=== PATIENT | male | born 1945 | race Caucasian/White ===

== ENCOUNTER 2017-12-07 09:30 | Emergency (ER) | payer OTHER, MEDICARE ==
--- OUTSIDE RECORDS SUMMARY | 2017-12-07 09:34 | XMS REPORT | Clinical Summary ---
:1945 Author Organization [facility] Address [address] [place] [address] Care Team Providers Name Role Phone Tuan Loya DO Primary Care Provider Allergies Active Allergy Reactions Severity Noted Date Comments Adhesive Tape-Silicones Rash Low 06/11/2016 Magnesium Citrate Swelling 06/11/2016 Current Medications Prescription Sig. Disp. Refills Start Date End Date Status B complex with Take 1 capsule Active C#20-folic acid 1 by mouth daily. mg capsule magnesium oxide Take 400 mg by Active 400 mg capsule mouth nightly. mexiletine Take 150 mg by Active (MEXITIL) 150 MG mouth every 8 capsule (eight) hours. docusate sodium Take 200 mg by Active (COLACE) 100 MG mouth 2 (two) capsule times a day. cholecalciferol, Take 2,000 Units Active vitamin D3, by mouth daily. (VITAMIN D3) 2,000 chewables unit capsule capsule ascorbic acid, Chew. Active vitamin C, 500 mg tablet,chewable esomeprazole Take 40 mg by Active (NexIUM) 40 MG mouth daily capsule before breakfast. aspirin (ECOTRIN) Take 81 mg by Active 81 MG enteric mouth daily. coated tablet furosemide (LASIX) Take 40 mg by Active 40 mg tablet mouth daily. 3rd time if needed metoprolol Take 50 mg by Active tartrate mouth 2 (two) (LOPRESSOR) 50 mg times a day. tablet fenofibrate Take 1 tablet 90 tablet 3 02/24/2017 Active (LOFIBRA) 160 MG (160 mg total) tablet by mouth nightly. pravastatin Take 1 tablet 90 tablet 3 05/04/2017 Active (PRAVACHOL) 80 MG (80 mg total) by tablet mouth daily. amIODarone Take 1 tablet 90 tablet 3 05/12/2017 Active (PACERONE) 400 MG (400 mg total) 9 tablet by mouth daily. fluticasone Inhale 2 puffs 2 Active (FLOVENT HFA) 220 (two) times a mcg/actuation day. inhaler dicyclomine Take 20 mg by Active (BENTYL) 20 mg mouth 3 (three) tablet times a day. albuterol (PROAIR Inhale 2 puffs Active HFA,PROVENTIL every 6 (six) HFA,VENTOLIN HFA) hours as needed 90 mcg/actuation for wheezing. inhaler leuprolide acetate Inject into the Active (LUPRON DEPOT-PED, shoulder, thigh, 3 MONTH, IM) or buttocks. denosumab (XGEVA) Inject 120 mg Active 120 mg/1.7 mL (70 under the skin mg/mL) solution once. injection metoprolol TAKE 1 TABLET BY 180 tablet 0 11/24/2017 Active tartrate MOUTH TWICE (LOPRESSOR) 50 mg DAILY tablet ELIQUIS 5 mg TAKE 1 TABLET BY 60 tablet 0 11/24/2017 Active tablet MOUTH TWICE DAILY. ezetimibe (ZETIA) TAKE 1 TABLET BY 90 tablet 0 11/24/2017 Active 10 mg tablet MOUTH NIGHTLY. apixaban (ELIQUIS) Take 1 tablet 180 tablet 3 06/24/2016 Discontinued 2.5 mg (2.5 mg total) 7 tabletIndications: by mouth 2 (two) Coronary artery times a day. disease involving [place] heart with angina pectoris, unspecified vessel or lesion type (HCC), Abdominal aortic aneurysm (AAA) without rupture (HCC) dicyclomine Take 20 mg by 07/28/2016 Discontinued (BENTYL) 20 mg mouth 3 (three) 8 tablet times a day as needed. Sometimes takes 3 times a day albuterol (PROAIR Inhale 2 puffs Discontinued HFA,PROVENTIL every 6 (six) 8 HFA,VENTOLIN HFA) hours as needed 90 mcg/actuation for wheezing or inhaler shortness of breath (for difficulty breathing). amIODarone 200 mg daily. 08/20/2016 Discontinued (PACERONE) 200 MG 8 tablet fenofibrate Take 160 mg by 10/03/2016 Discontinued (LOFIBRA) 160 MG mouth nightly. 8 tablet furosemide (LASIX) three times a 3 09/29/2016 Discontinued 40 mg tablet day 7 FLOVENT HFA 110 INL 2 PFS PO BID 11 09/13/2016 Discontinued mcg/actuation 7 inhaler clopidogrel Take 1 tablet 30 tablet 3 11/07/2016 (PLAVIX) 75 mg (75 mg total) by 7 tablet mouth daily for 30 days. pantoprazole Take 1 tablet 30 tablet 0 11/07/2016 (PROTONIX) 40 MG (40 mg total) by 7 EC tablet mouth daily for 30 days. pravastatin TK 1 T PO QD 3 11/10/2016 Discontinued (PRAVACHOL) 80 MG 8 tablet IRON FUM/VIT Take by mouth. Discontinued C/ASCORBATE SOD 8 (IRON PLUS VITAMIN C ORAL) metoprolol Take 1 tablet 180 tablet 3 11/21/2016 Discontinued tartrate (50 mg total) by 8 (LOPRESSOR) 50 mg mouth 2 (two) tablet times a day for 30 days. ezetimibe (ZETIA) Take 1 tablet 90 tablet 3 12/01/2016 Discontinued 10 mg tablet (10 mg total) by 8 mouth nightly. apixaban (ELIQUIS) Take 5 mg by Discontinued 5 mg tablet mouth 2 (two) 8 times a day. fluticasone Inhale 1 puff 2 Discontinued (FLOVENT HFA) 220 (two) times a 8 mcg/actuation day as needed. inhaler ELIQUIS 5 mg TAKE 1 TABLET BY 60 tablet 0 08/07/2017 Discontinued tablet MOUTH TWICE 8 DAILY. ELIQUIS 5 mg TAKE 1 TABLET BY 60 tablet 0 10/27/2017 Discontinued tablet MOUTH TWICE 8 DAILY. Active Problems Problem Noted Date S/P mitral valve repair 12/02/2016 Overview: Transcatheter mitral valve repair, percutaneous approach including transseptal puncture. Atrial fibrillation (HCC) 11/24/2016 Mitral valve disease 11/24/2016 Acute blood loss as cause of postoperative anemia 11/03/2016 Acute respiratory insufficiency, postoperative 11/03/2016 CKD (chronic kidney disease) 09/01/2016 Dizzy 09/01/2016 Carotid bruit 09/01/2016 Hyperkalemia 08/24/2016 ARNOLD (acute kidney injury) ([facility]) 08/24/2016 V-tach ([facility]) 08/15/2016 Cardiomyopathy ([facility]) 08/05/2016 Chronic kidney disease, stage III (moderate) ([facility]) 07/26/2016 COPD (chronic obstructive pulmonary disease) ([facility]) 07/26/2016 History of prostate cancer 07/26/2016 Near syncope 07/26/2016 GERD (gastroesophageal reflux disease) 07/26/2016 Anemia 07/26/2016 Defibrillator discharge 07/25/2016 Paroxysmal atrial fibrillation ([facility]) 06/05/2016 Systolic congestive heart failure ([facility]) 06/05/2016 PAD (peripheral artery disease) ([facility]) 02/05/2016 Abdominal aortic aneurysm (AAA) ([facility]) 01/02/2016 Essential hypertension 01/02/2016 Hyperlipidemia 01/02/2016 Presence of stent in coronary artery 01/02/2016 Chronic systolic heart failure ([facility]) 01/02/2016 Urethral stricture 11/27/2011 Malignant neoplasm of prostate ([facility]) 11/19/2010 Myocardial infarct ([facility]) 08/30/2000 Encounters Date Type Specialty Care Team Description 11/24/2017 Refill Cardiology Jr Lester Refill MD Teri 11/23/2017 Refill Cardiology Jr Lester MD 11/17/2017 Office Visit Cardiology Jr Lester Presence of stent in coronary artery (Primary Dx); MD Teri Chronic systolic heart failure; Paroxysmal atrial fibrillation; Mitral valve disease 11/10/2017 Multidisciplinary Visit Cardiology Rosey, Mitral valve disorder (Primary Dx); [place] S/P mitral valve clip implantation 10/26/2017 Refill Cardiology Jr Lester MD 09/02/2017 Orders Only Cardiology Annalee Cantrell, S/P mitral valve MA clip implantation (Primary Dx) 08/07/2017 Refill Cardiology Jr Lester MD 07/15/2017 Hospital Encounter Procedural Yanique Morrison Atrial fibrillation, Cardiology MD Loyd unspecified type 07/15/2017 Anesthesia Event Procedural Claribel Obrien CRNA 07/15/2017 Procedure Pass Procedural Cardiology 07/15/2017 Surgery Procedural Yanique Morrison Ep cardioversion Claribel Harp MD [24511 (CPT)] 05/27/2017 Hospital Encounter Radiology Nicolas Sánchez Prostate cancer MD Horacio 05/14/2017 Transcribe Orders Radiology Nicolas Sánchez Prostate cancer MD Horacio (Primary Dx) 05/12/2017 Office Visit Cardiology Jr Lester Dizzfili (Primary Dx); MD Teri Systolic congestive heart failure, unspecified congestive heart failure chronicity; Atrial fibrillation, unspecified type 05/12/2017 Telephone Cardiology Waqar Aleman MA Results (echo) 05/04/2017 Orders Only Cardiology Waqar Aleman MA 02/24/2017 Refill Cardiology Margaret, Med Refill NA Aguilar 02/17/2017 Office Visit Cardiology Jr Lester Mitral valve disease MD Teri (Primary Dx) 12/12/2016 Hospital Encounter Procedural Yanique Morrison Atrial fibrillation, Cardiology MD Loyd unspecified type 12/12/2016 Anesthesia Event Procedural Dharmesh Brice Cardiology CRNA 12/12/2016 Procedure Pass Procedural Cardiology 12/12/2016 Procedure Pass Procedural Cardiology 12/12/2016 Surgery Procedural Yanique Morrison Ep cardioversion w Cardiology MD Loyd tadeo [40039 (CPT)] 12/09/2016 Transcribe Orders Procedural Yanique Morrison Jr., MD 12/09/2016 Transcribe Orders Procedural Yanique Morrison Jr., MD 12/08/2016 Lab Lab Yanique Morrison Atrial fibrillation, unspecified type ( Primary Dx); MD Loyd Long-term (current) use of anticoagulants after 12/06/2016 Family History Medical History Relation Name Comments Heart attack Father Basal cell carcinoma Mother Heart attack Mother Coronary artery disease Other Family Hx Relation Name Status Comments Father Mother Other Family Hx Social History Tobacco Use Types Packs/Day Years Used Date Current Every Day Smoker Cigarettes 0.5 Started: 06/11/2016 Smokeless Tobacco: Never Used Alcohol Use Drinks/Week oz/Week Comments Yes occasional Sex Assigned at Date Recorded Not on file Last Filed Vital Signs Vital Sign Reading Time Taken Blood Pressure 140/66 11/17/2017 10:53 AM CDT Pulse 57 11/17/2017 10:53 AM CDT Temperature 37 C (98.6 F) 11/10/2017 12:52 PM CDT Respiratory Rate 18 11/10/2017 12:52 PM CDT Oxygen Saturation 94% 07/15/2017 8:35 AM CDT Inhaled Oxygen Concentration - - Weight 118 kg (260 lb) 11/17/2017 10:53 AM CDT Height 182.9 cm (6') 11/17/2017 10:53 AM CDT Body Mass Index 35.26 11/17/2017 10:53 AM CDT Plan of Treatment Date Type Specialty Care Team Description 05/18/2018 Office Visit Cardiology Jr Lester MD [address] [facility] [address] [place] [phone] Health Maintenance Due Date Last Done Comments COLON CANCER SCREENING 1993 SHINGRIX VACCINE (#1) 1993 ZOSTER VACCINE 2003 PNEUMOCOCCAL POLYSACCHARIDE VACCINE AGE 65 AND OVER 2008 PNEUMOCOCCAL-13 2008 INFLUENZA VACCINE 09/23/2017 Implants Implanted Type Area Vp & General Counsel Device Expiration Model / Identifier Date Serial / Lot Kit Mitraclip System (2 Clip) - [id number] Cardiovascular DOMINGUEZ [id number] / Implanted: Qty: 1 on 11/03/2016 by Jim Chinchilla MD Implants VASCULAR / DEVICES Kit Prcrdocnts Perivac - [id number] Central Venous N/A: [place] [id number] / Implanted: 11/03/2016 (Quantity not on file) Catheters N/A SCIENTIFIC / MARIS Defibrillator Icd Devices-03/28/2014 Defibrillator ICD [id number] / Implanted: 03/28/2014 by Yanique Morrison Jr., MD (Quantity not on file) Devices [id number] / Med[employer] Procedures Procedure Name Priority Date/Time Associated Diagnosis Comments ECG 12-LEAD Routine 11/10/2017 12:57 Mitral valve disorder Results for this PM CDT procedure are in the results section. ECHOCARDIOGRAM 2D Routine 11/10/2017 11:40 S/P mitral valve clip Results for this COMPLETE W MMODE AM CDT implantation procedure are in SPECTRAL COLOR DOPPLER the results (78773) section. BASIC METABOLIC PANEL Routine 11/05/2017 11:44 S/P mitral valve Results for this AM CDT repair procedure are in the results section. CBC WITH PLATELET AND Routine 11/05/2017 11:44 S/P mitral valve Results for this DIFFERENTIAL AM CDT repair procedure are in the results section. ECG 12-LEAD STAT 07/15/2017 8:39 Results for this AM CDT procedure are in the results section. EP CARDIOVERSION Routine 07/15/2017 8:07 Atrial fibrillation, Results for this AM CDT unspecified type procedure are in the results section. ECG PRE/POST OP Routine 07/15/2017 7:30 Results for this AM CDT procedure are in the results section. PET CT AXUMIN Routine 05/27/2017 2:12 Prostate cancer Results for this PM CDT procedure are in the results section. ECG 12-LEAD Routine 05/12/2017 9:44 Dizzy Results for this AM CDT procedure are in the results section. ECHOCARDIOGRAM 2D Routine 05/04/2017 11:34 Mitral valve disease Results for this COMPLETE W MMODE AM CDT procedure are in SPECTRAL COLOR DOPPLER the results (05715) section. EP CARDIOVERSION W TADEO Routine 12/12/2016 9:36 Atrial fibrillation, Results for this AM CDT unspecified type procedure are in the results section. ECG 12-LEAD STAT 12/12/2016 9:20 Results for this AM CDT procedure are in the results section. ECHOCARDIOGRAM Routine 12/12/2016 7:27 Results for this TRANSESOPHAGEAL AM CDT procedure are in the results section. ECG 12-LEAD STAT 12/12/2016 6:22 Results for this AM CDT procedure are in the results section. SMEAR REVIEW STAT 12/08/2016 2:39 Results for this PM CDT procedure are in the results section. ZZESTIMATED GFR STAT 12/08/2016 2:39 Results for this PM CDT procedure are in the results section. MAGNESIUM LEVEL STAT 12/08/2016 2:39 Atrial fibrillation, Results for this PM CDT unspecified type procedure are in Long-term (current) the results use of anticoagulants section. COMPREHENSIVE METABOLIC STAT 12/08/2016 2:39 Atrial fibrillation, Results for this PANEL PM CDT unspecified type procedure are in Long-term (current) the results use of anticoagulants section. PARTIAL THROMBOPLASTIN STAT 12/08/2016 2:39 Atrial fibrillation, Results for this TIME (PTT) PM CDT unspecified type procedure are in Long-term (current) the results use of anticoagulants section. PROTHROMBIN TIME WITH STAT 12/08/2016 2:39 Atrial fibrillation, Results for this INR PM CDT unspecified type procedure are in Long-term (current) the results use of anticoagulants section. HC COMPLETE BLD COUNT STAT 12/08/2016 2:39 Atrial fibrillation, Results for this W/AUTO DIFF PM CDT unspecified type procedure are in Long-term (current) the results use of anticoagulants section. after 12/06/2016 Results ECG 12 lead (11/10/2017 12:57 PM)Only the most recent of5 resultswithin the time period is included. Ventricular rate 60 [facility] Atrial rate 60 [facility] AK interval 256 [facility] QRSD interval 94 [facility] QT interval 456 [facility] QTC interval 456 [facility] P axis 1 27 [facility] QRS axis 1 0 [facility] T wave axis 89 [facility] EKG impression Sinus rhythm with 1st degree AV block with premature atrial complexes-Nonspecific T wave abnormality-Abnormal ECG-In automated comparison with ECG of 15-JUL-2017 08:39,-premature atrial complexes are now present- Questionable change in QRS [facility] axis- Performing Organization Address City/State/Zipcode Phone Number [facility] [address] [place] [address] Echocardiogram complete w contrast and 3D if needed (11/10/2017 11:40 AM) Narrative Performed At [facility] Echocardiography Report Pat.Name:ÓSCAR TELLO.ID:[id number] .Date: 11/10/2017 Refer.MD:GLEN CHRISTIANSON MD Exam Time: 10:59:00 AM Study Type:Routine Echo Height:74inWeight: 240lb BSA: 2.35 m2 DOBAge:1945,72Y Sex: MALEBP:115/61 HR:52 bpm Sonogrphr: JELENA Hartmann FASE Pat. Stat.:OutpatientRoom:[place] [address] Study Status:Final Echo Event ID:[id number] Order ID:[id number] Reason for Study:Prosthetic valve, no dysfunction -Routine (<3yr) History / Clinical:Smoker, Aortic Aneurysm, Atrial Fibrillation, COPD, Cancer, Congestive Heart Failure, Diabetes, Dyspnea On Exertion, Hyperlipidemia, Hypertension, Obesity, Valvular Heart Disease; Mitral Regurgitaiton Procedures:2D Echo, Colorflow Doppler Race:C SUMMARY: LV EF is moderately to severely depressed. Estimated EF is 30-34%. RV systolic function is normal. MitraClip noted within the mitral valve. Mild mitral regurgitation. Borderline elevated velocity and gradient across the mitral clip. FINDINGS: LV: LV size is mildly enlarged. LV EF is moderately to severely depressed.Estimated EF is 30-34%. Septal motion is paradoxical. RV: RV size is normal. A pacemaker wire is seen in the RV. RV systolicfunction is normal. LA: LA volume is severely enlarged. RA: RA volume is enlarged. A pacemaker wire is seen. AO: Aortic root diameter is upper limits of normal in size. Calcificationsin ascending aorta. KEY: No pericardial effusion. There is an anterior space consistentwith a prominent epicardial fat pad. AV: Mild thickening and calcification of AV leaflets. Focal calcificationof AV leaflets. A trace of aortic regurgitation. MV: MitraClip noted within the mitral valve. Mild mitral annular calcification.Calcified papillary muscle. Mild mitral regurgitation.Eccentric mitral regurgitant jet directed posteriorlyand laterally. Estimated mean mitral valve gradient4 mmHg at a heart rate of 54 b/min (prior TTE date05/04/17- Mean G 4 mm Hg @ HR 76 bpm). Borderline elevatedvelocity and gradient across the mitral clip. PV: Pulmonic valve not well seen. A trace of pulmonic regurgitation. TV: Tricuspid valve not well seen. A trace of tricuspid regurgitation Other:Insufficient TR jet to estimate PA systolic pressure. MEASUREMENTS: 2D Parasternal [place] LVOT 2.2 cmLA Ds5.6 cm LVIDd6.2 cmIndex2.7 cm/m Ao An2.2 cm LVIDs5.3 cmAo Rtd 4.2 cm Index1.8 cm/m LV%fs 14.5 % LV Qryk819.6 g(122-174) IVSd 1.4 cmLVM Difke143.8 g/m2 LVPWd0.9 cmRWT0.3 LV EF Biplane JJNSQ126 ml (65-193) Sjavl553.5 ml/m LV SV 88.8 ml ZFIVV366.2 otIbipx81.7 ml/m LV EF 33 %(63-77) LA Sng Plane LA Area 32.6 cm2(8.8-23.4) LA Vol 125.2 ml Index53.3 ml/m LA LngAx 7 cm RA Sng Plane RA Area 28 cm2(8.3-19.5) RA Vol97.9 ml Index41.7 ml/m RA LngAx 6.9 cm Aorta Ao Asc 3.4 cm (2.1-3.4) DOPPLER LVOT Stroke Vol LVOT 2.2 cmLVOT CO5 l/min LVOT TVI24.4 cmLVOT CI2.1 l/m/m2 LVOT Tm360 umafYX53 bpm LVOT SV 92.8 ml MV For Flow/Valve Assess MV pkVel 189.9 cm/sMV Dec T 278 msec MV pkPG 14.4 mmHgMV TVI49.1 cm MV Mean G3.8 mmHgMV Area P1/2t2.7 cm2(4-6) WALL MOTION: RESTING WALL MOTION: Basal Inferior, Basal Inferolateral, Mid Inferior, Mid Inferolateral bailey are akinetic.Basal Anterior, Basal Anteroseptal, Basal Inferoseptal, Basal Anterolateral, Mid Anterior, Mid Anteroseptal, Mid Inferoseptal, Mid Anterolateral, Apical Anterior, Apical Septal, Apical Inferior, Apical Lateral, Apical bailey are hypokinetic. Wall Index=2.2 Signed 11/11/2017 05:59 PM Bren Hanson MD Procedure Note Interface, Radiology Results In - 11/11/2017 6:00 PM CDT [facility] Echocardiography Report Pat.Name: ÓSCAR TELLO Pat.ID: [id number] .Date: 11/10/2017 Refer.MD: GLEN CHRISTIANSON MD Exam Time: 10:59:00 AM Study Type:Routine Echo Height: 74in Weight: 240lb BSA: 2.35 m2 Age: 1 1945,72Y Sex: MALE BP: 115/61 HR: 52 bpm Sonogrphr: JELENA Hartmann FASE Pat. Stat.:Outpatient Room: [place] [address] Study Status:Final Echo Event ID:[id number] Order ID: [id number] Reason for Study:Prosthetic valve, no dysfunction -Routine (<3yr) History / Clinical:Smoker, Aortic Aneurysm, Atrial Fibrillation, COPD, Cancer, Congestive Heart Failure, Diabetes, Dyspnea On Exertion, Hyperlipidemia, Hypertension, Obesity, Valvular Heart Disease; Mitral Regurgitaiton Procedures:2D Echo, Colorflow Doppler Race: C SUMMARY: LV EF is moderately to severely depressed. Estimated EF is 30-34%. RV systolic function is normal. MitraClip noted within the mitral valve. Mild mitral regurgitation. Borderline elevated velocity and gradient across the mitral clip. FINDINGS: LV: LV size is mildly enlarged. LV EF is moderately to severely depressed. Estimated EF is 30-34%. Septal motion is paradoxical. RV: RV size is normal. A pacemaker wire is seen in the RV. RV systolic function is normal. LA: LA volume is severely enlarged. RA: RA volume is enlarged. A pacemaker wire is seen. AO: Aortic root diameter is upper limits of normal in size. Calcifications in ascending aorta. KEY: No pericardial effusion. There is an anterior space consistent with a prominent epicardial fat pad. AV: Mild thickening and calcification of AV leaflets. Focal calcification of AV leaflets. A trace of aortic regurgitation. MV: MitraClip noted within the mitral valve. Mild mitral annular calcification. Calcified papillary muscle. Mild mitral regurgitation. Eccentric mitral regurgitant jet directed posteriorly and laterally. Estimated mean mitral valve gradient 4 mmHg at a heart rate of 54 b/min (prior TTE dated 05/04/17- Mean G 4 mm Hg @ HR 76 bpm). Borderline elevated velocity and gradient across the mitral clip. PV: Pulmonic valve not well seen. A trace of pulmonic regurgitation. TV: Tricuspid valve not well seen. A trace of tricuspid regurgitation Other: Insufficient TR jet to estimate PA systolic pressure. MEASUREMENTS: 2D Parasternal [place] LVOT 2.2 cm LA Ds 5.6 cm LVIDd 6.2 cm Index 2.7 cm/m Ao An 2.2 cm LVIDs 5.3 cm Ao Rtd 4.2 cm Index 1.8 cm/m LV%fs 14.5 % LV Mass 321.6 g (122-174) IVSd 1.4 cm LVM Index 136.8 g/m2 LVPWd 0.9 cm RWT 0.3 LV EF Biplane LVEDV 269 ml (65-193) Index 114.5 ml/m LV SV 88.8 ml LVESV 180.2 ml Index 76.7 ml/m LV EF 33 % (63-77) LA Sng Plane LA Area 32.6 cm2 (8.8-23.4) LA Vol 125.2 ml Index 53.3 ml/m LA LngAx 7 cm RA Sng Plane RA Area 28 cm2 (8.3-19.5) RA Vol 97.9 ml Index 41.7 ml/m RA LngAx 6.9 cm Aorta Ao Asc 3.4 cm (2.1-3.4) DOPPLER LVOT Stroke Vol LVOT 2.2 cm LVOT CO 5 l/min LVOT TVI 24.4 cm LVOT CI 2.1 l/m/m2 LVOT Tm 360 msec HR 54 bpm LVOT SV 92.8 ml MV For Flow/Valve Assess MV pkVel 189.9 cm/s MV Dec T 278 msec MV pkPG 14.4 mmHg MV TVI 49.1 cm MV Mean G 3.8 mmHg MV Area P1/2t 2.7 cm2 (4-6) WALL MOTION: RESTING WALL MOTION: Basal Inferior, Basal Inferolateral, Mid Inferior, Mid Inferolateral bailey are akinetic. Basal Anterior, Basal Anteroseptal, Basal Inferoseptal, Basal Anterolateral, Mid Anterior, Mid Anteroseptal, Mid Inferoseptal, Mid Anterolateral, Apical Anterior, Apical Septal, Apical Inferior, Apical Lateral, Apical bailey are hypokinetic. Wall Index=2.2 Signed 11/11/2017 05:59 PM Bern Hanson MD Performing Organization Address City/State/Zipcode Phone Number [facility] [address] [place] [address] CBC with platelet and differential (11/05/2017 11:44 AM)Only the most recent of2 resultswithin the time period is included. WBC 8.4 3.8 - 10.8 Thousand/uL [facility] ISSUE RBC 4.49 4.20 - 5.80 Million/uL [facility] ISSUE HGB 12.9 (L) 13.2 - 17.1 g/dL [facility] ISSUE HCT 39.1 38.5 - 50.0 % [facility] ISSUE MCV 87.1 80.0 - 100.0 fL [facility] ISSUE MCH 28.7 27.0 - 33.0 pg [facility] ISSUE MCHC 33.0 32.0 - 36.0 g/dL [facility] ISSUE RDW 13.4 11.0 - 15.0 % [facility] [employer] ISSUE Platelet count 312 140 - 400 Thousand/uL [facility] [employer] ISSUE MPV 10.6 7.5 - 12.5 fL [facility] ISSUE Neutrophils, absolute 4,738 1,500 - 7,800 cells/uL [facility] ISSUE Lymphocytes, absolute 2,470 850 - 3,900 cells/uL [facility] ISSUE Monocytes, absolute 857 200 - 950 cells/uL [facility] [employer] ISSUE Eosinophils, absolute 277 15 - 500 cells/uL [facility] [employer] ISSUE Basophils, absolute 59 0 - 200 cells/uL [facility] ISSUE Neutrophils 56.4 % [facility] Lymphocytes 29.4 % [employer] ISSUE Monocytes 10.2 % [facility] [facility] ISSUE Eosinophils 3.3 % [facility] ISSUE Basophils + RC 0.7 % [facility] ISSUE Specimen Blood Narrative Performed At FASTING:NO [facility] FASTING: NO Other Results Text Performing Organization Information: Site ID: [id number] Name: [facility] Address: [address] [place] [id number] Director: Lisa Sheridan Performing Organization Address City/State/Zipcode Phone Number [facility] [address] [address] Basic metabolic panel (11/05/2017 11:44 AM) Glucose 95 65 - 139 mg/dL [facility] Comment: ISSUE Non-fasting reference interval BUN, whole blood 31 (H) 7 - 25 mg/dL [facility] ISSUE Creatinine 1.94 (H) 0.70 - 1.18 [facility] Comment: mg/dL ISSUE For patients >49 years of age, the reference limit for Creatinine is approximately 13% higher for people identified as -Moroccan. EGFR Non-Afr. Moroccan 33 (L) > OR=60 [facility] mL/min/1.73m2 ISSUE EGFR 38 (L) > OR=60 [facility] mL/min/1.73m2 ISSUE BUN/creatinine ratio 16 6 - 22 (calc) [facility] ISSUE Sodium 137 135 - 146 mmol/L [facility] ISSUE Potassium 4.6 3.5 - 5.3 mmol/L [facility] ISSUE Chloride 99 98 - 110 mmol/L [facility] ISSUE CO2 30 20 - 32 mmol/L [facility] ISSUE Calcium 9.8 8.6 - 10.3 mg/dL [facility] ISSUE Specimen Blood Narrative Performed At FASTING:NO [facility] FASTING: NO Other Results Text Performing Organization Information: Site ID: [id number] Name: [facility] Address: [address] [place] [address] Director: Lisa Sheridan Performing Organization Address [facility]/Zipcode Phone Number [facility] [address] [place] [address] Cv electrophysiology procedure (07/15/2017 8:07 AM) Narrative Performed At Yanique Morrison Jr., MD Physician Signed CardiologyBrief Op Note Date of CUPID Service: 07/15/2017 8:03 AM Case Time: 07/15/2017 8:03 AM Surgeon: Yanique Morrison Jr., MD Procedure: Ep cardioversion Location: [facility] [place] Invasive Location []Hide copied text []Hover for attribution information Cardioversion Operative Note Óscar Tello,[id number] 72 y.o. male 07/15/2017; [facility] CARD [facility] 8 PROCEDURE ROOM 14 Procedure(s): Ep cardioversion Tolerated procedure well Condition: stable Complications:None; patient tolerated the procedure well. Findings: The patient was identified and consent reconfirmed prior to the procedure The baseline rhythm was atrial fibrillation Anesthesia was given When the patient was adequately sedated, synchronized DC CVN wasperformed converting the patient to sinus The patient awoke without sequelae Procedure Details Pre-op Diagnosis: Atrial fibrillation, unspecified type [I48.91] Post-Op Diagnosis Codes: * Atrial fibrillation, unspecified type [I48.91] Surgeon(s) and Role: * Yanique Morrison Jr., MD - Primary Anesthesia: General Blood Products Administered: Estimated Blood Loss: * No values recorded between 07/15/20178:03 AM and 07/15/20178:07 AM * Sheath/IV: Specimens: * No specimens in log * Grafts/Implants: None Conclusions:Successful CVN Recommendations: Continue current meds and follow up in 4 weeks Yanique Morrison Jr., MD Date: 07/15/2017Time: 8:20 AM Performing Organization Address [facility]/Zipcode Phone Number [facility] [address] [place] [address] ECG Pre/Post Op (07/15/2017 7:30 AM) Ventricular rate 87 [facility] Atrial rate 100 [facility] QRSD interval 100 [facility] QT interval 416 [facility] QTC interval 500 [facility] MUSE QRS axis 1 82 [facility] T wave axis 9 [facility] EKG impression Atrial fibrillation-Low voltage QRS-Prolonged QT-Abnormal ECG- In automated comparison with ECG of 12-MAY-2017 09:44,-Borderline criteria for Inferior infarct are no longer qqllyik-Fuc-inygvivt change in [facility] MUSE ST segment in Inferior leads-Nonspecific T wave abnormality, improved in Lateral leads- Performing Organization Address City/State/Zipcode Phone Number [facility] MUSE [address] [place] [address] PET/CT Axumin (05/27/2017 2:12 PM) Narrative Performed At PROCEDURE:PET CT AXUMIN RADIANT INDICATION: C61 Malignant neoplasm of prostate, PROSTATE CA C61 TECHNIQUE:The patient was then injected with 10 mCi of 18F-fluciclovine, IV.Approximately 3-5 minutes later, PET images were acquired from the skull base to the mid thighs. Corresponding, low dose, non-contrast CT scanning was performed as part of the attenuation correction process.Automated dose exposure control was utilized. COMPARISON: No relevant comparison examinations FINDINGS: Head and neck:No suspicious tracer avid lesions are identified in the imaged head and neck. Chest:There are several tiny bilateral pulmonary nodules measuring up to 5 mm in size, none demonstrating any detectable tracer uptake. There is a juxtapleural lesion in the posteromedial right lung base in close proximity to the right transverse process of the T11 vertebra demonstrating mild amino acid uptake with an SUV of 2.2. Slightly prominent mediastinal lymph nodes demonstrate no focal tracer uptake. No abnormal tracer uptake is seen in the doyle. There are no suspicious axillary lesions. Bony lesions are described in the section below. Abdomen:Diffuse tracer uptake throughout the liver, pancreas, and bowel is physiological. No abnormal focal activity is seen in the spleen and adrenals. No tracer avid retroperitoneal or mesenteric lymphadenopathy is seen. Pelvis:There are several perirectal nodular lesions in the presacral region measuring up to 1.1 cm in long axis demonstrating abnormal tracer uptake with SUVs reaching up to 6.1. Regional bowel metabolism is diffusely prominent likely representing physiologic activity. Postoperative changes of prostatectomy demonstrate no focal areas of abnormal tracer uptake. Musculoskeletal: There is a subtle density within the medullary compartment of the T5 vertebral body demonstrating marked tracer uptake with an SUV of 10.7. Mild focal tracer uptake is seen in the anterior T8 vertebral body with an SUV of 3.2. Abnormal focus in the L3 vertebra near the left pedicle demonstrates an SUV of 4.8. Subtle lesion in the right L5 vertebral body demonstrates marked uptake with an SUV of 10.4. There is focal tracer uptake in the right iliac bone with an SUV of 4.1 and to a lesser degree in the contralateral side with an SUV of 2.4. Mild focus in the right sacrum demonstrates an SUV of 3.1. Diffuse mild activity surrounding the right acetabulofemoral joint favors inflammation. IMPRESSION: 1.Several discrete perirectal lesions demonstrate abnormal amino acid transport activity, compatible with recurrent prostate cancer. 2.Multiple osseous lesions in the spine and bony pelvis demonstrate varying degrees of abnormal amino acid transport activity, consistent with bony metastases. 3.A juxtapleural lesion in the posteromedial right lung base demonstrates mild tracer uptake, highly suspicious of a metastasis. 4.Several tiny bilateral pulmonary nodules are present with none demonstrating any detectable tracer uptake; however many of these lesions fall below the detection threshold of PET and early metastases are suspected. 5.Slightly prominent mediastinal lymph nodes are present without detectable tracer uptake, equivocal for metastatic involvement. [facility]-[id number] Procedure Note [facility], Radiology Results - 05/27/2017 3:46 PM CDT PROCEDURE: PET CT AXUMIN INDICATION: C61 Malignant neoplasm of prostate, PROSTATE CA C61 TECHNIQUE: The patient was then injected with 10 mCi of 18F-fluciclovine, IV. Approximately 3-5 minutes later, PET images were acquired from the skull base to the mid thighs. Corresponding, low dose, non-contrast CT scanning was performed as part of the attenuation correction process. Automated dose exposure control was utilized. COMPARISON: No relevant comparison examinations FINDINGS: Head and neck: No suspicious tracer avid lesions are identified in the imaged head and neck. Chest: There are several tiny bilateral pulmonary nodules measuring up to 5 mm in size, none demonstrating any detectable tracer uptake. There is a juxtapleural lesion in the posteromedial right lung base in close proximity to the right transverse process of the T11 vertebra demonstrating mild amino acid uptake with an SUV of 2.2. Slightly prominent mediastinal lymph nodes demonstrate no focal tracer uptake. No abnormal tracer uptake is seen in the doyle. There are no suspicious axillary lesions. Bony lesions are described in the section below. Abdomen: Diffuse tracer uptake throughout the liver, pancreas, and bowel is physiological. No abnormal focal activity is seen in the spleen and adrenals. No tracer avid retroperitoneal or mesenteric lymphadenopathy is seen. Pelvis: There are several perirectal nodular lesions in the presacral region measuring up to 1.1 cm in long axis demonstrating abnormal tracer uptake with SUVs reaching up to 6.1. Regional bowel metabolism is diffusely prominent likely representing physiologic activity. Postoperative changes of prostatectomy demonstrate no focal areas of abnormal tracer uptake. Musculoskeletal: There is a subtle density within the medullary compartment of the T5 vertebral body demonstrating marked tracer uptake with an SUV of 10.7. Mild focal tracer uptake is seen in the anterior T8 vertebral body with an SUV of 3.2. Abnormal focus in the L3 vertebra near the left pedicle demonstrates an SUV of 4.8. Subtle lesion in the right L5 vertebral body demonstrates marked uptake with an SUV of 10.4. There is focal tracer uptake in the right iliac bone with an SUV of 4.1 and to a lesser degree in the contralateral side with an SUV of 2.4. Mild focus in the right sacrum demonstrates an SUV of 3.1. Diffuse mild activity surrounding the right acetabulofemoral joint favors inflammation. IMPRESSION: 1. Several discrete perirectal lesions demonstrate abnormal amino acid transport activity, compatible with recurrent prostate cancer. 2. Multiple osseous lesions in the spine and bony pelvis demonstrate varying degrees of abnormal amino acid transport activity, consistent with bony metastases. 3. A juxtapleural lesion in the posteromedial right lung base demonstrates mild tracer uptake, highly suspicious of a metastasis. 4. Several tiny bilateral pulmonary nodules are present with none demonstrating any detectable tracer uptake; however many of these lesions fall below the detection threshold of PET and early metastases are suspected. 5. Slightly prominent mediastinal lymph nodes are present without detectable tracer uptake, equivocal for metastatic involvement. [facility]-[id number] Performing Organization Address City/State/Zipcode Phone Number [facility] [address] [place] [address] Echocardiogram complete w contrast and 3D if needed (05/04/2017 11:34 AM) Narrative Performed At [facility] Echocardiography Report Pat.Name:ELISHA ÓSCAR Albright.ID:[id number] .Date: 05/04/2017 Refer.MD:JR LESTER MD Exam Time: 9:53:00 AMStudy Type:Routine Echo Height:74inWeight: 250lb BSA: 2.39 m2 DOBAge:1945,72Y Sex: MALEBP:100/75 HR:80 bpmSonogrphr: Maximus Vega RDCS Pat. Stat.:OutpatientRoom:[place] [address] Echo Study Status:Final Echo Event ID:[id number] Order ID:[id number] Reason for Study:Mitral Valve Disease History / Clinical:Smoker, Aortic Aneurysm, Atrial Fibrillation, COPD, Cancer, Congestive Heart Failure, Diabetes, Dyspnea On Exertion, Hyperlipidemia, Hypertension, Obesity, Valvular Heart Disease; Mitral Regurgitaiton Procedures:2D Echo, Colorflow Doppler Race:C SUMMARY: LV size is moderately enlarged. EF=34%. Wall motion abnormalities present. Mitral clip noted. A trace of mitral regurgitation. Insignificant mitral stenosis. Estimated PA systolic pressure is 33 mmHg, assuming a mean RAP of 5 mmHg. FINDINGS: LV: LV size is moderately enlarged. LV EF is moderately to severelydepressed. EF=34%. RV: RV size is normal. A pacemaker wire is seen in the RV. RV systolicfunction is lower limits of normal. LA: LA volume is mild to moderately enlarged. RA: RA volume is severely enlarged. A pacemaker wire is seen. AO: Aortic root diameter is normal. KEY: No pericardial effusion. AV: No structural AV abnormalities noted. MV: Mitral clip noted. A trace of mitral regurgitation. Insignificantmitral stenosis. PV: No structural PV abnormalities noted. TV: No structural TV abnormalities noted. A trace of tricuspid regurgitation Other:Estimated PA systolic pressure is 33 mmHg, assuming a mean RAPof 5 mmHg. MEASUREMENTS: 2D Parasternal [place] LVOT 2.5 cmLA Ds5.2 cm LVIDd6.9 cmIndex2.9 cm/m Ao Rtd 4 cm Index1.7 cm/m LVIDs6.1 cm LV Gjva633.8 g(122-174) LV%fs 12 % LVM Gqfhc384.3 g/m2 IVSd 1.1 cmRWT0.3 LVPWd0.9 cm Left Ventricle LV EF 34 %(63-77) RA Sng Plane RA Area 32.5 cm2(8.3-19.5) RA Vol 128.8 ml Index53.9 ml/m RA LngAx 7.1 cm LA Biplane LA 4Ch Area 23.8 cm2 LA Vol92.6 ml Index38.7 ml/m LA 2Ch Area 31.3 cm2 DOPPLER LVOT For Flow LVOT Area4.9 cm2 LVOT SV 76.2 ml IHPIvnRgq719.1 cm/sHR88.8 bpm LVOTpkPG 4.3 mmHgLVOT CO6.8 l/min LVOTmnPG 1.9 mmHgLVOT CI2.8 l/m/m2 LVOT TVI15.5 cm MV For Flow/Valve Assess MV pkVel 191.6 cm/sMV Mean G3.7 mmHg MV pkPG 14.7 mmHgMV TVI30.4 cm WALL MOTION: RESTING WALL MOTION: Basal Inferior, Basal Inferolateral, Mid Inferior, Mid Inferolateral bailey are akinetic.Basal Anterior, Basal Anteroseptal, Basal Inferoseptal, Basal Anterolateral, Mid Anterior, Mid Anteroseptal, Mid Inferoseptal, Mid Anterolateral, Apical Anterior, Apical Septal, Apical Inferior, Apical Lateral, Apical bailey are hypokinetic. Wall Index=2.2 Signed 05/05/2017 10:15 AM Faustino Ingram M.D. Procedure Note Interface, Radiology Results In - 05/05/2017 10:15 AM CDT [facility] Echocardiography Report Pat.Name: ÓSCAR TELLO Pat.ID: [id number] .Date: 05/04/2017 Refer.MD: JR LESTER MD Exam Time: 9:53:00 AM Study Type:Routine Echo Height: 74in Weight: 250lb BSA: 2.39 m2 Age: 1 1945,72Y Sex: MALE BP: 100/75 HR: 80 bpm Sonogrphr: Maximus Vega RDCS Pat. Stat.:Outpatient Room: [place] [address] Echo Study Status:Final Echo Event ID:[id number] Order ID: [id number] Reason for Study:Mitral Valve Disease History / Clinical:Smoker, Aortic Aneurysm, Atrial Fibrillation, COPD, Cancer, Congestive Heart Failure, Diabetes, Dyspnea On Exertion, Hyperlipidemia, Hypertension, Obesity, Valvular Heart Disease; Mitral Regurgitaiton Procedures:2D Echo, Colorflow Doppler Race: C SUMMARY: LV size is moderately enlarged. EF=34%. Wall motion abnormalities present. Mitral clip noted. A trace of mitral regurgitation. Insignificant mitral stenosis. Estimated PA systolic pressure is 33 mmHg, assuming a mean RAP of 5 mmHg. FINDINGS: LV: LV size is moderately enlarged. LV EF is moderately to severely depressed. EF=34%. RV: RV size is normal. A pacemaker wire is seen in the RV. RV systolic function is lower limits of normal. LA: LA volume is mild to moderately enlarged. RA: RA volume is severely enlarged. A pacemaker wire is seen. AO: Aortic root diameter is normal. KEY: No pericardial effusion. AV: No structural AV abnormalities noted. MV: Mitral clip noted. A trace of mitral regurgitation. Insignificant mitral stenosis. PV: No structural PV abnormalities noted. TV: No structural TV abnormalities noted. A trace of tricuspid regurgitation Other: Estimated PA systolic pressure is 33 mmHg, assuming a mean RAP of 5 mmHg. MEASUREMENTS: 2D Parasternal [place] LVOT 2.5 cm LA Ds 5.2 cm LVIDd 6.9 cm Index 2.9 cm/m Ao Rtd 4 cm Index 1.7 cm/m LVIDs 6.1 cm LV Mass 313.8 g (122-174) LV%fs 12 % LVM Index 131.3 g/m2 IVSd 1.1 cm RWT 0.3 LVPWd 0.9 cm Left Ventricle LV EF 34 % (63-77) RA Sng Plane RA Area 32.5 cm2 (8.3-19.5) RA Vol 128.8 ml Index 53.9 ml/m RA LngAx 7.1 cm LA Biplane LA 4Ch Area 23.8 cm2 LA Vol 92.6 ml Index 38.7 ml/m LA 2Ch Area 31.3 cm2 DOPPLER LVOT For Flow LVOT Area 4.9 cm2 LVOT SV 76.2 ml LVOTpkVel 104.1 cm/s HR 88.8 bpm LVOTpkPG 4.3 mmHg LVOT CO 6.8 l/min LVOTmnPG 1.9 mmHg LVOT CI 2.8 l/m/m2 LVOT TVI 15.5 cm MV For Flow/Valve Assess MV pkVel 191.6 cm/s MV Mean G 3.7 mmHg MV pkPG 14.7 mmHg MV TVI 30.4 cm WALL MOTION: RESTING WALL MOTION: Basal Inferior, Basal Inferolateral, Mid Inferior, Mid Inferolateral bailey are akinetic. Basal Anterior, Basal Anteroseptal, Basal Inferoseptal, Basal Anterolateral, Mid Anterior, Mid Anteroseptal, Mid Inferoseptal, Mid Anterolateral, Apical Anterior, Apical Septal, Apical Inferior, Apical Lateral, Apical bailey are hypokinetic. Wall Index=2.2 Signed 05/05/2017 10:15 AM Faustino Ingram M.D. Performing Organization Address City/State/Zipcode Phone Number [facility] [address] [place] [address] Cv electrophysiology procedure (12/12/2016 9:36 AM) Narrative Performed At Cardioversion Procedure Note CUPVIVIENNE Tello,[id number] 71 y.o. male 12/12/2016; [facility] CARD [facility] 8 PROCEDURE ROOM 15 Procedure(s): Ep cardioversion w tadeo Tolerated procedure well Condition: stable Complications:None; patient tolerated the procedure well. Findings: The patient was identified and consent reconfirmed prior to the procedure The baseline rhythm was atrial fibrillation Anesthesia was given When the patient was adequately sedated, synchronized DC CVN was performed converting the patient to sinus The patient awoke without sequelae Procedure Details Pre-op Diagnosis: Atrial fibrillation, unspecified type [I48.91] Post-Op Diagnosis Codes: * Atrial fibrillation, unspecified type [I48.91] Surgeon(s) and Role: * Yazmin Holliday DO - Fellow * Hilton Lester MD - Co-Surgeon * Yanique Morrison Jr., MD - Primary Anesthesia: General Blood Products Administered:none Estimated Blood Loss: * No values recorded between 12/12/20168:01 AM and 12/12/20169:36 AM * Sheath/IV: Specimens: * No specimens in log * Grafts/Implants: None RECOMMENDATIONS:Monitor for clinical improvement.If he has none and returns to AFib then change to rate control strategy. Yanique Morrison Jr., MD Date: 12/12/2016Time: 9:37 AM Performing Organization Address City/State/Zipcode Phone Number [facility] [address] [place] [address] Echocardiogram transesophageal (12/12/2016 7:27 AM) Narrative Performed At [facility] Transesophageal Echo Report [address], [place], [place] [address] Pat.Name:Eric TELLO.ID:[id number] YosefDate: 12/12/2016Refemiliano.:YANIQUE MORRISON MD Exam Time: 7:27:00 AMStudy Type:TADEO Height:74inWeight: 242lb BSA: 2.36 m2 DOBAge:1945,71Y Sex: MALEBP:119/63 HR:89 bpmSonogrphr: Yazmin Holliday DO Pat. Stat.:Inpatient Study Status:Final Echo Event ID:[id number] Order ID:[id number] Reason for Study:EVAL TO FACILITATECLINICAL DECISION MAKING WITH REGARD TO ANTICOAGULATION, CARDIOVERSION, AND /OR RADIOFREQUENCY ABLATION. History / Clinical:Smoker, Aortic Aneurysm, Atrial Fibrillation, COPD, Cancer, Congestive Heart Failure, Diabetes, Dyspnea On Exertion, Hyperlipidemia, Hypertension, Obesity, Valvular Heart Disease; Mitral Regurgitaiton Procedures:Transesophageal Echo with Colorflow Doppler Race:C SUMMARY: No thrombus or mass is visualized in the LA or LA appendage, however dense spontaneous echo contrast was seen. Filamentous echogenic mass seen on the RA pacer lead which could represent fibrin sheath, thrombus, or vegetation. Clinical correlation recommended. FINDINGS: TADEO:The attending staffing administrator performed the TADEO procedure and waspresent for the entire duration. The patient was counseledand an informed consent was obtained. Topical and intravenousanesthesia was administered. The esophagus was intubatedwithout difficulty. The probe was passed to the gastricfundus and all standard echocardiographic views wereobtained. The patient tolerated the procedure well. LV: LV size is enlarged. LV systolic function is severely depressed.Overall wall motion is hypokinetic. Estimated EF is20-24%. RV: RV size is normal. A pacemaker wire is seen in the RV. Difficultto assess RV function but appears mildly depressed. LA: LA volume is enlarged. No thrombus or mass is visualized in theLA or LA appendage. Spontaneous echo contrast is seen inthe LA/LA appendage. RA: RA volume is enlarged. A pacemaker wire is seen. Filamentous echogenicmass seen on the RA lead which could represent fibrinsheath, thrombus, or vegetation. Clinical correlationrecommended. AO: Aortic root diameter is normal in size. Mild atherosclerotic changesseen in the descending aorta. KEY: No pericardial effusion. IAS:Findings diagnostic of iatrogenic atrial septal defect locatedcaudal superior part of IAS by color Doppler. AV: Mild calcification of AV leaflets. MV: Two mitral clips are noted. Mild mitral regurgitation. Mild mitralstenosis. PV: No structural PV abnormalities noted. TV: No structural TV abnormalities noted. TADEO: Anesthesia: Per Anesthesia ASA Class: 3 Physician: Hilton Lester M.D. Breastfeeding Educator: Yazmin Holliday DO Pre TEEBP HR Post TADEO BP HR 119/63 54800/67 85 Meds:Viscous xylocaine, Cetacaine spray to oropharynx, Per Anesthesia Complications: None Condition: Stable MEASUREMENTS: 2D Parasternal Long [place] Ao Rtd 3.8 cm DOPPLER MV For Flow/Valve Assess MV pkVel 141.4 cm/sMV Dec T 363 msec MV pkPG8 mmHgMV TVI33.1 cm MV Mean G2.1 mmHgMV Area P1/2t2.1 cm2(4-6) Signed 12/12/2016 11:59 AM Hilton Lester M.D. Procedure Note Interface, Radiology Results In - 12/12/2016 12:00 PM CDT Transesophageal Echo Report [address], [place], [place] [address] Pat.Name: ÓSCAR TELLO Pat.ID: [id number] .Date: 12/12/2016 Refer.MD: YANIQUE MORRISON MD Exam Time: 7:27:00 AM Study Type:TADEO Height: 74in Weight: 242lb BSA: 2.36 m2 Age: 1 1945,71Y Sex: MALE BP: 119/63 HR: 89 bpm Sonogrphr: Yazmin Holliday DO Pat. Stat.:Inpatient Study Status:Final Echo Event ID:[id number] Order ID: [id number] Reason for Study:EVAL TO FACILITATE CLINICAL DECISION MAKING WITH REGARD TO ANTICOAGULATION, CARDIOVERSION, AND /OR RADIOFREQUENCY ABLATION. History / Clinical:Smoker, Aortic Aneurysm, Atrial Fibrillation, COPD, Cancer, Congestive Heart Failure, Diabetes, Dyspnea On Exertion, Hyperlipidemia, Hypertension, Obesity, Valvular Heart Disease; Mitral Regurgitaiton Procedures:Transesophageal Echo with Colorflow Doppler Race: C SUMMARY: No thrombus or mass is visualized in the LA or LA appendage, however dense spontaneous echo contrast was seen. Filamentous echogenic mass seen on the RA pacer lead which could represent fibrin sheath, thrombus, or vegetation. Clinical correlation recommended. FINDINGS: TADEO: The attending staffing administrator performed the TADEO procedure and was present for the entire duration. The patient was counseled and an informed consent was obtained. Topical and intravenous anesthesia was administered. The esophagus was intubated without difficulty. The probe was passed to the gastric fundus and all standard echocardiographic views were obtained. The patient tolerated the procedure well. LV: LV size is enlarged. LV systolic function is severely depressed. Overall wall motion is hypokinetic. Estimated EF is 20-24%. RV: RV size is normal. A pacemaker wire is seen in the RV. Difficult to assess RV function but appears mildly depressed. LA: LA volume is enlarged. No thrombus or mass is visualized in the LA or LA appendage. Spontaneous echo contrast is seen in the LA/LA appendage. RA: RA volume is enlarged. A pacemaker wire is seen. Filamentous echogenic mass seen on the RA lead which could represent fibrin sheath, thrombus, or vegetation. Clinical correlation recommended. AO: Aortic root diameter is normal in size. Mild atherosclerotic changes seen in the descending aorta. KEY: No pericardial effusion. IAS: Findings diagnostic of iatrogenic atrial septal defect located caudal superior part of IAS by color Doppler. AV: Mild calcification of AV leaflets. MV: Two mitral clips are noted. Mild mitral regurgitation. Mild mitral stenosis. PV: No structural PV abnormalities noted. TV: No structural TV abnormalities noted. TADEO: Anesthesia: Per Anesthesia ASA Class: 3 Physician: Hilton Lester M.D. Breastfeeding Educator: Yazmin Holliday DO Pre TADEO BP HR Post TADEO BP HR 119/63 89 102/67 85 Meds: Viscous xylocaine, Cetacaine spray to oropharynx, Per Anesthesia Complications: None Condition: Stable MEASUREMENTS: 2D Parasternal [place] Ao Rtd 3.8 cm DOPPLER MV For Flow/Valve Assess MV pkVel 141.4 cm/s MV Dec T 363 msec MV pkPG 8 mmHg MV TVI 33.1 cm MV Mean G 2.1 mmHg MV Area P1/2t 2.1 cm2 (4-6) Signed 12/12/2016 11:59 AM Hilton Lester M.D. Performing Organization Address [facility]/Zipcode Phone Number [facility] [address] [place] [address] Smear review (12/08/2016 2:39 PM) Platelet slide review Alex adequate [facility] DEPARTMENT OF PATHOLOGY AND GENOMIC MEDICINE Anisocytosis Moderate [facility] DEPARTMENT OF PATHOLOGY AND GENOMIC MEDICINE Polychromasia Moderate [facility] DEPARTMENT OF PATHOLOGY AND GENOMIC MEDICINE Tear drop cells Occasional [facility] DEPARTMENT OF PATHOLOGY AND GENOMIC MEDICINE Schistocytes Occasional [facility] DEPARTMENT OF PATHOLOGY AND GENOMIC MEDICINE Ovalocytes Moderate [facility] DEPARTMENT OF PATHOLOGY AND GENOMIC MEDICINE Enlarged platelets Moderate (A) [facility] DEPARTMENT OF PATHOLOGY AND GENOMIC MEDICINE Performing Organization Address [facility] Phone Number [facility] DEPARTMENT OF PATHOLOGY AND [address] [place] [address] [facility] Estimated GFR (12/08/2016 2:39 PM) GFR Non Af Amer 37 (A) mL/min/1.73 m2 [facility] DEPARTMENT OF PATHOLOGY AND GENOMIC MEDICINE GFR Af Amer 45 (A) mL/min/1.73 m2 [facility] DEPARTMENT OF Comment: PATHOLOGY AND GENOMIC Chronic kidney disease: <60 mL/min/1.73m2 MEDICINE Kidney failure: <15 mL/min/1.73m2 The estimated GFR is calculated from the IDMS-traceable Modification of Diet in Renal Disease Equation. The accuracy of the calculation is poor when the creatinine is normal. Calculated values >90 mL/min/1.73m2 are not reported. This equation has not been validated in children (<18 years), women, the elderly (>70 years), or ethnic groups other than Caucasians and Americans. Specimen Plasma specimen Performing Organization Address City/[facility]/Zipcode Phone Number [facility] DEPARTMENT PATHOLOGY AND [address] [place] [address] [facility] Partial thromboplastin time, activated (12/08/2016 2:39 PM) PTT 29.2 23.0 - 36.0 sec [facility] DEPARTMENT OF PATHOLOGY Comment: AND [facility] PTT therapeutic range for unfractionated heparin is 61.0-112.0 seconds which corresponds to Anti-Xa 0.3-0.7 U/ml. Specimen Blood Performing Organization Address City/State/Zipcode Phone Number [facility] DEPARTMENT OF PATHOLOGY AND [address] [place] [phone] [place] [address] Prothrombin time with INR (12/08/2016 2:39 PM) Prothrombin time 14.4 12.0 - 15.0 sec [facility] DEPARTMENT OF PATHOLOGY AND GENOMIC MEDICINE INR 1.1 [facility] DEPARTMENT OF Comment: PATHOLOGY AND GENOMIC The International Normalized Ratio (INR) is a therapeutic MEDICINE monitoring tool for patients who are stable on oral anticoagulant therapy. An INR of 2.0-3.0 is suggested for deep vein thrombosis/pulmonary embolism. Specimen Blood Performing Organization Address City/[facility] Phone Number [facility] DEPARTMENT OF PATHOLOGY AND [address] [place] [phone] [facility] Magnesium level (12/08/2016 2:39 PM) Magnesium 2.4 1.6 - 2.4 mg/dL [facility] DEPARTMENT OF PATHOLOGY AND GENOMIC MEDICINE Specimen Plasma specimen Performing Organization Address City/[facility] Phone Number [facility] DEPARTMENT OF PATHOLOGY AND [address] [place] [phone] [facility] Comprehensive metabolic panel (12/08/2016 2:39 PM) Sodium 141 135 - 148 mEq/L [facility] DEPARTMENT OF PATHOLOGY AND GENOMIC MEDICINE Potassium 5.2 (H) 3.5 - 5.0 mEq/L [facility] DEPARTMENT OF PATHOLOGY AND GENOMIC MEDICINE Chloride 97 (L) 98 - 112 mEq/L [facility] DEPARTMENT OF PATHOLOGY AND GENOMIC MEDICINE CO2 29 24 - 31 mEq/L [facility] DEPARTMENT OF PATHOLOGY AND GENOMIC MEDICINE Anion gap 15 7 - 15 mEq/L [facility] DEPARTMENT OF Comment: PATHOLOGY AND GENOMIC Starting from May , anion gap calculation MEDICINE no longer incorporates potassium. Please note the change. BUN 18 8 - 23 mg/dL [facility] DEPARTMENT OF PATHOLOGY AND GENOMIC MEDICINE Creatinine 1.8 (H) 0.7 - 1.2 mg/dL [facility] DEPARTMENT OF PATHOLOGY AND GENOMIC MEDICINE Glucose 91 65 - 99 mg/dL [facility] DEPARTMENT OF PATHOLOGY AND GENOMIC MEDICINE Calcium 9.6 8.8 - 10.2 mg/dL [facility] DEPARTMENT OF PATHOLOGY AND GENOMIC MEDICINE Protein 7.7 6.3 - 8.3 g/dL [facility] DEPARTMENT OF Comment: PATHOLOGY AND GENOMIC 4.6-7.0 g/dL MEDICINE 1 week 4.4-7.6 g/dL 7 months-1year5.1-7.3 g/dL 1-2 years5.6-7.5 g/dL >3 years6.0-8.0 g/dL 18-150 6.3-8.3 g/dL Albumin 3.7 3.5 - 5.0 g/dL [facility] DEPARTMENT OF PATHOLOGY AND GENOMIC MEDICINE A/G ratio 0.9 0.7 - 3.8 [facility] DEPARTMENT OF PATHOLOGY AND GENOMIC MEDICINE Alkaline phosphatase 28 (L) 40 - 129 U/L [facility] DEPARTMENT OF PATHOLOGY AND GENOMIC MEDICINE AST 32 10 - 50 U/L [facility] DEPARTMENT OF PATHOLOGY AND GENOMIC MEDICINE ALT 17 5 - 50 U/L [facility] DEPARTMENT OF PATHOLOGY AND GENOMIC MEDICINE Total bilirubin 0.3 0.0 - 1.2 mg/dL [facility] DEPARTMENT OF PATHOLOGY AND GENOMIC MEDICINE Specimen Plasma specimen Performing Organization Address City/State/Zipcode Phone Number [facility] DEPARTMENT OF PATHOLOGY AND [address] [place] [address] [employer] MEDICINE after 12/06/2016 Insurance Payer Benefit Plan / Group Subscriber ID Type Phone Address MEDICARE MEDICARE PART A AND B xxxxxxxxxx Medicare [place], [place] AARP AARP SUPPLEMENT xxxxxxxxxxx Commercial Home: [id number] [phone] [place] [phone]
--- NOTE | 2017-12-07 10:44 | RAD REPORT ---
EXAM DESCRIPTION: US - Extrem Venous W Compress Jimmy - 12/07/2017 10:28 am CLINICAL HISTORY: PAIN Bilateral leg edema and swelling. COMPARISON: No comparisons TECHNIQUE: Real-time sonographic interrogation of the left and right lower extremity deep venous sys tems was performed. FINDINGS: Normal compressibility, flow augmentation, phasic flow and spontaneous flow is identified in both the left and right lower extremity deep venous systems. IMPRESSION: No sonographic evidence of left or right lower extremity deep venous thrombosis.
--- NOTE | 2017-12-07 10:46 | EDPHYS ---
Physician Documentation [facility] Name: Óscar Ye Age: 72 yrs Sex: Male : 1945 Arrival Date: 12/07/2017 Time: 09:33 Bed Ultrasound Private MD: Tuan Loya ED Physician Petey Petersen HPI: 12/07 10:00 This 72 yrs old Male presents to ER via Wheelchair with complaints of Leg aníbal Pain. 10:00 The patient presents with pain, that is acute. The complaints affect the posterior aníbal aspect of left knee. Context: The problem was sustained at home, resulted from an unknown cause. Onset: The symptoms/episode began/occurred yesterday. Associated signs and symptoms: The patient has no apparent associated signs or symptoms. Treatment prior to arrival includes: no previous treatment. Severity of symptoms: At their worst the symptoms were. The patient has not experienced similar symptoms in the past. Historical: - Allergies: 09:49 MAGNESIUM CITRATE; sv - PMHx: 09:49 Myocardial infarction; Heart failure; Atrial Fib; Vtach; Prostate cancer; sv - PSHx: 09:49 Cholecystectomy; Prostate sx; Defibrillator; Tonsillectomy; Hernia repair; Radical sv prostate; angioplasty with cardiac stents; abdominal stent graft; Mitral valve clips; Cardioverson x 2; - Immunization history:: Adult Immunizations up to date, Flu vaccine is up to date. - Social history:: Smoking status: Patient uses tobacco products, smokes one pack cigarettes per day. - Ebola Screening: : No symptoms or risks identified at this time. - Family history:: not pertinent. ROS: 10:00 Constitutional: Negative for fever, chills, and weight loss, Eyes: Negative for injury, aníbal pain, redness, and discharge, ENT: Negative for injury, pain, and discharge, Neck: Negative for injury, pain, and swelling, Cardiovascular: Negative for chest pain, palpitations, and edema, Respiratory: Negative for shortness of breath, cough, wheezing, and pleuritic chest pain, Abdomen/GI: Negative for abdominal pain, nausea, vomiting, diarrhea, and constipation, Back: Negative for injury and pain, : Negative for injury, bleeding, discharge, and swelling, Skin: Negative for injury, rash, and discoloration, Neuro: Negative for headache, weakness, numbness, tingling, and seizure, Psych: Negative for depression, anxiety, suicide ideation, homicidal ideation, and hallucinations, Allergy/Immunology: Negative for hives, rash, and allergies, Endocrine: Negative for neck swelling, polydipsia, polyuria, polyphagia, and marked weight changes, Hematologic/Lymphatic: Negative for swollen nodes, abnormal bleeding, and unusual bruising. 10:00 MS/extremity: Positive for decreased range of motion, pain, swelling, of the posterior aspect of left knee. Exam: 10:02 Constitutional: This is a well developed, well nourished patient who is awake, alert, aníbal and in no acute distress. Head/Face: Normocephalic, atraumatic. Eyes: Pupils equal round and reactive to light, extra-ocular motions intact. Lids and lashes normal. Conjunctiva and sclera are non-icteric and not injected. Cornea within normal limits. Periorbital areas with no swelling, redness, or edema. ENT: Nares patent. No nasal discharge, no septal abnormalities noted. Tympanic membranes are normal and external auditory canals are clear. Oropharynx with no redness, swelling, or masses, exudates, or evidence of obstruction, uvula midline. Mucous membranes moist. Neck: Trachea midline, no thyromegaly or masses palpated, and no cervical lymphadenopathy. Supple, full range of motion without nuchal rigidity, or vertebral point tenderness. No Meningismus. Chest/axilla: Normal chest wall appearance and motion. Nontender with no deformity. No lesions are appreciated. Cardiovascular: Regular rate and rhythm with a normal S1 and S2. No gallops, murmurs, or rubs. Normal PMI, no JVD. No pulse deficits. Respiratory: Lungs have equal breath sounds bilaterally, clear to auscultation and percussion. No rales, rhonchi or wheezes noted. No increased work of breathing, no retractions or nasal flaring. Abdomen/GI: Soft, non-tender, with normal bowel sounds. No distension or tympany. No guarding or rebound. No evidence of tenderness throughout. Back: No spinal tenderness. No costovertebral tenderness. Full range of motion. Male : Normal genitalia with no discharge or lesions. Skin: Warm, dry with normal turgor. Normal color with no rashes, no lesions, and no evidence of cellulitis. Neuro: Awake and alert, GCS 15, oriented to person, place, time, and situation. Cranial nerves II-XII grossly intact. Motor strength 5/5 in all extremities. Sensory grossly intact. Cerebellar exam normal. Normal gait. Psych: Awake, alert, with orientation to person, place and time. Behavior, mood, and affect are within normal limits. 10:02 Musculoskeletal/extremity: Extremities: noted in the posterior aspect of left knee: decreased ROM, pain. Vital Signs: 09:49 BP 130 / 65; Pulse 58; Resp 20; Temp 97.2; Pulse Ox 98% ; Weight 114.31 kg; Height 6 sv ft. 0 in. (182.88 cm); Pain 110; 09:49 Body Mass Index 34.18 (114.31 kg, 182.88 cm) sv 09:49 pain standing is a 10. sv MDM: 09:36 Patient medically screened. [facility] 10:44 Data reviewed: vital signs, nurses notes, radiologic studies, doppler. [facility] 12/07 10:00 Order name: US Extremity Venous W Compression Jimmy aníbal Administered Medications: No medications were administered Disposition: 12/07/17 10:45 Discharged to Home. Impression: Pain in left leg. - Condition is Stable. - Discharge Instructions: Musculoskeletal Pain, Bleeding Varicose Veins. - Prescriptions for Tylenol- Codeine #3 300-30 mg Oral Tablet - take 2 tablets by ORAL route every 6 hours As needed; 20 tablet. - Medication Reconciliation Form, Thank You Letter, Antibiotic Education, Prescription Opioid Use form. - Follow up: Private Physician; When: 2 - 3 days; Reason: Recheck today's complaints, Continuance of care, Re-evaluation by your physician. Follow up: Eagle Robertson MD; When: 2 - 3 days; Reason: Recheck today's complaints, Re-evaluation by your physician. - Problem is new. - Symptoms have improved. Signatures: Dispatcher [employer] Karen Roach RN RN Petey Rogers MD MD cha Wise, Tara RN RN tw2 Corrections: (The following items were deleted from the chart) 10:45 10:45 12/07/2017 10:45 Discharged to Home. Impression: Pain in left leg. Condition is aníbal Stable. Discharge Instructions: Musculoskeletal Pain, Bleeding Varicose Veins. Forms are Medication Reconciliation Form, Thank You Letter, Antibiotic Education, Prescription Opioid Use. Follow up: Private Physician; When: 2 - 3 days; Reason: Recheck today's complaints, Continuance of care, Re-evaluation by your physician. Problem is new. Symptoms have improved. aníbal 11:32 10:45 12/07/2017 10:45 Discharged to Home. Impression: Pain in left leg. Condition is tw2 Stable. Discharge Instructions: Musculoskeletal Pain, Bleeding Varicose Veins. Forms are Medication Reconciliation Form, Thank You Letter, Antibiotic Education, Prescription Opioid Use. Follow up: Private Physician; When: 2 - 3 days; Reason: Recheck today's complaints, Continuance of care, Re-evaluation by your physician. Follow up: Eagle Robertson; When: 2 - 3 days; Reason: Recheck today's complaints, Re-evaluation by your physician. Problem is new. Symptoms have improved. aníbal
--- NOTE | 2017-12-07 10:46 | ER ---
Nurse's Notes [facility] Name: Óscar Ye Age: 72 yrs Sex: Male : 1945 Arrival Date: 12/07/2017 Time: 09:33 Bed Ultrasound Private MD: Tuan Loya Diagnosis: Pain in left leg Presentation: 12/07 09:36 Presenting complaint: Patient states: left posterior knee pain x 1 day. c/o burning and sv unable to bear weight. Transition of care: patient was not received from another setting of care. Onset of symptoms was December 05, 2017. Care prior to arrival: None. 09:36 Method Of Arrival: Wheelchair sv 09:36 Acuity: RAJINDER 3 sv 10:00 Risk Assessment: Do you want to hurt yourself or someone else? Patient reports no aa5 desire to harm self or others. Initial Sepsis Screen: Does the patient meet any 2 criteria? No. Patient's initial sepsis screen is negative. Does the patient have a suspected source of infection? No. Patient's initial sepsis screen is negative. Historical: - Allergies: 09:49 MAGNESIUM CITRATE; sv - PMHx: 09:49 Myocardial infarction; Heart failure; Atrial Fib; Vtach; Prostate cancer; sv - PSHx: 09:49 Cholecystectomy; Prostate sx; Defibrillator; Tonsillectomy; Hernia repair; Radical sv prostate; angioplasty with cardiac stents; abdominal stent graft; Mitral valve clips; Cardioverson x 2; - Immunization history:: Adult Immunizations up to date, Flu vaccine is up to date. - Social history:: Smoking status: Patient uses tobacco products, smokes one pack cigarettes per day. - Ebola Screening: : No symptoms or risks identified at this time. - Family history:: not pertinent. Screenin:00 Abuse screen: Denies threats or abuse. Nutritional screening: No deficits noted. aa5 Tuberculosis screening: No symptoms or risk factors identified. Fall Risk None identified. Assessment: 10:00 General: Appears comfortable, Behavior is calm, cooperative. Pain: Complains of pain in aa5 posterior aspect of left knee Pain does not radiate. Pain currently is 1 out of 10 on a pain scale. at worst was 10 out of 10 on a pain scale. Quality of pain is described as burning, crampy, Pain began 1 day ago. Is continuous, Aggravated by weight bearing. Neuro: Level of Consciousness is awake, alert, obeys commands, Oriented to person, place, time, situation. Cardiovascular: Heart tones S1 S2 present 1+ non-pitting edema noted to wilder lower extremities . Rhythm is regular. Respiratory: Airway is patent Respiratory effort is even, unlabored, Respiratory pattern is regular, symmetrical. GI: Abdomen is round. : No signs and/or symptoms were reported regarding the genitourinary system. EENT: No signs and/or symptoms were reported regarding the EENT system. Derm: Skin is pink, warm \\T\\ dry. Musculoskeletal: Range of motion: intact in all extremities. Injury Description: Pt states "I almost fell a few times but I was able to catch myself hanging on to the counter so maybe I hurt my knee". Pt denies head injury. Vital Signs: 09:49 BP 130 / 65; Pulse 58; Resp 20; Temp 97.2; Pulse Ox 98% ; Weight 114.31 kg; Height 6 sv ft. 0 in. (182.88 cm); Pain 03/04; 09:49 Body Mass Index 34.18 (114.31 kg, 182.88 cm) sv 09:49 pain standing is a 10. sv ED Course: 09:33 Patient arrived in ED. as 09:34 Tuan Loya DO is Private Physician. as 09:36 Petey Petersen MD is Attending Physician. aníbal 09:41 Laya Daniels, RN is Primary Nurse. aa5 09:47 Triage completed. sv 09:49 Arm band placed on Patient placed in an exam room, on a stretcher, on pulse oximetry. sv 10:00 Patient has correct armband on for positive identification. Bed in low position. Call aa5 light in reach. Adult w/ patient. 10:12 Patient taken to ultrasound. via wheelchair. hr 10:14 US Extremity Venous W Compression Wilder In Process Unspecified. EDMS 10:35 Ultrasound completed. Patient tolerated well. Note: prelim given to dr petersen. lc3 Patient moved back from ultrasound. 10:45 Eagle Robertson MD is Referral Physician. aníbal 11:20 No provider procedures requiring assistance completed. Patient did not have IV access tw2 during this emergency room visit. Administered Medications: No medications were administered Outcome: 10:45 Discharge ordered by . aníbal 11:20 Discharged to home via wheelchair, with family. tw2 11:20 Condition: stable 11:20 Discharge instructions given to patient, family, Instructed on no drinking with medication, no driving heavy equipment, medication usage, Demonstrated understanding of instructions, follow-up care, medications, Prescriptions given X 1. 11:32 Patient left the ED. tw2 Signatures: Dispatcher [employer] EDKaren Kim, LUCIO RN Petey Rogers MD MD cha Rod, Haley hr Martinez, Amelia as Calderon, Audri, RN RN aa5 Jamir Osborne Tara, RN RN tw2
[2017-12-08 14:36] VITALS: BP 130/65; TEMP 97.2; O2SAT 98
== END 2017-12-07 11:32 | disposition home or self-care (01) ==
LOC: ER 09:30
DX: M79.605 Pain in left leg (principal); I25.2 Old myocardial infarction; Z88.8 Allergy status to other drugs, medicaments and biological substances; Z85.46 Personal history of malignant neoplasm of prostate; Z95.818 Presence of other cardiac implants and grafts; F17.210 Nicotine dependence, cigarettes, uncomplicated
CPT/HCPCS: 93970; 99284

== ENCOUNTER 2020-05-20 11:03 | Inpatient (IN) | payer OTHER, MEDICARE ==
--- OUTSIDE RECORDS SUMMARY | 2020-05-20 11:05 | XMS REPORT | Continuity of Care Document ---
:1945 Author Organization [facility] t Address [address] [place] [address] Care Team Providers Name Role Phone TREVON Attending Clinician Unavailable GAYLA Attending Clinician Unavailable JUANITA Attending Clinician Unavailable YIMI Attending Clinician Unavailable BEL Attending Clinician Unavailable Surjit Guo MD Attending Clinician GAYLA Admitting Clinician Unavailable JUANITA Admitting Clinician Unavailable TREVON Admitting Clinician Unavailable Problems This patient has no known problems. Allergies, Adverse Reactions, Alerts This patient has no known allergies or adverse reactions. Medications This patient has no known medications. Procedures This patient has no known procedures. Encounters Start End Encounter Admission Attending Care Care Encounter Source Date/Time Date/Time Type Type Clinicians Facility Department ID 2020-02-10 2020-02-10 Outpatient [facility] [id number] [place] 00:00:00 00:00:00 JR [address] 2020-02-03 2020-02-03 [facility] [id number] [place] 00:00:00 00:00:00 JR [address] 2019-11-18 2019-11-18 Outpatient EDGAR SHUKLA [facility] [id number] [place] 00:00:00 00:00:[address] 2019-11-04 2019-11-04 Outpatient [facility] [id number] [place] 00:00:00 00:00:00 JR [address] 2019-11-01 2019-11-01 Outpatient [facility] [id number] [place] 00:00:00 00:00:00 JR [address] 2019-10-28 2019-10-28 Outpatient EDGAR SHUKLA [facility] [id number] [place] 00:00:00 00:00:[address] 2019-09-30 2019-09-30 Outpatient EDGAR SHUKLA [facility] [id number] [place] 00:00:00 00:00:[address] 2019-08-02 2019-08-02 Outpatient TREVON, [facility] [id number] [place] 00:00:00 00:00:00 JR [address] 2019-07-27 2019-07-27 Outpatient JUANITA, [facility] [id number] [place] 00:00:00 00:00:00 NADIM [address] 2019-06-28 2019-07-04 Inpatient GELLER, [facility] [id number] [place] 00:00:00 00:00:00 MERCEDES [address] 2019-06-28 2019-06-28 Outpatient CARLOS STAPLSE [facility] [id number] [place] 00:00:00 00:00:[address] 2019-06-07 2019-06-07 Outpatient TREVON, [facility] [id number] [place] 00:00:00 00:00:00 JR [address] 2019-04-12 2019-04-12 Office Octavio Guo [facility] [id number] 11:43:22 18:00:11 Visit E Celeste [id number] 2018-10-12 2018-10-12 Office Octavio Guo [facility] [id number] 11:09:47 13:31:26 Visit E AMBULATOR [id number] Y [id number] Results This patient has no known results.
--- NOTE | 2020-05-20 12:22 | RAD REPORT ---
EXAM DESCRIPTION: Chidi Single View05/20/2020 12:12 pm CLINICAL HISTORY: cough COMPARISON: 2018 FINDINGS: The lungs appear clear of acute infiltrate. The heart is mildly to moderately enlarged. P acemaker leads are in place. IMPRESSION: No acute abnormalities displayed
[2020-05-20] MEDS ORDERED: METHYLPREDNISOLONE 125 MG INJ ONE (12:30)
[2020-05-20] MEDS ORDERED: LEVALBUTEROL 1.25 MG/3 ML NEB ONE (12:30)
[2020-05-20 13:01] LABS: Absolute Lymphocytes (CBC) 1.1 K/uL (0.7-4.9); Basophils % 0.3 % (0-1.3); Hematocrit 35.7 % (39.6-49.0); Lymphocytes % 13.3 % (15.3-44.8); MPV 8.7 fL (7.6-11.3); RBC Red Blood Cell Count 3.85 M/uL (4.33-5.43)
[2020-05-20 13:22] LABS: Albumin 3.6 g/dL (3.4-5.0); Bilirubin Direct 0.3 mg/dL (0-0.2); Bilirubin Total 0.6 mg/dL (0.2-1.0); Magnesium 2.5 mg/dL (1.8-2.4); Potassium 3.8 mmol/L (3.5-5.1); Protein, Total 7.8 g/dL (6.4-8.2); Troponin (Emerg Dept Use Only) 0.04 ng/mL (0.0-0.045)
--- NOTE | 2020-05-20 13:59 | ER ---
Nurse's Notes [facility] Name: Óscar Ye Age: 75 yrs Sex: Male : 1945 Arrival Date: 05/20/2020 Time: 11:09 Bed 8 Private MD: Tuan Loya Diagnosis: Unspecified combined systolic (congestive) and diastolic (congestive) heart failure;Chronic obstructive pulmonary disease with (acute) exacerbation;Dyspnea, unspecified;Hypoxemia Presentation: 05/20 11:33 Chief complaint: Patient states: Not feeling well the past 3 days. On Augmentin for ll1 pneumonia, was just released from the hospital this past Thursday. Fever 100.7 at home. Feels very weak and shaky. SOB with exertion, + cough. Coronavirus screen: Client denies travel out of the [place] in the last 14 days. congestion, cough unrelated to allergies, difficulty breathing, fatigue, fever, shortness of breath, loss of taste or smell, Client presents with at least one sign or symptom that may indicate coronavirus-19. Standard/surgical mask placed on the client. Ebola Screen: Patient denies travel to an Ebola-affected area in the 21 days before illness onset. No acute neurological deficit is noted. Initial Sepsis Screen: Does the patient meet any 2 criteria? No. Patient's initial sepsis screen is negative. Does the patient have a suspected source of infection? Yes: Productive cough/pneumonia. Risk Assessment: Do you want to hurt yourself or someone else? Patient reports no desire to harm self or others. Onset of symptoms was May 18, 2020. 11:33 Method Of Arrival: Wheelchair ll1 11:33 Acuity: RAJINDER 3 ll1 Stroke Activation: Symptom onset > 6 hours Physician: Stroke Attending; Name: ; Notified At: ; Arrived At: Physician: Chief Stroke Resident; Name: ; Notified At: ; Arrived At: Physician: Stroke Resident; Name: ; Notified At: ; Arrived At: Physician: ED Attending; Name: ; Notified At: ; Arrived At: Physician: ED Resident; Name: ; Notified At: ; Arrived At: Historical: - Allergies: 11:33 MAGNESIUM CITRATE; ll1 - PMHx: 11:33 Atrial Fib; HEART FAILURE; Myocardial infarction; Prostate Cancer; Vtach; ll1 - PSHx: 11:33 Cholecystectomy; Prostate sx; Radical prostate; Hernia repair; angioplasty with cardiac ll1 stents; Defibrillator; Tonsillectomy; abdominal stent graft; Mitral valve clips; Cardioverson x 2; - Immunization history:: Client reports receiving the 2nd dose of the Covid vaccine, Pneumococcal vaccine is up to date, Flu vaccine is up to date. - Social history:: Smoking status: Patient reports the use of cigarette tobacco products, smokes one pack cigarettes per day. - Family history:: not pertinent. - Hospitalizations: : Patient was recently seen at. Screenin:30 Abuse screen: Denies threats or abuse. Denies injuries from another. Nutritional ca1 screening: No deficits noted. Tuberculosis screening: No symptoms or risk factors identified. Fall Risk IV access (20 points). Ambulatory Aid- Crutches/Cane/Walker (15 pts). Total Spencer Fall Scale indicates Low Risk Score (25-44 pts). Fall prevention measures have been instituted. Side Rails Up X 2 Family Present and informed to notify staff if they need to leave bedside As available Patient and Family Educated on Fall Prevention Program and strategies. Assessment: 11:30 General: Appears in no apparent distress. comfortable, Behavior is calm, cooperative, ca1 appropriate for age. General: Reports fatigue for >3 days. Pain: Denies pain. Neuro: Level of Consciousness is awake, alert, obeys commands, Oriented to person, place, time, situation. Cardiovascular: Heart tones S1 S2 present Capillary refill < 3 seconds Patient's skin is warm and dry. Respiratory: Reports shortness of breath cough that is Airway is patent Respiratory effort is even, unlabored, Respiratory pattern is regular, symmetrical, Breath sounds are clear bilaterally. GI: Abdomen is round non-distended, Bowel sounds present X 4 quads. Abd is soft and non tender X 4 quads. : No signs and/or symptoms were reported regarding the genitourinary system. EENT: No signs and/or symptoms were reported regarding the EENT system. Derm: Skin is fragile, is thin, with poor turgor Skin is pink, warm \T\ dry. Bruising that is dark purple, on right arm and left arm. Musculoskeletal: Circulation, motion, and sensation intact. Capillary refill < 3 seconds. 12:30 Reassessment: Patient appears in no apparent distress at this time. Patient and/or ca1 family updated on plan of care and expected duration. Pain level reassessed. Patient is alert, oriented x 3, equal unlabored respirations, skin warm/dry/pink. 13:38 Reassessment: Patient appears in no apparent distress at this time. breathing treatment ss complete. Pt placed back on 2L NC. 13:59 Reassessment: Pt and daughter aware of admission for further treatment and evaluation. ss Diet tray ordered as requested. COVID swab sent. Call light remains within reach. Vital Signs: 11:33 BP 126 / 58; Pulse 60; Resp 18; Temp 99.0; Pulse Ox 95% on R/A; Weight 112.04 kg; ll1 Height 6 ft. 0 in. (182.88 cm); 13:00 BP 98 / 71; Pulse 58; Resp 18 S; Pulse Ox 100% on 2 lpm NC; ca1 13:40 BP 142 / 68; Pulse 59; Resp 26; Pulse Ox 99% on 2 lpm NC; Pain 0/10; ss 11:33 Body Mass Index 33.50 (112.04 kg, 182.88 cm) ll1 ED Course: 11:09 Patient arrived in ED. mr 11:09 Tuan Loya DO is Private Physician. mr 11:23 Walter Shanks MD is Attending Physician. rn 11:30 Patient has correct armband on for positive identification. Bed in low position. Call ca1 light in reach. Side rails up X2. skirt panel assembler on. Pulse ox on. NIBP on. Warm blanket given. 11:32 Arm band placed on Patient placed in an exam room, on a stretcher. ll1 11:37 Triage completed. ll1 11:38 Rupal Jc, RN is Primary Nurse. ca1 11:39 Oxygen administration via nasal cannula \T\ 2L/min Response to oxygen therapy: symptoms ca1 improved. 12:12 XRAY Chest (1 view) In Process Unspecified. EDMS 12:40 First set of blood cultures drawn by me. Missed attempt(s): 24 gauge in right wrist. sv Bleeding controlled, band aid applied, catheter tip intact. 12:45 Second set of blood cultures drawn by me. Inserted saline lock: 24 gauge in right sv wrist, using aseptic technique. Blood collected. 13:01 NT PRO-BNP Sent. sv 13:01 Magnesium Sent. sv 13:01 LFT's Sent. sv 13:01 CBC with Diff Sent. sv 13:01 Basic Metabolic Panel Sent. sv 13:33 Rupal Jc, RN is Primary Nurse. ca1 13:58 Figueroa Wade MD is Hospitalizing Provider. rn 13:59 No provider procedures requiring assistance completed. Patient admitted, IV remains in ss place. Administered Medications: 12:52 Drug: SOLU-Medrol 125 mg Route: IVP; Site: left antecubital; hb 13:41 Follow up: Response: No adverse reaction; No change in condition ss 12:52 Drug: Xopenex 1.25 mg Route: Inhalation; hb 13:57 Drug: Lasix (furosemide) 40 mg Route: IVP; Site: right hand; Outcome: 13:58 Decision to Hospitalize by Provider. rn 13:59 Condition: good ss 13:59 Instructed on the need for admit. 15:37 Admitted to Tele accompanied by nurse, via wheelchair, room 214, Report called to LUCIO Vasques 15:39 Patient left the ED. Signatures: Dispatcher [employer] EDMS Karen Fuller RN LUCIO ShultzChrissy Roman, MD MD rn Smirch, Shelby, RN RN Farida Dixon RN RN Rupal Jc RN RN ca1 Lewis, Lynsay, RN RN ll1 Corrections: (The following items were deleted from the chart) 13:09 11:30 Respiratory: Reports shortness of breath Airway is patent Respiratory effort is ca1 even, unlabored, Respiratory pattern is regular, symmetrical, Breath sounds are clear bilaterally. ca1
--- NOTE | 2020-05-20 13:59 | EDPHYS ---
Physician Documentation [facility] Name: Óscar Ye Age: 75 yrs Sex: Male : 1945 Arrival Date: 05/20/2020 Time: 11:09 Bed 8 Private MD: Tuan Loya ED Physician Walter Shanks HPI: 05/20 11:54 This 75 yrs old Male presents to ER via Wheelchair with complaints of rn Weakness. 11:54 Reports generalized weakness for the last week or so, admitted overnight at [facility], told either pneumonia or CHF, today still has fever, generalized weakness, cough, and malaise. Reports weakness in both legs when trying to stand. . Onset: The symptoms/episode began/occurred 1 week(s) ago. Severity of symptoms: At their worst the symptoms were mild in the emergency department the symptoms are unchanged. The patient has not experienced similar symptoms in the past. The patient has not recently seen a physician. Historical: - Allergies: 11:33 MAGNESIUM CITRATE; ll1 - PMHx: 11:33 Atrial Fib; HEART FAILURE; Myocardial infarction; Prostate Cancer; Vtach; ll1 - PSHx: 11:33 Cholecystectomy; Prostate sx; Radical prostate; Hernia repair; angioplasty with cardiac ll1 stents; Defibrillator; Tonsillectomy; abdominal stent graft; Mitral valve clips; Cardioverson x 2; - Immunization history:: Client reports receiving the 2nd dose of the Covid vaccine, Pneumococcal vaccine is up to date, Flu vaccine is up to date. - Social history:: Smoking status: Patient reports the use of cigarette tobacco products, smokes one pack cigarettes per day. - Family history:: not pertinent. - Hospitalizations: : Patient was recently seen at. ROS: 11:54 Constitutional: + fever and chills Eyes: Negative for injury, pain, redness, and state attorney, ENT: Negative for injury, pain, and discharge, Neck: Negative for injury, pain, and swelling, Cardiovascular: Negative for chest pain, palpitations Respiratory: + sob and cough Abdomen/GI: Negative for abdominal pain, nausea, vomiting, diarrhea, and constipation, MS/Extremity: Negative for injury and deformity, Skin: Negative for injury, rash, and discoloration, Neuro: Negative for headache, numbness, tingling, and seizure. Exam: 11:54 Constitutional: This is a well developed, well nourished patient who is awake, alert, rn appears mildly winded getting into bed Head/Face: Normocephalic, atraumatic. ENT: NO stridor Cardiovascular: Irregular rhythm, regular rate. No pulse deficits. Respiratory: Mild tachypnea, no retractions, speaking 5 word sentences. Abdomen/GI: soft, non-tender Skin: Warm, dry MS/ Extremity: Pulses equal, no cyanosis. Neurovascular intact. Full, normal range of motion. Equal circumference. Neuro: Awake and alert, GCS 15, oriented to person, place, time, and situation. Cranial nerves II-XII grossly intact. Motor strength 4/5 in all extremities. Sensory grossly intact. Vital Signs: 11:33 BP 126 / 58; Pulse 60; Resp 18; Temp 99.0; Pulse Ox 95% on R/A; Weight 112.04 kg; ll1 Height 6 ft. 0 in. (182.88 cm); 13:00 BP 98 / 71; Pulse 58; Resp 18 S; Pulse Ox 100% on 2 lpm NC; ca1 13:40 BP 142 / 68; Pulse 59; Resp 26; Pulse Ox 99% on 2 lpm NC; Pain 0/10; ss 11:33 Body Mass Index 33.50 (112.04 kg, 182.88 cm) ll1 MDM: 11:23 Patient medically screened. rn 13:57 Differential Diagnosis COVID, CHF exacerbation, COPD, viral syndrome, bronchitis, rn pulmonary edema, COPD. Data reviewed: vital signs, nurses notes, lab test result(s), EKG, radiologic studies, plain films, and as a result, I will admit patient. Counseling: I had a detailed discussion with the patient and/or guardian regarding: the historical points, exam findings, and any diagnostic results supporting the discharge/admit diagnosis, lab results, radiology results, the need for further work-up and treatment in the hospital. Response to treatment: the patient's symptoms have mildly improved after treatment, and as a result, I will admit patient. Admission orders: after a detailed discussion of the patient's condition and case, the admit orders are written by me. ED course: Pt with clear CXR, elevated BNP, on O2 here, still tachypneic, will admit to Dr. Wade for further care. Repeating COVID swab. . 05/20 11:37 Order name: Basic Metabolic Panel rn 05/20 11:37 Order name: CBC with Diff rn 05/20 11:37 Order name: LFT's rn 05/20 11:37 Order name: Magnesium rn 05/20 11:37 Order name: NT PRO-BNP rn 05/20 11:37 Order name: PT-INR rn 05/20 11:37 Order name: Troponin (emerg Dept Use Only); Complete Time: 13:39 rn 05/20 11:37 Order name: Procalcitonin; Complete Time: 13:56 rn 05/20 11:37 Order name: Blood Culture Adult (2) rn 05/20 11:38 Order name: Basic Metabolic Panel; Complete Time: 13:39 EDHI 05/20 11:38 Order name: CBC with Automated Diff; Complete Time: 13:11 EDHI 05/20 11:38 Order name: Liver (Hepatic) Function; Complete Time: 13:39 EDMS 05/20 11:38 Order name: Magnesium; Complete Time: 13:39 EDMS 05/20 11:38 Order name: NT PRO-BNP; Complete Time: 13:39 EDMS 05/20 11:37 Order name: XRAY Chest (1 view); Complete Time: 12:29 rn 05/20 11:37 Order name: EKG; Complete Time: 11:38 rn 05/20 11:37 Order name: Cardiac monitoring; Complete Time: 12:52 rn 05/20 11:37 Order name: EKG - Nurse/Tech; Complete Time: 12:52 rn 05/20 11:37 Order name: IV Saline Lock; Complete Time: 12:52 rn 05/20 11:37 Order name: Labs collected and sent; Complete Time: 12:52 rn 05/20 13:58 Order name: Diet Heart Healthy; Complete Time: 13:58 05/20 14:50 Order name: Comprehensive Metabolic Panel EDHI 05/20 14:50 Order name: CONS Physician Consult EDHI 05/20 14:50 Order name: CBC with Automated Diff EDHI 05/20 14:52 Order name: SARS-COV-2 RT PCR EDHI 05/20 14:54 Order name: CT-LOW DOSE CT CHEST EDHI 05/20 11:37 Order name: O2 Per Protocol; Complete Time: 12:52 rn 05/20 11:37 Order name: O2 Sat Monitoring; Complete Time: 12:52 rn Administered Medications: 12:52 Drug: SOLU-Medrol 125 mg Route: IVP; Site: left antecubital; hb 13:41 Follow up: Response: No adverse reaction; No change in condition ss 12:52 Drug: Xopenex 1.25 mg Route: Inhalation; hb 13:57 Drug: Lasix (furosemide) 40 mg Route: IVP; Site: right hand; ss Disposition: 05/20/20 13:58 Hospitalization ordered by Figueroa Wade for Inpatient Admission. Preliminary diagnosis are Unspecified combined systolic (congestive) and diastolic (congestive) heart failure, Chronic obstructive pulmonary disease with (acute) exacerbation, Dyspnea, unspecified, Hypoxemia. - Bed requested for Telemetry/MedSurg (Inpatient). - Status is Inpatient Admission. ss - Condition is Stable. - Problem is an acute exacerbation. - Symptoms have improved. Signatures: Dispatcher [employer] EDHI Irene Luna RN RN Walter Shanks MD MD rn Smirch, Shelby, RN RN Farida Dixon RN RN Jacqui Harden Rupal Jc RN RN [facility] Lottie Lebron RN RN ll1 Corrections: (The following items were deleted from the chart) 13:12 13:05 Labs - recollect needed ordered. eb sv 14:09 13:42 CORONAVIRUS+MR.LAB.BRZ ordered. [facility] EDHI 15:01 13:58 Hospitalization Ordered by Figueroa Wade MD for Inpatient Admission. Preliminary diagnosis is Unspecified combined systolic (congestive) and diastolic (congestive) heart failure; Chronic obstructive pulmonary disease with (acute) exacerbation; Dyspnea, unspecified; Hypoxemia. Bed requested for Telemetry/MedSurg (Inpatient). Status is Inpatient Admission. Condition is Stable. Problem is an acute exacerbation. Symptoms have improved. rn 15:39 15:01 05/20/2020 13:58 Hospitalization Ordered by Figueroa Wade MD for Inpatient ss Admission. Preliminary diagnosis is Unspecified combined systolic (congestive) and diastolic (congestive) heart failure; Chronic obstructive pulmonary disease with (acute) exacerbation; Dyspnea, unspecified; Hypoxemia. Bed requested for Telemetry/MedSurg (Inpatient). Status is Inpatient Admission. Condition is Stable. Problem is an acute exacerbation. Symptoms have improved. dw
[2020-05-20] MEDS ORDERED: FUROSEMIDE 40 MG/4 ML VIAL ONE (14:07)
[2020-05-20] MEDS ORDERED: ONDANSETRON 4 MG/2 ML VIAL IV PRN ×2 (14:46→14:52)
[2020-05-20] MEDS ORDERED: ALBUTEROL 2.5 MG/3 ML NEB SOL NEB PRN ×2 (14:46→14:52)
[2020-05-20] MEDS ORDERED: MORPHINE 2 MG/ML SYR IV PRN (14:46)
[2020-05-20] MEDS ORDERED: GUAIFENESIN/DM 5 ML UCUP PO PRN (14:52)
[2020-05-20] MEDS ORDERED: HYDRALAZINE HCL 20 MG/ML VIAL IV PRN (14:52)
--- NOTE | 2020-05-20 15:00 | P.HP ---
Certification for Inpatient With expected LOS: >2 Midnights Patient will require the following post-hospital care: Home Health Services Practitioner: I am a practitioner with admitting privileges, knowledge of patient current condition, hospital course, and medical plan of care. Services: Services provided to patient in accordance with Admission requirements found in Title 42 Section 412.3 of the Code of Federal Regulations Patient History Date of Service: 05/20/20 Reason for admission: SOB History of Present Illness: 75 yr old male with PMHX of CAD , Systolic CHF with EF of 28% in 2015 , CKD stage IV follow with Dr Loya with progressive but stable creratinine at 1.8 now , Atrial fib on chronic A/c with Eliquis ,s/p AICD, sleep apnea on nocrtunal 2 L oxygen at baseline , recurrent dyspnea , admitted for similar symptoms since last week after recent discharge from [facility] for similar symptoms , he was treated with antibiotics Augmentin and increase Lasix to 40 mg tid while there but he admit to worsening symptoms with easy fatigue , orthopnea and PND. +cough , no fever or chills, no cough contact . no sputum He presented to ER today and noted with hypoxia and requiring up to 3L NC 02 . He admit to worsening body edema despite diuretics . state his home weight has increase to 244 lbs CXR shows mild pulmonary congestion with blunted left base . Noted with elevated BNP of > 5500. He is being admitted for CHF exacerbation Allergies magnesium citrate Allergy (Verified 05/20/20 15:37) Anaphylaxis magnesium citrate Allergy (Severe, Uncoded 05/20/20 15:37) Anaphylaxis Home Medications: Ferrous Fumarate/Vit Bcomp&C [Super B-Complex Caplet] 1 each PO DAILY 09/12/12 Metoprolol Tartrate [Lopressor*] 75 mg PO BID 09/12/12 Mv-Mins/Folic/Lycopene/Ginkgo [One Daily Men's 50+ Tablet] 1 each PO DAILY 09/12/12 Niacin Sr [Niaspan*] 1,000 mg PO BEDTIME 09/12/12 Potassium Oral Tab [Klor-Con 10 mEq Tab*] 10 meq PO DAILY 09/12/12 Pravastatin Sodium [Pravachol] 80 mg PO BEDTIME 09/12/12 Ranitidine [Zantac*] 150 mg PO DAILY 09/12/12 Furosemide [Lasix*] 40 mg PO BID 6AM 6PM #60 tab 09/13/12 lisinopriL [Prinivil*] 10 mg PO DAILY #30 tab 09/13/12 Apixaban [Eliquis *] 5 mg PO BID #60 tablet 03/23/14 Esomeprazole Mag Trihydrate [Nexium] 40 mg PO DAILY 03/23/14 Fenofibrate [Tricor*] 160 mg PO BEDTIME #30 tab 03/23/14 Spironolactone 25 mg PO DAILY 03/23/14 Metoprolol Tartrate [Lopressor*] 75 mg PO BID #60 tab 03/24/14 - Past Medical/Surgical History Diabetic: No -: HTN -: GERD -: Prostate Ca -: CHF -: Stents x3 -: Hernia repair -: Cholecysectomy -: AAA -: Urethral stent placement -: Tonsilectomy - Family History Brother -: Heart disease, Hypertension, Cancer Notes: lung cancer Sister -: Hypertension, Cancer Mother -: Cancer Father -: Heart disease, Hypertension - Social History Smoking Status: Former smoker Alcohol use: No CD- Drugs: No Caffeine use: Yes Review of Systems 10-point ROS is otherwise unremarkable General: Unremarkable Eyes: Unremarkable ENT: Unremarkable Respiratory: Shortness of Breath, SOB with Excertion Cardiovascular: Orthopnea, Paroxysmal Noc. Dyspnea, Unremarkable Gastrointestinal: Unremarkable Genitourinary: Unremarkable Musculoskeletal: Unremarkable Integumentary: Unremarkable Neurological: Unremarkable Physical Examination - Physical Exam General: Alert, In no apparent distress, Oriented x3, Other (on NC 02 ) HEENT: Atraumatic, Normocephalic, PERRLA Neck: Supple, 2+ carotid pulse no bruit, JVD not distended Respiratory: Normal air movement, Diminished (at bases ), Crackles/rales Cardiovascular: No edema, Normal pulses, Regular rate/rhythm, Normal S1 S2, Edema (2-3+ bilateral ) Gastrointestinal: Normal bowel sounds, Soft and benign, Non-distended, No tenderness, Ascites (mild by shifting dullness ) Musculoskeletal: No clubbing, No swelling, No contractures Neurological: Normal gait, Normal strength at 5/5 x4 extr, Cranial nerves 3-12 intact - Studies Laboratory Data (last 24 hrs) 05/20/20 12:40: WBC 8.00, Hgb 11.6 L, Hct 35.7 L, Plt Count 288 05/20/20 12:40: Sodium 138, Potassium 3.8, BUN 24 H, Creatinine 1.81 H, Glucose 99, Magnesium 2.5 H, Total Bilirubin 0.6, AST 38 H, ALT 37, Alkaline Phosphatase 22 L Imagings Data: CXr -reviewed by me -mild pulmonary edema and left angle blunting Assessment and Plan - Problems (Diagnosis) (1) CHF exacerbation Current Visit: Yes Status: Acute (2) Systolic CHF, acute on chronic Current Visit: Yes Status: Acute (3) CKD (chronic kidney disease) stage 4, GFR 15-29 ml/min Current Visit: Yes Status: Acute (4) HTN (hypertension) Current Visit: Yes Status: Acute (5) Atrial fibrillation Onset Date: 03/23/14 Current Visit: No Status: Acute - Advance Directives Does patient have a Living Will: No Does patient have a Durable POA for Healthcare: No Physician Review: Patient Assessed, Agree with Above Assessment and Plan Physician Review Additional Text: Impresion Systolic CHF with acute excacerbation Presumed Recurrent Pleural Effusions hx of AICD CKD stage IV - may be due to cardiorenal sydnrome on HTN nephrosclerosis hx of Atrial fib chronic Anticoagulation hx of Prostate cancer COPD hx PLAN - will admit to tele floor -serial cardiac enzymes given hx of CAD - CXR reviewed and interpreted by me - unclear left base , will obtain CT to r/o left pleural effusion -obtain covid screening - wean 02 -start higher dose diuretics with Bumex IV 2 mg q12 , add metolazone - Elevated creatinine with reduced renal function may be contributing to recurrent CHF symptoms -cardiology consult , may need repeat Echo - monitor k and mg level - daily BMP -c/w Eliquis for DVT prop and atrial fib hx Time Spent Managing Pts Care (In Minutes): 55
--- NOTE | 2020-05-20 16:05 | RAD REPORT ---
EXAM DESCRIPTION: CT - Thorax Wo Con - 05/20/2020 3:53 pm CLINICAL HISTORY: sob COMPARISON: May 20, 2020 chest x-ray TECHNIQUE: Computed axial tomography of the chest was obtained. Contrast was not requested. All CT scans are performed using dose optimization technique as appropriate and may include automated exposure control or mA/KV adjustment according to patient size. FINDINGS: The evaluation of mediastinum, doyle and vessels is limited secondary to lack of IV contras t administration. A few areas of subsegmental atelectasis within lingula. Mild mediastinal lymphadenopathy probably reactive nature. No hilar lymphadenopathy is Minimal bilateral pleural effusions. No pericardial effusion. Cardiomegaly. Coronary arterial calcifi cations IMPRESSION: Minimal bilateral pleural effusions
[2020-05-20] MEDS: METOLAZONE 5 MG TABLET PO SCH (17:16)
[2020-05-20] MEDS ORDERED: DICYCLOMINE HCL 10 MG CAP PO PRN (19:12)
[2020-05-20] MEDS ORDERED: CODEINE 30MG/APAP 300MG TAB PO PRN ×2 (19:12→19:21)
[2020-05-20] MEDS ORDERED: FENOFIBRATE 160 MG TAB PO SCH (21:00)
[2020-05-20] MEDS ORDERED: METOPROLOL TAR 50 MG TAB PO SCH (21:00)
[2020-05-20] MEDS ORDERED: BUMETANIDE 1 MG/4 ML VIAL IV SCH (21:00)
[2020-05-20] MEDS: ISOSORBIDE MONO 10 MG TAB PO SCH (22:24)
[2020-05-20] MEDS: BUMETANIDE 1 MG/4 ML VIAL IV SCH (22:24)
[2020-05-20] MEDS: ATORVASTATIN 10 MG TAB PO SCH (22:24)
[2020-05-20] MEDS: NIACIN 500 MG SR TAB PO SCH (22:24)
[2020-05-20] MEDS: AMIODARONE HCL 200 MG TAB PO SCH (22:24)
[2020-05-20] MEDS: APIXABAN 5 MG TABLET PO SCH (22:25)
[2020-05-21 00:31] VITALS: O2SAT 95
[2020-05-21] MEDS: ABIRATERONE ACETATE 250 MG PO SCH (05:44)
[2020-05-21 06:05] LABS: Absolute Lymphocytes (CBC) 0.7 K/uL (0.7-4.9); Basophils % 0.1 % (0-1.3); Hematocrit 30.9 % (39.6-49.0); Lymphocytes % 8.7 % (15.3-44.8); MPV 8.6 fL (7.6-11.3); RBC Red Blood Cell Count 3.35 M/uL (4.33-5.43)
[2020-05-21 06:06] VITALS: BMI 19.0
[2020-05-21 07:06] LABS: Bilirubin Total 0.5 mg/dL (0.2-1.0); Potassium 3.8 mmol/L (3.5-5.1); Protein, Total 6.6 g/dL (6.4-8.2)
[2020-05-21] MEDS ORDERED: SPIRONOLACTONE 25 MG TABLET PO SCH (09:00)
[2020-05-21] MEDS: ISOSORBIDE MONO 10 MG TAB PO SCH ×2 (09:00→20:14)
[2020-05-21] MEDS ORDERED: HOME MED 1 EA UNK (Esomeprazole Mag Trihydrate [Nexium] 40 MG Capsule.Dr) PO SCH (09:00)
[2020-05-21] MEDS: HOME MED 1 EA UNK (Ferrous Fumarate/Vit Bcomp&C [Super B-Complex Caplet] 1 EACH Tablet) PO SCH (09:00)
[2020-05-21] MEDS ORDERED: RANITIDINE 150 MG TABLET PO SCH (09:00)
[2020-05-21] MEDS ORDERED: lisinopriL 10 MG TAB PO SCH (09:00)
[2020-05-21] MEDS: METOLAZONE 5 MG TABLET PO SCH (09:08)
[2020-05-21] MEDS: FAMOTIDINE 20 MG TAB PO SCH (09:08)
[2020-05-21] MEDS: POTASSIUM CL SA 10 MEQ TAB PO SCH (09:10)
[2020-05-21] MEDS: DOCUSATE NA 100 MG CAP PO SCH (09:11)
[2020-05-21] MEDS: PANTOPRAZOLE 40MG TABLET PO SCH (09:11)
[2020-05-21] MEDS: APIXABAN 5 MG TABLET PO SCH ×2 (09:11→20:13)
[2020-05-21] MEDS: AMIODARONE HCL 200 MG TAB PO SCH ×2 (09:12→20:14)
--- NOTE | 2020-05-21 09:35 | P.CNS ---
Date of Consult: 05/21/20 Reason for Consult: CKD Requesting Physician: Apolinar Reyes Chief Complaint: SOB History of Present Illness: 75 yo WM CKD, CHF presented to the [facility] ER with 7-10 days of moderate, progressive weakness with associated malaise, anorexia and dyspnea in the setting of CHF. Recently admitted to [place] overnight for similar symptoms but did not improve with abx. Reports edema with an increase in his weight. He feels a little bit better today. 11:54 This 75 yrs old Male presents to ER via Wheelchair with complaints of rn Weakness. 11:54 Reports generalized weakness for the last week or so, admitted overnight at [facility], told either pneumonia or CHF, today still has fever, generalized weakness, cough, and malaise. Reports weakness in both legs when trying to stand. . Onset: The symptoms/episode began/occurred 1 week(s) ago. Severity of symptoms: At their worst the symptoms were mild in the emergency department the symptoms are unchanged. The patient has not experienced similar symptoms in the past. The patient has not rece ntly seen a physician. Allergies magnesium citrate Allergy (Verified 05/20/20 15:37) Anaphylaxis magnesium citrate Allergy (Severe, Uncoded 05/20/20 15:37) Anaphylaxis Home medications list reviewed: Yes Home Medications: Metoprolol Tartrate [Lopressor*] 25 mg PO BID 09/12/12 Mv-Mins/Folic/Lycopene/Ginkgo [One Daily Men's 50+ Tablet] 1 each PO DAILY 09/12/12 Pravastatin Sodium [Pravachol] 80 mg PO BEDTIME 09/12/12 Apixaban [Eliquis *] 5 mg PO BID #60 tablet 03/23/14 Fenofibrate [Tricor*] 160 mg PO BEDTIME #30 tab 03/23/14 Abiraterone Acetate [Zytiga] 500 mg PO 0600 05/20/20 Amiodarone HCl [Cordarone Tab] 200 mg PO BID 05/20/20 Aspirin 81 mg PO DAILY 05/20/20 Cholecalciferol (Vitamin D3) [Vitamin D3] 1,000 unit PO DAILY 05/20/20 Codeine/APAP [Tylenol W/Codeine #3 tab] 1 tab PO Q4HP PRN 05/20/20 Dicyclomine HCl 20 mg PO DAILY PRN 05/20/20 Docosahexanoic AC/Epa [Fish Oil 1,000 MG CAP] 1,000 mg PO DAILY 05/20/20 Docusate [Colace Cap] 200 mg PO DAILY 05/20/20 Esomeprazole Mag Trihydrate [Nexium] 40 mg PO DAILY 05/20/20 Ezetimibe [Zetia] 10 mg PO BEDTIME 05/20/20 Ferrous Sulfate [Feosol] 325 mg PO DAILY 05/20/20 Furosemide [Lasix] 40 mg PO TID 05/20/[address] [place] (Bid) [Ismo 10 mg Tab] 10 mg PO BID 05/20/20 Magnesium Oxide [Magnesium] 400 mg PO BEDTIME 05/20/20 Ranolazine [Ranexa] 500 mg PO BID 05/20/20 predniSONE [Deltasone] 5 mg PO DAILY 05/20/20 - Past Medical/Surgical History Diabetic: No -: HTN -: GERD -: Prostate Ca -: CHF -: Stents x3 -: Hernia repair -: Cholecysectomy -: AAA -: Urethral stent placement -: Tonsilectomy - Family History Brother Medical History: Heart disease, Hypertension, Cancer Notes: lung cancer Sister Medical History: Hypertension, Cancer Mother Medical History: Cancer Father Medical History: Heart disease, Hypertension - Social History Smoking Status: Current every day smoker Alcohol use: No CD- Drugs: No Caffeine use: Yes Review of Systems General: Weakness, Malaise Respiratory: SOB with Excertion Cardiovascular: Edema Neurological: Weakness Physical Examination Temp Pulse Resp BP Pulse Ox 97.9 F 60 20 128/61 96 05/21/20 08:00 05/21/20 09:08 05/21/20 08:00 05/21/20 09:08 05/21/20 08:00 General: In no apparent distress, Oriented x3, Cooperative HEENT: Atraumatic Neck: Supple Respiratory: Expiratory wheezes Cardiovascular: Regular rate/rhythm, Edema Gastrointestinal: Soft and benign, Non-distended Musculoskeletal: No clubbing, No contractures Integumentary: No rashes, No cyanosis Neurological: Normal speech Laboratory Data (last 24 hrs) 05/20/20 12:40: PT Cancelled, INR Cancelled 05/20/20 12:40: WBC 8.00, Hgb 11.6 L, Hct 35.7 L, Plt Count 288 05/20/20 12:40: Sodium 138, Potassium 3.8, BUN 24 H, Creatinine 1.81 H, Glucose 99, Magnesium 2.5 H, Total Bilirubin 0.6, AST 38 H, ALT 37, Alkaline Phosphatase 22 L Imagings Data: EXAM DESCRIPTION: CT - Thorax Wo Con - 05/20/2020 3:53 pm CLINICAL HISTORY: sob COMPARISON: May 20, 2020 chest x-ray TECHNIQUE: Computed axial tomography of the chest was obtained. Contrast was not requested. All CT scans are performed using dose optimization technique as appropriate and may include automated exposure control or mA/KV adjustment according to patient size. FINDINGS: The evaluation of mediastinum, doyle and vessels is limited secondary to lack of IV contrast administration. A few areas of subsegmental atelectasis within lingula. Mild mediastinal lymphadenopathy probably reactive nature. No hilar lymphadenopathy is Minimal bilateral pleural effusions. No pericardial effusion. Cardiomegaly. Coronary arterial calcifications IMPRESSION: Minimal bilateral pleural effusions EXAM DESCRIPTION: RADChest Single View05/20/2020 12:12 pm CLINICAL HISTORY: cough COMPARISON: 2018 FINDINGS: The lungs appear clear of acute infiltrate. The heart is mildly to moderately enlarged. Pacemaker leads are in place. 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 Case reviewed with Dr. Reyes
[2020-05-21] MEDS: BUMETANIDE 1 MG/4 ML VIAL IV SCH ×3 (10:17→20:15)
--- NOTE | 2020-05-21 12:33 | CON ---
Date of Consultation: 05/21/2020 Reason For Consultation: Admitted to Dr. Wade on 05/20/2020 for congestive heart failure. I saw the patient on 05/21/2020. History Of Present Illness: Mr. Ye is a 75-year-old white male. He sees Dr. James Cardona ___ from a Cardiology standpoint. He sees Dr. Loya here for Nephrology in general followup. He has a history of paroxysmal atrial fibrillation status post ablation by Dr. Pitts. He has a histo ry of ventricular tachycardia, congestive heart failure, coronary artery disease, status post defibri llator placement. Has a history of prostate cancer, COPD, dyslipidemia, mitral valve clipping, hyper tension, and gastroesophageal reflux disease. He came in with shortness of breath, although the ches t x-ray was normal. CT of the lungs showed minimal pleural effusion. He has improved after receivin g Bumex as well as inhalers since he has been in the hospital and he wants to go home. He did also g et 1 dose of metolazone. His creatinine is 1.81. His BNP is 5501. His troponin was negative. Past Medical History: As stated above. Allergies: HE IS ALLERGIC TO MAGNESIUM. Review of Systems: Negative. Social History: Negative. Family History: Noncontributory. Medications: At home include Lipitor, amiodarone, Tricor, Lasix, inhalers, Pepcid, Eliquis, hydralaz ine, Imdur, and occasional metolazone as well. Physical Examination: General: Very pleasant. Vital Signs: Stable. Paced rhythm, afebrile. HEENT: Negative. Neck: Supple without any bruit, lymphadenopathy, JVD, or thyromegaly. Chest: Clear to auscultation and percussion. Cardiac: Revealed a paced rhythm. No murmurs, gallops, or rubs. Abdomen: Benign. Extremities: Revealed no clubbing, cyanosis, or edema. Diagnostic Data: As stated earlier. Impression And Plan: 1.Shortness of breath, more likely related to chronic obstructive pulmonary disease exacerbation and congestive heart failure. He has no rales, no edema. His chest x-ray is normal. His CT showed min imal pleural effusion, which is probably chronic. There is an echocardiogram that is pending that wa s ordered by Dr. Wade and we will see what that shows. I am comfortable with him going home when ever it is okay with Dr. Wade and he can follow up with Dr. Loya and Dr. Cardona as an outpatient . I will continue his present regimen. 2.Paroxysmal atrial fibrillation status post ablation by Dr. Pitts. He is on amiodarone and Eliquis . We will continue that. 3.History of ventricular tachycardia, on amiodarone. 4.History of congestive heart failure, probably systolic. I do not have any records. He has a defi brillator. This is stable. He is on appropriate therapy, we will continue that. He also has a hist ory of coronary artery disease, dyslipidemia, chronic obstructive pulmonary disease, and history of m itral valve clipping. I did not hear any significant mitral regurgitation by examination. His blood pressure is well controlled. His gastroesophageal reflux disease is well controlled. He has a hist ory of prostate cancer that is stable. BESSIE/GIOVANNI Voice ID: [id number] Report ID: [id number]
[2020-05-21] MEDS: AMILORIDE HCL 5 MG TABLET PO SCH (12:34)
--- NOTE | 2020-05-21 12:54 | P.PN ---
Subjective Date of Service: 05/21/20 Primary Care Provider: Dr. Loya; Cardiology-Dr. Cardona Chief Complaint: SOB Subjective: Improving, Doing well Physical Examination - Vital Signs Temperature: 97.9 F Blood Pressure: 128/61 Pulse: 60 Respirations: 20 Pulse Ox (%): 96 - Studies Laboratory Data (last 24 hrs) 05/20/20 12:40: PT Cancelled, INR Cancelled 05/20/20 12:40: WBC 8.00, Hgb 11.6 L, Hct 35.7 L, Plt Count 288 05/20/20 12:40: Sodium 138, Potassium 3.8, BUN 24 H, Creatinine 1.81 H, Glucose 99, Magnesium 2.5 H, Total Bilirubin 0.6, AST 38 H, ALT 37, Alkaline Phosphatase 22 L Microbiology Data (last 24 hrs): 05/20/20 12:40 Blood - Blood Anaerobic Blood Culture - Final Assessment & Plan Discharge Plan: Home Plan to discharge in: 24 Hours Physician Review Additional Text: Physical exam: Patient alert, cooperative. No significant distress Heart: Regular rate and rhythm Lungs: Mild crackles to the bases Abdomen: Soft nontender nondistended Extremities: Good range of motion no focal deficits. No edema noted Impression: Dyspnea with minimal bilateral pleural effusions secondary to acute on chronic systolic CHF with COPD Atrial fibrillation with history of AICD on chronic anticoagulation therapy Chronic renal disease stage 3 Hypertension History of prostate cancer Hyperlipidemia COPD on chronic steroids Plan: Dyspnea with minimal bilateral pleural effusions secondary to acute on chronic systolic CHF with COPD: Continue diuresis. Continue with COPD medication as well. We will recheck chest x-ray tomorrow. Patient remains on oxygen. Currently on 2 L per nasal cannula. We will teach on 1500 cc/day fluid restriction and low-salt diet. Physical therapy ordered. Patient desires home health and physical therapy at discharge. Continue with cardiology recommendations. Await echocardiogram. Anticipate improvement over the next 24 hours with likely discharge tomorrow. Atrial fibrillation with history of AICD on chronic anticoagulation therapy: Continue with amiodarone and Eliquis. Chronic renal disease stage 3: Overall stable. Monitor closely. Hypertension: Continue medication History of prostate cancer: Overall stable. Hyperlipidemia: Continue medication COPD on chronic steroids: We will confirm if patient is taking chronic steroids. Will need to also confirm and restart home medication for COPD. Time Spent Managing Pts Care (In Minutes): 55
--- NOTE | 2020-05-21 14:14 | ECHO ---
HEIGHT: 6 ft 0 in WEIGHT: 247 lb 14.4 oz DATE OF STUDY: 05/21/[address]: Wally Gutierrez MD 2-DIMENSIONAL: YES M.MODE: YES DOPPLER: YES COLOR FLOW: YES TDS: NO PORTABLE: NO DEFINITY: NO BUBBLE STUDY: NO DIAGNOSIS: CONGESTIVE HEART FAILURE CARDIAC HISTORY: CATHERIZATION: YES SURGERY: NO PROSTHETIC VALVE: NO PACEMAKER: YES MEASUREMENTS (cm) DIASTOLIC (NORMALS) SYSTOLIC (NORMALS) IVSd 1.3 (0.6-1.2) LA Diam 4.3 (1.9-4.0) LVEF 40-45% LVIDd 5.9 (3.5-5.7) LVIDs 5.3 (2.0-3.5) %FS 11% LVPWd 1.4 (0.6-1.2) Ao Diam 3.3 (2.0-3.7) 2 DIMENSIONAL ASSESSMENT: RIGHT ATRIUM: NORMAL LEFT ATRIUM: ENLARGED RIGHT VENTRICLE: PACEMAKER LEAD LEFT VENTRICLE: SEE BELOW TRICUSPID VALVE: MITRAL VALVE: MILD CALCIFICATION PULMONIC VALVE: AORTIC VALVE: PERICARDIAL EFFUSION: NONE AORTIC ROOT: NORMAL LEFT VENTRICULAR WALL MOTION: SEE BELOW. DOPPLER/COLOR FLOW: SEE BELOW. COMMENTS: POOR WINDOWS, BUT LEFT VENTRICLE APPEARS MILDLY DEPRESSED WITH LEFT VENTRICULAR EJECTION FRACTION OF 40-45%. RECOMMEND CONTRAST ECHO FOR BETTER EVALUATION OF LEFT VENTRICULAR EJECTION FRACTION AND WALL MOTION. MILD TRICUSPID, MITRAL AND PULMONARY REGURGITATION. TECHNOLOGIST: Tank KAY
[2020-05-21] MEDS: NIACIN 500 MG SR TAB PO SCH (20:12)
[2020-05-21] MEDS: ATORVASTATIN 10 MG TAB PO SCH (20:14)
[2020-05-21] MEDS ORDERED: MAGNESIUM OXIDE 400 MG TAB PO SCH (21:00)
[2020-05-21] MEDS ORDERED: EZETIMIBE 10 MG TAB PO SCH (21:00)
[2020-05-22 03:28] LABS: Urine Appearance CLEAR (Clear); Urine Bilirubin NEGATIVE (NEG); Urine Blood NEGATIVE (Negative); Urine Color YELLOW (Yellow); Urine Glucose NEGATIVE (Negative); Urine Protein NEGATIVE (NEG); Urine Specific Gravity <=1.005 (1.005-1.030); Urine Urobilinogen 0.2 mg/dL (0.2-1.0); Urine pH 7.5 (5.0-7.0)
[2020-05-22 04:30] LABS: Urine Bacteria <20 /HPF (NONE SEEN); Urine RBC <5 /HPF (NONE SEEN)
[2020-05-22 05:10] VITALS: BP 141/64; TEMP 96.8
[2020-05-22] MEDS: ABIRATERONE ACETATE 250 MG PO SCH (05:40)
[2020-05-22 06:26] LABS: Absolute Lymphocytes (CBC) 1.2 K/uL (0.7-4.9); Basophils % 0.6 % (0-1.3); Hematocrit 32.7 % (39.6-49.0); Lymphocytes % 13.6 % (15.3-44.8); MPV 8.9 fL (7.6-11.3); RBC Red Blood Cell Count 3.55 M/uL (4.33-5.43)
[2020-05-22 06:45] LABS: Magnesium 2.4 mg/dL (1.8-2.4); Potassium 3.7 mmol/L (3.5-5.1)
[2020-05-22] MEDS ORDERED: FERROUS SULFATE 325 MG TAB PO SCH (09:00)
[2020-05-22] MEDS: BUMETANIDE 1 MG/4 ML VIAL IV SCH (09:00)
[2020-05-22] MEDS: HOME MED 1 EA UNK (Ferrous Fumarate/Vit Bcomp&C [Super B-Complex Caplet] 1 EACH Tablet) PO SCH (09:00)
[2020-05-22] MEDS ORDERED: predniSONE 5 MG TAB PO SCH (09:00)
[2020-05-22] MEDS ORDERED: DOCOSAHEXANOIC AC/EPA 1000 MG PO SCH (09:00)
[2020-05-22] MEDS ORDERED: MULTIVIT W/ MINERAL TAB PO SCH (09:00)
[2020-05-22] MEDS ORDERED: VITAMIN D 1000 UNIT TAB PO SCH (09:00)
--- NOTE | 2020-05-22 09:24 | P.DS ---
Admission Date: 05/20/20 Discharge Date: 05/22/20 Primary Care Provider: Dr. Loya; Cardiology-Dr. Cardona Disposition: DC HOME/HOME HEALTH CARE Discharge Condition: GOOD Reason for Admission: SOB Consultations: Nephrology-Dr. Loya Cardiology-Dr. Gutierrez Procedures: COVID: Negative CT Chest: COMPARISON: May 20, 2020 chest x-ray TECHNIQUE: Computed axial tomography of the chest was obtained. Contrast was not requested. All CT scans are performed using dose optimization technique as appropriate and may include automated exposure control or mA/KV adjustment according to patient size. FINDINGS: The evaluation of mediastinum, doyle and vessels is limited secondary to lack of IV contrast administration. A few areas of subsegmental atelectasis within lingula. Mild mediastinal lymphadenopathy probably reactive nature. No hilar lymphadenopathy is Minimal bilateral pleural effusions. No pericardial effusion. Cardiomegaly. Coronary arterial calcifications IMPRESSION: Minimal bilateral pleural effusions Follow up CXR: ECHO: MEASUREMENTS (cm) DIASTOLIC (NORMALS) SYSTOLIC (NORMALS) IVSd 1.3 (0.6-1.2) LA Diam 4.3 (1.9-4.0) LVEF 40-45% LVIDd 5.9 (3.5-5.7) LVIDs 5.3 (2.0-3.5) %FS 11% LVPWd 1.4 (0.6-1.2) Ao Diam 3.3 (2.0-3.7) 2 DIMENSIONAL ASSESSMENT: RIGHT ATRIUM: NORMAL LEFT ATRIUM: ENLARGED RIGHT VENTRICLE: PACEMAKER LEAD LEFT VENTRICLE: SEE BELOW TRICUSPID VALVE: MITRAL VALVE: MILD CALCIFICATION PULMONIC VALVE: AORTIC VALVE: PERICARDIAL EFFUSION: NONE AORTIC ROOT: NORMAL LEFT VENTRICULAR WALL MOTION: SEE BELOW. DOPPLER/COLOR FLOW: SEE BELOW. COMMENTS: POOR WINDOWS, BUT LEFT VENTRICLE APPEARS MILDLY DEPRESSED WITH LEFT VENTRICULAR EJECTION FRACTION OF 40-45%. RECOMMEND CONTRAST ECHO FOR BETTER EVALUATION OF LEFT VENTRICULAR EJECTION FRACTION AND WALL MOTION. MILD TRICUSPID, MITRAL AND PULMONARY REGURGITATION. Medical Problem List: Dyspnea with minimal bilateral pleural effusions secondary to acute on chronic systolic CHF with COPD exacerbation Atrial fibrillation with history of AICD on chronic anticoagulation therapy Chronic renal disease stage 3 Hypertension History of prostate cancer Hyperlipidemia COPD on chronic steroids CAD GERD Anemia chronic disease Brief History of Present Illness: 75-year-old male with history of CAD, systolic CHF with prior EF of 20% in 2015, chronic renal disease stage III, atrial fibrillation on chronic anticoagulation therapy, history of AICD, sleep apnea. Patient presented with increasing shortness of breath. His medication had been increased due to worsening shortness of breath and fatigue. Patient required additional oxygen upon admission. Patient was started on IV diuretic therapy due to chest x-ray showing CHF exacerbation. Hospital Course: Patient presented with dyspnea. CT chest showed minimal bilateral pleural effusions. Patient with history of systolic CHF. Patient with acute on chronic systolic CHF with component of COPD exacerbation. Patient was admitted for treatment. Patient received IV diuretic therapy with improvement. Patient was seen and evaluated by cardiology. Echocardiogram shows improvement from prior echocardiogram. 2015 echo showed EF of around 25%. Now 40-45%. Patient has done well. At discharge patient without significant shortness of breath. At discharge patient will continue with home oxygen to maintain sats above 93%. Compliance with oxygen addressed in detail. Patient currently on 2 L per nasal cannula. At discharge the patient will also continue with 1500 cc/day fluid restriction and low-salt diet. Patient is to monitor his weight daily. If his weight increases by more than 5 pounds he is to contact his PCP, cardiology or nephrology for further recommendation. At discharge patient may continue with Lasix 40 mg 1 pill 3 times a day. Nephrology also recommended to continue amiloride 10 mg daily. The patient will also continue with potassium supple mentation daily. Medication may need to be further adjusted. This can be done with the help of his strategic procurement manager or supervisor specialty plant. Education on CHF provided. Recommend follow-up with cardiology in 1 to 2 weeks to follow his hospitalization and continue his care. Prior to discharge home health and physical therapy will be arranged. Patient with COPD. Patient on chronic steroids. Patient only uses rescue inhaler. Additional medication included Brovana. At discharge patient will continue with his prednisone at 5 mg daily. At discharge the patient will continue with Brovana 1 unit dose twice daily. Patient will also be provided Xopenex 2 puffs 3 times a day as needed for shortness of breath. Recommend follow-up with pulmonology in 1 to 2 weeks to follow-up his hospitalization and continue his care. Patient with history of atrial fibrillation currently on chronic anticoagulation therapy. Patient with prior ablation now with AICD. This is remained stable. At discharge patient will continue with amiodarone 200 mg twice daily and Eliquis 5 mg 1 pill twice daily. Recommend follow-up with cardiology as directed. Patient with chronic renal disease stage III. As recommend above, patient will continue with fluid restriction. Continue with current medications. Recommend follow-up with nephrology to further monitor and adjust. Recommend to recheck labBMP in 1 to 2 weeks to monitor his progress. Recommend no further use of nonsteroidal anti-inflammatories. Future medications will need to be renally dosed. Patient with hypertension. At discharge patient will continue with current medicationmetoprolol 25 mg 1 pill twice daily hold if blood pressure less than 110 or heart rate less than 50. Nephrology recommended to continue with Amiloride 10 mg daily as well. Recommend to maintain blood pressure less than 130/80. Further adjustment can be done by his PCP. Patient with CAD. At discharge patient will continue with aspirin 81 mg daily, isosorbide mononitrate 10 mg 1 pill twice daily, and Ranexa 500 mg 1 pill twice daily Patient with hyperlipidemia. At discharge patient will continue with his medicationTriCor 160 mg daily, Zetia 10 mg daily, fish oil 1000 mg daily, and pravastatin 80 mg daily. Patient with GERD. At discharge patient will continue with Nexium 40 mg daily. Patient with history of prostate cancer. Overall stable. Recommend follow-up with specialty care as directed. Patient will continue with his current medication of Zytiga 500 mg daily. Vital Signs/Physical Exam: Temp Pulse Resp BP Pulse Ox 96.8 F 64 17 141/64 H 95 05/22/20 04:00 05/22/20 04:00 05/22/20 04:00 05/22/20 04:00 05/22/20 04:00 General: Alert, In no apparent distress, Oriented x3, Cooperative HEENT: Atraumatic Neck: Supple Respiratory: Expiratory wheezes (Occasional wheezing) Cardiovascular: Normal pulses Gastrointestinal: Normal bowel sounds, No tenderness, No masses, No rebound, No guarding Musculoskeletal: No erythema, No tenderness, No warmth Integumentary: No tenderness/swelling Neurological: Normal speech, Normal strength at 5/5 x4 extr, Normal tone, Normal affect Laboratory Data at Discharge: WBC 8.90 K/uL (4.3-10.9) 05/22/20 06:05 Hgb 10.8 g/dL (13.6-17.9) L 05/22/20 06:05 Hct 32.7 % (39.6-49.0) L 05/22/20 06:05 Plt Count 292 K/uL (152-406) 05/22/20 06:05 PT Cancelled 05/20/20 12:40 INR Cancelled 05/20/20 12:40 Sodium 139 mmol/L (136-145) 05/22/20 06:05 Potassium 3.7 mmol/L (3.5-5.1) 05/22/20 06:05 BUN 37 mg/dL (7-18) H 05/22/20 06:05 Creatinine 2.15 mg/dL (0.55-1.3) H 05/22/20 06:05 Glucose 109 mg/dL (74-106) H 05/22/20 06:05 Magnesium 2.4 mg/dL (1.8-2.4) 05/22/20 06:05 Total Bilirubin 0.5 mg/dL (0.2-1.0) 05/21/20 05:25 AST 25 U/L (15-37) 05/21/20 05:25 ALT 28 U/L (12-78) 05/21/20 05:25 Alkaline Phosphatase 18 U/L (45-117) L 05/21/20 05:25 Home Medications: Metoprolol Tartrate [Lopressor*] 25 mg PO BID 09/12/12 Mv-Mins/Folic/Lycopene/Ginkgo [One Daily Men's 50+ Tablet] 1 each PO DAILY 09/12/12 Pravastatin Sodium [Pravachol] 80 mg PO BEDTIME 09/12/12 Apixaban [Eliquis *] 5 mg PO BID #60 tablet 03/23/14 Fenofibrate [Tricor*] 160 mg PO BEDTIME #30 tab 03/23/14 Abiraterone Acetate [Zytiga] 500 mg PO 0600 05/20/20 Amiodarone HCl [Cordarone*] 200 mg PO BID 05/20/20 Aspirin 81 mg PO DAILY 05/20/20 Cholecalciferol (Vitamin D3) [Vitamin D3] 1,000 unit PO DAILY 05/20/20 Codeine/APAP [Tylenol #3*] 1 tab PO Q4HP PRN 05/20/20 Dicyclomine HCl 20 mg PO DAILY PRN 05/20/20 Docosahexanoic AC/Epa [Fish Oil 1,000 MG*] 1,000 mg PO DAILY 05/20/20 Docusate [Colace Cap*] 200 mg PO DAILY 05/20/20 Esomeprazole Mag Trihydrate [Nexium] 40 mg PO DAILY 05/20/20 Ezetimibe [Zetia*] 10 mg PO BEDTIME 05/20/20 Ferrous Sulfate [Ferrous Sulfate*] 325 mg PO DAILY 05/20/20 Furosemide [Lasix*] 40 mg PO TID 05/20/20 Isosorbide [place] (Bid) [Ismo 10 mg Tab*] 10 mg PO BID 05/20/20 Magnesium Oxide [Magnesium] 400 mg PO BEDTIME 05/20/20 Ranolazine [Ranexa] 500 mg PO BID 05/20/20 predniSONE [Prednisone*] 5 mg PO DAILY 05/20/20 Amiloride HCl 10 mg PO DAILY #60 tablet 05/22/20 Arformoterol Tartrate [Brovana] 15 mcg NEB BIDRESP #60 vial.neb 05/22/20 Levalbuterol Tartrate [Xopenex Hfa] 2 puff IH TID PRN #1 hfa.[email or web address] 05/22/20 New Medications: Amiloride HCl 10 mg PO DAILY #60 tablet Arformoterol Tartrate [Brovana] 15 mcg NEB BIDRESP #60 vial.neb Levalbuterol Tartrate [Xopenex Hfa] 2 puff IH TID PRN #1 hfa.aer.ad PRN Reason: Shortness Of Breath Physician Discharge Instructions: Patient presented with dyspnea. CT chest showed minimal bilateral pleural effusions. Patient with history of systolic CHF. Patient with acute on chronic systolic CHF with component of COPD exacerbation. Patient was admitted for treatment. Patient received IV diuretic therapy with improvement. Patient was seen and evaluated by cardiology. Echocardiogram shows improvement from prior echocardiogram. 2014 echo showed EF of around 25%. Now 40-45%. Patient has done well. At discharge patient without significant shortness of breath. At discharge patient will continue with home oxygen to maintain sats above 93%. Compliance with oxygen addressed in detail. Patient currently on 2 L per nasal cannula. At discharge the patient will also continue with 1500 cc/day fluid restriction and low-salt diet. Patient is to monitor his weight daily. If his weight increases by more than 5 pounds he is to contact his PCP, cardiology or nephrology for further recommendation. At discharge patient may continue with Lasix 40 mg 1 pill 3 times a day. Nephrology also recommended to continue amiloride 10 mg daily. The patient will also continue with potassium supplementation daily. Medication may need to be further adjusted. This can be done with the help of his strategic procurement manager or supervisor specialty plant. Education on CHF provided. Recommend follow-up with cardiology in 1 to 2 weeks to follow his h ospitalization and continue his care. Prior to discharge home health and physical therapy will be arranged. Patient with COPD. Patient on chronic steroids. Patient only uses rescue inhaler. Additional medication included Brovana. At discharge patient will continue with his prednisone at 5 mg daily. At discharge the patient will continue with Brovana 1 unit dose twice daily. Patient will also be provided Xopenex 2 puffs 3 times a day as needed for shortness of breath. Recommend follow-up with pulmonology in 1 to 2 weeks to follow-up his hospitalization and continue his care. Patient with history of atrial fibrillation currently on chronic anticoagulation therapy. Patient with prior ablation now with AICD. This is remained stable. At discharge patient will continue with amiodarone 200 mg twice daily and Eliquis 5 mg 1 pill twice daily. Recommend follow-up with cardiology as directed. Patient with chronic renal disease stage III. As recommend above, patient will continue with fluid restriction. Continue with current medications. Recommend follow-up with nephrology to further monitor and adjust. Recommend to recheck labBMP in 1 to 2 weeks to monitor his progress. Recommend no further use of nonsteroidal anti-inflammatories. Future medications will need to be renally dosed. Patient with hypertension. At discharge patient will continue with current medicationmetoprolol 25 mg 1 pill twice daily hold if blood pressure less than 110 or heart rate less than 50. Nephrology recommended to continue with Amiloride 10 mg daily as well. Recommend to maintain blood pressure less than 130/80. Further adjustment can be done by his PCP. Patient with CAD. At discharge patient will continue with aspirin 81 mg daily, isosorbide mononitrate 10 mg 1 pill twice daily, and Ranexa 500 mg 1 pill twice daily Patient with hyperlipidemia. At discharge patient will continue with his medicationTriCor 160 mg daily, Zetia 10 mg daily, fish oil 1000 mg daily, and pravastatin 80 mg daily. Patient with GERD. At discharge patient will continue with Nexium 40 mg daily. Patient with history of prostate cancer. Overall stable. Recommend follow-up with specialty care as directed. Patient will continue with his current medication of Zytiga 500 mg daily. Diet: AHA Activity: Ad nevin Followup: Tuan Loya DO [Primary Care Provider] - Time spent managing pt's care (in minutes): 55
--- NOTE | 2020-05-22 09:27 | RAD REPORT ---
EXAM DESCRIPTION: RAD - Chest Pa And Lat (2 Views) - 05/22/2020 5:31 am CLINICAL HISTORY: follow up CHF Chest pain. COMPARISON: Chest Single View dated 05/20/2020; CHEST SINGLE VIEW dated 09/13/2012; CHEST SINGLE VIEW dated 09/12/2012; CHEST SINGLE VIEW dated 11/05/2010; Thorax Wo Con dated 05/20/2020 FINDINGS: The lungs are hyperexpanded compatible with COPD. The heart is mildly prominent in size. M ultilead pacer/defibrillator device is present. IMPRESSION: Mild COPD.
[2020-05-22] MEDS: DOCUSATE NA 100 MG CAP PO SCH (10:45)
[2020-05-22] MEDS: FAMOTIDINE 20 MG TAB PO SCH (10:45)
[2020-05-22] MEDS: ISOSORBIDE MONO 10 MG TAB PO SCH (10:47)
[2020-05-22] MEDS: POTASSIUM CL SA 10 MEQ TAB PO SCH (10:48)
[2020-05-22] MEDS: APIXABAN 5 MG TABLET PO SCH (10:48)
[2020-05-22] MEDS: AMIODARONE HCL 200 MG TAB PO SCH (10:48)
[2020-05-22] MEDS: PANTOPRAZOLE 40MG TABLET PO SCH (10:49)
[2020-05-22] MEDS: AMILORIDE HCL 5 MG TABLET PO SCH (10:50)
[2020-05-22] MEDS ORDERED: FUROSEMIDE 40 MG TABLET PO SCH (14:00)
[2020-05-22] MEDS ORDERED: METOPROLOL TAR 25 MG TAB PO SCH (18:00)
[2020-05-22] MEDS ORDERED: ARFORMOTEROL TARTRATE 15 MCG/2 ML VIAL.NEB NEB SCH (20:00)
--- NOTE | 2020-05-23 20:39 | P.PN ---
Date of Service: 05/22/20 Vital Signs Temp Pulse Resp BP Pulse Ox 96.8 F 71 19 141/64 H 91 05/22/20 08:00 05/22/20 08:00 05/22/20 08:00 05/22/20 04:00 05/22/20 08:00 Microbiology Results 05/20/20 12:40 Blood - Blood Aerobic Blood Culture - Preliminary No growth in 24 hours. 05/20/20 12:40 Blood - Blood Anaerobic Blood Culture - Final 05/20/20 12:45 Blood - Blood Aerobic Blood Culture - Preliminary No growth in 24 hours. 05/20/20 12:45 Blood - Blood Anaerobic Blood Culture - Preliminary No growth in 24 hours. Assessment/ Plan: Nephrology No acute cardiac or pulmonary complaints. No CP or SOB. No acute events overnight. Vitals, medications, blood work and imaging reviewed in the chart. General: In no apparent distress, Oriented x3, Cooperative HEENT: Atraumatic Neck: Supple Respiratory: Expiratory wheezes Cardiovascular: Regular rate/rhythm, Edema Gastrointestinal: Soft and benign, Non-distended Musculoskeletal: No clubbing, No contractures Integumentary: No rashes, No cyanosis Neurological: Normal speech Laboratory Data (last 24 hrs) 05/20/20 12:40: PT Cancelled, INR Cancelled 05/20/20 12:40: WBC 8.00, Hgb 11.6 L, Hct 35.7 L, Plt Count 288 05/20/20 12:40: Sodium 138, Potassium 3.8, BUN 24 H, Creatinine 1.81 H, Glucose 99, Magnesium 2.5 H, Total Bilirubin 0.6, AST 38 H, ALT 37, Alkaline Phosphatase 22 L Imagings Data: EXAM DESCRIPTION: CT - Thorax Wo Con - 05/20/2020 3:53 pm CLINICAL HISTORY: sob COMPARISON: May 20, 2020 chest x-ray TECHNIQUE: Computed axial tomography of the chest was obtained. Contrast was not requested. All CT scans are performed using dose optimization technique as appropriate and may include automated exposure control or mA/KV adjustment according to patient size. FINDINGS: The evaluation of mediastinum, doyle and vessels is limited secondary to lack of IV contrast administration. A few areas of subsegmental atelectasis within lingula. Mild mediastinal lymphadenopathy probably reactive nature. No hilar lymphadenopathy is Minimal bilateral pleural effusions. No pericardial effusion. Cardiomegaly. Coronary arterial calcifications IMPRESSION: Minimal bilateral pleural effusions EXAM DESCRIPTION: Chidi Single View05/20/2020 12:12 pm CLINICAL HISTORY: cough COMPARISON: 2018 FINDINGS: The lungs appear clear of acute infiltrate. The heart is mildly to moderately enlarged. Pacemaker leads are in place. IMPRESSION: No acute abnormalities displayed Conclusions/Impression: A/P: Continue the current POC and Medications other than the changes listed. AM Labs PRN. Recommend daily weight. Please see the orders for complete details. CKD 3/4 -No NSAIDs Hypokalemia -Replete potassium -Continue Amiloride HTN with CKD/ CHF -Continue Imdur Systolic CHF, A/C -Continue Bumex TID -Discontinue Metolazone -Continue Amiloride -Echocardiogram removed. Anemia in chronic illness -Monitor H&H
== END 2020-05-22 13:00 | disposition home health service (06) | DRG 291 ==
LOC: ER 11:03 → ERHOLD 14:48 → 2ND 15:15
PROVIDERS: ADMIT Internal Medicine; ATTEND Family Medicine
DX: I13.0 Hypertensive heart and chronic kidney disease with heart failure and stage 1 through stage 4 chronic kidney disease, or unspecified chronic kidney disease (principal); I50.23 Acute on chronic systolic (congestive) heart failure; J44.1 Chronic obstructive pulmonary disease with (acute) exacerbation; N18.30 Chronic kidney disease, stage 3 unspecified; I25.10 Atherosclerotic heart disease of native coronary artery without angina pectoris; K21.9 Gastro-esophageal reflux disease without esophagitis; D63.8 Anemia in other chronic diseases classified elsewhere; I48.0 Paroxysmal atrial fibrillation; E78.5 Hyperlipidemia, unspecified; E87.6 Hypokalemia; F17.210 Nicotine dependence, cigarettes, uncomplicated; I25.2 Old myocardial infarction; Z85.46 Personal history of malignant neoplasm of prostate; Z90.49 Acquired absence of other specified parts of digestive tract; Z79.01 Long term (current) use of anticoagulants; Z79.52 Long term (current) use of systemic steroids; Z95.1 Presence of aortocoronary bypass graft; Z79.890 Hormone replacement therapy; Z88.8 Allergy status to other drugs, medicaments and biological substances; Z79.899 Other long term (current) drug therapy; Z20.822 Contact with and (suspected) exposure to COVID-19
CPT/HCPCS: 36415; 71045; 71046; 71250; 80048; 80053; 80076; 81001; 82947; 83735; 83880; 84145; 84484; 85025; 87040; 93005; 93306; 97116; 97161; 99285; J1940; J2930; J7512; U0003

== ENCOUNTER 2021-12-28 11:27 | Inpatient (IN) | payer OTHER, MEDICARE ==
--- OUTSIDE RECORDS SUMMARY | 2021-12-28 11:36 | XMS REPORT | Continuity of Care Document ---
:1945 Author Organization [facility] t Address [address] [place] [address] Care Team Providers Name Role Phone Tuan Loya Primary Care Physician SHASHI MANUEL Attending Clinician Unavailable Provider, Unknown Attending Clinician Unavailable Milla MORALEZ, Andrew Dahl Attending Clinician [phone] Chanda Hansen MD Attending Clinician Behzad Murray MD Attending Clinician Colleen Dsouza MD, Zuleima Attending Clinician [phone] Rozina Walls MD Attending Clinician Elizabeth Bauman MA Attending Clinician Unavailable Marcus Dunbar MD Attending Clinician Rosalie Meredith MD Attending Clinician James Lester MD Attending Clinician SAMMIE BRADSHAW Attending Clinician Unavailable OCTAVIO MANUEL Attending Clinician Unavailable Sari MORALEZ, Octavio Casas Attending Clinician Waqar Aleman MA Attending Clinician Unavailable Lauren Robles MA Attending Clinician Unavailable Isiah Michael MD Attending Clinician Mary Schroeder MD Attending Clinician Justen MORALEZ, Elda Attending Clinician [phone] Garett MORALEZ, Mayelin Evangelista Attending Clinician Augustine AKINS, Sammie Cardona Attending Clinician Sari MORALEZ, Shashi Casas Attending Clinician EDGAR SHUKLA Attending Clinician Unavailable YANIQUE GRANT Attending Clinician Unavailable MERCEDES GELLER Attending Clinician Unavailable MD MERCEDES GELLER Attending Clinician Unavailable CARLOS PADILLA Attending Clinician Unavailable CHANDA HANSEN Admitting Clinician Unavailable MARY SCHROEDER Admitting Clinician Unavailable EDGAR SHUKLA Admitting Clinician Unavailable YANIQUE GRANT Admitting Clinician Unavailable JAMES LESTER Admitting Clinician Unavailable MD JAMES LESTER Admitting Clinician Unavailable Payers Payer Name Policy Type Policy Number Effective Date Expiration Date [place] [facility] [place] A \T\ [id number] 2015 B - MEDICARE 00:00:00 AARP MEDICARE [id number] SUPPLEMENT PLAN [facility] MEDICARE A B [id number] 2008 00:00:00 [facility] [id number] 2020 HEALTHCARE 00:00:00 Problems Condition Condition Condition Status Onset Resolution Last Treating Co mments Source Name Details Category Date Date Treatment Clinician Date Acute Acute Disease Active 2021-02 [facility] congestive congestive 0-21 st heart heart 00:00: Hospita failure, failure, 00 l unspecifie unspecifie d heart d heart failure failure type type 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[facility] History of History of Disease Active [facility] coronary coronary 6-09 st artery artery 00:00: Hospita stent stent 00 l placement placement Respirator Respirator Disease Active 0 M ethodi y y 5-11 st insufficie insufficie 00:00: Ho spita ncy ncy 00 l VT VT Disease Active 2017-02 [facility] (ventricul (ventricul 1-29 st ar ar 00:00: Hospita tachycardi tachycardi 00 l a) a) Rectal Rectal Disease Active 2017-02 Overview: Method i perforatio perforatio 03-[address] n n 00:00: g of this Hospita 00 note l might be different from the original. 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 Transcath eter mitral valve repair, percutane ous approach including transsept alpunctur e. Atrial Atrial Disease Active 2016-02 [facility] fibrillati fibrillati 0- st on on 00:00: Hospita 00 l Coronary Coronary Disease Active 2016-02 [facility] di artery artery 0- st disease disease 00:00: Hospita involving involving 00 l morongo morongo coronary coronary artery of artery of morongo morongo heart heart without without angina angina pectoris pectoris Mitral Mitral Disease Active 2016-02 [facility] valve valve 0-02 st disease disease 00:00: Hospita 00 l Acute Acute Disease Active [facility] blood loss blood loss 11-03 as cause as cause 00:00: Hospit a of of 00 l postoperat postoperat saundra anemia saundra anemia Acute Acute Disease Active [facility] respirator respirator 11-03 y y 00:00: Hospita insufficie insufficie 00 l ncy, ncy, postoperat postoperat saundra saundra CKD CKD Disease Active [facility] (chronic (chronic 09-01 kidney kidney 00:00: Hospita disease) disease) 00 l Dizzy Dizzy Disease Active [facility] 09-01 00:00: Hospita 00 l Carotid Carotid Disease Active [facility] bruit bruit 09-01 00:00: Hospita 00 l Hyperkalem Hyperkalem Disease Active M ethodi ia ia 08-24 00:00: Hospita 00 l ARNOLD (acute ARNOLD (acute Disease Active M ethodi kidney kidney 7 st injury) injury) 00:00: Hospita 00 l V-tach V-tach Disease Active [facility] (HCCode) (HCCode) 08-15 Colleg e 00:00: of 00 Medicin e Cardiomyop Cardiomyop Disease Active M [facility]i athy athy 08-05 st 00:00: Hospita 00 l Anemia Anemia Disease Active [facility] 07-26 st 00:00: Hospita 00 l Chronic Chronic Disease Active [facility] kidney kidney 07-26 disease, disease, 00:00: Hospit a stage III stage III 00 l (moderate) (moderate) COPD COPD Disease Active [facility] (chronic (chronic 07-26 obstructiv obstructiv 00:00: Ho spita e e 00 l pulmonary pulmonary disease) disease) History of History of Disease Active M [facility]i prostate prostate 07-26 st cancer cancer 00:00: Hospita 00 l Near Near Disease Active [facility] syncope syncope 07-26 00:00: Hospita 00 l GERD GERD Disease Active [facility] (gastroeso (gastroeso 07-26 st phageal phageal 00:00: Hospita reflux reflux 00 l disease) disease) Defibrilla Defibrilla Disease Active M ethodi tor tor 6 st discharge discharge 00:00: Hosp vik 00 l Coronary Coronary Disease Active [facility] di artery artery 5-02 st disease disease 00:00: Hospita involving involving 00 l morongo morongo heart heart without without angina angina pectoris pectoris Paroxysmal Paroxysmal Disease Active M [facility]i atrial atrial 4-13 st fibrillati fibrillati 00:00: Ho spita on on 00 l Systolic Systolic Disease Active [facility] di congestive congestive 4-13 st heart heart 00:00: Hospita failure failure 00 l Paroxysmal Paroxysmal Disease Active M ethodi atrial atrial 4-13 st fibrillati fibrillati 00:00: Ho spita on on 00 l PAD PAD Disease Active 2015-02 [facility] (periphera (periphera 2-13 st l artery l artery 00:00: Hospit a disease) disease) 00 l PAD PAD Disease Active 2015-02 [facility] (periphera (periphera 2-13 Co llege l artery l artery 00:00: of disease) disease) 00 Medici n (HCCode) (HCCode) e Abdominal Abdominal Disease Active 2015-02 [facility] aortic aortic 03-03 st aneurysm aneurysm 00:00: Hospit a (AAA) (AAA) 00 l Essential Essential Disease Active 2015-02 [facility] hypertensi hypertensi 03-03 st on on 00:00: Hospita 00 l Hyperlipid Hyperlipid Disease Active 2015-02 M ethodi emia emia 03-03 st 00:00: Hospita 00 l Presence Presence Disease Active 2015-02 Metho di of stent of stent 03-03 st in in 00:00: Hospita coronary coronary 00 l artery artery Chronic Chronic Disease Active 2015-02 [facility] systolic systolic 03-03 heart heart 00:00: Hospita failure failure 00 l Urethral Urethral Disease Active 2011-02 Meth[facility] di stricture stricture 004 st 00:00: Hospita 00 l Malignant Malignant Disease Active [facility] neoplasm neoplasm 11-19 st of of 00:00: Hospita prostate prostate 00 l Myocardial Myocardial Disease Active M ethodi infarct infarct 08 st 00:00: Hospita 00 l Hyperchole Hyperchole Disease Active [facility] ste[facility] steremia [facility] of Medicin e HTN HTN Disease Active [facility] (hypertens (hypertens Co llege ion) ion) of Medicin e Allergies, Adverse Reactions, Alerts Allergy Allergy Status Severity Reaction(s) Onset Inactive Treating Comm ents Source Name Type Date Date Clinician Lisinopr Propensi Active Swelling 2021-02 Meth ash il ty to 0-10 st adverse 00:00: Hospita reaction 00 l s to drug Adhesive Propensi Active Rash [facility] Tape ty to 6-11 College adverse 00:00: of reaction 00 Medicin s to e substanc e Adhesive Propensi Active Rash [facility] Tape-Alicia ty to 4-19 st icones adverse 00:00: Hospita reaction 00 l s to drug Magnesiu Propensi Active Swelling Tongue Meth ash m ty to 4-[address] Citrate adverse 00:00: Hospita reaction 00 l s to drug NO KNOWN Allergy Active [facility] Family History Family Member Diagnosis Comments Start Date Stop Date Source Natural father [facility] Natural mother Basal [facility] Natural mother Heart attack [facility] Other Coronary artery [facility] disease Social History Social Habit Start Date Stop Date Quantity Comments Source History of tobacco 2016-06-11 Smokes tobacco [facility] use 00:[facility] daily Hospital History SDOH [facility] Alcohol Std Drinks Hospit al History SDOH [facility] Alcohol Binge Hospital Exposure to Not sure [facility] e SARS-CoV-2 (event) of Med icine Alcohol intake 2021-12-14 2021-12-14 Current [facility] 00:00:00 00:00:00 non-drinker of Hospital alcohol (finding) Cigarettes smoked 2021-11-21 2021-11-[address] current (pack per 00:00:00 00:00:00 Hospita l day) - Reported Tobacco use and 2021-11-21 2021-11-21 Smokeless tobacco [facility] exposure 00:00:00 00:00:00 non-user Hospital History SDOH 2019-10-28 2019-10-28 1 [facility] Alcohol Frequency 00:00:00 00:00:00 Hospita l Alcohol Comment 2016-01-02 2016-01-02 occasional [facility] 00:00:00 00:00:00 Hospital Cigarette 2010-11-19 2010-11-19 [facility] pack-years 00:00:00 00:00:00 of Medicine Tobacco Comment 2010-11-19 2010-11-19 Offered [facility] Co llege 00:00:00 00:00:00 of Medicine Sex Ass[birth year] At [birth year] [facility] Smoking Status Start Date Stop Date Source Smokes tobacco daily 2021-11-21 00:00:00 [facility] Medications Ordered Filled Start Stop Current Ordering Indication Dosage Frequency Signature Comments Components Source Medication Medication Date Date Medication? Clinician (SIG) Name Name cholecalcif 2021-02 Yes 5000U QD Take 5,000 [facility] mati, 0-[address] vitamin D3, 13:30: mouth Hospi ta 50 mcg 08 daily. l (2,000 unit) capsule capsule doxylamine 2021-02 Yes 25mg QD Take 1 Metho di (UNISOM) 25 0-24 tablet (25 st mg tablet 13:30: mg total) Hos bright 08 by mouth l nightly. aspirin 2021-02 Yes 81mg QD Take 81 mg Meth ash (ECOTRIN) 0-[address] 81 MG 14:32: daily. Hospita enteric 33 l coated tablet dicyclomine 2021-02 Yes 20mg Q24H Take 1 Meth ash (BENTYL) 20 0-23 tablet (20 st mg tablet 14:32: mg total) Hos bright 33 by mouth l daily as needed. albuterol 2021-02 Yes 2{puff} Q6H Inhale 2 M ethodi (PROAIR 0-[address] HFA,PROVENT 14:32: every 6 Hos bright [place] 33 (six) l HFA,VENTOLI hours as N HFA) 90 needed for mcg/actuati wheezing. on inhaler docusate 2021-02 Yes 200mg Q.5D Take 200 Meth ash sodium 0-[address] (COLACE) 14:32: mouth 2 Hospit a 100 MG 33 (two) l capsule times a day. OMEGA-3 2021-02 Yes 1{tbl} QD Take 1 Method i FATTY 0-[address] ACIDS-EPA 14:32: mouth Hospita ORAL 33 daily. l vitamin B 2021-02 Yes 1{tbl} QD Take 1 Meth ash complex 0-[address] tablet 14:32: mouth Hospita extended 33 daily. l release magnesium 2021-02 Yes 400mg QD Take 400 Met hodi oxide 0-[address] (MAG-OX) 14:32: mouth Hospita 400 mg 33 nightly. l (241.3 mg magnesium) tablet multivitami 2021-02 Yes 1{tbl} QD Take 1 Me thodi n 0-[address] (THERAGRAN) 14:32: mouth Hospi ta tablet 33 daily. l leuprolide 2021-02 Yes 5mg Inject 1 Met hodi 1 mg/0.2 mL 0-23 mL ([address] kit 14:32: total) Hospita 33 under the l skin. Every 6 Months acetaminoph 2021-02 Yes 1{tbl} Q4H Take 1 M ethodi en-codeine 0-[address] (TYLENOL 14:32: mouth Hospita WITH 33 every 4 l CODEINE #4) (four) 300-60 mg hours as per tablet needed for moderate pain .acute pain. ferrous 2021-02 Yes 325mg QD Take 325 Metho di sulfate 325 0-[address] (65 FE) MG 14:32: mouth Hospit a tablet 33 daily with l breakfast. esomeprazol 2021-02 Yes 40mg QD Take 40 mg Methodi e (NexIUM) 0-[address] 40 MG 14:32: daily Hospita capsule 33 before l breakfast. albuterol 2021-02 Yes 2.5mg Q4H Take 3 mL Me thodi (ACCUNEB) 0-23 (2.[address] 2.5 mg /3 14:32: total) by Hos bright mL (0.083 33 nebulizati l %) on every 4 nebulizer (four) solution hours as needed for wheezing. budesonide- 2021-02 Yes 2{puff} Q.5D Inhale 2 Methodi formoteroL 0-[address] (Symbicort) 00:00: (two) Hospi ta 160-4.5 00 times a l mcg/actuati day. on inhaler metoprolol 2021-02- Yes 50mg QD Take 1 Meth ash succinate 0-23 11-23 tablet (50 st XL (Toprol 00:00: 05:59 mg total) H ospita XL) 50 mg 00 :00 by mouth l 24 hr daily for tablet 30 days. losartan 2021-02- Yes 25mg QD Take 1 Method i (COZAAR) 25 0-23 11-23 tablet (25 s t MG tablet 00:00: 05:59 mg total) Ho spita 00 :00 by mouth l daily for 30 days. BUMETanide 2021-02- Yes 1mg Q.5D Take 1 Meth ash (BUMEX) 1 0-23 11-23 tablet (1 st MG tablet 00:00: 05:59 mg total) Ho spita 00 :00 by mouth 2 l (two) times a day for 30 days. enzalutamid 2021-02- No 40mg Q.5D Take 40 mg Methodi e (Xtandi) 0-21 10-[address] 40 mg chemo 18:09: 00:00 (two) Hosp vik capsule 47 :00 times a l day. fluticasone 2021-02- No 2{puff} Q.5D Inhale 2 [facility] propion-primitivo 0-21 10-[address] meteroL 00:00: 00:00 (two) Hospita (Advair 00 :00 times a l HFA) 230-21 day. mcg/actuati on inhaler tiotropium 2021-02- No 2{puff} QD Inhale 2 [facility] bromide 0-21 10-[address] (SPIRIVA 00:00: 00:00 daily for Hos bright RESPIMAT) 00 :00 30 days. l 2.5 mcg/actuati on per actuation fluticasone 2021-02- No 1{puff} Q.5D Inhale 1 [facility] propion-primitivo 0-21 10-[address] meteroL 00:00: 00:00 (two) Hospita (AirDuo 00 :00 times a l RespiClick) day. 232-14 mcg/actuati on aerosol powdr breath activated fenofibrate 2021-02 Yes TAKE 1 Meth ash (LOFIBRA) 0-04 TABLET(160 st 160 MG 00:00: MG) BY Hospita tablet 00 MOUTH l EVERY NIGHT ezetimibe 2021-02 Yes TAKE 1 Method i (ZETIA) 10 0-04 TABLET(10 st mg tablet 00:00: MG) BY Hospit a 00 MOUTH l EVERY NIGHT pravastatin 2021-02 Yes TAKE 1 Meth ash (PRAVACHOL) 0-04 TABLET(80 st 80 MG 00:00: MG) BY Hospita tablet 00 MOUTH l EVERY NIGHT metoprolol 2021-02- No TAKE 1 Meth ash tartrate 0-04 10-23 TABLET(25 st (LOPRESSOR) 00:00: 00:00 MG) BY Hos bright 25 mg 00 :00 MOUTH l tablet TWICE DAILY methylPREDN 2021- No [id number] 125mg [facility] ISolone 11-21 st sodium 20:15: 20:35 Hospita succinate 00 :00 l (Solu-MEDRO L) injection 125 mg fluticasone 2021- No 2{puff} Inhale 2 [facility] (FLOVENT 11-[address] HFA) 220 15:08: 00:00 needed. Hospi ta mcg/actuati 10 :00 l on inhaler fluticasone 2021- No QD Inhale 1 M ethodi -umeclidin- 11-21 10-23 inhalation s t vilanter 00:00: 00:00 s once Hospit a (TRELEGY 00 :00 daily. l ELLIPTA) 100-62.5-25 mcg blister with device powder for inhalation predniSONE 2021- No Take 4 Meth ash (DELTASONE) 11-21 10- tabs for 5 s t 10 mg 00:00: 00:00 days, 3 Hospita tablet 00 :00 tabs for 5 l days, 2 tabs for 5 days, 1 tabs for 5days ezetimibe 2021- No TAKE 1 Metho di (ZETIA) 10 09-02 TABLET(10 st mg tablet 00:00: 00:00 MG) BY Hospi ta 00 :00 MOUTH l EVERY NIGHT pravastatin 2021- No TAKE 1 Met hodi (PRAVACHOL) 09-02 TABLET(80 st 80 MG 00:00: 00:00 MG) BY Hospita tablet 00 :00 MOUTH l EVERY NIGHT torsemide 2021- No TAKE 2 Metho di (DEMADEX) 08-[address] 20 MG 00:00: 00:00 MOUTH Hospita tablet 00 :00 THREE l TIMES DAILY fenofibrate 2021- No TAKE 1 Met hodi (LOFIBRA) 08-27 TABLET(160 st 160 MG 00:00: 00:00 MG) BY Hospita tablet 00 :00 MOUTH l EVERY NIGHT pravastatin 2021- No TAKE 1 Met hodi (PRAVACHOL) 06-11- TABLET(80 st 80 MG 00:00: 00:00 MG) BY Hospita tablet 00 :00 MOUTH l EVERY NIGHT ezetimibe 2021- No TAKE 1 Metho di (ZETIA) 10 05-27-11 TABLET(10 st mg tablet 00:00: 00:00 MG) BY Hospi ta 00 :00 MOUTH l EVERY NIGHT fenofibrate 2021- No TAKE 1 Met hodi (LOFIBRA) 05-27- TABLET(160 st 160 MG 00:00: 00:00 MG) BY Hospita tablet 00 :00 MOUTH l EVERY NIGHT torsemide 2021-2021- No TAKE 2 Metho di (DEMADEX) 05-20-[address] 20 MG 00:00: 00:00 MOUTH Hospita tablet 00 :00 THREE l TIMES DAILY pravastatin Yes 80mg Take 80 mg [facility] (PRAVACHOL) 2-25 by mouth Oleks[facility]r ege 80 MG 14:25: daily. of tablet 21 Medicin e Multiple Yes Take by [facility] Vitamin 2-25 mouth. [facility] (MULTI-KENIA 14:25: of MIN OR) 21 Medicin e B Complex-C Yes Take by [place] [facility] (SUPER B 2-25 mouth [facility] COMPLEX OR) 14:25: daily. of 21 Medicin e Esomeprazol Yes Take by [place] [facility] e Magnesium 2-25 [facility] [place] PACK 14:25: daily. of 21 Medicin e [place]-3 Yes Take by [facility] Fatty Acids 2-25 mouth. [facility] (OMEGA-3 14:25: of PLUS OR) 21 Medicin e fluticasone Yes [id number] 1{puff} 1 Puff as [facility] 220 MCG/ACT 2-25 needed. [facility] ge AERO 14:25: of 21 Medicin e Magnesium Yes [id number] 400mg Take 400 [facility] Oxide 400 2-25 mg by Lorenzo MG CAPS 14:25: mouth. of 21 Medicin e albuterol Yes 2{puff} 2 Puffs by [facility] 108 (90 2-25 Nasal [facility] base) 14:25: Cannula of mcg/act 21 route as Medicin inhaler needed. e aspirin EC Yes 81mg Take 81 mg B [facility] 81 MG TBEC 2-25 by mouth Colle ge 14:25: daily. of 21 Medicin e Apixaban 5 Yes 5mg Take 5 mg Ba ylor MG TABS 2-25 by mouth Lorenzo 14:25: two times of 21 daily. Medicin e docusate Yes 100mg Take 100 Bay[place] or sodium 2-25 mg by [facility] (COLACE) 14:25: mouth two of 100 MG 21 times Medicin capsule daily. e amiodarone Yes 200mg Take 200 [facility] (PACERONE) 2-25 mg by [facility] 200 MG 14:25: mouth of tablet 21 daily. Medicin e ferrous Yes Take by [facility] sulfate 220 2-25 mouth. Galina bearden (44 Fe) 14:25: of MG/5ML 21 Medicin solution e fenofibrate Yes 160mg Take 160 [facility] (LOFIBRA) 2-25 mg by Lorenzo 160 MG 14:25: mouth of tablet 21 daily. Medicin e Fluticasone Yes 1{puff} Inhale 1 Cam -Salmeterol 2-25 Puff by [facility] mily (ADVAIR 14:25: mouth two of DISKUS IN) 21 times Medicin daily. e metoprolol Yes 25mg Take 25 mg [facility] (LOPRESSOR) 2-25 by mouth Oleksandr ege 25 MG 14:25: two times of tablet 21 daily. Medicin e pravastatin Yes TAKE 1 Meth ash (PRAVACHOL) - TABLET(80 st 80 MG 00:00: MG) BY Hospita tablet 00 MOUTH l EVERY NIGHT pravastatin 2021- No TAKE 1 Met hodi (PRAVACHOL) 03-15-19 TABLET(80 st 80 MG 00:00: 00:00 MG) BY Hospita tablet 00 :00 MOUTH l EVERY NIGHT fenofibrate 2020-02 Yes TAKE 1 Meth ash (LOFIBRA) - TABLET(160 st 160 MG 00:00: MG) BY Hospita tablet 00 MOUTH l EVERY NIGHT ezetimibe 2020-02 Yes TAKE 1 Method i (ZETIA) 10 - TABLET(10 st mg tablet 00:00: MG) BY Hospit a 00 MOUTH l EVERY NIGHT fenofibrate 2020-02- No TAKE 1 Met hodi (LOFIBRA) 04-22- TABLET(160 st 160 MG 00:00: 00:00 MG) BY Hospita tablet 00 :00 MOUTH l EVERY NIGHT ezetimibe 2020-02- No TAKE 1 Metho di (ZETIA) 10 04-22- TABLET(10 st mg tablet 00:00: 00:00 MG) BY Hospi ta 00 :00 MOUTH l EVERY NIGHT torsemide 2020-02 Yes TAKE 2 Method i (DEMADEX) 2-[address] 20 MG 00:00: MOUTH Hospita tablet 00 THREE l TIMES DAILY torsemide 2020-02- No TAKE 2 Metho di (DEMADEX) 2-17 03-[address] 20 MG 00:00: 00:00 MOUTH Hospita tablet 00 :00 THREE l TIMES DAILY torsemide 2020-02- No TAKE 2 Metho di (DEMADEX) 2-17 12-17 TABLETS(40 st 20 MG 00:00: 00:00 MG) BY Hospita tablet 00 :00 MOUTH l THREE TIMES DAILY torsemide 2020-02- No TAKE 2 Metho di (DEMADEX) 2-17 12-17 TABLETS(40 st 20 MG 00:00: 00:00 MG) BY Hospita tablet 00 :00 MOUTH l THREE TIMES DAILY abiraterone 2020-02 No 500mg QD Take 500 [facility] (Zytiga) 02-[address] 500 mg 10:31: 00:00 mouth Hospita tablet 20 :00 daily. l predniSONE 2020-02 No 5mg QD Take 5 mg M ethodi (DELTASONE) 02-[address] 5 mg tablet 10:31: 00:00 daily. Hos bright 20 :00 l denosumab 2020-02 No 120mg Inject 120 [facility] (XGEVA) 120 02-[address] mg/1.7 mL 10:31: 00:00 the skin Hos bright (70 mg/mL) 13 :00 once. l solution Taken injection every 3 months per pt's report metoprolol 2020-02 Yes 25mg Q.5D Take 1 Metho di tartrate - tablet (25 st (LOPRESSOR) 00:00: mg total) H ospita 25 mg 00 by mouth 2 l tablet (two) times a day. metoprolol 2020-02- No 25mg Q.5D Take 1 Meth ash tartrate -11-26 tablet (25 st (LOPRESSOR) 00:00: 00:00 mg total) Hospita 25 mg 00 :00 by mouth 2 l tablet (two) times a day. metoprolol 2020-02 No 50mg Q.5D Take 1 Meth ash tartrate 0-25 11-01 tablet (50 st (LOPRESSOR) 00:00: 00:00 mg total) Hospita 50 mg 00 :00 by mouth 2 l tablet (two) times a day. metoprolol 2020-02 No 25mg Q.5D Take 25 mg [facility] tartrate 0-20 10-[address] (LOPRESSOR) 07:48: 00:00 (two) Hosp vik 25 mg 18 :00 times a l tablet day. Takinf pravastatin 2020-02- No TAKE 1 Met hodi (PRAVACHOL) 0-20 01-21 TABLET(80 st 80 MG 00:00: 00:00 MG) BY Hospita tablet 00 :00 MOUTH l EVERY NIGHT pravastatin 2020-02- No TAKE 1 Met hodi (PRAVACHOL) 0-20 -21 TABLET(80 st 80 MG 00:00: 00:00 MG) BY Hospita tablet 00 :00 MOUTH l EVERY NIGHT metoprolol 2020-02- No 25mg Q.5D Take 1 Meth ash succinate 0-20 - tablet (25 st XL 00:00: 00:00 mg total) Hospita (TOPROL-XL) 00 :00 by mouth 2 l 25 mg 24 hr (two) tablet times a day. torsemide 2020-02- No TAKE 2 Metho di (DEMADEX) 0-19 12-17 TABLETS(40 st 20 MG 00:00: 00:00 MG) BY Hospita tablet 00 :00 MOUTH l THREE TIMES DAILY torsemide 2020-02- No TAKE 2 Metho di (DEMADEX) 0-19 12-17 TABLETS(40 st 20 MG 00:00: 00:00 MG) BY Hospita tablet 00 :00 MOUTH l THREE TIMES DAILY enzalutamid 2020-02 Yes 40mg Q.5D Take 40 mg Methodi e (Xtandi) 0-[address] 40 mg chemo 15:31: (two) Hospi ta capsule 55 times a l day. ranolazine 2020-02 No 500mg Q.5D Take 500 M ethodi (RANEXA) 0-18 10-[address] 500 MG 12 15:31: 00:00 mouth 2 Hosp vik hr ER 20 :00 (two) l tablet times a day. aspirin 2020-02 Yes 81mg QD Take 81 mg Meth ash (ECOTRIN) 0-[address] 81 MG 15:31: daily. Hospita enteric 09 l coated tablet fluticasone 2020-02 Yes 2{puff} Inhale 2 [facility]i (FLOVENT 0-[address] HFA) 220 15:31: needed. Hospit a mcg/actuati 09 l on inhaler dicyclomine 2020-02 Yes 20mg Q.[id number] Take 20 mg [facility] (BENTYL) 20 0-18 [id number] by mouth [address] mg tablet 15:31: 3D (three) Hospi ta 09 times a l day as needed. albuterol 2020-02 Yes 2{puff} Q6H Inhale 2 M ethodi (PROAIR 0-[address] HFA,PROVENT 15:31: every 6 Hos bright [place] 09 (six) l HFA,VENTOLI hours as N HFA) 90 needed for mcg/actuati wheezing. on inhaler docusate 2020-02 Yes 200mg Q.5D Take 200 Meth ash sodium 0-[address] (COLACE) 15:31: mouth 2 Hospit a 100 MG 09 (two) l capsule times a day. OMEGA-3 2020-02 Yes 1{tbl} QD Take 1 Method i FATTY 0-[address] ACIDS-EPA 15:31: mouth Hospita ORAL 09 daily. l vitamin B 2020-02 Yes 1{tbl} QD Take 1 Meth ash complex 0-[address] tablet 15:31: mouth Hospita extended 09 daily. l release magnesium 2020-02 Yes 400mg QD Take 400 Met hodi oxide 0-[address] (MAG-OX) 15:31: mouth Hospita 400 mg 09 nightly. l (241.3 mg magnesium) tablet multivitami 2020-02 Yes 1{tbl} QD Take 1 Me thodi n 0-[address] (THERAGRAN) 15:31: mouth Hospi ta tablet 09 daily. l leuprolide 2020-02 Yes 5mg Q90D Inject 5 Met hodi 1 mg/0.2 mL 0-[address] kit 15:31: the skin Hospita 09 every 3 l (three) months. acetaminoph 2020-02 Yes [id number] 1{tbl} Q4H Take 1 M ethodi en-codeine 0-[address] (TYLENOL 15:31: mouth [facility] WITH 09 every 4 l CODEINE #4) (four) 300-60 mg hours as per tablet needed for moderate pain .acute pain. ferrous 2020-02 Yes 325mg QD Take 325 Metho di sulfate 325 0-[address] (65 FE) MG 15:31: mouth Hospit a tablet 09 daily with l breakfast. esomeprazol 2020-02 Yes 40mg QD Take 40 mg [facility] (NexIUM) 0-[address] 40 MG 15:31: daily [facility]osp[facility] capsule 09 before l breakfast. metoprolol 2020-02- No 25mg QD Take 1 Meth ash succinate 0-18 10-20 tablet (25 st XL 00:00: 00:00 mg total) Hospita (TOPROL-XL) 00 :00 by mouth l 25 mg 24 hr daily. tablet torsemide 2020-02- No Take 40mg [facility] (DEMADEX) 0-18 10-[address] 20 MG 00:00: 00:00 [facility]ospita tablet 00 :00 l ezetimibe 2020-02- No TAKE 1 [facility] (ZETIA) 10 0-14 12-28 TABLET(10 st mg tablet 00:00: 00:00 MG) BY Hospi ta 00 :00 MOUTH l EVERY NIGHT ezetimibe 2020-02- No TAKE 1 [facility] (ZETIA) 10 0-14 12-28 TABLET(10 st mg tablet 00:00: 00:00 MG) BY Hospi ta 00 :00 MOUTH l EVERY NIGHT fenofibrate 2020-02- No TAKE 1 [facility] (LOFIBRA) 0-07 12-28 TABLET(160 st 160 MG 00:00: 00:00 MG) BY [facility]ospita tablet 00 :00 MOUTH l EVERY NIGHT fenofibrate 2020-02- No TAKE 1 [facility] (LOFIBRA) 0-07 12-28 TABLET(160 st 160 MG 00:00: 00:00 MG) BY [facility]ospita tablet 00 :00 MOUTH l EVERY NIGHT furosemide 2020- No TAKE 1 [facility] (LASIX) 40 9-03 10-18 TABLET(40 st mg tablet 00:00: 00:00 [facility] TIMES DAILY furosemide Yes 40mg Take 40 mg [facility] (LASIX) 40 8-17 by mouth Colle ge MG tablet 13:16: two times of 11 daily. Medicin e pravastatin 2020- No TAKE 1 [facility] (PRAVACHOL) 7-23 10-20 TABLET(80 st 80 MG 00:00: 00:00 MG) BY [facility]ospita tablet 00 :00 MOUTH l EVERY NIGHT amiodarone Yes 200mg QD Take [address] (PACERONE) 7-14 mg by [facility] 200 MG 10:42: mouth [facility] tablet 49 daily. Center aspirin 81 Yes 81mg QD Take [address] MG EC 7-14 by mouth [facility] tablet 10:42: daily. Medical 49 Center metoprolol Yes 25mg Q.5D Take [address] tartrate 7-14 by mouth 2 [facility] (LOPRESSOR) 10:42: (two) Medic al 25 MG 49 times Center tablet daily. furosemide Yes 40mg Q.5D Take [address] (LASIX) 40 7-14 by mouth 2 Pablo es MG tablet 10:42: (two) Medical 49 times Center daily. apixaban Yes 5mg Q.5D Take [address] [facility] (Eliquis) 5 7-14 by mouth 2 Emely kes mg Tab 10:42: (two) Medical tablet 49 times Center daily. esomeprazol Yes 40mg QD Take [address] [facility] e magnesium 7-14 by mouth Luke s (NEXIUM 10:42: daily. Medical 24HR ORAL) 49 Center predniSONE Yes 5mg QD Take [address] [facility] [address] [facility] (DELTASONE) 7-14 by mouth Luke s 5 MG tablet 10:42: daily. Medi callie 49 Center ferrous Yes 1{capsu Take 1 [facility] fumarate-b1 7-14 le} capsule by Emely kes 2-vitamic 10:42: mouth Medical C-folic 49 every Center acid morning (FOLTRIN) before 110-0.5 mg breakfast. capsule omega-3 Yes 2g QD Take [address] [facility] fatty 7-14 by mouth [facility] acids-fish 10:42: daily. Medic al oil 49 Center 340-1,000 mg Cap per capsule cholecalcif Yes 5000U QD Take 5,[address] [facility] mati, 7-14 Units by [facility] vitamin D3, 10:42: mouth Medic al 125 mcg 49 daily. Center (5,000 unit) Tab docusate Yes 100mg Q.5D Take [address] [facility] sodium 7-14 mg by [facility] (COLACE) 10:42: mouth 2 Medica l 100 MG 49 (two) Center capsule times daily. isosorbide Yes 10mg Q.[id number] Take [address] [facility] dinitrate 7-14 [id number] by mouth 3 [facility] (ISORDIL) 10:42: 3D (three) Medic al 10 MG 49 times Center tablet daily Give 1/2 tab if BP >110 SBP . arformotero Yes 15ug Q.5D Take [address] [facility] [address] [facility] (BROVANA) 7-14 mcg by [facility] 15 mcg/2 mL 10:42: nebulizati Medical nebulizer 49 on 2 (two) Cent er solution times daily. pravastatin Yes 80mg QD Take [address] [facility] (PRAVACHOL) 7-14 by mouth Luke s 80 MG 10:42: nightly. Medical tablet 49 Center fenofibrate Yes 160mg QD Take [address] (TRIGLIDE,L 7-14 mg by [facility] OFIBRA) 160 10:42: mouth Medic al MG tablet 49 nightly. Center magnesium Yes 400mg QD Take [address] oxide 7-14 mg by [facility] (MAG-OX) 10:42: mouth Medical 400 mg 49 nightly. Center (241.3 mg magnesium) tablet acetaminoph Yes 1{tbl} Take [address] en-codeine 7-14 tablet by Lumoises s (TYLENOL 10:42: mouth Medical #3) 300-30 49 every 4 Center mg per (four) tablet hours as needed for Pain. amiodarone Yes 200mg QD Take [address] (PACERONE) 7-14 mg by [facility] 200 MG 10:42: mouth Medical tablet 49 daily. Center aspirin 81 Yes 81mg QD Take [address] MG EC 7-14 by mouth [facility] tablet 10:42: daily. Medical 49 Center metoprolol Yes 25mg Q.5D Take [address] tartrate 7-14 by mouth 2 [facility] (LOPRESSOR) 10:42: (two) Medic al 25 MG 49 times Center tablet daily. furosemide Yes 40mg Q.5D Take [address] (LASIX) 40 7-14 by mouth 2 Pablo es MG tablet 10:42: (two) Medical 49 times Center daily. apixaban Yes 5mg Q.5D Take [address] [facility] (Eliquis) 5 7-14 by mouth 2 Emely kes mg Tab 10:42: (two) Medical tablet 49 times Center daily. esomeprazol Yes 40mg QD Take [address] [facility] e magnesium 7-14 by mouth Luke s (NEXIUM 10:42: daily. Medical 24HR ORAL) 49 Center predniSONE Yes 5mg QD Take [address] [facility] [address] [facility] (DELTASONE) 7-14 by mouth Luke s 5 MG tablet 10:42: daily. Medi callie 49 Center ferrous Yes 1{capsu Take 1 [facility] fumarate-b1 7-14 le} capsule by Emely kes 2-vitamic 10:42: mouth Medical C-folic 49 every Center acid morning (FOLTRIN) before 110-0.5 mg breakfast. capsule omega-3 Yes 2g QD Take [address] [facility] fatty 7-14 by mouth [facility] acids-fish 10:42: daily. Medic al oil 49 Center 340-1,000 mg Cap per capsule cholecalcif Yes 5000U QD Take 5,[address] mati, 7-14 Units by [facility] vitamin D3, 10:42: mouth Medic al 125 mcg 49 daily. Center (5,000 unit) Tab docusate Yes 100mg Q.5D Take [address] [address] sodium 7-14 mg by [facility] (COLACE) 10:42: mouth 2 Medica l 100 MG 49 (two) Center capsule times daily. isosorbide Yes 10mg Q.[id number] Take [address] [facility] dinitrate 7-14 [id number] by mouth 3 [facility] (ISORDIL) 10:42: 3D (three) Medic al 10 MG 49 times Center tablet daily Give 1/2 tab if BP >110 SBP . arformotero Yes 15ug Q.5D Take [address] [facility] [address] [facility] (BROVANA) 7-14 mcg by [facility] 15 mcg/2 mL 10:42: nebulizati Medical nebulizer 49 on 2 (two) Cent er solution times daily. pravastatin Yes 80mg QD Take [address] [facility] (PRAVACHOL) 7-14 by mouth Luke s 80 MG 10:42: nightly. Medical tablet 49 Center fenofibrate Yes 160mg QD Take [address] (TRIGLIDE,L 7-14 mg by [facility] OFIBRA) 160 10:42: mouth Medic al MG tablet 49 nightly. Center magnesium Yes 400mg QD Take [address] oxide 7-14 mg by [facility] (MAG-OX) 10:42: mouth Medical 400 mg 49 nightly. Center (241.3 mg magnesium) tablet acetaminoph Yes 1{tbl} Take [address] en-codeine 7-14 tablet by Tomasz alford (TYLENOL 10:42: mouth Medical #3) 300-30 49 every 4 Center mg per (four) tablet hours as needed for Pain. amiodarone Yes 200mg QD Take [address] (PACERONE) 7-14 mg by [facility] 200 MG 10:42: mouth Medical tablet 49 daily. Center aspirin 81 0 Yes 81mg QD Take [address] MG EC 7-14 by mouth [facility] tablet 10:42: daily. Medical 49 Center metoprolol Yes 25mg Q.5D Take [address] tartrate 7-14 by mouth 2 [facility] (LOPRESSOR) 10:42: (two) Medic al 25 MG 49 times Center tablet daily. furosemide Yes 40mg Q.5D Take [address] (LASIX) 40 7-14 by mouth 2 Pablo es MG tablet 10:42: (two) Medical 49 times Center daily. apixaban Yes 5mg Q.5D Take [address] [facility] (Eliquis) 5 7-14 by mouth 2 Emely kes mg Tab 10:42: (two) Medical tablet 49 times Center daily. esomeprazol Yes 40mg QD Take [address] [facility] e magnesium 7-14 by mouth Luke [facility] (NEXIUM 10:42: daily. Medical 24HR ORAL) 49 Center predniSONE Yes 5mg QD Take [address] [facility] [address] [facility] (DELTASONE) 7-14 by mouth Luke s 5 MG tablet 10:42: daily. Medi callie 49 Center ferrous Yes 1{capsu Take 1 [facility] fumarate-b1 7-14 le} capsule by Emely [place] 2-vitamic 10:42: mouth Medical C-folic 49 every Center acid morning (FOLTRIN) before 110-0.5 mg breakfast. capsule omega-3 Yes 2g QD Take [address] [facility] fatty 7-14 by mouth [facility] acids-fish 10:42: daily. Medic al oil 49 Center 340-1,000 mg Cap per capsule cholecalcif Yes 5000U QD Take 5,[address] mati, 7-14 Units by [facility] vitamin D3, 10:42: mouth Medic al 125 mcg 49 daily. Center (5,000 unit) Tab docusate Yes 100mg Q.5D Take [address] sodium 7-14 mg by [facility] (COLACE) 10:42: mouth 2 Medica l 100 MG 49 (two) Center capsule times daily. isosorbide Yes 10mg Q.[id number] Take [address] [address] dinitrate 7-14 [id number] by mouth 3 [facility] (ISORDIL) 10:42: 3D (three) Medic al 10 MG 49 times Center tablet daily Give 1/2 tab if BP >110 SBP . arformotero Yes 15ug Q.5D Take [address] [facility] (BROVANA) 7-14 mcg by [facility] 15 mcg/2 mL 10:42: nebulizati Medical nebulizer 49 on 2 (two) Cent er solution times daily. pravastatin Yes 80mg QD Take [address] [address] (PRAVACHOL) 7-14 by mouth Luke [facility] 80 MG 10:42: nightly. Medical tablet 49 Center fenofibrate Yes 160mg QD Take [address] (TRIGLIDE,L 7-14 mg by [facility] OFIBRA) 160 10:42: mouth Medic al MG tablet 49 nightly. Center magnesium Yes 400mg QD Take [address] oxide 7-14 mg by [place] (MAG-OX) 10:42: mouth Medical 400 mg 49 nightly. [place] (241.3 mg magnesium) tablet acetaminoph Yes 1{tbl} Take [address] en-codeine 7-14 tablet by Tomasz s (TYLENOL 10:42: mouth Medical #3) 300-30 49 every 4 Center mg per (four) tablet hours as needed for Pain. ciprofloxac 2020- No 750mg Take [address] in HCl 7-14 07-25 tablet [facility] (CIPRO) 750 00:00: 23:59 (750 mg Me dical MG tablet 00 :00 total) by Cente r mouth every 12 (twelve) hours for 11 days. nystatin 2020- No [id number] Q.5D Take [address] [facility] (MYCOSTATIN 7-14 07-25 (500,000 Pablo es ) 100,000 00:00: 23:59 Units Medica l unit/mL 00 :00 total) by Center suspension mouth 2 (two) times daily for 11 days. ciprofloxac 2020- No 750mg Take [address] in HCl 7-14 07-25 tablet [facility] (CIPRO) 750 00:00: 23:59 (750 mg Me dical MG tablet 00 :00 total) by Cente r mouth every 12 (twelve) hours for 11 days. nystatin 2020- No [id number] Q.5D Take [address] [facility] (MYCOSTATIN 7-14 07-25 (500,000 Pablo es ) 100,000 00:00: 23:59 Units Medica l unit/mL 00 :00 total) by Center suspension mouth 2 (two) times daily for 11 days. pravastatin Yes 80mg Take 80 mg [facility] (PRAVACHOL) 7-02 by mouth Oleksandr ege 80 MG 09:53: daily. of tablet 29 Medicin e Multiple Yes Take by [facility] Vitamin - mouth. [facility] (MULTI-KENIA 09:53: of MIN OR) Medicin e B Complex-C Yes Take by [place] [facility] (SUPER B 08-24 mouth [facility] COMPLEX OR) 09:53: daily. of Medicin e Esomeprazol Yes Take by [place] [facility] e Magnesium 08-24 mouth [facility] (NEXIUM) 10 09:53: daily. of MG PACK Medicin e [place]-3 Yes Take by [facility] Fatty Acids 08-24 mouth. Colleg e (OMEGA-3 09:53: of PLUS OR) Medicin e fluticasone Yes [id number] 1{puff} 1 Puff as [facility] 220 MCG/ACT 08-24 needed. Colle ge AERO 09:53: of 29 Medicin e Magnesium Yes [id number] 400mg Take 400 [facility] Oxide 400 08-24 mg by [facility] MG CAPS 09:53: mouth. of 29 Medicin e albuterol Yes 2{puff} 2 Puffs by [facility] 108 (90 08-24 Nasal [facility] base) 09:53: Cannula of mcg/act 29 route as Medicin inhaler needed. e furosemide Yes 40mg Take 40 mg [facility] (LASIX) 40 08-24 by mouth. Oleksandr ege MG tablet 09:53: of 29 Medicin e aspirin EC Yes 81mg Take 81 mg [facility] 81 MG TBEC 08-24 by mouth Colle ge 09:53: daily. of 29 Medicin e Apixaban 5 Yes 5mg Take 5 mg [facility] MG TABS 08-24 by mouth [facility] 09:53: two times of 29 daily. Medicin e docusate Yes 100mg Take 100 [facility] sodium 7-02 mg by [facility] (COLACE) 09:53: mouth two of 100 MG 29 times Medicin capsule daily. e amiodarone Yes 200mg Take 200 [facility] (PACERONE) -02 mg by [facility] 200 MG 09:53: mouth of tablet 29 daily. Medicin e ferrous Yes Take by [facility] sulfate 220 08-24 mouth. Colleg e (44 Fe) 09:53: of MG/5ML 29 Medicin solution e fenofibrate Yes 160mg Take 160 [facility] (LOFIBRA) 7-02 mg by [facility] 160 MG 09:53: mouth of tablet 29 daily. Medicin e Metoprolol Yes 25mg Take 25 mg [facility] Succinate 7-02 by mouth Colleg e 25 MG CS24 09:53: daily. of 29 Medicin e Abiraterone Yes 500mg Take 500 [facility] Acetate 7-02 mg by [facility] (ZYTIGA) 09:53: mouth of 500 MG TABS 29 daily. Medici n e isosorbide 202- No TAKE 1 Meth ash dinitrate 08-20 TABLET(10 st (ISORDIL) 00:00: 00:00 MG) BY [facility] ta 10 MG 00 :00 MOUTH l tablet TWICE DAILY pravastatin Yes 80mg Take 80 mg [facility] (PRAVACHOL) 6-11 by mouth Oleksandr ege 80 MG 12:56: daily. of tablet 38 Medicin e Multiple Yes Take by [facility] Vitamin 6-11 mouth. [facility] (MULTI-KENIA 12:56: of MIN OR) 38 Medicin e B Complex-C Yes Take by [facility] (SUPER B 6-11 mouth [facility] COMPLEX OR) 12:56: daily. of 38 Medicin e [place]-3 Yes Take by [facility] Fatty Acids 6-11 mouth. [facility] (OMEGA-3 12:56: of PLUS OR) 38 Medicin e Magnesium Yes [id number] 400mg Take 400 [facility] Oxide 400 6-11 mg by [facility] MG CAPS 12:56: mouth. of 38 Medicin e albuterol Yes 2{puff} 2 Puffs by [facility] 108 (90 6-11 Nasal [facility] base) 12:56: Cannula of mcg/act 38 route as Medicin inhaler needed. e furosemide Yes 40mg Take 40 mg [facility] (LASIX) 40 6-11 by mouth. Oleksandr ege MG tablet 12:56: of 38 Medicin e aspirin EC Yes 81mg Take 81 mg [facility] 81 MG TBEC 6-11 by mouth Colle ge 12:56: daily. of 38 Medicin e Apixaban 5 Yes 5mg Take 5 mg [facility] MG TABS 6-11 by mouth College 12:56: two times of 38 daily. Medicin e amiodarone Yes 200mg Take 200 [facility] (PACERONE) 6-11 mg by [facility] 200 MG 12:56: mouth of tablet 38 daily. Medicin e Metoprolol Yes 25mg Take 25 mg [facility] Succinate 6-11 by mouth Colleg e 25 MG CS24 12:56: daily. of 38 Medicin e Abiraterone Yes 500mg Take 500 [facility] Acetate 6-11 mg by College (ZYTIGA) 12:56: mouth of 500 MG TABS 38 daily. Medici n e furosemide 2020- No 40mg Take 40 mg [facility] (LASIX) 40 08-03 by mouth Oleksandr ege MG tablet 12:52: 00:00 two times of 44 :00 daily. One Medicin table in e the morning and two in the afternoon furosemide 2020- No TAKE 1 Meth [facility] (LASIX) 40 07-27- TABLET(40 st mg tablet 00:00: 00:00 MG) BY Hospi ta 00 :00 MOUTH l THREE TIMES DAILY predniSONE 2020- No [id number] 5mg Take 1 [facility] (DELTASONE) 07-06-14 Tablet by Co llege 5 MG tablet 00:00: 04:59 mouth of 00 :00 daily for Medicin 30 days. e ezetimibe 2020- No TAKE 1 [facility]o [facility] (ZETIA) 10 06-26 TABLET(10 st mg tablet 00:00: 00:00 MG) BY Hospi ta 00 :00 MOUTH l EVERY NIGHT fenofibrate 2020- No TAKE 1 [facility] (LOFIBRA) 06-26 TABLET(160 st 160 MG 00:00: 00:00 MG) BY Hospita tablet 00 :00 MOUTH l EVERY NIGHT pravastatin 2020- No TAKE 1 [facility] (PRAVACHOL) 06-18 TABLET(80 st 80 MG 00:00: 00:00 MG) BY Hospita tablet 00 :00 MOUTH l EVERY NIGHT arformotero 15ug Inhale 2 M ethodi L (BROVANA) 3-30 09-29 mL (15 mcg s t 15 mcg/2 mL 00:00: 00:00 total). Ho spita solution 00 :00 l for nebulizatio n isosorbide 2020- No TAKE 1 Meth ash dinitrate 3-18 -28 TABLET(10 st (ISORDIL) 00:00: 00:00 MG) BY Hospi ta 10 MG 00 :00 MOUTH l tablet TWICE DAILY furosemide 2020- No TAKE 1 Meth [facility] (LASIX) 40 - 06-04 TABLET(40 st mg tablet 00:00: 00:00 MG) BY Hospi ta 00 :00 MOUTH l THREE TIMES DAILY ezetimibe 2019-02 No 10mg QD Take 1 [facility]o di (ZETIA) 10 - 05-04 tablet (10 st mg tablet 00:00: 00:00 mg total) Ho spita 00 :00 by mouth l nightly. fenofibrate 2019-02 No 160mg QD Take 1 [facility] (LOFIBRA) 2 05-[address] 160 MG 00:00: 00:00 (160 mg Hospita tablet 00 :00 total) by l mouth nightly. pravastatin 2019-02 80mg QD Take 1 [facility] (PRAVACHOL) 04-08 04-26 tablet (80 s t 80 MG 00:00: 00:00 mg total) Hospit a tablet 00 :00 by mouth l nightly. isosorbide 2019-02 No TAKE 1 Meth ash dinitrate 14 -18 TABLET(10 st (ISORDIL) 00:00: 00:00 MG) BY Hospi ta 10 MG 00 :00 MOUTH l tablet TWICE DAILY amIODarone Yes 200mg QD Take 1 [facility] (PACERONE) 9-[address] 200 MG 00:00: (200 mg Hospita tablet 00 total) by l mouth daily. amIODarone Yes 200mg QD Take 1 [facility] (PACERONE) 9-[address] 200 MG 00:00: (200 mg Hospita tablet 00 total) by l mouth daily. Eliquis 5 2020-0 Yes TAKE 1 [facility] mg tablet 8-[address] 00:00: MOUTH Hospita 00 TWICE l DAILY Eliquis 5 2020-0 Yes TAKE 1 [facility] i mg tablet 8-[address] 00:00: MOUTH Hospita 00 TWICE l DAILY pravastatin 2020-0 Yes 80mg Take 80 mg [facility] (PRAVACHOL) 2-18 by mouth Oleksandr ege 80 MG 18:16: daily. of tablet 18 Medicin e furosemide 2020-0 Yes 40mg Take 40 mg [facility] (LASIX) 40 2-18 by mouth Colle ge MG tablet 18:16: two times of 18 daily. One Medicin table in e the morning and two in the afternoon Multiple 2020-0 Yes Take by [facility] Vitamin 2-18 mouth. [facility] (MULTI-KENIA 18:16: of MIN OR) 18 Medicin e B Complex-C 2020-0 Yes Take by [facility] (SUPER B 2-18 mouth [facility] COMPLEX OR) 18:16: daily. of 18 Medicin e Esomeprazol 2020-0 Yes Take by [facility] e Magnesium 2-18 mouth [facility] (NEXIUM) 10 18:16: daily. of MG PACK 18 Medicin e [place]-3 2020-0 Yes Take by [facility] Fatty Acids 2-18 mouth. [facility] (OMEGA-3 18:16: of PLUS OR) 18 Medicin e fluticasone 2020-0 Yes [id number] 1{puff} 1 Puff as [facility] 220 MCG/ACT 2-18 needed. [facility] ge AERO 18:16: of 18 Medicin e Magnesium 2020-0 Yes [id number] 400mg Take 400 [facility] Oxide 400 2-18 mg by [facility] MG CAPS 18:16: mouth. of 18 Medicin e albuterol 2020-0 Yes 2{puff} 2 Puffs by [facility] 108 (90 2-18 Nasal [facility] base) 18:16: Cannula of mcg/act 18 route as Medicin inhaler needed. e furosemide 2020-0 Yes 40mg Take 40 mg [facility] (LASIX) 40 2-18 by mouth. Oleksandr ege MG tablet 18:16: of 18 Medicin e aspirin EC 2020-0 Yes 81mg Take 81 mg [facility] 81 MG TBEC 2-18 by mouth Colle ge 18:16: daily. of 18 Medicin e Apixaban 5 2020-0 Yes 5mg Take 5 mg [facility] MG TABS 2-18 by mouth. College 18:16: of 18 Medicin e Cholecalcif 2020-0 Yes [id number] 5000U Take 5,000 [facility] mati 2-18 Units by [facility] (VITAMIN 18:16: mouth of D3) 5000 18 daily. Medicin UNITS TABS e mexiletine 2020-0 Yes 200mg Take 200 [facility] (MEXITIL) 2-18 mg by [facility] 200 MG 18:16: mouth two of capsule 18 times Medicin daily. e docusate 2020-0 Yes 100mg Take 100 [facility] sodium 2-18 mg by [facility] (COLACE) 18:16: mouth two of 100 MG 18 times Medicin capsule daily. e amiodarone 2020-0 Yes 200mg Take 200 [facility] (PACERONE) 2-18 mg by [facility] 200 MG 18:16: mouth of tablet 18 daily. Medicin e Ranolazine 2020-0 Yes 500mg Take 500 [facility] (RANEXA) 2-18 mg by [facility] 500 MG TB12 18:16: mouth two o f 18 times Medicin daily. e ferrous 2020-0 Yes Take by [facility] sulfate 220 2-18 mouth. [facility] (44 Fe) 18:16: of MG/5ML 18 Medicin solution e fenofibrate 2020-0 Yes 160mg Take 160 [facility] (LOFIBRA) 2-18 mg by [facility] 160 MG 18:16: mouth of tablet 18 daily. Medicin e Esomeprazol 2020-0 Yes Take by [facility] e Magnesium 2-18 mouth [facility] (NEXIUM) 10 12:16: daily. of MG PACK 18 Medicin e fluticasone 2020-0 Yes [id number] 1{puff} 1 Puff as [facility] 220 MCG/ACT 2-18 needed. [facility] ge AERO 12:16: of 18 Medicin e Cholecalcif 2020-0 Yes [id number] 5000U Take 5,000 [facility] mati 2-18 Units by [place] (VITAMIN 12:16: mouth of D3) 5000 18 daily. Medicin UNITS TABS e mexiletine 2020-0 Yes 200mg Take 200 [facility] (MEXITIL) 2-18 mg by [facility] 200 MG 12:16: mouth two of capsule 18 times Medicin daily. e docusate 2020-0 Yes 100mg Take 100 [facility] sodium 2-18 mg by [facility] (COLACE) 12:16: mouth two of 100 MG 18 times Medicin capsule daily. e Ranolazine 2020-0 Yes 500mg Take 500 [facility] (RANEXA) 2-18 mg by [facility] 500 MG TB12 12:16: mouth two o f 18 times Medicin daily. e ferrous 2020-0 Yes Take by [facility] sulfate 220 2-18 mouth. [facility] (44 Fe) 12:16: of MG/5ML 18 Medicin solution e fenofibrate 2020-0 Yes 160mg Take 160 [facility] (LOFIBRA) 2-18 mg by [facility] 160 MG 12:16: mouth of tablet 18 daily. Medicin e Cholecalcif 2020-0 Yes [id number] 5000U Take 5,000 [facility] mati 2-18 Units by [facility] (VITAMIN 12:16: mouth of D3) 5000 18 daily. Medicin UNITS TABS e mexiletine 2020-0 Yes 200mg Take 200 [facility] (MEXITIL) 2-18 mg by [facility] 200 MG 12:16: mouth two of capsule 18 times Medicin daily. e Ranolazine 2020-0 Yes 500mg Take 500 [facility] (RANEXA) 2-18 mg by [facility] 500 MG TB12 12:16: mouth two o f 18 times Medicin daily. e Cholecalcif 2020-0 Yes [id number] 5000U Take 5,000 [facility] mati 2-18 Units by [facility] (VITAMIN 12:16: mouth of D3) 5000 18 daily. Medicin UNITS TABS e mexiletine 2020-0 Yes 200mg Take 200 [facility] (MEXITIL) 2-18 mg by [facility] 200 MG 12:16: mouth two of capsule 18 times Medicin daily. e Ranolazine 2020-0 Yes 500mg Take 500 [facility] (RANEXA) 2-18 mg by [facility] 500 MG TB12 12:16: mouth two o f 18 times Medicin daily. e Bicalutamid 2020-0 Yes 1{tbl} Take 1 Tab [facility] e 50 MG 2-18 by mouth [facility] TABS 00:00: daily. of 00 Medicin e ferrous 2019-0 Yes Take by [facility] sulfate 220 8-20 mouth. [facility] (44 Fe) 16:29: of MG/5ML 41 Medicin solution e pravastatin Yes 80mg Take 80 mg [facility] (PRAVACHOL) 8-20 by mouth Oleksandr ege 80 MG 16:29: daily. of tablet 22 Medicin e furosemide Yes 40mg Take 40 mg [facility] (LASIX) 40 8-20 by mouth Colle ge MG tablet 16:29: two times of 22 daily. Medicin e Multiple Yes Take by [facility] Vitamin 8-20 mouth. [facility] (MULTI-KENIA 16:29: of MIN OR) Medicin e B Complex-C Yes Take by [facility] (SUPER B 8-20 mouth [facility] COMPLEX OR) 16:29: daily. of 22 Medicin e Esomeprazol Yes Take by [facility] e Magnesium 8-20 mouth [facility] (NEXIUM) 10 16:29: daily. of MG PACK Medicin e [place]-3 Yes Take by [facility] Fatty Acids 8-20 mouth. [facility] (OMEGA-3 16:29: of PLUS OR) Medicin e fluticasone Yes [id number] 1{puff} 1 Puff as [facility] 220 MCG/ACT 8-20 needed. [place] ge AERO 16:29: of 22 Medicin e Magnesium Yes [id number] 400mg Take 400 [facility] Oxide 400 8-20 mg by [facility] MG CAPS 16:29: mouth. of 22 Medicin e albuterol Yes 2{puff} 2 Puffs by [facility] 108 (90 8-20 Nasal [facility] base) 16:29: Cannula of mcg/act 22 route as Medicin inhaler needed. e furosemide Yes 40mg Take 40 mg [facility] (LASIX) 40 8-20 by mouth. Oleksandr ege MG tablet 16:29: of 22 Medicin e aspirin EC Yes 81mg Take 81 mg [facility] 81 MG TBEC 8-20 by mouth Colle ge 16:29: daily. of 22 Medicin e Apixaban 5 Yes 5mg Take 5 mg [facility] MG TABS 8-20 by mouth. [facility] 16:29: of 22 Medicin e Cholecalcif Yes [id number] 5000U Take 5,000 [facility] mati 8-20 Units by [facility] (VITAMIN 16:29: mouth of D3) 5000 22 daily. Medicin UNITS TABS e mexiletine Yes 200mg Take 200 [facility] (MEXITIL) 8-20 mg by College 200 MG 16:29: mouth two of capsule 22 times Medicin daily. e isosorbide Yes 10mg Take 10 mg B aylor dinitrate 8-20 by mouth 3 Oleksandr ege (ISORDIL) 16:29: times of 10 MG 22 daily. Medicin tablet e docusate Yes 100mg Take 100 [facility] or sodium 8-20 mg by [facility] (COLACE) 16:29: mouth two of 100 MG 22 times Medicin capsule daily. e amiodarone Yes 200mg Take 200 [facility] (PACERONE) 8-20 mg by [facility] 200 MG 16:29: mouth two of tablet 22 times Medicin daily. e Ranolazine Yes 500mg Take 500 [facility] (RANEXA) 8-20 mg by Lorenzo 500 MG TB12 16:29: mouth two o f 22 times Medicin daily. e metoprolol Yes TK 1 T PO [facility] (LOPRESSOR) 3-31 BID College 50 MG 00:00: of tablet 00 Medicin e metoprolol Yes TK 1 T PO [facility] (LOPRESSOR) 3-31 BID College 50 MG 00:00: of tablet 00 Medicin e metoprolol Yes TK 1 T PO [facility] (LOPRESSOR) 3-31 BID [facility] 50 MG 00:00: of tablet 00 Medicin e metoprolol Yes TK 1 T PO [facility] (LOPRESSOR) 3-31 BID College 50 MG 00:00: of tablet 00 Medicin e metoprolol Yes TK 1 T PO [facility]lor (LOPRESSOR) 3-31 BID College 50 MG 00:00: of tablet 00 Medicin e dicyclomine Yes [id number] TK 1 T PO Cam (BENTYL) 20 3-19 TID PRF Colle ge MG tablet 00:00: COLON of 00 SPASM. Medicin e dicyclomine Yes [id number] 20mg Take 20 mg [facility] (BENTYL) 20 3-19 by mouth Oleksandr ege MG tablet 00:00: as needed. of 00 Medicin e dicyclomine Yes [id number] 20mg Take 20 mg [facility] (BENTYL) 20 3-19 by mouth Oleksandr ege MG tablet 00:00: as needed. of Medicin e dicyclomine Yes [id number] 20mg Take 20 mg [facility] (BENTYL) 20 3-19 by mouth Oleksandr ege MG tablet 00:00: as needed. of Medicin e dicyclomine Yes [id number] TK 1 T PO [facility] (BENTYL) 20 3-19 TID PRF Colle ge MG tablet 00:00: COLON of 00 SPASM. Medicin e ezetimibe 2016-02 Yes 10mg Take 10 mg [facility] (ZETIA) 10 0-09 by mouth Colle ge MG tablet 00:00: daily. of Medicin e ezetimibe 2016-02 Yes 10mg Take 10 mg [facility] (ZETIA) 10 0-09 by mouth Colle ge MG tablet 00:00: daily. of Medicin e ezetimibe 2016-02 Yes 10mg Take 10 mg [facility] (ZETIA) 10 0-09 by mouth Colle ge MG tablet 00:00: daily. of Medicin e ezetimibe 2016-02 Yes 10mg Take 10 mg [facility] (ZETIA) 10 0-09 by mouth Colle ge MG tablet 00:00: daily. of Medicin e ezetimibe 2016-02 Yes 10mg Take 10 mg [facility] (ZETIA) 10 0-09 by mouth Colle ge MG tablet 00:00: daily. of Medicin e Immunizations Ordered Immunization Filled Immunization Date Status Commen ts Source Name Name Moderna SARS-CoV-2 2020-04-14 Completed [facility] Vaccination 00:00:00 of Medicine Moderna SARS-CoV-2 2020-04-14 Completed [facility] Vaccination 00:00:00 of Medicine Moderna SARS-CoV-2 2020-04-14 Completed [facility] Vaccination 00:00:00 of Medicine Moderna SARS-CoV-2 2020-03-17 Completed [facility] Vaccination 00:00:00 of Medicine Moderna SARS-CoV-2 2020-03-17 Completed [facility] College Vaccination 00:00:00 of Medicine Moderna SARS-CoV-2 2020-03-17 Completed [facility] Vaccination 00:00:00 of Medicine Vital Signs Vital Name Observation Time Observation Value Comments Source Systolic blood 2021-04-19 20:24:00 120 mm[Hg] [facility] Diastolic blood 2021-04-19 20:24:00 67 mm[Hg] [facility] Heart rate 2021-04-19 20:24:00 55 /min [facility] Body temperature 2021-04-19 20:24:00 35.89 Phylicia [facility] Respiratory rate 2021-04-19 20:24:00 18 /min [facility] Body height 2021-04-19 20:24:00 185.4 cm [facility] Body weight 2021-04-19 20:24:00 110.678 kg [facility] BMI 2021-04-19 20:24:00 32.19 kg/m2 [facility] WEIGHT 2020-09-03 20:58:00 103.692 kg HEIGHT 2020-09-03 20:58:00 182.9 cm HEIGHT 2020-09-03 00:08:00 182.9 cm WEIGHT 2020-09-03 00:08:00 106.595 kg WEIGHT 2020-09-03 20:58:00 103.692 kg HEIGHT 2020-09-03 20:58:00 182.9 cm HEIGHT 2020-09-03 00:08:00 182.9 cm WEIGHT 2020-09-03 00:08:00 106.595 kg Systolic blood 2020-08-24 14:53:00 98 mm[Hg] [facility] Diastolic blood 2020-08-24 14:53:00 60 mm[Hg] [facility] Heart rate 2020-08-24 14:53:00 62 /min [facility] Body temperature 2020-08-24 14:53:00 36.67 Phylicia [facility] Body height 2020-08-24 14:53:00 182.9 cm [facility] Body weight 2020-08-24 14:53:00 106.142 kg [facility] BMI 2020-08-24 14:53:00 31.74 kg/m2 [facility] of Medicine Systolic blood 2020-08-03 17:43:00 120 mm[Hg] [facility] pressure Medicine Diastolic blood 2020-08-03 17:43:00 68 mm[Hg] [facility] of pressure Medicine Heart rate 2020-08-03 17:43:00 69 /min [facility] of Medicine Body temperature 2020-08-03 17:43:00 36.56 Phylicia [facility] Respiratory rate 2020-08-03 17:43:00 20 /min [facility] Body height 2020-08-03 17:43:00 182.9 cm [facility] Body weight 2020-08-03 17:43:00 109.77 kg [facility] BMI 2020-08-03 17:43:00 32.82 kg/m2 [facility] of Medicine Systolic blood 2019-04-12 18:12:00 90 mm[Hg] [facility] pressure Medicine Diastolic blood 2019-04-12 18:12:00 54 mm[Hg] [facility] pressure Medicine Heart rate 2019-04-12 18:12:00 58 /min [facility] of Medicine Body temperature 2019-04-12 18:12:00 36.61 Phylicia [facility] Body height 2019-04-12 18:12:00 188 cm [facility] of Medicine Body weight 2019-04-12 18:12:00 115.214 kg [facility] of Medicine BMI 2019-04-12 18:12:00 32.61 kg/m2 [facility] of Medicine Systolic blood 2019-04-12 18:12:00 90 mm[Hg] [facility] of pressure Medicine Diastolic blood 2019-04-12 18:12:00 54 mm[Hg] [facility] pressure Medicine Heart rate 2019-04-12 18:12:00 58 /min [facility] of Medicine Body temperature 2019-04-12 18:12:00 36.61 Phylicia [facility] Body height 2019-04-12 18:12:00 188 cm [facility] of Medicine Body weight 2019-04-12 18:12:00 115.214 kg [facility] of Medicine BMI 2019-04-12 18:12:00 32.61 [facility] Systolic blood 2018-10-12 16:25:00 101 mm[Hg] [facility] pressure Medicine Diastolic blood 2018-10-12 16:25:00 63 mm[Hg] [facility] pressure Medicine Heart rate 2018-10-12 16:25:00 54 /min [facility] Body temperature 2018-10-12 16:25:00 36.44 Phylicia [facility] Body height 2018-10-12 16:25:00 188 cm [facility] Body weight 2018-10-12 16:25:00 109[facility]317 [facility] 2018-10-12 16:25:00 30.94 kg/m2 [facility] Systolic blood 2018-10-12 16:25:00 101 mm[Hg] [facility] Medicine Diastolic blood 2018-10-12 16:25:00 63 mm[Hg] [facility] Medicine Heart rate 2018-10-12 16:25:00 54 /min [facility] Body temperature 2018-10-12 16:25:00 36.44 Phylicia [facility] Body height 2018-10-12 16:25:00 188 [facility] Body weight 2018-10-12 16:25:00 109.317 [facility] 2018-10-12 16:25:00 30.94 kg/m2 [facility] Systolic blood 2021-12-23 17:31:37 130 mm[Hg] [facility] pressure Diastolic blood 2021-12-23 17:31:37 54 mm[Hg] [facility] pressure Heart rate 2021-12-23 17:31:37 83 /min [facility] Body temperature 2021-12-23 17:31:37 36.61 Phylicia [facility] Respiratory rate 2021-12-23 17:31:37 44 /min [facility] Oxygen saturation in 2021-12-23 17:31:37 96 /min [facility] Arterial blood by Pulse oximetry Body height 2021-12-23 17:31:00 182.9 cm [facility] Body weight 2021-12-23 17:31:00 92.987 kg [facility] BMI 2021-12-23 17:31:00 27.80 kg/m2 [facility] Systolic blood 2020-12-10 20:31:00 131 mm[Hg] [facility] pressure Diastolic blood 2020-12-10 20:31:00 60 mm[Hg] [facility] pressure Heart rate 2020-12-10 20:31:00 66 /min [facility] Body height 2020-12-10 20:28:00 182.9 cm [facility] Body weight 2020-12-10 20:28:00 111.131 kg [facility] BMI 2020-12-10 20:28:00 33.23 kg/m2 [facility] Heart rate 2020-09-05 08:17:00 56 /min [facility] Respiratory rate 2020-09-05 08:17:00 20 /min [facility] Oxygen saturation in 2020-09-05 08:17:00 98 /min [facility] Arterial blood by Medical Ce nter Pulse oximetry Systolic blood 2020-09-05 08:00:00 137 mm[Hg] [facility] Diastolic blood 2020-09-05 08:00:00 61 mm[Hg] [facility] Body temperature 2020-09-05 08:00:00 35.78 Phylicia [facility] Body height 2020-09-03 20:58:00 182.9 cm [facility] Body weight 2020-09-03 20:58:00 103.692 kg [facility] BMI 2020-09-03 20:58:00 31.00 kg/m2 [facility] Procedures Procedure Date / Time Performing Clinician Source Performed XR CHEST 1 VW PORTABLE 2021-12-15 13:52:17 Rozina Walls [facility] HC COMPLETE BLD COUNT 2021-12-15 09:20:00 Behzad Murray [facility] W/AUTO DIFF COMPREHENSIVE METABOLIC 2021-12-15 09:20:00 TrevorBehzad [facility] PANEL MAGNESIUM LEVEL 2021-12-15 09:20:00 Behzad Murray spital PHOSPHORUS LEVEL 2021-12-15 09:20:00 Behzad Murray H ospital ESTIMATED GFR 2021-12-15 09:20:00 Behzad Murray spital TTE COMPLETE, WO 2021-12-14 20:42:00 Behzad Murray ospital CONTRAST, W DOPPLER ([id number]) US THORACENTESIS WITH 2021-12-14 18:06:49 ORosalie mcintyre [facility] IMAGING XR CHEST 1 VW PORTABLE 2021-12-14 17:42:37 Zully, [facility] ANAEROBIC CULTURE 2021-12-14 17:30:00 Trevor, [facility] AEROBIC CULTURE 2021-12-14 17:30:00 Behzad Murray spital AFB STAIN 2021-12-14 17:30:00 OolRosalie dhillon spital AFB CULTURE 2021-12-14 17:30:00 Rosalie Meredith spital GRAM STAIN 2021-12-14 17:30:00 Behzad Murray spital FUNGUS CULTURE 2021-12-14 17:30:00 Behzad Murray spital BODY FLUID CULTURE 2021-12-14 17:30:00 [facility] GLUCOSE LEVEL, MISC 2021-12-14 17:30:00 Behzad Murray [facility] FLUID CELL COUNT AND 2021-12-14 17:30:00 Behzad Murray spital DIFFERENTIAL, BODY FLUID LDH, MISC FLUID 2021-12-14 17:30:00 Behzad Murray spital PROTEIN, MISC FLUID 2021-12-14 17:30:00 Behzad Murray [facility] CYTOLOGY 2021-12-14 17:30:00 Rozina Walls spital (NON-GYNECOLOGICAL) REQUEST HC COMPLETE BLD COUNT 2021-12-14 08:15:00 Trevor, [facility] W/AUTO DIFF PROTHROMBIN TIME WITH 2021-12-14 08:15:00 [facility] INR COMPREHENSIVE METABOLIC 2021-12-14 08:15:00 [facility] PANEL MAGNESIUM LEVEL 2021-12-14 08:15:00 Trevor Pueblojessica [facility] spital PHOSPHORUS LEVEL 2021-12-14 08:15:00 [facility] ospital ESTIMATED GFR 2021-12-14 08:15:00 [facility] spital TROPONIN T 2021-12-14 03:50:00 [facility] spital LACTIC ACID LEVEL, 2021-12-14 03:50:00 [facility] SEPSIS - NOW AND REPEAT [place] 2X EVERY 3 HOURS LACTIC ACID LEVEL, 2021-12-14 00:16:00 [facility] SEPSIS - NOW AND REPEAT [place] 2X EVERY 3 HOURS TROPONIN T 2021-12-14 00:16:00 Trevor [facility] spital URINE CULTURE 2021-12-13 21:54:00 [facility] [place] URINALYSIS SCREEN AND 2021-12-13 21:54:00 [facility] MICROSCOPY, WITH REFLEX [place] TO CULTURE RESPIRATORY PATHOGEN 2021-12-13 21:04:00 [facility] PANEL WITH COVID-19 [place] RT-PCR LACTIC ACID LEVEL, 2021-12-13 20:54:00 [facility] SEPSIS - NOW AND REPEAT [place] 2X EVERY 3 HOURS HC COMPLETE BLD COUNT 2021-12-13 20:54:00 [facility] W/AUTO DIFF [place] COMPREHENSIVE METABOLIC 2021-12-13 20:54:00 [facility] PANEL [place] MAGNESIUM LEVEL 2021-12-13 20:54:00 [facility] [place] TROPONIN T 2021-12-13 20:54:00 [facility] B NATRIURETIC PEPTIDE 2021-12-13 20:54:00 [facility] [place] CREATINE KINASE, TOTAL 2021-12-13 20:54:00 [facility] (CPK) [place] PROTHROMBIN TIME WITH 2021-12-13 20:54:00 [facility] INR [place] PARTIAL THROMBOPLASTIN 2021-12-13 20:54:00 [facility] TIME (PTT) [place] ESTIMATED GFR 2021-12-13 20:54:00 [facility] [place] XR CHEST 1 VW PORTABLE 2021-12-13 20:44:12 [facility] ECG ED PRELIMINARY 2021-12-13 20:25:04 [facility] [place] ECG 12-LEAD 2021-12-13 20:23:37 [facility] US THORACENTESIS WITH 2021-12-02 14:31:00 Viri [facility] IMAGING CYTOLOGY 2021-12-02 14:13:00 ORosalie mcintyre (NON-GYNECOLOGICAL) REQUEST XR CHEST 1 VW PORTABLE 2021-12-02 14:07:01 Marcus Dunbar [facility] PROTHROMBIN TIME WITH 2021-11-28 16:14:00 Omiguelina [facility] INR PARTIAL THROMBOPLASTIN 2021-11-28 16:14:00 Viri [facility] TIME (PTT) COMPREHENSIVE METABOLIC 2021-11-28 16:14:00 Omiguelina [facility] PANEL HC COMPLETE BLD COUNT 2021-11-28 16:14:00 Omiguelina [facility] W/AUTO DIFF ESTIMATED GFR 2021-11-28 16:14:00 Rosalie Meredith spital XR CHEST EXTERNAL STUDY 2021-11-17 19:57:32 Rosalie Meredith [facility] CBC W/AUTO DIFF WITH 2021-09-27 13:38:03 [facility] COMPREHENSIVE METABOLIC 2021-09-27 13:38:03 [facility] Medicine PSA 2021-09-27 13:38:03 [facility] TESTOSTERONE 2021-09-27 13:38:03 [facility] [address] CHEST WITHOUT IV 2021-09-02 10:36:00 Octavio Manuel [facility] ABDOMEN/PELVIS 2021-09-02 10:36:[address] [facility] WITHOUT IV CONTRAST Medical [facility] er BASIC METABOLIC PANEL 2020-12-14 17:24:00 James Lester [facility] B NATRIURETIC PEPTIDE 2020-12-14 17:24:00 James Lester [facility] ECG 12-LEAD 2020-12-10 20:37:02 [facility] W/[facility]T COUNT & AUTO 2020-09-05 04:37:00 Tirukkovalluri, [facility] DIFFERENTIAL [facility] BASIC METABOLIC PANEL 2020-09-05 04:37:00 Tirukkovteresitauri, [facility] (7) [facility] CBC W/PLT COUNT & AUTO 2020-09-05 04:37:00 Tirukkovalluri, [facility] DIFFERENTIAL [facility] (CELLAVISION MANUAL 2020-09-05 04:37:00 Tirukkovalluri, [facility] DIFF) [facility] CBC W/PLT COUNT & AUTO 2020-09-04 15:40:00 Tirukkovalluri, [facility] DIFFERENTIAL [facility] BASIC METABOLIC PANEL 2020-09-04 15:40:00 Tirukkovalluri, [facility] (7) [facility] CBC W/PLT COUNT & AUTO 2020-09-04 15:40:00 Tirukkovalluri, [facility] DIFFERENTIAL [facility] (CELLAVISION MANUAL 2020-09-04 15:40:00 Tirukkovalluri, [facility] DIFF) [facility] BLOOD CULTURE 2020-09-04 06:05:00 Maryann Parsons [facility] BLOOD CULTURE 2020-09-04 06:03:00 Maryann Parsons [facility] CORTISOL 2020-09-03 04:27:00 Mary Schroeder [facility] BASIC METABOLIC PANEL 2020-09-03 04:27:00 Mary Schroeder CH, I [facility] (7) [facility] CBC W/PLT COUNT & AUTO 2020-09-03 04:27:[address] [facility] CBC W/PLT COUNT & AUTO 2020-09-03 04:27:[address] [facility] (CELLAVISION MANUAL 2020-09-03 04:27:00 Mary Schroeder [facility]) [facility] URINALYSIS W/ REFLEX 2020-09-03 01:09:00 Mary Schroeder [facility] URINE CULTURE [facility] ECG 12-LEAD 2020-09-02 18:42:14 Isiah Michael [facility] ECG 12-LEAD 2020-09-02 18:42:14 Unknown, [id number] Doctor [facility] XR CHEST 2 VIEWS 2020-09-02 17:47:00 Isiah Michael [facility] ED ECG INTERPRETATION 2020-09-02 17:22:18 Isiah Michael [facility] CBC W/PLT COUNT & AUTO 2020-09-02 17:21:00 Isiah Michael CH, I [facility] LACTIC ACID, VENOUS 2020-09-02 17:21:00 Isiah Michael [facility] COMPREHENSIVE METABOLIC 2020-09-02 17:21:00 Isiah Michael [facility] PROTHROMBIN TIME/INR 2020-09-02 17:21:00 Isiah Michael [facility] APTT 2020-09-02 17:21:00 Isiah Michael [facility] PERIPHERAL BLOOD SMEAR - 2020-09-02 17:21:00 Isiah Michael [facility] PATH REVIEW [facility] CBC W/PLT COUNT & AUTO 2020-09-02 17:21:00 Isiah Michael CH I [facility] DIFFERENTIAL [facility] (CELLAVISION MANUAL 2020-09-02 17:21:00 Isiah Michael [facility] DIFF) Medical Center BLOOD CULTURE 2020-09-02 17:20:00 AlecIsiah bearden [facility] BLOOD CULTURE 2020-09-02 17:20:00 AlecIsiah bearden [facility] IDENTIFICATION PANEL Medical Lola ter REPORT OF PROCEDURE - 2020-09-02 00:00:00 Provider, Nabil [facility] ENDOSCOPY SCAN Scanning [facility] TTE COMPLETE, W 2020-08-03 16:10:36 James Lester Ho spital CONTRAST, W DOPPLER ([id number]) Plan of Care Planned Activity Planned Date Details Comments Source Future Scheduled 2021-12-27 HEPATITIS B VACCINES [facility] Test 15:14:23 (1 of 3 - 3-dose Hospital series) [code = HEPATITIS B VACCINES (1 of 3 - 3-dose series)] Future Scheduled 2021-12-27 Hepatitis C Islam Test 15:14:23 screening Hospital (procedure) [code = 788669262] Future Scheduled 2021-12-27 SHINGLES VACCINES (1 Met [facility] Test 15:14:23 of 2) [code = Hospital SHINGLES VACCINES (1 of 2)] Future Scheduled 2021-12-27 65+ PNEUMOCOCCAL Methodi [facility] Test 15:14:23 VACCINE (2 - PPSV23 Hospital if available, else PCV20) [code = 65+ PNEUMOCOCCAL VACCINE (2 - PPSV23 if available, else PCV20)] Future Scheduled 2021-12-27 COVID-19 VACCINE (4 Meth odist Test 15:14:23 - Booster for Hospital Moderna series) [code = COVID-19 VACCINE (4 - Booster for Moderna series)] Future Scheduled 2021-12-27 INFLUENZA VACCINE Method ist Test 15:14:23 [code = INFLUENZA Hospital VACCINE] Future Scheduled 2021-10-[address] [facility] Test 00:00:00 (#1) [code = Medical Center INFLUENZA VACCINE (#1)] Future Scheduled 2021-06-07 CT CHEST ABDOMEN Expected: [facility] College Test 00:00:00 PELVIS WO CONTRAST 06/07/2021, of Medici ne [code = 11829] Expires: 04/19/2022 Future Scheduled 2021-05-17 CBC W/AUTO DIFF WITH Expected: [place] [facility] [employer] Test 00:00:00 PLATELETS [code = 05/17/2021 of Medicin e 30052-2] (Approximate), Expires: 10/17/2021 Future Scheduled 2021-05-17 COMPREHENSIVE Expected: [facility] Col lege Test 00:00:00 METABOLIC PANEL 05/17/2021 of Medicine [code = 23778-7] (Approximate), Expires: 10/17/2021 Future Scheduled 2021-05-17 PSA [code = 2857-1] Expected: [facility] [facility] [employer] Test 00:00:00 05/17/2021 of Medicine (Approximate), Expires: 10/17/2021 Future Scheduled 2021-04-21 Pneumococcal 65+ (1 [facility] [facility] [employer] Test 21:16:47 of 4 - PCV13) [code of Medic ine = Pneumococcal 65+ (1 of 4 - PCV13)] Future Scheduled 2021-04-21 BMI FOLLOW UP PLAN [employer] [facility] [employer] Test 21:16:47 [code = BMI FOLLOW of Medici ne UP PLAN] Future Scheduled 2021-04-21 Hepatitis C [facility]r e[facility] Test 21:16:47 screening of Medicine (procedure) [code = 566017167] Future Scheduled 2021-04-21 ZOSTER VACCINE (1 of [place] [facility] [employer] Test 21:16:47 2) [code = ZOSTER of Medicin e VACCINE (1 of 2)] Future Scheduled 2021-04-21 FALL SCREEN [code = [facility] [employer] Test 21:16:47 FALL SCREEN] of Medicine Future Scheduled 2021-04-21 MEDICARE AWV [facility] Test 21:16:47 (Initial) [code = of Medicin e MEDICARE AWV (Initial)] Future Scheduled 2021-04-21 COVID-19 Vaccine (3 [employer] Test 21:16:47 - Moderna risk of Medicine 4-dose series) [code = COVID-19 Vaccine (3 - Moderna risk 4-dose series)] Future Scheduled 2021-04-21 FLU VACCINE > 6 [facility] C ollege Test 21:16:47 MONTHS [code = FLU of Medici ne VACCINE > 6 MONTHS] Future Scheduled 2021-04-21 TETANUS SHOT (ADULT) [facility] Test 21:16:47 [code = TETANUS SHOT of Medi cine (ADULT)] Future Scheduled 2021-03-22 Hepatitis C [facility] Test 10:36:55 screening Hospital (procedure) [code = 950915827] Future Scheduled 2021-03-22 SHINGLES VACCINES Method ist Test 10:36:55 (#1) [code = Hospital SHINGLES VACCINES (#1)] Future Scheduled 2021-03-22 65+ PNEUMOCOCCAL [facility] Test 10:36:55 VACCINE (2 of 4 - Hospital PPSV23) [code = 65+ PNEUMOCOCCAL VACCINE (2 of 4 - PPSV23)] Future Scheduled 2021-03-22 INFLUENZA VACCINE Method ist Test 10:36:55 [code = INFLUENZA Hospital VACCINE] Future Scheduled 2021-03-22 COVID-19 VACCINE (3 Meth odist Test 10:36:55 - Booster for Hospital Moderna series) [code = COVID-19 VACCINE (3 - Booster for Moderna series)] Future Scheduled 2021-02-[address] [facility] Test 00:00:00 (12+) [code = Medical Center DEPRESSION SCREENING (12+)] Future Scheduled 2021-02-23 FALLS RISK SCREENING [facility] Test 00:00:00 [code = FALLS RISK Medical C enter SCREENING] Future Scheduled 2020-10-[address] [facility] Test 00:00:00 (#1) [code = Medical Center INFLUENZA VACCINE (#1)] Future Scheduled 2020-10-[address] [facility] Test 00:00:00 (#1) [code = Medical Center INFLUENZA VACCINE (#1)] Future Scheduled 2020-08-27 BMI FOLLOW [facility] PLAN [facility] [facility] 09:57:46 [code = BMI FOLLOW of Medici ne UP PLAN] Future Scheduled 2020-08-27 Hepatitis C [facility] Test 09:57:46 screening of Medicine (procedure) [code = 927015708] Future Scheduled 2020-08-27 ZOSTER VACCINE (1 of [facility] Test 09:57:46 2) [code = ZOSTER of Medicin e VACCINE (1 of 2)] Future Scheduled 2020-08-27 FALL SCREEN [code = [employer] Test 09:57:46 FALL SCREEN] of Medicine Future Scheduled 2020-08-27 MEDICARE AWV [facility] Test 09:57:46 (Initial) [code = of Medicin e MEDICARE AWV (Initial)] Future Scheduled 2020-08-27 FLU VACCINE > 6 [facility] C ollege Test 09:57:46 MONTHS [code = FLU of Medici ne VACCINE > 6 MONTHS] Future Scheduled 2020-08-27 TETANUS SHOT (ADULT) [facility] Test 09:57:46 [code = TETANUS SHOT of Medi cine (ADULT)] Diagnostic Test 2020-08-10 NM BONE SCAN WHOLE Expected: [facility] Pending 00:00:00 BODY [code = 08/10/2020, of Medicine 27093-8] Expires: 08/03/2021 Future Scheduled 2020-08-03 CT CHEST ABDOMEN 1 Occurrences [facility] Test 18:03:35 PELVIS W CONTRAST starting of Medicin e [code = 11181-4] 08/03/2020 until 08/03/2021 Future Scheduled 2020-08-03 COMPREHENSIVE Ordered: [facility] [employer]ge Test 13:43:55 METABOLIC PANEL 08/03/2020 of Medicine [code = 11506-8] Future Scheduled 2020-08-03 PSA [code = 2857-1] Ordered: [facility] or [facility] Test 13:43:55 08/03/2020 of Medicine Future Scheduled 2020-08-03 CBC W/AUTO DIFF WITH Ordered: [facility] Test 13:43:54 PLATELETS [code = 08/03/2020 of Medicin e 03434-1] Future Scheduled 2020-08-03 BMI FOLLOW UP PLAN [facility] Test 12:49:16 [code = BMI FOLLOW of Medici ne UP PLAN] Future Scheduled 2020-08-03 Hepatitis C [facility] Test 12:49:16 screening of Medicine (procedure) [code = 733510177] Future Scheduled 2020-08-03 ZOSTER VACCINE (1 of [facility] Test 12:49:16 2) [code = ZOSTER of Medicin e VACCINE (1 of 2)] Future Scheduled 2020-08-03 FALL SCREEN [code = [employer] Test 12:49:16 FALL SCREEN] of Medicine Future Scheduled 2020-08-03 MEDICARE AWV [facility] Test 12:49:16 (Initial) [code = of Medicin e MEDICARE AWV (Initial)] Future Scheduled 2020-08-03 FLU VACCINE > 6 [facility] C [employer]lege Test 12:49:16 MONTHS [code = FLU of Medici ne VACCINE > 6 MONTHS] Future Scheduled 2020-08-03 TETANUS SHOT (ADULT) [facility] Test 12:49:16 [code = TETANUS SHOT of Medi cine (ADULT)] Future Scheduled 2020-05-12 COVID-19 VACCINE ([address] [facility] Test 00:00:00 - [facility] risk [facility] Cent[facility] r series) [code = COVID-19 VACCINE (3 - Moderna risk series)] Future Scheduled 2020-02-[address] [facility] Test 00:00:00 (12+) [code = Medical Center DEPRESSION SCREENING (12+)] Future Scheduled 2020-02-24 FALLS RISK SCREENING [facility] Test 00:00:00 [code = FALLS RISK Medical C enter SCREENING] Future Scheduled 2020-02-[address] [facility] Test 00:00:00 (12+) [code = Medical Center DEPRESSION SCREENING (12+)] Future Scheduled 2020-02-24 FALLS RISK SCREENING [facility] Test 00:00:00 [code = FALLS RISK Medical C enter SCREENING] Future Scheduled 2018-11-26 PNEUMOCOCCAL 65+ YRS [facility] Test 00:00:00 (2 of 2 - PPSV23) Medical Ce nter [code = PNEUMOCOCCAL 65+ YRS (2 of 2 - PPSV23)] Future Scheduled 2018-11-26 PNEUMOCOCCAL 65+ YRS [facility] Test 00:00:00 (2 of 2 - PPSV23) Medical Ce nter [code = PNEUMOCOCCAL 65+ YRS (2 of 2 - PPSV23)] Future Scheduled 2018-11-26 PNEUMOCOCCAL 65+ YRS [facility] Test 00:00:00 (2 - PPSV23 or Medical Cente r PCV20) [code = PNEUMOCOCCAL 65+ YRS (2 - PPSV23 or PCV20)] Diagnostic Test 2018-11-13 CT CHEST ABDOMEN Expected: [facility] Miley crowe Pending 00:00:00 PELVIS W CONTRAST 11/13/2018, of Medicin e [code = 78530-9] Expires: 10/14/2019 Diagnostic Test 2018-11-13 NM BONE SCAN WHOLE Expected: [facility] Pending 00:00:00 BODY [code = 11/13/2018, of Medicine 11181-5] Expires: 10/13/2019 Future Scheduled 2009-02-[address] [facility] Test 00:00:00 WELLNESS (YEAR 2 or Medical Center FIRST YEAR if no IPPE) [code = MEDICARE ANNUAL WELLNESS (YEAR 2 or FIRST YEAR if no IPPE)] Future Scheduled 2009-02-[address] [facility] Test 00:00:00 WELLNESS (YEAR 2 or Medical Center FIRST YEAR if no IPPE) [code = MEDICARE ANNUAL WELLNESS (YEAR 2 or FIRST YEAR if no IPPE)] Future Scheduled 2009-02-[address] [facility] Test 00:00:00 WELLNESS (YEAR 2 or Medical Center FIRST YEAR if no IPPE) [code = MEDICARE ANNUAL WELLNESS (YEAR 2 or FIRST YEAR if no IPPE)] Future Scheduled 1993 SHINGLES VACCINES ([address] [facility] Test 00:00:00 of 2) [code = Medical Center SHINGLES VACCINES (1 of 2)] Future Scheduled 1993 SHINGLES VACCINES ([address] [facility] Test 00:00:00 of 2) [code = [facility] SHINGLES VACCINES (1 of 2)] Future Scheduled 1993 SHINGLES VACCINES ([address] [facility] Test 00:00:00 of 2) [code = Medical Center SHINGLES VACCINES (1 of 2)] Future Scheduled 1962 DTAP/TDAP/TD [facility] Test 00:[facility]:00 VACCINES (1 - Tdap) Medical Center [code = DTAP/TDAP/TD VACCINES (1 - Tdap)] Future Scheduled 1962 DTAP/TDAP/TD [facility] Test 00:00:00 VACCINES (1 - Tdap) Medical Center [code = DTAP/TDAP/TD VACCINES (1 - Tdap)] Future Scheduled 1962 DTAP/TDAP/TD [facility] Test 00:00:00 VACCINES (1 - Tdap) Medical Center [code = DTAP/TDAP/TD VACCINES (1 - Tdap)] Future Scheduled [address] [facility] Test 00:00:00 SCREENING [code = Medical Ce nter HEPATITIS C SCREENING] Future Scheduled [address] [facility] Test 00:00:00 SCREENING [code = Medical Ce nter HEPATITIS C SCREENING] Future Scheduled [address] [facility] Test 00:00:00 SCREENING [code = Medical Ce nter HEPATITIS C SCREENING] Future Scheduled 1955 COVID-19 VACCINE (1) [facility] Test 00:00:00 [code = COVID-[address] VACCINE (1)] Future Scheduled 1955 COVID-19 VACCINE (1) [facility] Test 00:00:00 [code = COVID-[address] VACCINE (1)] Future Scheduled COLON CANCER [facility] Test SCREENING: of Medicine COLONOSCOPY [code = COLON CANCER SCREENING: COLONOSCOPY] Future Scheduled MEDICARE AWV [code = [employer] Test MEDICARE AWV] of Medicine Future Scheduled TETANUS SHOT (ADULT) [employer] Test [code = TETANUS SHOT of Medi cine (ADULT)] Future Scheduled BMI FOLLOW UP PLAN [employer] Test [code = BMI FOLLOW of Medici ne UP PLAN] Future Scheduled AAA Screen [code = [employer] AAA Screen] of Medicine Future Scheduled FALL SCREEN [code = [employer] FALL SCREEN] of Medicine Future Scheduled PNEUMOVAX >=65 [facility] Co llege Test (PPSV23) [code = of Medicine PNEUMOVAX >=65 (PPSV23)] Future Scheduled PREVNAR >= 65 [facility] Col lege Test (PCV13) [code = of Medicine PREVNAR >= 65 (PCV13)] Future Scheduled FLU VACCINE > 6 [facility] C ollege Test MONTHS [code = FLU of Medici ne VACCINE > 6 MONTHS] Future Scheduled PSA [code = 2857-1] Ordered: [employer] Test 04/12/2019 of Medicine Future Scheduled CBC W/AUTO DIFF WITH Ordered: [employer] Test PLATELETS [code = 04/12/2019 of Medicin e 32514-4] Future Scheduled COMPREHENSIVE Ordered: [facility] [employer]ge Test METABOLIC PANEL 04/12/2019 of Medicine [code = 17389-8] Future Scheduled TETANUS SHOT (ADULT) [employer] Test [code = TETANUS SHOT of Medi cine (ADULT)] Future Scheduled BMI FOLLOW UP PLAN [employer] Test [code = BMI FOLLOW of Medici ne UP PLAN] Future Scheduled FALL SCREEN [code = [employer] FALL SCREEN] of Medicine Future Scheduled PNEUMOVAX >=65 [facility] Co [employer]lege Test (PPSV23) [code = of Medicine PNEUMOVAX >=65 (PPSV23)] Future Scheduled PREVNAR >= 65 [facility] Col [employer]ge Test (PCV13) [code = of Medicine PREVNAR >= 65 (PCV13)] Future Scheduled MEDICARE AWV [facility] [employer] Test (Initial) [code = of Medicin e MEDICARE AWV (Initial)] Future Scheduled FLU VACCINE > 6 [facility] C ollege Test MONTHS [code = FLU of Medici ne VACCINE > 6 MONTHS] Future Scheduled CBC W/AUTO DIFF WITH Ordered: [facility] [employer] Test PLATELETS [code = 10/12/2018 of Medicin e 32447-9] Future Scheduled COMPREHENSIVE Ordered: [facility] Col [employer]ge Test METABOLIC PANEL 10/12/2018 of Medicine [code = 85428-0] Future Scheduled PSA [code = 2857-1] Ordered: [employer] Test 10/12/2018 of Medicine Future Scheduled PSA [code = 2857-1] Ordered: [employer] Test 10/12/2018 of Medicine Future Scheduled CBC W/AUTO DIFF WITH Every 8 Weeks fo r [facility] College Test PLATELETS [code = 12 Occurrences of Medic ine 24920-6] starting 04/12/2019 until 04/12/2020 Future Scheduled COMPREHENSIVE Every 8 Weeks for [facility] Test METABOLIC PANEL 12 Occurrences of Medicin e [code = 80637-9] starting 04/12/2019 until 04/12/2020 Future Scheduled PSA [code = 2857-1] Every 8 Weeks for [facility] College Test 12 Occurrences of Medicine starting 04/12/2019 until 04/12/2020 Future Scheduled NM BONE SCAN WHOLE 1 Occurrences [employer] [facility] BODY [code = starting of Medicine 42004-0] 04/12/2019 until 04/11/[address] CHEST ABDOMEN 1 Occurrences [employer] [facility] PELVIS WO CONTRAST starting of Medici ne [code = 91223] 04/12/2019 until 11/11/2019 Encounters Start End Encounter Admission Attending Care Care Encounter Source Date/Time Date/Time Type Type Clinicians Facility Department ID 2021-12-23 2021-12-23 Emergency 1.2.840.1 [id number] Methodi 12:26:00 14:29:[address] 3.430.2.7 Hospit a .3.470710 l .8 2021-12-23 2021-12-[address] [facility] [id number] [place] [address] 00:00:00 00:00:[address] 2021-12-20 2021-12-20 Outpatient SHASHI MANUEL [facility] [id number] [facility] 15:08:53 15:46:03 Colleg e of Medicin e 2021-12-16 2021-12-16 Documentat Provider, 1.2.840.1 [id number] Methodi 00:00:00 00:00:00 ion Unknown 23323.1.[address] 3.430.2.7 Hospit a .3.702006 l .8 2021-12-16 2021-12-16 Travel 1.2.840.1 1.2.485.968 3384 [id number] Methodi 00:00:00 00:00:[address] 3.430.2.7 0.2.7.3.698 Ho spita .3.115335 084.8 l .8 2021-12-13 2021-12-15 [facility] Andrew Loyola in 1.2.840.1 [id number] Methodi 15:16:00 13:30:00 Encounter HansenChanda 54706.1.[address] Behzad Murray 3.430.2.7 [facility] .3.288183 Rozina Walls .8 2021-12-13 2021-12-[address] [facility] [id number] [place] [address] 00:00:00 00:00:00 [facility] [address] 2021-12-13 2021-12-13 Travel 1.2.840.1 1.2.554.708 [id number] [id number] Methodi 00:00:00 00:00:[address] 3.430.2.7 0.2.7.3.698 Ho spita .3.947349 084.8 l .8 2021-12-13 2021-12-13 Orders Encerrado, 1.2.840.1 [id number] Methodi 00:00:00 00:00:00 Only Elizabeth 21763.1.[address] 3.430.2.7 Hospit a .3.948117 l .8 2021-12-02 2021-12-02 [facility], 1.2.840.1 [id number] 93411 Methodi 08:51:55 23:59:00 Encounter Marcus [address]363.1.[address] 3.430.2.7 Hospit a .3.382455 l .8 2021-12-02 2021-12-02 [facility], 1.2.840.1 [id number] Methodi 07:48:36 08:50:00 Encounter Rosalie 19327.1.[address] 3.430.2.7 Hospit a .3.972990 l .8 2021-12-02 2021-12-02 Outpatient [facility] [id number] [place] 00:00:00 00:00:00 ROSALIE [address] 2021-12-02 2021-12-02 Outpatient [facility] [id number] [place] 00:00:00 00:00:00 MARCUS [address] 2021-12-02 2021-12-02 Travel 1.2.840.1 1.2.690.949 9013 [id number] Methodi 00:00:00 00:00:[address] 3.430.2.7 0.2.7.3.698 Ho spita .3.535362 084.8 l .8 2021-11-28 2021-11-28 Outpatient [facility] [id number] [place] 00:00:00 00:00:00 ROSALIE [address] 2021-11-28 2021-11-28 Travel 1.2.840.1 1.2.966.903 0095 [id number] Methodi 00:00:00 00:00:[address] 3.430.2.7 0.2.7.3.698 Ho spita .3.373391 084.8 l .8 2021-11-26 2021-11-26 Refill Lester, 1.2.840.1 [id number] 3557 Methodi 00:00:00 00:00:00 James Williamson 38281.1.[address] 3.430.2.7 Hospit a .3.716296 l .8 2021-11-25 2021-11-25 Orders Merna, 1.2.840.1 [id number] [id number] Methodi 00:00:00 00:00:00 Only Elizabeth 57517.1.[address] 3.430.2.7 Hospit a .3.653835 l .8 2021-11-22 2021-11-22 Outpatient SHASHI [facility]EL [facility] [id number] [facility] 15:46:44 16:31:18 Isidra 2021-11-21 2021-11-21 [facility], 1.2.840.1 [id number] Methodi 14:56:50 23:59:00 Encounter Rosalie 24692.1.[address] 3.430.2.7 Hospit a .3.513685 l .8 2021-11-21 2021-11-21 [facility], 1.2.840.1 [id number] Methodi 14:30:00 15:33:39 Visit Rosalie 55488.1.[address] 3.430.2.7 Hospit a .3.964822 l .8 2021-11-21 2021-11-21 Outpatient [facility] [id number] [place] 00:00:00 00:00:00 ROSALIE [address] 2021-11-21 2021-11-21 Outpatient [facility] [id number] [place] 00:00:00 00:00:00 ROSALIE [address] 2021-11-21 2021-11-21 Orders Omigueljacquie, 1.2.840.1 [id number] 9650 Methodi 00:00:00 00:00:00 Only Rosalie 13369.1.[address] 3.430.2.7 Hospit a .3.540080 l .8 2021-11-21 2021-11-21 Travel 1.2.840.1 1.2.250.943 0903 [id number] Methodi 00:00:00 00:00:[address] 3.430.2.7 0.2.7.3.698 Ho spita .3.418759 084.8 l .8 2021-11-18 2021-11-18 Travel 1.2.840.1 1.2.873.535 1570 024549 Methodi 00:00:00 00:00:[address] 3.430.2.7 0.2.7.3.698 Ho spita .3.983614 084.8 l .8 2021-11-15 2021-11-15 Travel 1.2.840.1 1.2.632.829 4653 [id number] Methodi 00:00:00 00:00:[address] 3.430.2.7 0.2.7.3.698 Ho spita .3.166742 084.8 l .8 2021-10-17 2021-10-17 Outpatient [facility] [id number] [facility] 14:03:43 23:59:00 Galina bearden of Medicin e 2021-09-27 2021-09-27 Outpatient JESSICA [facility]W [facility] [id number] [facility] 12:31:35 13:31:18 SAMMIE bearden of Medicin e 2021-09-13 2021-09-13 Outpatient SHASHI MANUEL [facility] [id number] [facility] 14:51:30 15:29:43 Galina bearden of Medicin e 2021-09-02 2021-09-02 Outpatient [facility] [id number] [facility] 10:29:55 23:59:00 2021-09-02 2021-09-02 [facility] Octavio Manuel [facility] [id number] 10:29:55 23:59:00 Encounter [facility] 2021-09-02 2021-09-02 Outpatient [facility] [id number] [facility] 10:29:47 23:59:00 2021-09-02 2021-09-02 [facility] Octavio Manuel [facility] [id number] 10:29:47 23:59:00 Encounter [facility] 2021-09-01 2021-09-01 Yamel Lester, 1.2.840.1 [id number] Methodi 00:00:00 00:00:00 [address] 15908.1.[address] 3.430.2.7 Hospit a .3.639835 l .8 2021-08-26 2021-08-26 Refill Trevon, 1.2.840.1 [id number] 4621 Methodi 00:00:00 00:00:[address]23.1[address] 3.430.2.7 Hospit a .3.304913 l .8 2021-08-24 2021-08-24 Refill Trevon, 1.2.840.1 [id number] 2355 Methodi 00:00:00 00:00:[address] 3.430.2.7 Hospit a .3.388332 l .8 2021-08-12 2021-08-12 Telemedici Trevon 1.2.840.1 [id number] Methodi 14:45:00 14:45:00 pa James R. 76739.1.[address] 3.430.2.7 Hospit a .3.108652 l .8 2021-08-12 2021-08-12 Outpatient [facility] [id number] [place] 00:00:00 00:00:00 JAMES [address] 2021-07-29 2021-07-29 Outside Octavio Manuel [facility] [id number] 00:00:00 00:00:00 [facility] 2021-06-24 2021-06-24 Travel 1.2.840.1 1.2.986.163 5203 [id number] Methodi 00:00:00 00:00:[address] 3.430.2.7 0.2.7.3.698 Ho spita .3.986693 084.8 l .8 2021-06-10 2021-06-10 Refrobert Lester, 1.2.840.1 [id number] Methodi 00:00:00 00:00:[address]23.1.[address] 3.430.2.7 Hospit a .3.568800 l .8 2021-06-05 2021-06-05 Outpatient [facility] [id number] [facility] 10:09:35 10:09:35 Colleg e of Medicin e 2021-05-26 2021-05-26 Refill Trevon, 1.2.840.1 [id number] 3091 Methodi 00:00:00 00:00:[address]15[address] 3.430.2.7 Hospit a .3.795786 l .8 2021-05-19 2021-05-19 Refill Trevon 1.2.840.1 [id number] 5567 Methodi 00:00:00 00:00:[address]14[address] 3.430.2.7 Hospit a .3.101496 l .8 2021-05-17 2021-05-17 Outpatient SHASHI MANUEL [facility] [id number] [facility] 10:15:16 19:53:11 Colleg e of Medicin e 2021-04-19 2021-04-19 Outpatient [facility] [id number] [facility] 13:36:21 23:59:00 Colleg e of Medicin e 2021-04-19 2021-04-19 Office [facility]I [facility] 1.2.840.114 [id number] [facility] 14:05:38 15:15:12 Visit Celeste 350.1.13.21 Co llege 0.2.7.2.686 of [id number] Medi [place] 504 e 2021-03-15 2021-03-15 Refill Trevon 1.2.840.1 [id number] 1894 Methodi 00:00:00 00:00:00 James Williamson 30710.1.[address] 3.430.2.7 Hospit a .3.730419 l .8 2021-03-15 2021-03-15 Yamel Lester 1.2.840.1 [id number] 1685 Methodi 00:00:00 00:00:00 James Williamson 11150.1.[address] 3.430.2.7 Hospit a .3.486620 l .8 2021-03-08 2021-03-08 Outpatient SHASHI MANUEL [facility] [id number] [facility] 13:48:31 14:21:31 Colleg e of Medicin e 2021-03-06 2021-03-06 Outpatient [facility] [id number] [facility] 10:28:15 10:28:15 Colleg e of Medicin e 2021-03-06 2021-03-06 Outpatient [facility] [id number] [facility] 10:27:34 10:27:34 Colleg e of Medicin e 2021-03-06 2021-03-06 Outpatient [facility] [id number] [facility] 10:26:37 10:26:37 Colleg e of Medicin e 2021-02-19 2021-02-19 Refill Trevon 1.2.840.1 [id number] Methodi 00:00:00 00:00:[address]39.1.[address] 3.430.2.7 Hospit a .3.106999 l .8 2021-02-19 2021-02-19 Refill Lester, 1.2.840.1 [id number] 5142 Methodi 00:00:00 00:00:[address]1.[address] 3.430.2.7 Hospit a .3.102435 l .8 2021-02-08 2021-02-08 Telemedici Lester, 1.2.840.1 [id number] [id number] Methodi 09:30:00 10:06:21 ne James R. 33234.1.[address] 3.430.2.7 Hospit a .3.223964 l .8 2021-02-08 2021-02-08 Telemedici Trevon, 1.2.840.1 [id number] [id number] Methodi 09:19:16 10:06:21 ne [place]. 26752.1.[address] 3.430.2.7 Hospit a .3.825489 l .8 2021-02-08 2021-02-08 Refill Lester, 1.2.840.1 [id number] 0929 Methodi 00:00:00 00:00:[address]1.[address] 3.430.2.7 Hospit a .3.960361 l .8 2021-02-08 2021-02-08 Refill Trevon, 1.2.840.1 [id number] 5754 Methodi 00:00:00 00:00:[address]1.[address] 3.430.2.7 Hospit a .3.530424 l .8 2021-02-08 2021-02-08 Refill Trevon, 1.2.840.1 [id number] 8254 Methodi 00:00:00 00:00:00 [address]65[address]1.[address] 3.430.2.7 Hospit a .3.487245 l .8 2021-02-08 2021-02-08 Refrobert Lester, 1.2.840.1 [id number] 3061 Methodi 00:00:00 00:00:00 [address]1.[address] 3.430.2.7 Hospit a .3.042469 l .8 2021-01-24 2021-01-24 Telephone Lester, 1.2.840.1 [id number] Methodi 00:00:00 00:00:[address]22[address] 3.430.2.7 Hospit a .3.181094 l .8 2021-01-24 2021-01-24 Telephone Trevon, 1.2.840.1 [id number] [id number] Methodi 00:00:00 00:00:[address] 3.430.2.7 Hospit a .3.188264 l .8 2021-01-22 2021-01-22 Outpatient AUGUSTINE [facility] [id number] [facility] 09:44:13 10:22:08 SAMMIE bearden of Medicin e 2021-01-08 2021-01-08 Outpatient ANNEMana SHASHI [facility] [id number] [facility] 10:39:36 11:13:50 Wilderg e of Medicin e 2020-12-24 2020-12-24 Orders Waqar Aleman 1.2.840.1 [id number] [id number] Methodi 00:00:00 00:00:[address] 3.430.2.7 Hospit a .3.599268 l .8 2020-12-17 2020-12-17 Telemedici Trevon, 1.2.840.1 [id number] 063 [id number] Methodi 12:53:19 13:35:43 ne [place] R. 64356.1.[address] 3.430.2.7 Hospit a .3.188494 l .8 2020-12-12 2020-12-12 Yamel Lester 1.2.840.1 [id number] 4045 Methodi 00:00:00 00:00:[address] 3.430.2.7 Hospit a .3.192385 l .8 2020-12-10 2020-12-10 Office Trevon, 1.2.840.1 [id number] 1835 Methodi 15:20:47 16:58:54 Visit James Williamson 06300.1.[address] 3.430.2.7 Hospit a .3.941520 l .8 2020-12-10 2020-12-10 Refill Trevon, 1.2.840.1 [id number] 0152 Methodi 00:00:00 00:00:00 James Williamson [address]62.1.[address] 3.430.2.7 Hospit a .3.715658 l .8 2020-12-10 2020-12-10 Travel 1.2.840.1 1.2.792.622 [id number] [id number] Methodi 00:00:00 00:00:[address] 3.430.2.7 0.2.7.3.698 Ho spita .3.931712 084.8 l .8 2020-12-06 2020-12-06 Refill Trevon, 1.2.840.1 [id number] 5362 Methodi 00:00:00 00:00:00 James Williamson 59784.1.[address] 3.430.2.7 Hospit a .3.796841 l .8 2020-11-29 2020-11-29 Refill Trevon 1.2.840.1 [id number] 4624 Methodi 00:00:00 00:00:00 James Williamson 75846.1.[address] 3.430.2.7 Hospit a .3.069022 l .8 2020-11-20 2020-11-20 Outpatient SHASHI MANUEL [facility] [id number] [employer] [facility] 11:53:09 12:24:26 Galina bearden of Medicin e 2020-11-08 2020-11-08 Refill Margaret, 1.2.840.1 [id number] Methodi 00:00:00 00:00:[address] 3.430.2.7 Hospit a .3.839626 l .8 2020-10-26 2020-10-26 Yamel Lester 1.2.840.1 [id number] 5111 Methodi 00:00:00 00:00:00 James Williamson 61933.1.[address] 3.430.2.7 Hospit a .3.481056 l .8 2020-10-09 2020-10-09 Outpatient [facility] [id number] [employer] [facility] 14:09:50 23:59:00 [facility] Medicin e 2020-10-09 2020-10-09 Outpatient SHASHI MANUEL [facility] [id number] [employer] [facility] [employer] [facility] 12:17:55 14:08:12 [facility] 2020-09-14 2020-09-14 Outpatient [facility] [id number] [facility] 00:00:00 23:59:00 [facility]in e 2020-09-14 2020-09-14 Outpatient [facility] [id number] [facility] 08:53:14 09:34:45 [facility] Medicin e 2020-09-14 2020-09-14 Katherine Palacios.2.840.1 [id number] Methodi 00:00:00 00:00:00 James Williamson [address]5538.1.[address] 3.430.2.7 Hospit a .3.330990 l .8 2020-09-12 2020-09-12 Outpatient [facility] [id number] [facility] 10:27:00 10:27:00 [facility] 2020-09-12 2020-09-12 Outpatient [facility] [id number] [facility] 10:26:41 10:26:41 [facility] 2020-09-12 2020-09-12 Outpatient [facility] [id number] [facility] 10:25:07 10:25:07 [facility] 2020-09-02 2020[id number] [facility] 16:17:00 10:42:00 [facility]counter [facility] 2020-09-03 2020-09-03 Travel [facility] [id number] [facility] 00:00[facility]00 00:00:00 [facility] 2020-09-02 2020-09-02 Outpatient [facility] [id number] [facility] 00:00:00 23:59:00 [facility] 2020-09-02 2020-09-02 Emergency ER [facility] Emergency [id number] [facility] 15:53:00 15:53:00 2020-09-02 2020-09-02 Orders [facility] [id number] 00:00:00 00:00:00 Only [facility] 2020-08-24 2020-08-24 Outpatient [facility] [id number] [facility] 10:47:14 23:59:00 [facility] 2020-08-24 2020-08-24 Office Augustine [facility] 1.2.840.114 [id number] [facility] 09:11:35 11:32:49 Visit Sammie Alonso 350.1.13.21 Co [facility] [place] 0.2.7.2.686 of [id number] Medi [facility] 530 e 2020-08-19 2020-08-19 Refrobert Lester 1.2.840.1 [id number] [facility]i 00:00:00 00:00:00 James Williamson 35439.1.[address] 3.430.2.7 Hospit a .3.544016 l .8 2020-08-10 2020-08-10 Telemedici Trevon 1.2.840.1 [id number] [facility]rian 11:10:01 11:25:01 abbey Williamson [address]504.1.[address] 3.430.2.7 Hospit a .3.653881 l .8 2020-08-10 2020-08-10 Travel 1.2.840.1 1.2.852.031 [id number] [facility]i 00:00:00 00:00:[address] 3.430.2.7 0.2.7.3.698 Ho spita .3.022408 084.8 l .8 2020-08-03 2020-08-03 Office Shashi Manuel [facility] 1.2.840.114 [id number] [facility] 12:29:32 14:40:56 Visit Augusto Canor 350.1.13.21 Co llege 0.2.7.2.686 of [id number] [facility] 530 e 2020-08-03 2020-08-03 Outpatient [facility] [id number] [place] 00:00:00 00:00:00 JAMES [address] 2020-08-03 2020-08-03 Travel 1.2.840.1 1.2.170.155 [id number] [facility] 00:00:00 00:00:[address] 3.430.2.7 0.2.7.3.698 Ho spita .3.860762 084.8 l .8 2020-07-27 2020-07-27 Refill Trevon, 1.2.840.1 [id number] [facility]i 00:00:00 00:00:[address] 3.430.2.7 Hospit a .3.798488 l .8 2020-06-26 2020-06-26 Refill Trevon, 1.2.840.1 [id number] [facility]i 00:00:00 00:00:[address]40[address]1.[address] 3.430.2.7 Hospit a .3.469691 l .8 2020-06-16 2020-06-16 Refill Trevon, 1.2.840.1 [id number] [facility] 00:00:00 00:00:[address]1.[address] 3.430.2.7 Hospit a .3.273126 l .8 2020-05-10 2020-05-10 Refill Trevon 1.2.840.1 [id number] [facility] 00:00:00 00:00:[address]29.1.[address] 3.430.2.7 Hospit a .3.941134 l .8 2020-02-10 2020-02-10 Outpatient [facility] [id number] [place] 00:00:00 00:00:00 JAMES [address] 2020-02-03 2020-02-03 Outpatient [facility] [id number] [place] 00:00:00 00:00:00 JAMES [address] 2019-11-18 2019-11-18 Outpatient EDGAR SHUKLA [facility] 021 [id number] [place] 00:00:00 00:00:[address] 2019-11-04 2019-11-04 Outpatient [facility] [id number] [place] 00:00:00 00:00:00 JAMES [address] 2019-11-01 2019-11-01 Outpatient [facility] [id number] [place] 00:00:00 00:00:00 JAMES [address] 2019-10-28 2019-10-28 Outpatient EDGAR SHUKLA [facility] 021 [id number] [place] 00:00:00 00:00:[address] 2019-09-30 2019-09-30 Outpatient EDGAR SHUKLA [facility] 021 [id number] [place] 00:00:00 00:00:[address] 2019-09-29 2019-09-29 Outpatient [facility] PDPFEIM ZQG [facility] 00:00:00 00:00:00 [id number] 123 2019-08-02 2019-08-02 Outpatient [facility] [id number] [place] 00:00:00 00:00:00 JAMES [address] 2019-07-27 2019-07-27 Outpatient JUANITA, [facility] 806 [id number] [place] 00:00:00 00:00:00 NADIM [address] 2019-06-28 2019-07-04 Inpatient GELLER, [facility] 060 [id number] [place] 00:00:00 00:00:00 MERCEDES [address] 2019-06-28 2019-06-28 Outpatient CARLOS PADILLA [facility] [id number] [place] 00:00:00 00:00:[address] 2019-06-07 2019-06-07 Outpatient TREVON, [facility] [id number] [place] 00:00:00 00:00:00 JAMES [address] 2019-04-12 2019-04-12 [facility] 1.2.840.114 [id number] 11:43:22 18:00:11 Visit E Celeste 350.1.13.21 0.2.7.2.686 [id number] 2019-04-12 2019-04-12 [facility] 1.2.840.114 [id number] [facility] 11:43:22 18:00:11 Visit E Celeste 350.1.13.21 Co llege 0.2.7.2.686 of [id number] Medi [facility] 530 e 2018-10-12 2018-10-12 Office Octavio Manuel [facility] 1.2.840.114 [id number] 11:09:47 13:31:26 Visit E AMBULATOR 350.1.13.21 Y 0.2.7.2.686 [id number] 2018-10-12 2018-10-12 Office Octavio Manuel [facility] 1.2.840.114 [id number] [facility] 11:09:47 13:31:26 Visit E AMBULATOR 350.1.13.21 College Y 0.2.7.2.686 of [id number] Medi [place] 360 e Results Test Description Test Time Test Comments Results Result Comments Source Cytology (non-gynecological) request 2021-12-16 22:09:38 Test Item Value Reference Range Interpretation Comme nts Case number (test code = 7703063) [id number] Cytology (non-gynecological) report See link below for PDF Lab Repo rt (test code = 1178) Result status (test code = 9904443) This is Final Report for [id number] [facility], (w Contrast, Strain and 3D if needed)2021-12-15 14:50:54 Test Item Value Reference Interpretation Comments Range Ao Root Diameter 3.46 cm (test code = 7640808290) AoV Area, Vmax (test 1.66 cm2 See_Comment [Autom ated code = 6747964550) message] The system which generated this result transmitted reference range : >=1.5. The reference range was not used to interpret this result as normal/abnormal . AoV Area, VTI (test 1.69 cm2 code = 6146128306) AoV Mean PG (test mmHg code = 2212585992) AoV Peak PG (test mmHg code = 0967420569) AoV Vmax (test code 1.91 m/s = 7365345885) AoV VTI (test code = 0.32 m 4090897892) IVS,d (test code = 1.81 cm 0.6-1 A 6717480880) IVS/LVPW,2D (test code = 3631570129) Left Atrium 5.06 cm Dimension Anterior (test code = 6264290556) LV,d (test code = 5.39 cm 8626277639) LV EF,2D (test code 30.00 % = 4787189563) LV,s (test code = 4.78 cm 4752465943) LVOT area (test code 2.98 cm2 = 1539176182) LVOT Diam,S (test 1.95 cm code = 6106174257) LVOT Vmax (test code 0.99 m/s = 0354594161) LVOT VTI (test code 0.19 m = 3453726213) LVPWD,d (test code = 1.70 cm 0.60-1.19 A 5409178975) PV Pk Grad (test mmHg code = 4621589536) PV VMAX (test code = 0.96 m/s 2700672964) RVOT Vmax (test code 0.85 m/s = 1503562964) TR Vpeak (test code 3.30 m/s = 0415361843) MV E A ratio (test code = 0232684222) TR pk grad (test mmHg code = 7412113692) MR Vmax (test code = 4.23 m/s 0115593312) E wave decelartion See_Comment [Automat ed time (test code = message] T he 9652043999) system which generated this result transmitted reference range : 200 msec. The reference range was not used to interpret this result as normal/abnormal . MV Peak A Sal (test 0.54 m/s code = 9358230846) MV valve area p 1/2 1.62 cm2 method (test code = 6383383328) MV Peak E Sal (test 1.74 m/s code = 2351653014) MV stenosis pressure 135.85 ms 1/2 time (test code = 2540419577) LVOT stroke volume 0.57 ml (test code = 3022447446) AV LVOT peak mmHg gradient (test code = 9456296251) Ao Root Diameter 3.46 cm (test code = 5261493600) MV Area VTI (test 0.90 cm2 code = 2051040429) MV mean gradient mmHg (test code = 2342841462) LV SYS VOL (test 106.67 ml 21-61 A code = 5540076030) LV MCDOWELL VOL (test 140.56 ml 62-150 code = 7071655141) LA area s A4C (test 26.58 cm2 code = 9395949155) LV SV Teich 2D (test 33.89 ml code = 4013702516) LV Vol s Teich PSAX 106.67 ml (test code = 5495394911) MR peak grad (test mmHg code = 2903780763) MV Vmax (test code = 1.90 m 3338979350) MV VTI Tips (test 0.59 m code = 3366894545) RVOT pk grad (test mmHg code = 0124197974) AoV Vmn (test code = 1.02 m/s 4858708947) LV FS Teich 2D (test code = 6808556762) MV AE ratio (test code = 9446812416) LV FS Cube 2D (test code = 5791817365) LVOT Vmn (test code = 3650718251) Aov area Vmn (test 1.75 cm2 code = 7465994766) LVOT mean grad (test mmHg code = 6769861655) RVOT mean grad (test mmHg code = 5541465286) RVOT Vmn (test code 0.62 m/s = 9081504311) RVOT VTI (test code 0.18 m = 3841791933) 85 of MPHR (test code = 0106316233) Calc MPHR (test code bpm = 1878489187) LV SV Cube 2D (test 46.91 ml code = 1007837099) LV vol d cube 2D 156.38 ml (test code = 4147470641) LV vol s cube 2D 109.47 ml (test code = 0286191585) MV Decel slope (test 3.72 m/s2 code = 8308694810) Pred Exer Dur R1 (test code = 1264533530) Pred METS R1 (test code = 4696033936) LA Vol MOD A4C (test 80.63 ml code = 2749625407) E sarah sept (test code = 4987529862) E prime lat (test code = 3815582479) Velocity Ratio 0.52 m/s (V1/V2) (test code = 4689) EF (test code = 24 % 8982947660) E/A ratio (test code = 8195236614) LVOT VTI (CM) (test 19.00 cm code = 5662216493) JAVED (test code = JAVED) Left Ventricle: Left ventricle size is normal. Findings consistent with severe concentric hypertrophy. Moderately reduced systolic function with a visually estimated EF of 30 - 35%. Grade III (restrictive) diastolic dysfunction. Left Atrium: Left atrium is severely dilated. Right Ventricle: Pacemaker/AICD visualized in the right ventricle and right atrium. Right Atrium: Right atrium is severely dilated. Mitral Valve: Repaired by MitraClip. Mild valvular regurgitation. Mild stenosis. Tricuspid Valve: Mild valvular regurgitation. Prior study: There were no significant changes noted when compared to the prior TTE study from 08/06/2020. Left VentricleLeft ventricle size is normal. Findings consistent with severe concentric hypertrophy. Moderately reduced systolic function with a visually estimated EF of 30 - 35%. Grade III (restrictive) diastolic dysfunction.Right VentricleRight ventricle size is normal. Normal systolic function. Pacemaker/AICD visualized in the right ventricle and right atrium.Left AtriumLeft atrium is severely dilated.Right AtriumRight atrium is severely dilated.IVC/SVCIVC diameter is greater than 21 mm and decreases less than 50% during inspiration; therefore the estimated right atrial pressure is elevated (~15 mmHg).Mitral ValveRepaired by MitraClip. Mild valvular regurgitation. Mild stenosis.Tricuspid ValveMild valvular regurgitation.Aortic ValveValve structure appears tricuspid. No significant valvular regurgitation. No stenosis.Pulmonic ValveNo significant valvular regurgitation.Perica rdiumThere is no pericardial effusion present.AortaNormal sized aortic root.Study DetailsStudy quality was adequate. A complete 2D, color flow Doppler and spectral Doppler echocardiogram was performed.The apical, parasternal, subcostal and suprasternal views were obtained.Prior StudyThere were no significant changes noted when compared to the prior TTE study from 08/06/2020.Wall Scoring BaselineScore Index: 2.00The left ventricular wall motion is globally hypokinetic. Lab Interpretation Abnormal (test code = 64484-1) [id number] 22:27:00 Test Item Value Reference Range Interpretation Comments Urine culture (test SEE COMMENT Bacteriu angela screen code = 4145124) negative. [facility] 12 [id number] 21:07:56 Test Item Value Reference Range Interpretation Comments Ventricular rate (test code = 253) Atrial rate (test code = 255) ME interval (test code = 266) QRSD interval (test code = 260) QT interval (test code = 264) QTC interval (test code = 265) P axis 1 (test code = 267) QRS axis 1 (test code = 268) T wave axis (test code = 270) EKG impression (test Sinus rhythm with 1st code = 273) degree AV block with premature atrial complexes-Otherwise normal ECG-In automated comparison with ECG of 10-DEC-2020 15:37,-Nonspecific T wave abnormality now evident in Lateral leads- [facility], CHEST, WITHOUT IV [id number] 10:26:00PROSTATE CANCERUnlisted Reason for Exam - Click Yes and Enter Reason Below- >YesUnlisted Reason for Exam->C61 [facility] : 1945 Sex: MFINAL REPORT CT of the chest, abdomen and pelvis, without contrast Clinical History: Unlisted Reason for ExamC61 Technique: CT of the chest, abdomen and pelvis is performed without intravenous contrast administration. This exam was performed according to our departmental dose optimization program which includes automated exposure control, adjustment of the mA and/or kV according topatient's size and/or use of iterative reconstructive technique. Comparison Film: September 17, 2020, performed at an outside institution Discussion: There is a left-sided ICD device. Visualized thyroid gland is normal. No supraclavicular, or axillary lymphadenopathy. There are a few mildly enlarged mediastinal lymph nodes, some are unchanged. However, a subcarinal node is not significantly larger, now measuring 2.1 cm in short axis, compared to 7 mm previously. Heart is enlarged. No pericardial effusion. There is a moderate left-sided pleural effusion, increased since the prior study. Small right effusi on is unchanged. There are a few scattered pulmonary nodules, measuring up to 4 mm, new since the prior study. IV or, focal airspace opacity in the medial right lower lobe has resolved. There is atelectasis/consolidation in the lingula. Mild degree of septal thickening may reflect pulmonary edema. No significant bronchiectasis or bronchial wall thickening. There are multiple hypodense lesions within the liver, new since the prior exam. The largest is located in the left lobe, measuring up to 7.1 cm.There are highly suspicious for metastasis. No biliary ductal dilatation. Status post cholecystectomy. There are several enlarged dalton hepatis lymph nodes, likely metastatic as well, measuring up to 3.1 cm. The spleen, pancreas, and adrenal glands are normal. Kidneys demonstrate no hydronephrosis, orradiopaque stone. There are several cysts, measuring up to 4.8 cm. An 8 mm hyperdensity in the interpolar right kidney measuring 72 Hounsfield units is most likely a hemorrhagic or proteinaceous cyst. No bowel obstruction. There is colonic diverticulosis. Normal appendix. In the pelvis, bladder is normal. Prostate gland is absent. There are a few enlarged mesorectal, and inferior mesenteric lymph nodes, measuring up to 1.7 cm Status post aortoiliac stent graft placement. Aneurysmal sac of the infrarenal abdominal aorta appears grossly unchanged. Bony structures demonstrate degenerative changes. A sclerotic lesion in T5 vertebral body is unchanged, concerning for metastasis. IMPRESSION: Interval dominant of multiple liver metastasis. Dalton hepatis adenopathy is likely metastatic as well. There arealso enlarged mesorectal, inferior mesenteric lymph nodes, also concerning for metastasis; however the distribution raises concern for primary rectal neoplasm rather than prostate cancer metastasis, suggest clinical correlation/colonoscopy, if appropriate. Moderate left pleural effusion and small right effusion. There are new pulmonary nodules measuring up to 4 mm, as well as interval enlargement of a subcarinal lymph node, metastasis is a concern, suggest close follow-up. A sclerotic lesion in T5 vertebral body is likely metastatic. Cardiomegaly. Aortoiliac stent graft. Status post prostatectomy. Signed: Kevin Pinedaeport Verified Date/Time: 09/03/2021 10:26:19 Reading Location: [address] Ortho Consult Reading Room [facility] [id number] 10:26:00PROSTATE CANCERUnlisted Reason for Exam - Click Yes and Enter Reason Below- >YesUnlisted Reason for Exam->C61Is this for enterography?->NoWill this procedure require oral contrast?->Yes [facility] : 1945 Sex: MFINAL REPORT CT of the chest, abdomen and pelvis, without contrast Clinical History: Unlisted Reason for ExamC61 Technique: CT of the chest, abdomen and pelvis is performed without intravenous contrast administration. This exam was performed according to our departmental dose optimization program which includes automated exposure control, adjustment of the mA and/or kV according topatient's size and/or use of iterative reconstructive technique. Comparison Film: September 17, 2020, performed at an outside institution Discussion: There is a left-sided ICD device. Visualized thyroid gland is normal. No supraclavicular, or axillary lymphadenopathy. There are a few mildly enlarged mediastinal lymph nodes, some are unchanged. However, a subcarinal node is not significantly larger, now measuring 2.1 cm in short axis, compared to 7 mm previously. Heart is enlarged. No pericardial effusion. There is a moderate left-sided pleural effusion, increased since the prior study. Small right effusi on is unchanged. There are a few scattered pulmonary nodules, measuring up to 4 mm, new since the prior study. IV or, focal airspace opacity in the medial right lower lobe has resolved. There is atelectasis/consolidation in the lingula. Mild degree of septal thickening may reflect pulmonary edema. No significant bronchiectasis or bronchial wall thickening. There are multiple hypodense lesions within the liver, new since the prior exam. The largest is located in the left lobe, measuring up to 7.1 cm.There are highly suspicious for metastasis. No biliary ductal dilatation. Status post cholecystectomy. There are several enlarged dalton hepatis lymph nodes, likely metastatic as well, measuring up to 3.1 cm. The spleen, pancreas, and adrenal glands are normal. Kidneys demonstrate no hydronephrosis, orradiopaque stone. There are several cysts, measuring up to 4.8 cm. An 8 mm hyperdensity in the interpolar right kidney measuring 72 Hounsfield units is most likely a hemorrhagic or proteinaceous cyst. No bowel obstruction. There is colonic diverticulosis. Normal appendix. In the pelvis, bladder is normal. Prostate gland is absent. There are a few enlarged mesorectal, and inferior mesenteric lymph nodes, measuring up to 1.7 cm Status post aortoiliac stent graft placement. Aneurysmal sac of the infrarenal abdominal aorta appears grossly unchanged. Bony structures demonstrate degenerative changes. A sclerotic lesion in T5 vertebral body is unchanged, concerning for metastasis. IMPRESSION: Interval dominant of multiple liver metastasis. Dalton hepatis adenopathy is likely metastatic as well. There arealso enlarged mesorectal, inferior mesenteric lymph nodes, also concerning for metastasis; however the distribution raises concern for primary rectal neoplasm rather than prostate cancer metastasis, suggest clinical correlation/colonoscopy, if appropriate. Moderate left pleural effusion and small right effusion. There are new pulmonary nodules measuring up to 4 mm, as well as interval enlargement of a subcarinal lymph node, metastasis is a concern, suggest close follow-up. A sclerotic lesion in T5 vertebral body is likely metastatic. Cardiomegaly. Aortoiliac stent graft. Status post prostatectomy. Signed: Kevin Pineda MDReport Verified Date/Time: 09/03/2021 10:26:19 Reading Location: [address] Ortho Consult Reading Room ECG 12 [id number] 23:15:08 Test Item Value Reference Range Interpretation Comments Ventricular rate (test code = 253) Atrial rate (test code = 255) ME interval (test code = 266) QRSD interval (test code = 260) QT interval (test code = 264) QTC interval (test code = 265) P axis 1 (test code = 267) QRS axis 1 (test code = 268) T wave axis (test code = 270) EKG impression (test Sinus rhythm with 1st code = 273) degree AV block with premature atrial complexes-Prolonged QT-Abnormal ECG-In automated comparison with ECG of 10-DEC-2020 15:36,-premature atrial complexes are now present- [facility] metabolic [id number] 17:54:00 Test Item Value Reference Interpretation Comments Range Glucose (test code 119 mg/dL 65-139 Non-fast ing = 2345-7) reference inter reshma BUN (test code = 24 mg/dL 7-25 3094-0) Creatinine (test 1.72 mg/dL 0.70-1.18 H For patient s >49 code = 2160-0) years of age, the reference limit for Creatinine is approximately 1 3% higher for peopleidentifie d as -Itzel n. EGFR Non-Afr. See_Comment L [Automated me ssage] Jamaican (test code The syst em which = 2775) generated this result transmit ro reference range : > OR = 60 mL/min/1.73m2. The reference range was not used to interpret this result as normal/abnormal . EGFR See_Comment L [Automated mes roger] Jamaican (test code The syst em which = 2774) generated this result transmit ro reference range : > OR = 60 mL/min/1.73m2. The reference range was not used to interpret this result as normal/abnormal . BUN/creatinine See_Comment [Automated m essage] ratio (test code = The syste m which 3097-3) generated this result transmit ro reference range : 6 - 22 (calc). The reference range was not used to interpret this result as normal/abnormal . Sodium (test code = 142 mmol/L 005-914 3313-2) Potassium (test 3.9 mmol/L 3.5-5.3 code = 2823-3) Chloride (test code 98 mmol/L 98-110 = 2075-0) CO2 (test code = 31 mmol/L 20-32 2027-9) Calcium (test code 9.8 mg/dL 8.6-10.3 = 03746-3) JAVED (test code = FASTING:NO JAVED) FASTING: NO RAC (test code = Performing RAC) Organization Information: Site ID: [facility] Address: [address] [place] [id number] Director: Richie Latif Lab Interpretation Abnormal (test code = 04702-1) [facility] natriuretic [id number] 17:54:00 Test Item Value Reference Interpretation Comments Range BNP (test code = 655 pg/mL <100 [place] [address]-5) with age in the [facility] on with the highes t values seen inindividuals g reater than 75 years o f age.Reference: J. Am. Oleksandr. Cardiol. 2002; 40:976-982. JAVED (test code = FASTING:NO JAVED) FASTING: NO RAC (test code = Performing RAC) Organization Information: Site ID: RGA Name: [facility] Address: [address] [place] [phone] Director: Richie Latif Lab Interpretation Abnormal (test code = 24948-7) [facility] [id number] 09:01:00 Test Item Value Reference Range Interpretation Comments Result (test code = No growth in 5 days 6463-4) [facility] [id number] 09:01:00 Test Item Value Reference Range Interpretation Comments Result (test code = No growth in 5 days 6463-4) [facility] [id number] 09:01:00 Test Item Value Reference Range Interpretation Comments CULTURE (BEAKER) (test No growth in 5 days code = 1095) BLOOD [id number] 09:01:00 Test Item Value Reference Range Interpretation Comments CULTURE (BEAKER) (test No growth in 5 days code = 1095) BLOOD [id number] 18:01:00 Test Item Value Reference Range Interpretation Comments CULTURE (BEAKER) (test No growth in 5 days code = 1095) BLOOD [id number] 12:46:00 Test Item Value Reference Range Interpretation Comments CULTURE (BEAKER) PSEUDOMONAS A From Aerobi c (test code = 1095) AERUGINOSA Bottle On ly Pseudomonas aeruginosa Amikacin (test code S = 1) Aztreonam (test code S = 32) Cefepime (test code S = 51) Ceftazidime (test S code = 27) Ciprofloxacin (test S code = 7) Doripenem (test code S = 100) Gentamicin (test S code = 18) Imipenem (test code S = 19) Levofloxacin (test S code = 22) Meropenem (test code S = 34) Piperacillin (test S code = 24) Piperacillin + S Tazobactam (test code = 29) Tobramycin (test S code = 25) GRAM STAIN RESULT From aerobic (BEAKER) (test code bottle only: gram = 1123) negative rods CBC with platelet count + automated [id number] 08:22:00 Test Item Value Reference Range Interpretation Comments WBC (test code = 6690-2) 5.3 See_Comment [A utomated message] The system [employer] generated this result transmitted ref erence range: 3.5 - 10 .5 K/L. The refe rence range was not u sed to interpret this result as normal/abnor mal. RBC (test code = 789-8) 3.10 See_Comment L [Au tomated message] The system [employer] generated this result transmitted ref erence range: 4.63 - 6 .08 M/L. The refe rence range was not u sed to interpret this result as normal/abnor mal. MCHC (test code = 786-4) 30.6 See_Comment L [A utomated message] The system [employer] generated this result transmitted ref erence range: 32.3 - 3 6.5 GM/DL. The refe rence range was not u sed to interpret this result as normal/abnor mal. Hematocrit (test code = 28.1 % 40.1-51.0 L 4544-3) MCV (test code = 787-2) 90.6 fL 79.0-92.2 Disc ordant mcv result compared to pre vious result, clinica l correlation req uired MCH (test code = 785-6) 27.7 pg 25.7-32.2 RDW (test code = 788-0) 15.6 % 11.6-14.4 H Platelets (test code = 346 See_Comment [Aut omated message] 777-3) The system [employer] generated this result transmitted ref erence range: 150 - 45 0 K/CU MM. The referen ce range was not u sed to interpret this result as normal/abnor mal. MPV (test code = 10.6 fL 9.4-12.4 11251-3) nRBC (test code = 413) 1 See_Comment H [Aut omated message] The system [employer] generated this result transmitted ref erence range: 0 - 0 /1 00 WBC. The refere nce range was not u sed to interpret this result as normal/abnor mal. Lab Interpretation (test Abnormal code = 36284-2) [facility] [id number] 08:22:00 Test Item Value Reference Range Interpretation Comments % Neutros (test code 56 % = 2816) % Lymphs (test code = 21 % 2817) % Monos (test code = 12 % 2818) % Baso (test code = 1 % 2820) % Metamyelo (test 2 % 0-0 H code = 2821) % Myelo (test code = 2 % 0-0 H 2822) % Bands (test code = 5 % 0-10 2826) % Atypical Lymphs 1 % 0-0 H (test code = 2829) # Neutros (test code 2.97 K/ul 1.78-5.38 = 2830) # Lymphs (test code = 1.11 K/ul 1.32-3.57 L 2831) # Monos (test code = 0.64 K/uL 0.30-0.82 2832) # Baso (test code = 0.05 K/uL 0.01-0.08 2835) # Metamyelo (test 0.11 K/uL 0.00-0.00 H code = 2836) # Myelo (test code = 0.11 K/uL 0.00-0.00 H 2837) # Bands (test code = 0.27 K/uL 0.00-0.80 2840) # Atypical Lymphs 0.05 K/uL 0.00-0.00 H (test code = 2858) Total Counted (test 100 code = 1351) nRBC (manual) (test 1 See_Comment H [Automa ro code = 1353) message] The system which generated this result transmitted reference range : 0 - 0 /100 WBC. The reference range was not used to interpr et this result as normal/abnormal . Smudge Cells (test Present code = 1371) Giant Platelet (test Present code = 313) Polychromasia (test 1+ few code = 478) Anisocytosis (test 1+ few code = 961) Poikilocytes (test 1+ few code = 966) Ovalocytes (test code 2+ moderate = 477) Tear Drop Cells (test 1+ few code = 481) Artifact (test code = Present 3432) Platelet Conc (test Adequate code = 3438) JAVED (test code = JAVED) Associate Dean ID - Kamila Swift comments: Slide comments: Lab Interpretation Abnormal (test code = 91862-1) [facility] with platelet count + automated [id number] 08:22:00 Test Item Value Reference Range Interpretation Comments WBC (test code = 6690-2) 5.3 See_Comment [A utomated message] The system [employer] generated this result transmitted ref erence range: 3.5 - 10 .5 K/L. The refe rence range was not u sed to interpret this result as normal/abnor mal. RBC (test code = 789-8) 3.10 See_Comment L [Au tomated message] The system [employer] generated this result transmitted ref erence range: 4.63 - 6 .08 M/L. The refe rence range was not u sed to interpret this result as normal/abnor mal. MCHC (test code = 786-4) 30.6 See_Comment L [A utomated message] The system [employer] generated this result transmitted ref erence range: 32.3 - 3 6.5 GM/DL. The refe rence range was not u sed to interpret this result as normal/abnor mal. Hematocrit (test code = 28.1 % 40.1-51.0 L 4544-3) MCV (test code = 787-2) 90.6 fL 79.0-92.2 Disc ordant mcv result compared to pre vious result, clinica l correlation req uired MCH (test code = 785-6) 27.7 pg 25.7-32.2 RDW (test code = 788-0) 15.6 % 11.6-14.4 H Platelets (test code = 346 See_Comment [Aut omated message] 777-3) The system [employer] generated this result transmitted ref erence range: 150 - 45 0 K/CU MM. The referen ce range was not u sed to interpret this result as normal/abnor mal. MPV (test code = 10.6 fL 9.4-12.4 93911-7) nRBC (test code = 413) 1 See_Comment H [Aut omated message] The system [employer] generated this result transmitted ref erence range: 0 - 0 /1 00 WBC. The refere nce range was not u sed to interpret this result as normal/abnor mal. Lab Interpretation (test Abnormal code = 23993-5) [facility] [id number] 08:22:00 Test Item Value Reference Range Interpretation Comments % Neutros (test code 56 % = 2816) % Lymphs (test code = 21 % 2817) % Monos (test code = 12 % 2818) % Baso (test code = 1 % 2820) % Metamyelo (test 2 % 0-0 H code = 2821) % Myelo (test code = 2 % 0-0 H 2822) % Bands (test code = 5 % 0-10 2826) % Atypical Lymphs 1 % 0-0 H (test code = 2829) # Neutros (test code 2.97 K/ul 1.78-5.38 = 2830) # Lymphs (test code = 1.11 K/ul 1.32-3.57 L 2831) # Monos (test code = 0.64 K/uL 0.30-0.82 2832) # Baso (test code = 0.05 K/uL 0.01-0.08 2835) # Metamyelo (test 0.11 K/uL 0.00-0.00 H code = 2836) # Myelo (test code = 0.11 K/uL 0.00-0.00 H 2837) # Bands (test code = 0.27 K/uL 0.00-0.80 2840) # Atypical Lymphs 0.05 K/uL 0.00-0.00 H (test code = 2858) Total Counted (test 100 code = 1351) nRBC (manual) (test 1 See_Comment H [Automa ro code = 1353) message] The system which generated this result transmitted reference range : 0 - 0 /100 WBC. The reference range was not used to interpr et this result as normal/abnormal . Smudge Cells (test Present code = 1371) Giant Platelet (test Present code = 313) Polychromasia (test 1+ few code = 478) Anisocytosis (test 1+ few code = 961) Poikilocytes (test 1+ few code = 966) Ovalocytes (test code 2+ moderate = 477) Tear Drop Cells (test 1+ few code = 481) Artifact (test code = Present 3432) Platelet Conc (test Adequate code = 3438) JAVED (test code = JAVED) Associate Dean ID - Kamila Swift comments: Slide comments: Lab Interpretation Abnormal (test code = 04180-6) [facility] W/PLT COUNT & AUTO [id number] 08:22:00 Test Item Value Reference Range Interpretation Comments WHITE BLOOD CELL COUNT 5.3 K/ L 3.5-10.5 (BEAKER) (test code = 775) RED BLOOD CELL COUNT 3.10 M/ L 4.63-6.08 L (BEAKER) (test code = 761) HEMOGLOBIN (BEAKER) 8.6 GM/DL 13.7-17.5 L (test code = 410) HEMATOCRIT (BEAKER) 28.1 % 40.1-51.0 L (test code = 411) MEAN CORPUSCULAR 90.6 fL 79.0-92.2 Discordant mcv VOLUME (BEAKER) (test result compared to code = 753) previous result , clinical correl ation required MEAN CORPUSCULAR 27.7 pg 25.7-32.2 HEMOGLOBIN (BEAKER) (test code = 751) MEAN CORPUSCULAR 30.6 GM/DL 32.3-36.5 L HEMOGLOBIN CONC (BEAKER) (test code = 752) RED CELL DISTRIBUTION 15.6 % 11.6-14.4 H WIDTH (BEAKER) (test code = 412) PLATELET COUNT 346 K/CU MM 150-450 (BEAKER) (test code = 756) MEAN PLATELET VOLUME 10.6 fL 9.4-12.4 (BEAKER) (test code = 754) NUCLEATED RED BLOOD 1 /100 WBC 0-0 H CELLS (BEAKER) (test code = 413) (CELLAVISION MANUAL DIFF)2020-09-05 08:22:00 Test Item Value Reference Range Interpretation Comments NEUTROPHILS - REL 56 % (CELLAVISION)(BEAKER) (test code = 2816) LYMPHOCYTES - REL 21 % (CELLAVISION)(BEAKER) (test code = 2817) MONOCYTES - REL 12 % (CELLAVISION)(BEAKER) (test code = 2818) BASOPHILS - REL 1 % (CELLAVISION)(BEAKER) (test code = 2820) METAMYELOCYTES - REL 2 % 0-0 H (CELLAVISION)(BEAKER) (test code = 2821) MYELOCYTES - REL 2 % 0-0 H (CELLAVISION)(BEAKER) (test code = 2822) BANDS - REL (CELLAVISION)(BEAKER) 5 % 0-10 (test code = 2826) ATYPICAL LYMPHOCYTES - REL 1 % 0-0 H (CELLAVISION)(BEAKER) (test code = 2829) NEUTROPHILS - ABS 2.97 K/ul 1.78-5.38 (CELLAVISION)(BEAKER) (test code = 2830) LYMPHOCYTES - ABS 1.11 K/ul 1.32-3.57 L (CELLAVISION)(BEAKER) (test code = 2831) MONOCYTES - ABS 0.64 K/uL 0.30-0.82 (CELLAVISION)(BEAKER) (test code = 2832) BASOPHILS - ABS 0.05 K/uL 0.01-0.08 (CELLAVISION)(BEAKER) (test code = 2835) METAMYELOCYTES - ABS 0.11 K/uL 0.00-0.00 H (CELLAVISION)(BEAKER) (test code = 2836) MYELOCYTES-ABS 0.11 K/uL 0.00-0.00 H (CELLAVISION)(BEAKER) (test code = 2837) BANDS - ABS (CELLAVISION)(BEAKER) 0.27 K/uL 0.00-0.80 (test code = 2840) ATYPICAL LYMPHOCYTES - ABS 0.05 K/uL 0.00-0.00 H (CELLAVISION)(BEAKER) (test code = 5678) TOTAL COUNTED (BEAKER) (test code 100 = 1351) MANUAL NRBC PER 100 CELLS 1 /100 WBC 0-0 H (BEAKER) (test code = 1353) SMUDGE CELLS (BEAKER) (test code Present = 1371) GIANT PLATELETS (BEAKER) (test Present code = 313) POLYCHROMATOPHILLIC RBCS(BEAKER) 1+ few (test code = 478) ANISOCYTOSIS (BEAKER) (test code 1+ few = 961) POIKILOCYTES (BEAKER) (test code 1+ few = 966) OVALOCYTES (BEAKER) (test code = 2+ moderate 477) TEAR DROP CELLS (BEAKER) (test 1+ few code = 481) ARTIFACT (CELLAVISION)(BEAKER) Present (test code = 3432) PLATELET CONCENTRATION Adequate (CELLAVISION)(BEAKER) (test code = 3438) Associate Dean ID - Kamila Swift comments: Slide comments:Basic Metabolic Panel 2020-09-05 05:16:00 Test Item Value Reference Range Interpretation Comments Sodium (test code = 138 meq/L 428-888 9140-2) Potassium (test 4.2 meq/L 3.5-5.1 code = 2823-3) Chloride (test code 101 meq/L 98-107 = 2075-0) CO2 (test code = 26 meq/L -2027-) BUN (test code = 21 mg/dL 7- 3094-0) Creatinine (test 1.19 mg/dL 0.57-1.25 code = 2160-0) Glucose (test code 101 mg/dL 70-105 = 2345-7) Calcium (test code 9.1 mg/dL 8.4-10.2 = 43096-7) EGFR (test code = 59 mL/min/1.73 [place] [address]-0) NOT ACCURATE CREATININE CLEARANCE IN PREDICTING GLOMERULAR FILTRATION RATE . ESTIMATED GFR I S NOT APPLICABLE FOR DIALYSIS PATIEN JAVED (test code = Associate Dean ID - JAVED) ELIJAH Zimmerman [facility] [id number] 05:16:00 Test Item Value Reference Range Interpretation Comments Sodium (test code = 138 meq/L 221-854 7309-2) Potassium (test 4.2 meq/L 3.5-5.1 code = 2823-3) Chloride (test code 101 meq/L 98-107 = 2075-0) CO2 (test code = 26 meq/L -2027-10) BUN (test code = 21 mg/dL 7- 3094-0) Creatinine (test 1.19 mg/dL 0.57-1.25 code = 2160-0) Glucose (test code 101 mg/dL 70-105 = 2345-7) Calcium (test code 9.1 mg/dL 8.4-10.2 = 91068-2) EGFR (test code = 59 mL/min/1.[place] [address]-6) NOT ACCURATE CREATININE CLEARANCE IN PREDICTING GLOMERULAR FILTRATION RATE . ESTIMATED GFR I S NOT APPLICABLE FOR DIALYSIS PATIEN TS. JAVED (test code = Associate Dean ID - JAVED) ELIJAH Zimmerman [facility] METABOLIC [id number] 05:16:00 Test Item Value Reference Range Interpretation Comments SODIUM (BEAKER) 138 meq/L 136-145 (test code = 381) POTASSIUM (BEAKER) 4.2 meq/L 3.5-5.1 (test code = 379) CHLORIDE (BEAKER) 101 meq/L 98-107 (test code = 382) CO2 (BEAKER) (test 26 meq/L 22-29 code = 355) BLOOD UREA NITROGEN 21 mg/dL 7-21 (BEAKER) (test code = 354) CREATININE (BEAKER) 1.19 mg/dL 0.57-1.25 (test code = 358) GLUCOSE RANDOM 101 mg/dL 70-105 (BEAKER) (test code = 652) CALCIUM (BEAKER) 9.1 mg/dL 8.4-10.2 (test code = 697) EGFR (BEAKER) (test 59 mL/min/1.73 ESTIMA RO GFR IS code = 1092) sq m NOT ACCURATE CREATININE CLEARANCE IN PREDICTING GLOMERULAR FILTRATION RATE . ESTIMATED GFR I S NOT APPLICABLE FOR DIALYSIS PATIEN TS. Associate Dean ID - ELIJAH Zimmerman(CELLAVISION MANUAL DIFF)2020-09-04 17:19:00 Test Item Value Reference Range Interpretation Comments NEUTROPHILS - REL 54 % (CELLAVISION)(BEAKER) (test code = 2816) LYMPHOCYTES - REL 25 % (CELLAVISION)(BEAKER) (test code = 2817) MONOCYTES - REL 9 % (CELLAVISION)(BEAKER) (test code = 2818) BASOPHILS - REL 2 % (CELLAVISION)(BEAKER) (test code = 2820) METAMYELOCYTES - REL 3 % 0-0 H (CELLAVISION)(BEAKER) (test code = 2821) MYELOCYTES - REL 2 % 0-0 H (CELLAVISION)(BEAKER) (test code = 2822) BANDS - REL (CELLAVISION)(BEAKER) 3 % 0-10 (test code = 2826) ATYPICAL LYMPHOCYTES - REL 1 % 0-0 H (CELLAVISION)(BEAKER) (test code = 2829) NEUTROPHILS - ABS 1.89 K/ul 1.78-5.38 (CELLAVISION)(BEAKER) (test code = 2830) LYMPHOCYTES - ABS 0.88 K/ul 1.32-3.57 L (CELLAVISION)(BEAKER) (test code = 2831) MONOCYTES - ABS 0.32 K/uL 0.30-0.82 (CELLAVISION)(BEAKER) (test code = 2832) BASOPHILS - ABS 0.07 K/uL 0.01-0.08 (CELLAVISION)(BEAKER) (test code = 2835) METAMYELOCYTES - ABS 0.11 K/uL 0.00-0.00 H (CELLAVISION)(BEAKER) (test code = 2836) MYELOCYTES-ABS 0.07 K/uL 0.00-0.00 H (CELLAVISION)(BEAKER) (test code = 2837) BANDS - ABS (CELLAVISION)(BEAKER) 0.11 K/uL 0.00-0.80 (test code = 2840) ATYPICAL LYMPHOCYTES - ABS 0.04 K/uL 0.00-0.00 H (CELLAVISION)(BEAKER) (test code = 2858) TOTAL COUNTED (BEAKER) (test code 100 = 1351) MANUAL NRBC PER 100 CELLS (BEAKER) 2 /100 WBC 0-0 H (test code = 1353) GIANT PLATELETS (BEAKER) (test Present code = 313) HYPERSEGMENTATION Present (CELLAVISION)(BEAKER) (test code = 5795) POLYCHROMATOPHILLIC RBCS(BEAKER) 1+ few (test code = 478) POIKILOCYTES (BEAKER) (test code = 3+ many 966) ELLIPTOCYTES (BEAKER) (test code = 1+ few 962) TEAR DROP CELLS (BEAKER) (test 1+ few code = 481) POOJA CELLS (BEAKER) (test code = 1+ few 474) ARTIFACT (CELLAVISION)(BEAKER) Present (test code = 3432) PLATELET CONCENTRATION Adequate (CELLAVISION)(BEAKER) (test code = 3438) Associate Dean ID - Keeser comments: Slide comments:BASIC METABOLIC PANEL 2020-09-04 16:18:00 Test Item Value Reference Range Interpretation Comments SODIUM (BEAKER) 135 meq/L 136-145 L (test code = 381) POTASSIUM (BEAKER) 4.8 meq/L 3.5-5.1 Specimen slightly (test code = 379) hemolyzed CHLORIDE (BEAKER) 102 meq/L 98-107 (test code = 382) CO2 (BEAKER) (test 21 meq/L 22-29 L code = 355) BLOOD UREA NITROGEN 23 mg/dL 7-21 H (BEAKER) (test code = 354) CREATININE (BEAKER) 1.29 mg/dL 0.57-1.25 H Specimen slightly (test code = 358) hemolyzed GLUCOSE RANDOM 122 mg/dL 70-105 H (BEAKER) (test code = 652) CALCIUM (BEAKER) 8.4 mg/dL 8.4-10.2 (test code = 697) EGFR (BEAKER) (test 54 mL/min/1.73 ESTIMA RO GFR IS code = 1092) sq m NOT ACCURATE CREATININE CLEARANCE IN PREDICTING GLOMERULAR FILTRATION RATE . ESTIMATED GFR I S NOT APPLICABLE FOR DIALYSIS PATIEN TS. Associate Dean ID - BSCBC W/PLT COUNT & AUTO [id number] 16:05:00 Test Item Value Reference Range Interpretation Comments WHITE BLOOD CELL COUNT (BEAKER) 3.5 K/ L 3.5-10.5 (test code = 775) RED BLOOD CELL COUNT (BEAKER) 3.08 M/ L 4.63-6.08 L (test code = 761) HEMOGLOBIN (BEAKER) (test code = 8.7 GM/DL 13.7-17.5 L 410) HEMATOCRIT (BEAKER) (test code = 29.2 % 40.1-51.0 L 411) MEAN CORPUSCULAR VOLUME (BEAKER) 94.8 fL 79.0-92.2 H (test code = 753) MEAN CORPUSCULAR HEMOGLOBIN 28.2 pg 25.7-32.2 (BEAKER) (test code = 751) MEAN CORPUSCULAR HEMOGLOBIN CONC 29.8 GM/DL 32.3-36.5 L (BEAKER) (test code = 752) RED CELL DISTRIBUTION WIDTH 15.7 % 11.6-14.4 H (BEAKER) (test code = 412) PLATELET COUNT (BEAKER) (test 277 K/CU MM 150-450 code = 756) MEAN PLATELET VOLUME (BEAKER) 10.5 fL 9.4-12.4 (test code = 754) NUCLEATED RED BLOOD CELLS 1 /100 WBC 0-0 H (BEAKER) (test code = 413) Blood Culture Panel([facility] [employer])2020-09-03 14:49:00 Test Item Value Reference Interpretation Comments Range LISTERIA MONOCYTOGENES Not detected Not detected (test code = 65843-8) STAPHYLOCOCCUS (test Not detected Not detected code = 31390-6) STAPHYLOCOCCUS AUREUS Not detected Not detected (test code = 86589-8) Streptococcus (test Not detected Not detected code = 45170-2) STREPTOCOCCUS Not detected Not detected AGALACTIAE (GROUP B) (test code = 79946-8) STREPTOCOCCUS Not detected Not detected PNEUMONIAE (test code = 33698-9) Streptococcus pyogenes Not detected Not detected (Group A) (test code = 91533-8) ACINETOBACTER Not detected Not detected BAUMANNII (test code = 49558-9) HAEMOPHILUS INFLUENZAE Not detected Not detected (test code = 43938-0) NEISSERIA MENINGITIDIS Not detected Not detected (test code = 22863-8) ENTEROBACTERIACEAE Not detected Not detected (test code = 38933-7) ENTEROBACTER CLOACOE Not detected Not detected COMPLEX (test code = 31655-9) KLEBSIELLA OXYTOCA Not detected Not detected (test code = 65626-4) KLEBSIELLA PNEUMONIAE Not detected Not detected (test code = 98357-7) PROTEUS (test code = Not detected Not detected 11221-2) SERRATIA MARCESCENS Not detected Not detected (test code = 30860-0) KAYY ALBICANS (test Not detected Not detected code = 69712-0) KAYY GLABRATA (test Not detected Not detected code = 03500-1) KAYY KRUSEI (test Not detected Not detected code = 95467-8) KAYY PARAPSILOSIS Not detected Not detected (test code = 72169-3) KAYY TROPICALIS Not detected Not detected (test code = 13563-0) ESCHERICHIA COLI (test Not detected Not detected code = 44312-9) METHICILLIN-RESISTANCE GENE (test code = 43297-9) VANCOMYCIN-RESISTANCE GENE (test code = 36300-9) CARBAPENEM-RESISTANCE Not detected Not detected Note: Antimicrobial GENE (test code = [place] [address]-8) occur via multi ple mechanisms. A N ot Detected result for the VB Rags antimicrobial resistance gene assays does not indicate antimicrobial susceptibility. Subculturing is required for species identification and susceptibility testing of isolates.WARNIN G: A Not Detected re sult for the KPC gen e does not indica te susceptibility to carbapenems. Gr am negative bacter ia can be resistan t to carbapenems by mechanisms othe r than carrying t he KPC gene. ENTEROCOCCUS (test Not detected Not detected code = 65353-0) PSEUDOMONAS AERUGINOSA Detected Not detected A Pseud omonas (test code = 37737-0) aerugi nosaKPC not detected (a carbapenamase gene)First-line therapy: Cefepi me (plus one-time dose of Amikacin if critically ill) De-escalate bas ed on susceptibili ties Reference Range : Not Detected JAVED (test code = JAVED) Other bacteria and resistance markers not targeted by this PCR panel cannot be excluded; therefore clinical correlation and follow up of serology, culture results, and other molecular studies is required. The results are not intended to be used as the sole means for clinical diagnosis or patient management decisions. This sample was tested at the [facility] using the abcdexperts Blood Culture ID Panel. It is FDA cleared and has been verified and approved by the [facility] for clinical use. This laboratory is CLIA-certified and [employer] ([employer])-accredited to perform high complexity testing. Lab Interpretation Abnormal (test code = 12024-5) [facility]2020-09-03 14:49:00 Test Item Value Reference Interpretation Comments Range LISTERIA MONOCYTOGENES Not detected Not detected (test code = 87588-9) STAPHYLOCOCCUS (test Not detected Not detected code = 75523-2) STAPHYLOCOCCUS AUREUS Not detected Not detected (test code = 21124-5) Streptococcus (test Not detected Not detected code = 44170-8) STREPTOCOCCUS Not detected Not detected AGALACTIAE (GROUP B) (test code = 14240-0) STREPTOCOCCUS Not detected Not detected PNEUMONIAE (test code = 10597-4) Streptococcus pyogenes Not detected Not detected (Group A) (test code = 92620-4) ACINETOBACTER Not detected Not detected BAUMANNII (test code = 77418-1) HAEMOPHILUS INFLUENZAE Not detected Not detected (test code = 91446-5) NEISSERIA MENINGITIDIS Not detected Not detected (test code = 99084-9) ENTEROBACTERIACEAE Not detected Not detected (test code = 86480-2) ENTEROBACTER CLOACOE Not detected Not detected COMPLEX (test code = 59080-1) KLEBSIELLA OXYTOCA Not detected Not detected (test code = 27086-5) KLEBSIELLA PNEUMONIAE Not detected Not detected (test code = 92254-5) PROTEUS (test code = Not detected Not detected 12766-7) SERRATIA MARCESCENS Not detected Not detected (test code = 92756-5) KAYY ALBICANS (test Not detected Not detected code = 91561-8) KAYY GLABRATA (test Not detected Not detected code = 59832-8) KAYY KRUSEI (test Not detected Not detected code = 51376-7) KAYY PARAPSILOSIS Not detected Not detected (test code = 33701-8) KAYY TROPICALIS Not detected Not detected (test code = 37031-1) ESCHERICHIA COLI (test Not detected Not detected code = 53299-7) METHICILLIN-RESISTANCE GENE (test code = 76183-9) VANCOMYCIN-RESISTANCE GENE (test code = 38825-0) CARBAPENEM-RESISTANCE Not detected Not detected Note: Antimicrobial GENE (test code = [place] 379[address]-9) occur via multi ple mechanisms. A N ot Detected result for the VB Rags antimicrobial resistance gene assays does not indicate antimicrobial susceptibility. Subculturing is required for species identification and susceptibility testing of isolates.ALEYDA G: A Not Detected re sult for the KPC gen e does not indica te susceptibility to carbapenems. Gr am negative bacter ia can be resistan t to carbapenems by mechanisms othe r than carrying t he KPC gene. ENTEROCOCCUS (test Not detected Not detected code = 30148-1) PSEUDOMONAS AERUGINOSA Detected Not detected A Pseud omonas (test code = 69312-6) aerugi nosaKPC not detected (a carbapenamase gene)First-line therapy: Cefepi me (plus one-time dose of Amikacin if critically ill) De-escalate bas ed on susceptibili ties Reference Range : Not Detected JAVED (test code = JAVED) Other bacteria and resistance markers not targeted by this PCR panel cannot be excluded; therefore clinical correlation and follow up of serology, culture results, and other molecular studies is required. The results are not intended to be used as the sole means for clinical diagnosis or patient management decisions. This sample was tested at the [facility] using the [employer] Blood Culture ID Panel. It is FDA cleared and has been verified and approved by the [facility] for clinical use. This laboratory is CLIA-certified and [employer] ([employer])-accredited to perform high complexity testing. Lab Interpretation Abnormal (test code = 44346-6) [facility] [id number] 14:49:00 Test Item Value Reference Interpretation Comments Range LISTERIA MONOCYTOGENES Not detected Not detected (test code = 6083655) STAPHYLOCOCCUS (test Not detected Not detected code = [id number]) STAPHYLOCOCCUS AUREUS Not detected Not detected (test code = 1801027) STREPTOCOCCUS (test Not detected Not detected code = 3827866) STREPTOCOCCUS Not detected Not detected AGALACTIAE (GROUP B) (test code = 4973493) STREPTOCOCCUS Not detected Not detected PNEUMONIAE (test code = 0881312) STREPTOCOCCUS PYOGENES Not detected Not detected (GROUP A) (test code = 0946187) ACINETOBACTER BAUMANNII Not detected Not detected (test code = 0618554) HAEMOPHILUS INFLUENZAE Not detected Not detected (test code = 0275931) NEISSERIA MENINGITIDIS Not detected Not detected (test code = 9195144) ENTEROBACTERIACEAE Not detected Not detected (test code = 9809474) ENTEROBACTER CLOACOE Not detected Not detected COMPLEX (test code = 2386049) KLEBSIELLA OXYTOCA Not detected Not detected (test code = [id number]) KLEBSIELLA PNEUMONIAE Not detected Not detected (test code = 1650) PROTEUS (test code = Not detected Not detected [id number]) SERRATIA MARCESCENS Not detected Not detected (test code = 7445846) KAYY ALBICANS (test Not detected Not detected code = 3397411) KAYY GLABRATA (test Not detected Not detected code = 5336734) KAYY KRUSEI (test Not detected Not detected code = 1373320) KAYY PARAPSILOSIS Not detected Not detected (test code = 1755740) KAYY TROPICALIS Not detected Not detected (test code = 9566089) ESCHERICHIA COLI (test Not detected Not detected code = 7812844) METHICILLIN-RESISTANCE GENE (test code = 0894896) VANCOMYCIN-RESISTANCE GENE (test code = 8298048) CARBAPENEM-RESISTANCE Not detected Not detected Note: Antimicrobial GENE (test code = resistance can occur ) via multiple mechanisms. A N ot Detected result for the 5 examplesArray antimicrobial resistance gene assays does not indicate antimicrobial susceptibility. Subculturing is required for sp ecies identification and susceptibility testing of isolates.ALEYDA Wesley: A Not Detected re sult for the KPC gen e does not indica te susceptibility to carbapenems. Gr am negative bacter ia can be resistan t to carbapenems by mechanisms othe r than carrying t he KPC gene. ENTEROCOCCUS-BEAKER Not detected Not detected (test code = ) PSEUDOMONAS Detected Not detected A Pseudomonas AERUGINOSA-BEAKER (test aeru ginosaKPC not code = ) detected (a carbapenamase gene)First-line therapy: Cefepi me (plus one-time dose of Amikacin if critically ill) De-escalate bas ed on susceptibilitie s Reference Range : Not Detected Other bacteria and resistance markers not targeted by this PCR panel cannot be excluded; therefore clinical correlation and follow up of serology, culture results, and other molecular studies is required. The results are not intended to be used as the sole means for clinical diagnosis or patient management decisions. This sample was tested at the [facility] using the abcdexperts Blood Culture ID Panel. It is FDA cleared and has been verified and approved by the [facility] for clinical use. This laboratory is CLIA-certified and College ofAmerican Pathologists (CAP)-accredited to perform high complexity testing.Peripheral Blood Smear - Path [id number] 11:51:00 Test Item Value Reference Range Interpretation Comments Pathologist Review Leukopenia. WBCs are (test code = 2640) predominantly composed of mature granulocytes and small lymphocytes. No blasts seen. Normocytic normochromic anemia with mild anisopoikilocytosis and polychromasia. Adequate platelets with unremarkable morphologic features. Pathologist (test Savannah Garzon, code = 2793) Sharon VÁSQUEZ [facility] [id number] 11:51:00 Test Item Value Reference Range Interpretation Comments Pathologist Review Leukopenia. WBCs are (test code = 2640) predominantly composed of mature granulocytes and small lymphocytes. No blasts seen. Normocytic normochromic anemia with mild anisopoikilocytosis and polychromasia. Adequate platelets with unremarkable morphologic features. Pathologist (horace Garzon, code = 2793) M.D [facility] PATH REVIEW LAB ONLY 2020-09-03 11:51:00 Test Item Value Reference Range Interpretation Comments PERIPHERAL SMR Leukopenia. WBCs are REVIEW (BEAKER) predominantly composed of (test code = 2640) mature granulocytes and small lymphocytes. No blasts seen. Normocytic normochromic anemia with mild anisopoikilocytosis and polychromasia. Adequate platelets with unremarkable morphologic features. [id number] Savnanah Garzon, 015 (BEAKER) (test M.D code = 2793) (CELLAVISION MANUAL DIFF)2020-09-03 07:38:00 Test Item Value Reference Range Interpretation Comments NEUTROPHILS - REL 30 % (CELLAVISION)(BEAKER) (test code = 2816) LYMPHOCYTES - REL 41 % (CELLAVISION)(BEAKER) (test code = 2817) MONOCYTES - REL 23 % (CELLAVISION)(BEAKER) (test code = 2818) BASOPHILS - REL 1 % (CELLAVISION)(BEAKER) (test code = 2820) BANDS - REL (CELLAVISION)(BEAKER) 5 % 0-10 (test code = 2826) ATYPICAL LYMPHOCYTES - REL 1 % 0-0 H (CELLAVISION)(BEAKER) (test code = 2829) NEUTROPHILS - ABS 0.90 K/ul 1.78-5.38 L (CELLAVISION)(BEAKER) (test code = 2830) LYMPHOCYTES - ABS 1.23 K/ul 1.32-3.57 L (CELLAVISION)(BEAKER) (test code = 2831) MONOCYTES - ABS 0.69 K/uL 0.30-0.82 (CELLAVISION)(BEAKER) (test code = 2832) BASOPHILS - ABS 0.03 K/uL 0.01-0.08 (CELLAVISION)(BEAKER) (test code = 2835) BANDS - ABS (CELLAVISION)(BEAKER) 0.15 K/uL 0.00-0.80 (test code = 2840) ATYPICAL LYMPHOCYTES - ABS 0.03 K/uL 0.00-0.00 H (CELLAVISION)(BEAKER) (test code = 2858) TOTAL COUNTED (BEAKER) (test code = 100 1351) CLUMPED PLATELETS (BEAKER) (test Present code = 436) SMUDGE CELLS (BEAKER) (test code = Present 1371) VACUOLATED NEUTROPHILS (BEAKER) Present (test code = 483) POLYCHROMATOPHILLIC RBCS(BEAKER) 1+ few (test code = 478) POIKILOCYTES (BEAKER) (test code = 1+ few 966) ELLIPTOCYTES (BEAKER) (test code = 1+ few 962) OVALOCYTES (BEAKER) (test code = 1+ few 477) TEAR DROP CELLS (BEAKER) (test code 1+ few = 481) ARTIFACT (CELLAVISION)(BEAKER) Present (test code = 3432) PLATELET CONCENTRATION Adequate (CELLAVISION)(BEAKER) (test code = 3438) Associate Dean ID - Hayley Peterson comments: Slide comments:CBC W/PLT COUNT & AUTO [id number] 07:38:00 Test Item Value Reference Range Interpretation Comments WHITE BLOOD CELL COUNT (BEAKER) 3.0 K/ L 3.5-10.5 L (test code = 775) RED BLOOD CELL COUNT (BEAKER) 3.37 M/ L 4.63-6.08 L (test code = 761) HEMOGLOBIN (BEAKER) (test code = 9.5 GM/DL 13.7-17.5 L 410) HEMATOCRIT (BEAKER) (test code = 31.0 % 40.1-51.0 L 411) MEAN CORPUSCULAR VOLUME (BEAKER) 92.0 fL 79.0-92.2 (test code = 753) MEAN CORPUSCULAR HEMOGLOBIN 28.2 pg 25.7-32.2 (BEAKER) (test code = 751) MEAN CORPUSCULAR HEMOGLOBIN CONC 30.6 GM/DL 32.3-36.5 L (BEAKER) (test code = 752) RED CELL DISTRIBUTION WIDTH 15.5 % 11.6-14.4 H (BEAKER) (test code = 412) PLATELET COUNT (BEAKER) (test 271 K/CU MM 150-450 code = 756) MEAN PLATELET VOLUME (BEAKER) 10.2 fL 9.4-12.4 (test code = 754) NUCLEATED RED BLOOD CELLS 1 /100 WBC 0-0 H (BEAKER) (test code = 413) [id number] 05:27:00 Test Item Value Reference Range Interpretation Comments Cortisol, Total (test code 17.9 ug/dL 3.7-19.4 = 2755) JAVED (test code = JAVED) Associate Dean ID Zane TRINH W Lab Interpretation (test Normal code = 67681-9) [facility] 05:27:00 Test Item Value Reference Range Interpretation Comments Cortisol, Total (test code 17.9 ug/dL 3.7-19.4 = 2755) JAVED (test code = JAVED) Associate Dean ID - ZIGGY W Lab Interpretation (test Normal code = 32991-2) [facility]OL2021-[facility]-12 05:27:00 Test Item Value Reference Range Interpretation Comments CORTISOL, TOTAL (BEAKER) (test 17.9 ug/dL 3.7-19.4 code = 2755) Associate Dean ID - ZIGGY WBASIC METABOLIC [id number] 05:08:00 Test Item Value Reference Range Interpretation Comments SODIUM (BEAKER) 139 meq/L 136-145 (test code = 381) POTASSIUM (BEAKER) 4.0 meq/L 3.5-5.1 (test code = 379) CHLORIDE (BEAKER) 101 meq/L 98-107 (test code = 382) CO2 (BEAKER) (test 25 meq/L 22-29 code = 355) BLOOD UREA NITROGEN 31 mg/dL 7-21 H (BEAKER) (test code = 354) CREATININE (BEAKER) 1.84 mg/dL 0.57-1.25 H (test code = 358) GLUCOSE RANDOM 89 mg/dL 70-105 (BEAKER) (test code = 652) CALCIUM (BEAKER) 8.5 mg/dL 8.4-10.2 (test code = 697) EGFR (BEAKER) (test 36 mL/min/1.73 ESTIMA RO GFR IS code = 1092) sq m NOT ACCURATE CREATININE CLEARANCE IN PREDICTING GLOMERULAR FILTRATION RATE . ESTIMATED GFR I S NOT APPLICABLE FOR DIALYSIS PATIEN TS. Associate Dean ID - ZIGGY WUrinalysis w/Microscopic + Reflex to [id number] 02:18:00 Test Item Value Reference Range Interpretation Comments Color, UA (test Yellow code = 5778-6) Clarity, UA (test Clear code = 5767-9) Specific [place], 1.019 1.001-1.035 UA (test code = 5811-5) pH, UA (test code 6.0 5.0-8.0 = 5803-2) Protein, UA (test Negative Negative code = 01250-5) Glucose, UA (test Negative Negative code = 365) Ketones, UA (test Negative Negative code = 2514-8) Bilirubin, UA Negative Negative (test code = 75307-1) Blood, UA (test Negative Negative code = 55935-4) Nitrite, UA (test Negative Negative code = 5802-4) Leukocytes, UA Negative Negative (test code = 5799-2) Urobilinogen, UA 0.2 mg/dL 0.2-1.0 (test code = 60858-2) RBC, UA (test 2 See_Comment [Automated me ssage] code = 36719-6) The system [facility] generated this result transmit ro reference range : /HPF. The refer ence range was not u sed to interpret th is result as normal/abnormal . WBC, UA (test 1 See_Comment [Automated me ssage] code = 5821-4) The system [facility] generated this result transmit ro reference range : /HPF. The refer ence range was not u sed to interpret th is result as normal/abnormal . Bacteria, UA Rare (test code = 78916-5) Mucus (test code Rare = 8247-9) Squam Epithel, UA <1 See_Comment [Automate d message] (test code = The system [facility] 24906-7) generated this result transmit ro reference range : /HPF. The refer ence range was not u sed to interpret th is result as normal/abnormal . Hyaline Casts, UA 1 See_Comment [Automate d message] (test code = The system [facility] 20617-8) generated this result transmit ro reference range : /LPF. The refer ence range was not u sed to interpret th is result as normal/abnormal . Crystals, Urine None Seen (test code = 92017-1) Specimen Source (test code = 2795) JAVED (test code = Associate Dean ID - JAVED) [auto]Associate Dean ID - tech [facility]inal[facility]/Microscopic + Reflex to Culture 2020-09-03 02:18:00 Test Item Value Reference Range Interpretation Comments Color, UA (test Yellow code = 5778-6) Clarity, UA (test Clear code = 5767-9) Specific [place], 1.019 1.001-1.035 UA (test code = 5811-5) pH, UA (test code 6.0 5.0-8.0 = 5803-2) Protein, UA (test Negative Negative code = 87772-4) Glucose, UA (test Negative Negative code = 365) Ketones, UA (test Negative Negative code = 2514-8) Bilirubin, UA Negative Negative (test code = 63621-8) Blood, UA (test Negative Negative code = 38089-4) Nitrite, UA (test Negative Negative code = 5802-4) Leukocytes, UA Negative Negative (test code = 5799-2) Urobilinogen, UA 0.2 mg/dL 0.2-1.0 (test code = 27680-8) RBC, UA (test 2 See_Comment [Automated me ssage] code = 55649-3) The system [facility] generated this result transmit ro reference range : /HPF. The refer ence range was not u sed to interpret th is result as normal/abnormal . WBC, UA (test 1 See_Comment [Automated me ssage] code = 5821-4) The system [facility] generated this result transmit ro reference range : /HPF. The refer ence range was not u sed to interpret th is result as normal/abnormal . Bacteria, UA Rare (test code = 29196-9) Mucus (test code Rare = 8247-9) Squam Epithel, UA <1 See_Comment [Automate d message] (test code = The system [facility] 41086-9) generated this result transmit ro reference range : /HPF. The refer ence range was not u sed to interpret th is result as normal/abnormal . Hyaline Casts, UA 1 See_Comment [Automate d message] (test code = The system [facility] 01453-0) generated this result transmit ro reference range : /LPF. The refer ence range was not u sed to interpret th is result as normal/abnormal . Crystals, Urine None Seen (test code = 80887-8) Specimen Source (test code = 2795) JAVED (test code = Associate Dean ID - JAVED) [auto]Associate Dean ID - tech [facility]/ REFLEX URINE [id number] 02:18:00 Test Item Value Reference Range Interpretation Comments COLOR (BEAKER) (test code = 470) Yellow CLARITY (BEAKER) (test code = 469) Clear SPECIFIC GRAVITY UA (BEAKER) (test 1.019 1.001-1.035 code = 468) PH UA (BEAKER) (test code = 467) 6.0 5.0-8.0 PROTEIN UA (BEAKER) (test code = Negative Negative 464) GLUCOSE UA (BEAKER) (test code = Negative Negative 365) KETONES UA (BEAKER) (test code = Negative Negative 371) BILIRUBIN UA (BEAKER) (test code = Negative Negative 462) BLOOD UA (BEAKER) (test code = 461) Negative Negative NITRITE UA (BEAKER) (test code = Negative Negative 465) LEUKOCYTE ESTERASE UA (BEAKER) Negative Negative (test code = 466) UROBILINOGEN UA (BEAKER) (test code 0.2 mg/dL 0.2-1.0 = 463) RBC UA (BEAKER) (test code = 519) 2 /HPF WBC UA (BEAKER) (test code = 520) 1 /HPF BACTERIA (BEAKER) (test code = 517) Rare MUCUS (BEAKER) (test code = 1574) Rare SQUAMOUS EPITHELIAL (BEAKER) (test < /HPF code = 516) HYALINE CASTS (BEAKER) (test code = 1 /LPF 514) CRYSTALS, URINE (BEAKER) (test code None Seen = 1521) SOURCE(BEAKER) (test code = 2795) Associate Dean ID - [auto]Associate Dean ID - tech(CELLAVISION MANUAL DIFF)2020-09-02 19:37:00 Test Item Value Reference Range Interpretation Comments NEUTROPHILS - REL 32 % (CELLAVISION)(BEAKER) (test code = 2816) LYMPHOCYTES - REL 37 % (CELLAVISION)(BEAKER) (test code = 2817) MONOCYTES - REL 25 % (CELLAVISION)(BEAKER) (test code = 2818) PROMYELOCYTES - REL 1 % 0-0 H (CELLAVSION)(BEAKER) (test code = 2825) ATYPICAL LYMPHOCYTES - REL 5 % 0-0 H (CELLAVISION)(BEAKER) (test code = 2829) NEUTROPHILS - ABS 0.74 K/ul 1.78-5.38 L (CELLAVISION)(BEAKER) (test code = 2830) LYMPHOCYTES - ABS 0.85 K/ul 1.32-3.57 L (CELLAVISION)(BEAKER) (test code = 2831) MONOCYTES - ABS 0.58 K/uL 0.30-0.82 (CELLAVISION)(BEAKER) (test code = 2832) PROMYELOCYTES - ABS 0.02 K/uL 0.00-0.00 H (CELLAVISION)(BEAKER) (test code = 2838) ATYPICAL LYMPHOCYTES - ABS 0.12 K/uL 0.00-0.00 H (CELLAVISION)(BEAKER) (test code = 2858) TOTAL COUNTED (BEAKER) (test code 100 = 1351) MANUAL NRBC PER 100 CELLS (BEAKER) 6 /100 WBC 0-0 H (test code = 1353) SMUDGE CELLS (BEAKER) (test code = Present 1371) GIANT PLATELETS (BEAKER) (test Present code = 313) POLYCHROMATOPHILLIC RBCS(BEAKER) 1+ few (test code = 478) HYPOCHROMIA (BEAKER) (test code = 1+ few 963) POIKILOCYTES (BEAKER) (test code = 1+ few 966) OVALOCYTES (BEAKER) (test code = 1+ few 477) ARTIFACT (CELLAVISION)(BEAKER) Present (test code = 3432) PLATELET CONCENTRATION Adequate (CELLAVISION)(BEAKER) (test code = 3438) Associate Dean ID - lisewilliam Michael comments: Slide comments:RAD, CHEST, 2 VIEWS 2020-09-02 18:24:00Reason for exam:->F[facility] : 1945 Sex: MFINAL REPORT History: Fever. FINDINGS: Chest, two views: PA and lateral views of the chest show a mildly enlarged heart. Left subclavian pacing device is present. Mild increased pulmonary vascularity is present without edema. Small bilateral pleural effusions are present as evidenced by blunting of the posterior costophrenic sulcus. No pneumothorax. Bones are osteopenic and there is moderate diffuse degenerative change of the spine. Bones are otherwise unremarkable. IMPRESSION: 1.Small bilateral pleural effusions and cardiomegaly. Signed: Andrew Garciaeport Verified Date/Time: 09/02/2020 18:24:47 Reading Location: [address] Transitional Reading Room Electronically signedby: ANDREW GARCIA M.D. on 09/02/2020 06:24 PMComprehensive metabolic [id number] 17:53:00 Test Item Value Reference Range Interpretation Comments Protein, Total (test 6.3 See_Comment [Autom ated code = 2885-2) message] The system which generated this result transmit ro reference range : 6.0 - 8.3 gm/dL . The reference range was not u sed to interpret th is result as normal/abnormal . Albumin (test code = 3.4 g/dL 3.5-5.0 L 01692-3) Alkaline Phosphatase 20 U/L 40-150 L (test code = 6768-6) Total Bilirubin (test 0.5 mg/dL 0.2-1.2 code = 1975-2) Sodium (test code = 134 meq/L 136-145 L 2951-2) Potassium (test code 4.3 meq/L 3.5-5.1 = 2823-3) Chloride (test code = 100 meq/L 98-107 5-0) CO2 (test code = 21 meq/L 22-29 L 8-9) BUN (test code = 29 mg/dL 7-21 H 3094-0) Creatinine (test code 1.87 mg/dL 0.57-1.25 H = 2160-0) Glucose (test code = 115 mg/dL 70-105 H 2345-7) Calcium (test code = 8.6 mg/dL 8.4-10.2 75108-7) AST (test code = 42 U/L 5-34 H 1920-8) ALT (test code = 24 U/L 6-55 1742-6) EGFR (test code = 35 mL/min/1.73 sq m INSUFF ICIENT 00254-3) CLINICAL DATA T O CALCULATE ESTIMATED GFR. JAVED (test code = JAVED) Associate Dean ID - DB Lab Interpretation Abnormal (test code = 42490-2) [facility] [id number] 17:53:00 Test Item Value Reference Range Interpretation Comments Protein, Total (test 6.3 See_Comment [Autom ated code = 2885-2) message] The system which generated this result transmit ro reference range : 6.0 - 8.3 gm/dL . The reference range was not u sed to interpret th is result as normal/abnormal . Albumin (test code = 3.4 g/dL 3.5-5.0 L 62026-9) Alkaline Phosphatase 20 U/L 40-150 L (test code = 6768-6) Total Bilirubin (test 0.5 mg/dL 0.2-1.2 code = 1974-2) Sodium (test code = 134 meq/L 136-145 L 2951-2) Potassium (test code 4.3 meq/L 3.5-5.1 = 2823-3) Chloride (test code = 100 meq/L 98-107 5-0) CO2 (test code = 21 meq/L 22-29 L 2027-9) BUN (test code = 29 mg/dL 7-21 H 3094-0) Creatinine (test code 1.87 mg/dL 0.57-1.25 H = 2160-0) Glucose (test code = 115 mg/dL 70-105 H 2345-7) Calcium (test code = 8.6 mg/dL 8.4-10.2 67078-2) AST (test code = 42 U/L 5-34 H 1920-8) ALT (test code = 24 U/L -55 1742-6) EGFR (test code = 35 mL/min/1.73 sq m INSUFF ICIENT 16506-6) CLINICAL DATA T O CALCULATE ESTIMATED GFR. JAVED (test code = JAVED) Associate Dean ID - DB Lab Interpretation Abnormal (test code = 74410-3) [facility] HospitalCOMPRE[facility]IVE METABOLIC [id number] 17:53:00 Test Item Value Reference Range Interpretation Comments TOTAL PROTEIN 6.3 gm/dL 6.0-8.3 (BEAKER) (test code = 770) ALBUMIN (BEAKER) 3.4 g/dL 3.5-5.0 L (test code = 1145) ALKALINE PHOSPHATASE 20 U/L 40-150 L (BEAKER) (test code = 346) BILIRUBIN TOTAL 0.5 mg/dL 0.2-1.2 (BEAKER) (test code = 377) SODIUM (BEAKER) 134 meq/L 136-145 L (test code = 381) POTASSIUM (BEAKER) 4.3 meq/L 3.5-5.1 (test code = 379) CHLORIDE (BEAKER) 100 meq/L 98-107 (test code = 382) CO2 (BEAKER) (test 21 meq/L 22-29 L code = 355) BLOOD UREA NITROGEN 29 mg/dL 7-21 H (BEAKER) (test code = 354) CREATININE (BEAKER) 1.87 mg/dL 0.57-1.25 H (test code = 358) GLUCOSE RANDOM 115 mg/dL 70-105 H (BEAKER) (test code = 652) CALCIUM (BEAKER) 8.6 mg/dL 8.4-10.2 (test code = 697) AST (SGOT) (BEAKER) 42 U/L 5-34 H (test code = 353) ALT (SGPT) (BEAKER) 24 U/L 6-55 (test code = 347) EGFR (BEAKER) (test 35 mL/min/1.73 INSUFF ICIENT code = 1092) sq m CLINICAL DATA T O CALCULATE ESTIM ATED GFR. Associate Dean ID - DBLactic acid, venous [id number] 17:48:00 Test Item Value Reference Range Interpretation Comments Lactate, Venous (test 1.15 mmol/L 0.50-2.20 Specim en code = 2872) moderately hemolyzed JAVED (test code = JAVED) Associate Dean ID - DB Lab Interpretation Normal (test code = 43268-5) [facility] HospitalL[facility], venous [id number] 17:48:00 Test Item Value Reference Range Interpretation Comments Lactate, Venous (test 1.15 mmol/L 0.50-2.20 Specim en code = 2872) moderately hemolyzed JAVED (test code = JAVED) Associate Dean ID - DB Lab Interpretation Normal (test code = 49251-9) [facility] HospitalLACTIC ACID, [id number] 17:48:00 Test Item Value Reference Range Interpretation Comments LACTATE BLOOD VENOUS 1.15 mmol/L 0.50-2.20 Specime n moderately (2) (BEAKER) (test hemolyzed code = 2872) Associate Dean ID - DBCBC W/PLT COUNT & AUTO [id number] 17:44:00 Test Item Value Reference Range Interpretation Comments WHITE BLOOD CELL COUNT (BEAKER) 2.3 K/ L 3.5-10.5 L (test code = 775) RED BLOOD CELL COUNT (BEAKER) 3.47 M/ L 4.63-6.08 L (test code = 761) HEMOGLOBIN (BEAKER) (test code = 9.8 GM/DL 13.7-17.5 L 410) HEMATOCRIT (BEAKER) (test code = 31.8 % 40.1-51.0 L 411) MEAN CORPUSCULAR VOLUME (BEAKER) 91.6 fL 79.0-92.2 (test code = 753) MEAN CORPUSCULAR HEMOGLOBIN 28.2 pg 25.7-32.2 (BEAKER) (test code = 751) MEAN CORPUSCULAR HEMOGLOBIN CONC 30.8 GM/DL 32.3-36.5 L (BEAKER) (test code = 752) RED CELL DISTRIBUTION WIDTH 15.6 % 11.6-14.4 H (BEAKER) (test code = 412) PLATELET COUNT (BEAKER) (test 279 K/CU MM 150-450 code = 756) MEAN PLATELET VOLUME (BEAKER) 10.6 fL 9.4-12.4 (test code = 754) NUCLEATED RED BLOOD CELLS 1 /100 WBC 0-0 H (BEAKER) (test code = 413) Prothrombin time/[id number] 17:41:00 Test Item Value Reference Interpretation Comments Range Protime (test code = 18.0 See_Comment H [Autom ated 5902-2) message] The system which generated this result transmitted reference range : 11.9 - 14.2 seconds. The reference range was not used to interpret this result as normal/abnormal . INR (test code = 1.51 See_Comment [Automated 6301-6) message] The system which generated this result transmitted reference range : <=5.90. The reference range was not used to interpret this result as normal/abnormal . JAVED (test code = RECOMMENDED JAVED) COUMADIN/WARFARIN INR THERAPY RANGESSTANDARD DOSE: 2.0 - 3.0 Includes: PROPHYLAXIS for venous thrombosis, systemic embolization; TREATMENT for venous thrombosis and/or pulmonary embolus.HIGH RISK: Target INR is 2.5-3.5 for patients with mechanical heart valves. Lab Interpretation Abnormal (test code = 23252-3) [facility] HospitalaPTT2021-07-11 17:41:00 Test Item Value Reference Range Interpretation Comments PTT (test code = 44850-0) 32.0 See_Comment [ Automated message] The system [employer] h generated this result transmitted ref erence range: 22.5 - 3 6.0 seconds. The re ference range was not u sed to interpret this result as normal/abnor mal. Lab Interpretation (test Normal code = 25082-7) [facility] HospitalProthrombin time/[id number] 17:41:00 Test Item Value Reference Interpretation Comments Range Protime (test code = 18.0 See_Comment H [Autom ated 5902-2) message] The system which generated this result transmitted reference range : 11.9 - 14.2 seconds. The reference range was not used to interpret this result as normal/abnormal . INR (test code = 1.51 See_Comment [Automated 6301-6) message] The system which generated this result transmitted reference range : <=5.90. The reference range was not used to interpret this result as normal/abnormal . JAVED (test code = RECOMMENDED JAVED) COUMADIN/WARFARIN INR THERAPY RANGESSTANDARD DOSE: 2.0 - 3.0 Includes: PROPHYLAXIS for venous thrombosis, systemic embolization; TREATMENT for venous thrombosis and/or pulmonary embolus.HIGH RISK: Target INR is 2.5-3.5 for patients with mechanical heart valves. Lab Interpretation Abnormal (test code = 11688-9) [facility] HospitalaPTT2021-07-11 17:41:00 Test Item Value Reference Range Interpretation Comments PTT (test code = 73704-7) 32.0 See_Comment [ Automated message] The system [employer] generated this result transmitted ref erence range: 22.5 - 3 6.0 seconds. The re ference range was not u sed to interpret this result as normal/abnor mal. Lab Interpretation (test Normal code = 86980-7) [facility] HospitalPROTHROMBIN TIME/[id number] 17:41:00 Test Item Value Reference Range Interpretation Comments PROTIME (BEAKER) 18.0 seconds 11.9-14.2 H (test code = 759) INR (BEAKER) (test 1.51 See_Comment [Automat ed message] code = 370) The system [employer] generated this result transmitted ref erence range: <=5.90. The reference range was not used to int erpret this result as normal/abnormal . RECOMMENDED COUMADIN/WARFARIN INR THERAPY RANGESSTANDARD DOSE: 2.0 - 3.0 Includes: PROPHYLAXIS for venous thrombosis, systemic embolization; TREATMENT for venous thrombosis and/or pulmonary embolus.HIGH RISK: Target INR is 2.5-3.5 for patients with mechanical heart valves.[id number] 17:41:00 Test Item Value Reference Range Interpretation Comments PARTIAL THROMBOPLASTIN TIME 32.0 seconds 22.5-36.0 (BEAKER) (test code = 760) SARS coronavirus 2 RNA [Presence] in Respiratory specimen by ASHTYN with probe [id number] 04:41:41 Test Item Value Reference Range Interpretation Comments SARS coronavirus 2 RNA Not detected Not-Detected [Presence] in Respiratory specimen by ASHTYN with probe detection (test code = 13555-2) KRISTIE LUCAS
[2021-12-28 12:33] LABS: Absolute Lymphocytes (CBC) 1.2 K/uL (0.7-4.9); Hematocrit 25.8 % (39.6-49.0); Lymphocytes % 11.5 % (15.3-44.8); MCV 91.6 fL (80-100); MPV 7.8 fL (7.6-11.3); RBC Red Blood Cell Count 2.81 M/uL (4.33-5.43)
[2021-12-28 12:41] LABS: Protime INR 1.69
[2021-12-28 12:47] LABS: Magnesium 2.8 mg/dL (1.8-2.4); Potassium 4.4 mmol/L (3.5-5.1)
[2021-12-28 12:51] LABS: Troponin High Sensitivity 126.2 pg/mL (<58.9)
--- NOTE | 2021-12-28 13:10 | RAD REPORT ---
EXAM DESCRIPTION: RAD - Chest Single View - 12/28/2021 1:00 pm CLINICAL HISTORY: DYSPNEA COMPARISON: Chest Pa And Lat (2 Views) dated 05/22/2020; Chest Single View dated 05/20/2020; CHEST SIN GLE VIEW dated 09/13/2012; CHEST SINGLE VIEW dated 09/12/2012 FINDINGS: Lines: Pacemaker/ICD. Lungs: Basilar airspace disease. Diffuse prominence of the pulmonary vasculature. Pleural: Pleural effusions, left greater than right difficult to exclude. Cardiac: Cardiomegaly. Mediastinum: Within normal limits. Bones: No acute fractures. Other: None IMPRESSION: Probable pulmonary edema with suspected pleural effusions. Pneumonia difficult to exclud e radiographically.
[2021-12-28] MEDS ORDERED: FUROSEMIDE 40 MG/4 ML VIAL ONE (13:40)
--- NOTE | 2021-12-28 14:08 | EDPHYS ---
Physician Documentation [facility] Name: Óscar Ye Age: 76 yrs Sex: Male : 1945 Arrival Date: 12/28/2021 Time: 11:29 Bed 5 Private MD: Tuan Loya ED Physician Shaka Evangelista HPI: 12/28 13:21 This 76 yrs old Male presents to ER via Wheelchair with complaints of Shortness Of sp3 Breath, Decreased Appetite, Blood Pressure Problem, General Weakness. 13:21 76-year-old male with extensive past medical history including prostate cancer not sp3 currently on treatment, CHF, prior atrial fibrillation status post multiple ablations who states is normally not in atrial fibrillation presents with shortness of breath, lower extremity edema and general feelings of weakness and malaise. This is all occurred over the last 3 to 4 days. He denies any headache, fever, URI symptoms, back pain, chest pain, abdominal pain, nausea, vomiting, diarrhea, rash, or any other aspects of ROS at this time.. Historical: - Allergies: 12:10 MAGNESIUM CITRATE; kc6 - Home Meds: 14:11 clopidogrel 75 mg oral tab [Active]; Aspirin Oral [Active]; vg1 - PMHx: 14:11 Atrial Fib; HEART FAILURE; Myocardial infarction; Prostate Cancer; Vtach; vg1 - Immunization history:: Client reports receiving the 2nd dose of the Covid vaccine. - Social history:: Smoking status: Patient reports the use of cigarette tobacco products. ROS: 13:25 Constitutional: Negative for fever, chills, and weight loss, Eyes: Negative for injury, sp3 pain, redness, and discharge, ENT: Negative for injury, pain, and discharge, Neck: Negative for injury, pain, and swelling, Abdomen/GI: Negative for abdominal pain, nausea, vomiting, diarrhea, and constipation, Skin: Negative for injury, rash, and discoloration, Neuro: Negative for headache, weakness, numbness, tingling, and seizure, Psych: Negative for depression, anxiety, suicide ideation, homicidal ideation, and hallucinations, Allergy/Immunology: Negative for hives, rash, and allergies, Endocrine: Negative for neck swelling, polydipsia, polyuria, polyphagia, and marked weight changes. 13:25 All other systems are negative. Exam: 13:25 Head/Face: Normocephalic, atraumatic. Eyes: Pupils equal round and reactive to light, sp3 extra-ocular motions intact. Lids and lashes normal. Conjunctiva and sclera are non-icteric and not injected. Cornea within normal limits. Periorbital areas with no swelling, redness, or edema. ENT: Nares patent. No nasal discharge, no septal abnormalities noted. External auditory canals are clear. Oropharynx with no redness, swelling, or masses, exudates, or evidence of obstruction, uvula midline. Mucous membranes moist. Neck: Trachea midline, no thyromegaly or masses palpated, and no cervical lymphadenopathy. Supple, full range of motion without nuchal rigidity, or vertebral point tenderness. No Meningismus. Chest/axilla: Normal chest wall appearance and motion. Nontender with no deformity. No lesions are appreciated. Abdomen/GI: Soft, non-tender, with normal bowel sounds. No distension or tympany. No guarding or rebound. No evidence of tenderness throughout. Neuro: Awake and alert, GCS 15, oriented to person, place, time, and situation. Cranial nerves II-XII grossly intact. Motor strength 5/5 in all extremities. Sensory grossly intact. Cerebellar exam normal. Normal gait. Psych: Awake, alert, with orientation to person, place and time. Behavior, mood, and affect are within normal limits. 13:25 Constitutional: The patient appears Patient is tachypneic but in no severe distress. He has rales bilaterally and pedal edema 3+ pitting bilaterally as well. There are some lymphedema changes on the skin on the left lower extremity with a possible overlying cellulitis as well. Patient is in atrial fibrillation with ventricular response in the 90s. 13:25 ECG was reviewed by the Attending Physician. KG demonstrates atrial fibrillation at 92 bpm with incomplete right bundle branch block and periodic PACs. Nonspecific ST/T changes exist diffusely without evidence of acute ischemia. Vital Signs: 11:55 BP 105 / 58; Pulse 90; Resp 30 S; Temp 99.7(O); Pulse Ox 100% on 3 lpm NC; Weight 90.72 kc6 kg (R); Height 6 ft. 0 in. (182.88 cm) (R); Pain 0/10; 12:09 BP 105 / 58; Pulse 90; Resp 31 S; Temp 99.7(O); Pulse Ox 98% on 3 lpm NC; Pain 0/10; kc6 13:00 BP 104 / 48; Pulse 90; Resp 32; Pulse Ox 99% on 3 lpm NC; vg1 13:30 BP 106 / 47; Pulse 90; Resp 29; Pulse Ox 90% on 3 lpm NC; vg1 14:00 BP 97 / 53; Pulse 120; Resp 25; Pulse Ox 99% on 3 lpm NC; vg1 14:30 BP 108 / 75; Pulse 91; Resp 31 S; Pulse Ox 100% on 3 lpm NC; vg1 15:00 BP 91 / 75; Pulse 94; Resp 39; Pulse Ox 98% on 3 lpm NC; vg1 15:30 BP 94 / 50; Pulse 96; Resp 29; Pulse Ox 96% on 3 lpm NC; vg1 16:00 BP 95 / 44; Pulse 97; Resp 30; Pulse Ox 99% on 3 lpm NC; vg1 16:30 BP 99 / 61; Pulse 104; Resp 22; Pulse Ox 99% on 3 lpm NC; vg1 17:00 BP 109 / 63; Pulse 96; Resp 35; Pulse Ox 96% on 3 lpm NC; vg1 17:30 BP 108 / 89; Pulse 91; Resp 28; Pulse Ox 96% on 3 lpm NC; vg1 18:00 BP 95 / 62; Pulse 89; Resp 24; Temp 98.5(O); Pulse Ox 96% on 3 lpm NC; vg1 11:55 Body Mass Index 27.12 (90.72 kg, 182.88 cm) kc6 MDM: 12:09 Patient medically screened. sp3 13:29 Data reviewed: vital signs, nurses notes, EKG, radiologic studies. ED course: sp3 76-year-old male with complex medical history now with dyspnea, clinical CHF, atrial fibrillation and pedal edema with possible cellulitic changes on her left lower extremity. We will get patient admitted after work-up which will include laboratory values, EKG, chest x-ray as well as administer Lasix.. 14:05 ED course: X-ray demonstrates pulmonary edema along with BNP level of 9000. Troponin is sp3 elevated at 126 in the setting of elevated creatinine. Given these findings, 40 mg of Lasix IV has been given and patient will be admitted to the hospital for further elucidation of his symptoms and etiology as well as cardiology evaluation for his atrial fibrillation and serial cardiac markers. I spoke with Dr. Morgan who has graciously accepted this patient.. 12/28 11:47 Order name: Basic Metabolic Panel; Complete Time: 13:18 sp3 12/28 11:47 Order name: CBC with Diff; Complete Time: 13:18 sp3 12/28 11:47 Order name: Magnesium; Complete Time: 13:18 sp3 12/28 11:47 Order name: NT PRO-BNP; Complete Time: 13:18 sp3 12/28 11:47 Order name: PT-INR; Complete Time: 13:18 sp3 12/28 11:47 Order name: Troponin HS; Complete Time: 13:18 sp3 12/28 11:47 Order name: XRAY Chest (1 view); Complete Time: 13:18 sp3 12/28 11:47 Order name: EKG; Complete Time: 11:48 sp3 12/28 11:47 Order name: Cardiac monitoring; Complete Time: 12:10 sp3 12/28 11:47 Order name: EKG - Nurse/Tech; Complete Time: 12:20 sp3 12/28 11:47 Order name: IV Saline Lock; Complete Time: 12:20 sp3 12/28 16:37 Order name: SARS RAPID eb 12/28 17:12 Order name: SARS-COV-2 Antigen Rapid EDMS 12/28 11:47 Order name: Labs collected and sent; Complete Time: 12:20 sp3 12/28 11:47 Order name: O2 Per Protocol; Complete Time: 11:57 sp3 12/28 11:47 Order name: O2 Sat Monitoring; Complete Time: 11:57 sp3 Administered Medications: 13:52 Drug: Lasix (furosemide) 40 mg Route: IVP; Site: right wrist; kc6 14:52 Follow up: Urine output 0 ml; Response: No adverse reaction kc6 17:03 Follow up: Urine output 200 ml kc6 Disposition Summary: 12/28/21 14:07 Hospitalization Ordered Hospitalization Status: Inpatient Admission sp3 Provider: Ildefonso Morgan Location: Telemetry/MedSur (Inpatient) sp3 Condition: Stable sp3 Problem: an acute exacerbation sp3 Symptoms: have worsened sp3 Bed/Room Type: Standard sp3 Room Assignment: 210(12/28/21 17:07) dw Diagnosis - CHF, pulmonary edema, elevated cardiac markers sp3 Forms: - Medication Reconciliation Form sp3 - SBAR form sp3 Signatures: Dispatcher [employer] Irene Driver RN RN dw Nina Garcia RN RN vg1 Shaka Evangelista MD MD sp3 Radha Boyle RN RN kc6 Corrections: (The following items were deleted from the chart) 17: 14:07 sp3 dw
--- NOTE | 2021-12-28 14:08 | ER ---
Nurse's Notes [facility] Name: Óscar Ye Age: 76 yrs Sex: Male : 1945 Arrival Date: 12/28/2021 Time: 11:29 Bed 5 Private MD: Tuan Loya Diagnosis: CHF, pulmonary edema, elevated cardiac markers Presentation: 12/28 11:55 Chief complaint: Patient's son or daughter states: daughter states he has been weak and kc6 short of breath for the past three or four days and hasn't really been able to eat anything. Coronavirus screen: Vaccine status: Patient reports receiving the 2nd dose of the covid vaccine. At this time, the client does not indicate any symptoms associated with coronavirus-19. Ebola Screen: No symptoms or risks identified at this time. 11:55 Method Of Arrival: Wheelchair kc6 11:59 Initial Sepsis Screen: Does the patient meet any 2 criteria? RR > 20 per min. Temp kc6 <36.0*C (96.8*F)) or > 38.3*C (100.9*F). Yes Does the patient have a suspected source of infection? No. Patient's initial sepsis screen is negative. Risk Assessment: Do you want to hurt yourself or someone else? Patient reports no desire to harm self or others. Onset of symptoms was December 25, 2021. 11:59 Acuity: RAJINDER 3 kc6 Triage Assessment: 11:59 General: Appears in no apparent distress. uncomfortable, Behavior is calm, cooperative, kc6 appropriate for age. Pain: Denies pain. EENT: No signs and/or symptoms were reported regarding the EENT system. Neuro: Rosario Agitation-Sedation Scale (RASS): 0 - Alert and Calm Level of Consciousness is awake, alert, obeys commands, Oriented to person, place, time, situation, Appropriate for age. Cardiovascular: Heart tones S1 S2 present Rhythm is atrial fibrillation. Cardiovascular: Edema is 3+ to left midcalf, left ankle, right midcalf and right ankle. Respiratory: Airway is patent Trachea midline Respiratory effort is even, labored, Respiratory pattern is symmetrical, tachypnea Breath sounds are clear bilaterally. GI: Abdomen is flat, non-distended, Bowel sounds present X 4 quads. Abd is soft and non tender X 4 quads. Reports nausea. : No signs and/or symptoms were reported regarding the genitourinary system. Derm: No signs and/or symptoms reported regarding the dermatologic system. Skin is intact, Skin is dry, Skin is pink, warm \T\ dry. Skin temperature is warm Wound noted right foot and left eisenberg. Musculoskeletal: No signs and/or symptoms reported regarding the musculoskeletal system. Circulation, motion, and sensation intact. Capillary refill < 3 seconds, Range of motion: intact in all extremities. Historical: - Allergies: 12:10 MAGNESIUM CITRATE; kc6 - Home Meds: 14:11 clopidogrel 75 mg oral tab [Active]; Aspirin Oral [Active]; vg1 - PMHx: 14:11 Atrial Fib; HEART FAILURE; Myocardial infarction; Prostate Cancer; Vtach; vg1 - Immunization history:: Client reports receiving the 2nd dose of the Covid vaccine. - Social history:: Smoking status: Patient reports the use of cigarette tobacco products. Screenin:21 Abuse screen: Denies threats or abuse. Denies injuries from another. Nutritional [facility] screening: No deficits noted. Tuberculosis screening: No symptoms or risk factors identified. Fall Risk No fall in past 12 months (0 pts). No secondary diagnosis (0 pts). IV access (20 points). Ambulatory Aid- None/Bed Rest/Nurse Assist (0 pts). Gait- Weak (10 pts.). Mental Status- Oriented to own ability (0 pts). Total Spencer Fall Scale indicates Low Risk Score (25-44 pts). Fall prevention measures have been instituted. Side Rails Up X 2 Placed close to Nursing Station Frequent Obs/Assesments occuring Family Present and informed to notify staff if they need to leave bedside As available Patient and Family Educated on Fall Prevention Program and strategies. Assessment: 12:20 Reassessment: please see triage assessment. kc6 13:20 Reassessment: Patient appears in no apparent distress at this time. No changes from vg1 previously documented assessment. Patient and/or family updated on plan of care and expected duration. Pain level reassessed. Patient is alert, oriented x 3, equal unlabored respirations, skin warm/dry/pink. 14:20 Reassessment: Patient appears in no apparent distress at this time. No changes from kc6 previously documented assessment. Patient and/or family updated on plan of care and expected duration. Pain level reassessed. Patient is alert, oriented x 3, equal unlabored respirations, skin warm/dry/pink. 15:20 Reassessment: Patient appears in no apparent distress at this time. No changes from kc6 previously documented assessment. Patient and/or family updated on plan of care and expected duration. Pain level reassessed. Patient is alert, oriented x 3, equal unlabored respirations, skin warm/dry/pink. 16:24 Reassessment: Patient appears in no apparent distress at this time. No changes from kc6 previously documented assessment. Patient and/or family updated on plan of care and expected duration. Pain level reassessed. Patient is alert, oriented x 3, equal unlabored respirations, skin warm/dry/pink. 17:27 Reassessment: attempted to call report to second floor. on hold for ten minutes. kc6 17:30 Reassessment: attempted to call report to second floor. Graciela, RN stated nurse is [facility] inserting an IV. Vital Signs: 11:55 BP 105 / 58; Pulse 90; Resp 30 S; Temp 99.7(O); Pulse Ox 100% on 3 lpm NC; Weight 90.72 kc6 kg (R); Height 6 ft. 0 in. (182.88 cm) (R); Pain 0/10; 12:09 BP 105 / 58; Pulse 90; Resp 31 S; Temp 99.7(O); Pulse Ox 98% on 3 lpm NC; Pain 0/10; kc6 13:00 BP 104 / 48; Pulse 90; Resp 32; Pulse Ox 99% on 3 lpm NC; vg1 13:30 BP 106 / 47; Pulse 90; Resp 29; Pulse Ox 90% on 3 lpm NC; vg1 14:00 BP 97 / 53; Pulse 120; Resp 25; Pulse Ox 99% on 3 lpm NC; vg1 14:30 BP 108 / 75; Pulse 91; Resp 31 S; Pulse Ox 100% on 3 lpm NC; vg1 15:00 BP 91 / 75; Pulse 94; Resp 39; Pulse Ox 98% on 3 lpm NC; vg1 15:30 BP 94 / 50; Pulse 96; Resp 29; Pulse Ox 96% on 3 lpm NC; vg1 16:00 BP 95 / 44; Pulse 97; Resp 30; Pulse Ox 99% on 3 lpm NC; vg1 16:30 BP 99 / 61; Pulse 104; Resp 22; Pulse Ox 99% on 3 lpm NC; vg1 17:00 BP 109 / 63; Pulse 96; Resp 35; Pulse Ox 96% on 3 lpm NC; vg1 17:30 BP 108 / 89; Pulse 91; Resp 28; Pulse Ox 96% on 3 lpm NC; vg1 18:00 BP 95 / 62; Pulse 89; Resp 24; Temp 98.5(O); Pulse Ox 96% on 3 lpm NC; vg1 11:55 Body Mass Index 27.12 (90.72 kg, 182.88 cm) kc6 ED Course: 11:29 Patient arrived in ED. as 11:30 Tuan Loya DO is Private Physician. as 11:36 Radha Boyle, LUCIO is Primary Nurse. kc6 11:39 Shaka Evangelista MD is Attending Physician. sp3 12:00 Triage completed. kc6 12:22 Arm band placed on. kc6 12:24 Initial lab(s) drawn, by oh, sent to lab. Inserted saline lock: 22 gauge in right vg1 forearm, using aseptic technique. Blood collected. 13:02 XRAY Chest (1 view) In Process Unspecified. EDMS 14:06 Ildefonso Morgan is Hospitalizing Provider. sp3 16:15 Bladder scan completed. [address] Morgan notified. kc6 17:19 No provider procedures requiring assistance completed. Patient admitted, IV remains in kc6 place. 17:20 Patient has correct armband on for positive identification. Placed in gown. Bed in low kc6 position. Call light in reach. Side rails up X2. Adult w/ patient. Administered Medications: 13:52 Drug: Lasix (furosemide) 40 mg Route: IVP; Site: right wrist; kc6 14:52 Follow up: Urine output 0 ml; Response: No adverse reaction kc6 17:03 Follow up: Urine output 200 ml kc6 Medication: 17:20 VIS not applicable for this client. kc6 Output: 14:52 Urine: 0ml; Total: 0ml. kc6 17:03 Urine: 200ml; Total: 200ml. kc6 Outcome: 14:07 Decision to Hospitalize by Provider. sp3 17:19 Admitted to Med/surg accompanied by tech, via stretcher, room 210, with oxygen, with kc6 chart. 17:19 Condition: stable 17:19 Instructed on the need for admit. 18:37 Patient left the ED. kc6 Signatures: Dispatcher [employer] Deepa Onofre Victoria, RN RN vg1 Shaka Evangelista MD MD sp3 Radha Boyle RN RN kc6 Corrections: (The following items were deleted from the chart) 18:04 14:57 BP 108 / 75; Pulse 91bpm; Resp 31bpm; Spontaneous; Pulse Ox 100% 3 lpm Nasal vg1 Cannula; kc6 18:04 16:24 BP 95 / 44; Pulse 98bpm; Resp 22bpm; Spontaneous; Pulse Ox 95% RA; kc6 vg1 18:05 17:30 BP 108 / ???; Pulse 19bpm; Resp 91bpm; Pulse Ox 96% 3 lpm Nasal Cannula; Temp vg1 24F; vg1 18:06 17:30 BP 108 / 89; Pulse 91bpm; Resp 28bpm; Pulse Ox 96% 3 lpm Nasal Cannula; Temp 24F; vg1 vg1 18:07 18:00 BP 95 / 62; Pulse 89bpm; Resp 24bpm; Pulse Ox 96% 3 lpm Nasal Cannula; vg1 vg1
--- NOTE | 2021-12-28 16:43 | P.HP ---
Certification for Inpatient Patient admitted to: Inpatient With expected LOS: >2 Midnights Practitioner: I am a practitioner with admitting privileges, knowledge of patient current condition, hospital course, and medical plan of care. Services: Services provided to patient in accordance with Admission requirements found in Title 42 Section 412.3 of the Code of Federal Regulations Patient History Date of Service: 12/28/21 Reason for admission: Shortness of breath and generalized weakness History of Present Illness: 76-year-old man with a history of bladder cancer status post prostatectomy, history of chronic systolic heart failure, most recent echo with EF of 30 to 35% presented to the emergency department with a complaint of generalized weakness and shortness of breath. Daughter by his bedside also mentioned patient has not been eating much and thinks patient is dehydrated. He denied any chest pain or palpitation In the ED, patient noted to be in atrial fibrillation but rate controlled. Daughter mentions he had atrial fibrillation in the past which resolved with cardiac ablation, status post AICD. Chest x-ray demonstrated pulmonary edema, BNP significantly elevated. Patient given a dose of Lasix with no significant response. Systolic blood pressure ranging between the 80s and 90s. Bladder scan showed urine volume of 190. Patient is hospitalized for further management. Allergies magnesium citrate Allergy (Verified 05/20/20 15:37) Anaphylaxis magnesium citrate Allergy (Severe, Uncoded 05/20/20 15:37) Anaphylaxis Home Medications: Metoprolol Tartrate [Lopressor*] 25 mg PO BID 09/12/12 Mv-Mins/Folic/Lycopene/Ginkgo [One Daily Men's 50+ Tablet] 1 each PO DAILY 09/12/12 Pravastatin Sodium [Pravachol] 80 mg PO BEDTIME 09/12/12 Apixaban [Eliquis *] 5 mg PO BID #60 tablet 03/23/14 Fenofibrate [Tricor*] 160 mg PO BEDTIME #30 tab 03/23/14 Abiraterone Acetate [Zytiga] 500 mg PO 0600 05/20/20 Amiodarone HCl [Cordarone*] 200 mg PO BID 05/20/20 Aspirin 81 mg PO DAILY 05/20/20 Cholecalciferol (Vitamin D3) [Vitamin D3] 1,000 unit PO DAILY 05/20/20 Codeine/APAP [Tylenol #3*] 1 tab PO Q4HP PRN 05/20/20 Dicyclomine HCl 20 mg PO DAILY PRN 05/20/20 Docosahexanoic AC/Epa [Fish Oil 1,000 MG*] 1,000 mg PO DAILY 05/20/20 Docusate [Colace Cap*] 200 mg PO DAILY 05/20/20 Esomeprazole Mag Trihydrate [Nexium] 40 mg PO DAILY 05/20/20 Ezetimibe [Zetia*] 10 mg PO BEDTIME 05/20/20 Ferrous Sulfate [Ferrous Sulfate*] 325 mg PO DAILY 05/20/20 Furosemide [Lasix*] 40 mg PO TID 05/20/20 Isosorbide [place] (Bid) [Ismo 10 mg Tab*] 10 mg PO BID 05/20/20 Magnesium Oxide [Magnesium] 400 mg PO BEDTIME 05/20/20 Ranolazine [Ranexa] 500 mg PO BID 05/20/20 predniSONE [Prednisone*] 5 mg PO DAILY 05/20/20 Amiloride HCl 10 mg PO DAILY 30 Days #60 tablet 05/22/20 Arformoterol Tartrate [Brovana] 15 mcg IH BID 30 Days #60 vial 05/22/20 Levalbuterol [Xopenex] 2 puff IH TID 30 Days #60 vial 05/22/20 - Past Medical/Surgical History Diabetic: No -: HTN -: GERD -: Prostate Ca -: CHF -: Stents x3 -: Hernia repair -: Cholecysectomy -: AAA -: Urethral stent placement -: Tonsilectomy - Family History Brother -: Heart disease, Hypertension, Cancer Notes: lung cancer Sister -: Hypertension, Cancer Mother -: Cancer Father -: Heart disease, Hypertension - Social History Alcohol use: No CD- Drugs: No Caffeine use: Yes Review of Systems Other: Except as documented, all other systems reviewed and negative. Physical Examination - Physical Exam General: Alert, In no apparent distress, Oriented x3 HEENT: Atraumatic, PERRLA, Mucous membr. moist/pink, EOMI, Sclerae nonicteric Neck: Supple, 2+ carotid pulse no bruit, JVD not distended Respiratory: Normal air movement, Crackles/rales (Bibasilar crackles), Other (No wheezes) Cardiovascular: Normal S1 S2, Edema (Bilateral lower extremities), Irregular heart rate/rhythm Capillary refill: <2 Seconds Gastrointestinal: Normal bowel sounds, Soft and benign, Non-distended, No tenderness Musculoskeletal: No tenderness, Swelling (Bilateral legs) Integumentary: No cyanosis, Other (Bilateral lower extremity venous stasis dermatitis) Neurological: Normal strength at 5/5 x4 extr, Cranial nerves 3-12 intact Lymphatics: No axilla or inguinal lymphadenopathy - Studies Laboratory Data (last 24 hrs) 12/28/21 12:20: PT 18.6 H, INR 1.69 12/28/21 12:20: WBC 10.00, Hgb 8.4 L, Hct 25.8 L, Plt Count 315 12/28/21 12:20: Sodium 134 L, Potassium 4.4, BUN 47 H, Creatinine 2.39 H, Glucose 113 H, Magnesium 2.8 H Assessment and Plan - Problems (Diagnosis) (1) Atrial fibrillation Onset Date: 03/23/14 Current Visit: No Status: Acute (2) Systolic CHF, acute on chronic Current Visit: No Status: Acute (3) Acute worsening of stage 4 chronic kidney disease Current Visit: Yes Status: Acute (4) History of prostate cancer Current Visit: Yes Status: Acute - Plan Admitted to the medical floor. Troponin elevation likely secondary to demand ischemia Continue to trend troponin. We will start digoxin IV for atrial fibrillation and also for inotropic effect. Monitor blood pressure closely IV albumin for hypotension Encourage oral intake. Patient looks volume depleted at the same time has pulmonary and peripheral edema. May give IV fluid intermittent for intravascular volume depletion. Low threshold for starting pressors if blood pressure remains consistently. Repeat echocardiogram. Cardiology consult. Hold antihypertensives. Start Eliquis anticoagulation for A. fib. - Advance Directives Does patient have a Living Will: No Does patient have a Durable POA for Healthcare: No Time Spent Managing Pts Care (In Minutes): 75
[2021-12-28 17:11] LABS: SARS-CoV-2 Antigen Rapid Res Negative (Negative)
[2021-12-28] MEDS ORDERED: DIGOXIN 0.25 MG/ML AMP IV SCH (19:33)
[2021-12-28] MEDS ORDERED: ALBUMIN HUMAN 25% 200 ML IV ONE (19:33)
[2021-12-28] MEDS ORDERED: ALBUMIN HUMAN 25% 100 ML IV ONE (21:29)
[2021-12-29 03:30] LABS: Absolute Lymphocytes (CBC) 1.5 K/uL (0.7-4.9); Hematocrit 21.7 % (39.6-49.0); Lymphocytes % 15.2 % (15.3-44.8); MCV 91.4 fL (80-100); MPV 7.8 fL (7.6-11.3); RBC Red Blood Cell Count 2.37 M/uL (4.33-5.43)
[2021-12-29 03:52] LABS: ALT/SGPT 26 U/L (12-78); AST/SGOT 131 U/L (15-37); Albumin 2.6 g/dL (3.4-5.0); Alkaline Phosphatase 35 U/L (45-117); BUN Blood Urea Nitrogen 49 mg/dL (7-18); Bicarbonate 30 mmol/L (21-32); Bilirubin Total 1.1 mg/dL (0.2-1.0); Glomerular Filtration Rate 28 ml/min (=/>90); Glucose Level 106 mg/dL (74-106); HDL Cholesterol 18 mg/dL (40-60); Magnesium 2.5 mg/dL (1.8-2.4); Phosphorus 3.3 mg/dL (2.5-4.9); Potassium 4.1 mmol/L (3.5-5.1); Protein, Total 5.6 g/dL (6.4-8.2); Sodium Level 133 mmol/L (136-145)
[2021-12-29 03:53] LABS: LDL Cholesterol, Calculated 17 mg/dL (<130)
[2021-12-29] MEDS ORDERED: LACTULOSE 20 GM/30 ML UCUP PO SCH (05:00)
[2021-12-29] MEDS: ALBUTEROL 2.5 MG/3 ML NEB SOL NEB PRN (05:11)
[2021-12-29] MEDS ORDERED: INFLUENZA VACCINE (for 6+ mo) 0.5 ML DOSE IMVAC ONE (09:00)
[2021-12-29] MEDS: DIGOXIN 0.25 MG/ML AMP IV SCH (09:00)
[2021-12-29] MEDS ORDERED: PNEUMOCOCCAL VACCINE 0.5 ML IMVAC ONE (09:00)
[2021-12-29] MEDS: APIXABAN 5 MG TABLET PO SCH ×2 (09:34→21:19)
[2021-12-29] MEDS: SPIRONOLACTONE 25 MG TABLET PO SCH (09:34)
[2021-12-29] MEDS: ASPIRIN 81 MG CHEWABLE TABLET PO SCH (09:34)
[2021-12-29] MEDS: BUMETANIDE 1 MG TABLET PO SCH ×2 (09:34→21:19)
[2021-12-29] MEDS: AMIODARONE HCL 200 MG TAB PO SCH (09:35)
--- NOTE | 2021-12-29 18:08 | CON ---
Date of Consultation: 12/29/2021 Reason For Consultation: Congestive heart failure. History Of Present Illness: Mr. Ye is 76. Has had a history of ventricular tachycardia, atr ial fibrillation, coronary artery disease and congestive heart failure. He has a known ejection frac tion of 45% in 2020, follows up with Dr. Cardona, comes in with congestive heart failure. He complained of PND orthopnea and pedal edema. Denied any palpitation. Denies any fever or chills, syncope or c hest pain. Denies nausea, vomiting, diaphoresis. Past Medical History: As stated above. Allergies: HE IS ALLERGIC TO MAGNESIUM. Review of Systems: Negative. Social History: Negative. Family History: Noncontributory. Medications: Include amiodarone, Eliquis, inhalers, Aldactone, Bumex, and digoxin. Physical Examination: General: He was in atrial fibrillation at a rate of 88. HEENT: Negative. Vital Signs: Otherwise stable. Chest: Reveals rales both bases. Cardiac: Revealed atrial fibrillation. Abdomen: Benign. Extremities: Revealed trace edema. Diagnostic Data: Chest x-ray showed CHF. Creatinine is 2.32. Troponin is 126. BNP is 9573. Impression And Plan: 1.Acute on chronic systolic congestive heart failure exacerbation, improved with diuresis. Echocard iogram is pending. 2.History of ventricular tachycardia and atrial fibrillation, stable on amiodarone and Eliquis. 3.History of coronary artery disease. 4.Renal insufficiency significant. 5.Elevated troponin and BNP secondary to demand ischemia. I agree with his present regimen. Get an other echocardiogram tomorrow. He will follow up with Dr. Cardona in the near future. I will continue to follow him. BESSIE/GIOVANNI Voice ID: [id number] Report ID: [id number]
[2021-12-30 07:40] LABS: Magnesium 2.5 mg/dL (1.8-2.4); Phosphorus 3.1 mg/dL (2.5-4.9)
--- NOTE | 2021-12-30 08:32 | EKG ---
Test Date: 2021-12-28 Test Time: 12:16:06 [employer]: MARY MEASUREMENT RESULTS: Intervals: Rate: 92 NC: QRSD: 102 QT: 342 QTc: 422 [place]: P: NC: QRS: -18 T: 149 INTERPRETIVE STATEMENTS: Atrial fibrillation with premature ventricular or aberrantly conducted complexes Low voltage QRS Lateral infarct, age undetermined Abnormal ECG Compared to ECG 05/20/2020 12:39:49 Ventricular premature complex(es) now present Low QRS voltage now present Myocardial infarct finding now present Sinus bradycardia no longer present First degree AV block no longer present ST (T wave) deviation no longer present Possible ischemia no longer present Electronically Signed On 12-30-21 08:29:24 OTOLARYNGOLOGY SURGEON by Wally Gutierrez
[2021-12-30] MEDS ORDERED: BUMETANIDE 1 MG TABLET PO ONE (09:00)
[2021-12-30] MEDS: BUMETANIDE 1 MG TABLET PO SCH ×2 (09:24→20:24)
[2021-12-30] MEDS: ASPIRIN 81 MG CHEWABLE TABLET PO SCH (09:24)
[2021-12-30] MEDS: AMIODARONE HCL 200 MG TAB PO SCH (09:25)
[2021-12-30] MEDS: DIGOXIN 0.25 MG/ML AMP IV SCH (09:25)
[2021-12-30] MEDS: SPIRONOLACTONE 25 MG TABLET PO SCH (09:25)
[2021-12-30] MEDS: APIXABAN 5 MG TABLET PO SCH ×2 (09:25→20:25)
[2021-12-30 11:00] LABS: Specific Gravity 1.013 (1.005-1.030); Urine Bilirubin NEGATIVE (Negative); Urine Blood Negative (Negative); Urine Clarity Clear (Clear); Urine Color Yellow (Yellow); Urine Glucose NEGATIVE (Negative); Urine Mucus Slight /HPF (None Seen); Urine Protein NEGATIVE (Negative); Urine RBC <5 /HPF (None Seen); Urine Urobilinogen 1+ (Normal)
--- NOTE | 2021-12-30 11:16 | P.CNS ---
Date of Consult: 12/30/21 Reason for Consult: Renal insufficiency, edema Requesting Physician: rebel delcid Chief Complaint: Shortness of breath and generalized weakness History of Present Illness: Pt is an elderly male with a history of prostate cancer status post prostatectomy, history of chronic systolic heart failure with LVEF dysfunction, a hx of moderate CKD under the care of Dr. Loya who presented with complaints of weakness and shortness of breath. The patient was found in the ED to be in atrial fibrillation but rate controlled, pt may have had previous cardiac ablation, status post AICD. Chest x-ray demonstrated pulmonary edema, BNP significantly elevated. Home diuretics were resumed on admission, pt denies any increase in shortness of breath compared with baseline when seen today sitting in the chair. He reports using O2 at night. He has swelling of the extremities. No reports of any acute chest pain. Allergies magnesium citrate Allergy (Verified 05/20/20 15:37) Anaphylaxis magnesium citrate Allergy (Severe, Uncoded 05/20/20 15:37) Anaphylaxis Home Medications: Pravastatin Sodium [Pravachol] 80 mg PO BEDTIME 09/12/12 Apixaban [Eliquis *] 5 mg PO BID #60 tablet 03/23/14 Fenofibrate [Tricor*] 160 mg PO BEDTIME #30 tab 03/23/14 Amiodarone HCl [Cordarone*] 200 mg PO DAILY 05/20/20 Aspirin 81 mg PO DAILY 05/20/20 Cholecalciferol (Vitamin D3) [Vitamin D3] 5,000 unit PO DAILY 05/20/20 Codeine/APAP [Tylenol #3*] 1 tab PO TIDP PRN 05/20/20 Dicyclomine HCl 20 mg PO DAILY PRN 05/20/20 Docosahexanoic AC/Epa [Fish Oil 1,000 MG*] 1,000 mg PO DAILY 05/20/20 Docusate [Colace Cap*] 200 mg PO DAILY 05/20/20 Esomeprazole Mag Trihydrate [Nexium] 40 mg PO DAILY 05/20/20 Ezetimibe [Zetia*] 10 mg PO BEDTIME 05/20/20 Ferrous Sulfate [Ferrous Sulfate*] 325 mg PO DAILY 05/20/20 Magnesium Oxide [Magnesium] 400 mg PO BEDTIME 05/20/20 Albuterol Neb [Proventil 0.083% Neb Soln] 2.5 mg IN PRN 12/28/21 Bumetanide [Bumex*] 1 mg PO BID 12/28/21 Doxylamine Succinate [Nighttime Sleep-Aid] 25 mg PO BEDTIME 12/28/21 Fluticasone/Salmeterol [Advair Hfa 115-21 Mcg Inhaler] 12 gm IN BID 12/28/21 Lactulose 20 gm PO PRN 12/28/21 Spironolactone [Aldactone*] 25 mg PO DAILY 12/28/21 Tiotropium [place] [Spiriva] 18 mcg IN DAILY 12/28/21 Arformoterol Tartrate [Brovana] 15 mcg IH PRN 12/29/21 - Past Medical/Surgical History Diabetic: No -: HTN -: GERD -: Prostate Ca -: CHF -: Defibrillator -: CKD followed by Dr. Loya in clinic -: Stents x3 -: Hernia repair -: Cholecysectomy -: AAA repair -: Urethral stent placement -: Tonsilectomy - Family History Brother Medical History: Heart disease, Hypertension, Cancer Notes: lung cancer Sister Medical History: Hypertension, Cancer Notes: Lung Mother Medical History: Cancer Notes: Liver Father Medical History: Heart disease, Hypertension - Social History Smoking Status: Current every day smoker Alcohol use: No CD- Drugs: No Caffeine use: Yes Place of Residence: Home Review of Systems General: Weakness Eyes: Unremarkable ENT: Unremarkable Respiratory: Shortness of Breath Cardiovascular: Orthopnea, Edema, As per HPI Gastrointestinal: Constipation Genitourinary: Incontinence, As per HPI Musculoskeletal: Pedal edema Integumentary: Bruising, Other Neurological: Weakness, Unremarkable Physical Examination Temp Pulse Resp BP Pulse Ox 97.4 F 101 H 18 104/44 L 95 12/30/21 08:00 12/30/21 09:59 12/30/21 08:00 12/30/21 09:59 12/30/21 08:00 General: Alert, In no apparent distress, Other (Elderly, pale) HEENT: Atraumatic, Normocephalic, PERRLA Neck: Supple Respiratory: Other (b/l air entry, reduced at bases Lt > Rt) Cardiovascular: Other (Non tachycrdic), Edema, Irregular heart rate/rhythm Gastrointestinal: Soft and benign, Non-distended Musculoskeletal: Swelling, Other (Shins are non tender to palpation) Integumentary: Other (Skin tears, ecchymoses, kerlex wraps applied to several sites) Neurological: Normal speech, Normal tone, Normal affect Conclusions/Impression: 1. Abnormal results of kidney function studies 2. CKD IV 3. Acute on chronic systolic CHF 4. Generalized edema, pulmonary edema 5. Anemia unspecified, severe 6. Relative hypotension, other. Positive orthostatic hypotension 7. Abnormality of albumin -Renal function tests during admission stable although Cr level may be higher than levels seen early last year, will have to review recent clinic records. UA not too remarkable, spot urine pending. -Pt requires maintenance diuretics given CHF, radiographic and clinical findings. Will raise Bumex dose slightly to 2 mg in AM and 1 mg in PM and avoid Metolazone due to its effects on electrolytes and tendency towards pre-renal states. -Hypoalbuminemia may also be contributing to some 3rd space peripheral edema. -UOP not recorded by staff but PVR checked and zero, monitor weights -BP did drop from the systolic teens to < 100 systolic with standing, will place pt on low dose Midodrine to help and monitor. -Pt is quite anemic and that is likely contributing to his weakness, since on ASA and anticoagulation, will check FOBT. Will check iron studies. Anemia of CKD certainly may be additionally contributing, will place on MARY therapy if iron stores adeq. -Recommend PT eval. Thank you for this referral, Huber Pisano MD, OTILIA
[2021-12-30 11:29] LABS: UR MICROALBUMIN 0.8 mg/dL (< 1.9)
--- NOTE | 2021-12-30 12:25 | P.PN ---
Subjective Date of Service: 12/29/21 Chief Complaint: Shortness of breath and generalized weakness Patient reports feeling better today. Heart rate is well controlled and states the shortness of breath is better. He also states that he feels more stronger.. Physical Examination - Vital Signs Temperature: 97.4 F Blood Pressure: 104/44 Pulse: 101 Respirations: 18 Pulse Ox (%): 95 Assessment And Plan - Current Problems (Diagnosis) (1) Atrial fibrillation Onset Date: 03/23/14 Current Visit: No Status: Acute (2) Systolic CHF, acute on chronic Current Visit: No Status: Acute (3) Acute worsening of stage 4 chronic kidney disease Current Visit: Yes Status: Acute (4) History of prostate cancer Current Visit: Yes Status: Acute - Plan Physical Exam General: Alert, In no apparent distress, Oriented x3 Neck: Supple, JVD not distended Respiratory: Normal air movement, Bibasilar crackles,No wheezes Cardiovascular: Normal S1 S2, Edema-Bilateral lower extremities, Irregular heart rate/rhythm Gastrointestinal: Normal bowel sounds, Soft and benign, Non-distended, No tenderness Musculoskeletal: No tenderness, Swelling (Bilateral legs) Integumentary: No cyanosis, Other (Bilateral lower extremity venous stasis dermatitis) Neurological: Normal strength at 5/5 x4 extr, Cranial nerves 3-12 intact Plan: Troponin elevation likely secondary to demand ischemia Continue amiodarone and titrate for heart rate control. On digoxin Cardiology input appreciated Monitor blood pressure closely IV albumin as needed for hypotension Encourage oral intake. Nephrology consulted to assist with volume status management. May give IV fluid intermittent for intravascular volume depletion. Echocardiogram is pending Continue to hold antihypertensives. Continue Eliquis anticoagulation for A. fib. Increase activity as tolerated.
[2021-12-30] MEDS ORDERED: ARFORMOTEROL TARTRATE 15 MCG/2 ML VIAL.NEB IH PRN (12:30)
--- NOTE | 2021-12-30 12:48 | P.PN ---
Subjective Date of Service: 12/30/21 Chief Complaint: Shortness of breath and generalized weakness Patient has no new complaint. He is doing better. He is eating his meals which is an improvement compared to his state preadmission. Physical Examination - Vital Signs Temperature: 97.4 F Blood Pressure: 104/44 Pulse: 101 Respirations: 18 Pulse Ox (%): 95 Assessment And Plan - Current Problems (Diagnosis) (1) Atrial fibrillation Onset Date: 03/23/14 Current Visit: No Status: Acute (2) Systolic CHF, acute on chronic Current Visit: No Status: Acute (3) Acute worsening of stage 4 chronic kidney disease Current Visit: Yes Status: Acute (4) History of prostate cancer Current Visit: Yes Status: Acute - Plan Physical Exam General: Alert, In no apparent distress. Neck: Supple, JVD not distended Respiratory: Normal air movement, Bibasilar crackles,No wheezes Cardiovascular: Normal S1 S2, Edema-Bilateral lower extremities, Irregular heart rate/rhythm Gastrointestinal: Normal bowel sounds, Soft and benign, Non-distended, No tenderness Musculoskeletal: No tenderness, Swelling (Bilateral legs) Integumentary: No cyanosis, Other (Bilateral lower extremity venous stasis dermatitis) Neurological: Normal strength at 5/5 x4 extr, Cranial nerves 3-12 intact Plan: Troponin elevation likely secondary to demand ischemia Continue amiodarone and titrate for heart rate control. Discontinue digoxin. Cardiology input appreciated Monitor blood pressure closely IV albumin as needed for hypotension Encourage oral intake. Nephrology consulted to assist with volume status management. Bumex resumed 1 mg twice daily. Patient given an extra 1 mg dose today. May give IV fluid intermittent for intravascular volume depletion. Echocardiogram is pending Continue to hold antihypertensives. Continue Eliquis anticoagulation for A. fib. Increase activity as tolerated. PT consult.
[2021-12-30] MEDS: ALBUTEROL 2.5 MG/3 ML NEB SOL NEB PRN (13:19)
--- NOTE | 2021-12-30 14:30 | ECHO ---
HEIGHT: 6 ft 0 in WEIGHT: 204 lb 9.6 oz DATE OF STUDY: 12/30/[address]: Ildefonso Morgan MD 2-DIMENSIONAL: YES M.MODE: YES DOPPLER: YES COLOR FLOW: YES TDS: NO PORTABLE: YES DEFINITY: NO BUBBLE STUDY: NO DIAGNOSIS: ACUTE CONGESTIVE HEART FAILURE, HYPOTENSION CARDIAC HISTORY: CATHERIZATION: SURGERY: PROSTHETIC VALVE: PACEMAKER: YES MEASUREMENTS (cm) DIASTOLIC (NORMALS) SYSTOLIC (NORMALS) IVSd 1.5 (0.6-1.2) LA Diam 3.6 (1.9-4.0) LVEF 30-40% LVIDd 4.1 (3.5-5.7) LVIDs 3.6 (2.0-3.5) %FS 13% LVPWd 1.4 (0.6-1.2) Ao Diam 3.2 (2.0-3.7) 2 DIMENSIONAL ASSESSMENT: RIGHT ATRIUM: NORMAL LEFT ATRIUM: NORMAL RIGHT VENTRICLE: NORMAL LEFT VENTRICLE: DEPRESSED TRICUSPID VALVE: MITRAL VALVE: MITRAL ANNULAR CALCIFICATION PULMONIC VALVE: NORMAL AORTIC VALVE: NORMAL PERICARDIAL EFFUSION: NONE AORTIC ROOT: NORMAL LEFT VENTRICULAR WALL MOTION: MODERATE GLOBAL HYPOKINESIS. DOPPLER/COLOR FLOW: SEE BELOW COMMENTS: MODERATELY DEPRESSED LEFT VENTRICULAR EJECTION FRACTION OF 30-40%. MODERATE GLOBAL HYPOKINESIS. CALCIFIED MITRAL VALVE WITH MILD MITRAL STNEOSIS AND MILD MITRAL REGURGITATION. QUESTIONABLE CLIP IN PLACE. MILD TRICUSPID REGURGITATION. TECHNOLOGIST: Scout KIM
--- NOTE | 2021-12-30 19:26 | P.PN ---
Date of Service: 12/31/21 Subjective: no acute events overnight feels he is improving still requiring O2, edema improved fatigued ROS: 10 point ROS as noted above, otherwise negative Physical Exam: Gen: fatigued appearing, AOx3 HEENT: normal conjunctiva, sclera anicteric CV: irregularly irregular rhythm, + edema to knees bilaterally Pulm: non-labored respirations on 3L NC, clear bilaterally Abd: soft, non-tender, non-distended Skin: b/l lower extremity venous stasis dermatitis Neuro: normal speech, normal affect, moves all extremities vitals reviewed Problem List afib, paroxysmal Systolic CHF, acute on chronic ARNOLD on CKD4 h/o prostate cancer Troponin leak Troponin leak likely secondary to demand ischemia, afib paroxysmal afib acute on chronic S-CHF h/o ablations continue amio on digoxin as well cardiology consulted nephrology consulted continue bumex 1mg BID echo pending resumed home eliquis BP has been on low end IV albumin as needed for hypotension Acute on chronic anemia unclear etiology, h/o iron deficiency workup ordered 12/31 transfuse to maintain hgb > 7.0 denies any penny bleeding reports dark stool occult negative today iv iron ordered VTE: eliquis (home med) Code: Full Dispo: SNF, ~1-2 days Time Spent Managing Pts Care (In Minutes): 35
[2021-12-30] MEDS: ATORVASTATIN 10 MG TAB PO SCH (20:23)
[2021-12-30] MEDS: EZETIMIBE 10 MG TAB PO SCH (20:24)
[2021-12-30] MEDS: MAGNESIUM OXIDE 400 MG TAB PO SCH ×2 (20:24→20:28)
[2021-12-30] MEDS: FENOFIBRATE 160 MG TAB PO SCH (20:24)
[2021-12-30] MEDS: MIDODRINE HCL 5 MG TABLET PO SCH (20:25)
[2021-12-30] MEDS: ENSURE ENLIVE 237 ML CAN PO SCH (20:26)
[2021-12-30] MEDS: HOME MED 1 EA UNK (Fluticasone/Salmeterol [Advair Hfa 115-21 Mcg Inhaler] 12 GM Hfa.Aer.Ad IH SCH (20:26)
[2021-12-30] MEDS ORDERED: DOXYLAMINE SUCCINATE 25 MG PO SCH (21:00)
[2021-12-30] MEDS ORDERED: PRAVASTATIN SODIUM 80 MG PO SCH (21:00)
[2021-12-31] MEDS: ALBUTEROL 2.5 MG/3 ML NEB SOL NEB PRN (00:30)
[2021-12-31] MEDS: ACETAMINOPHEN 500 MG TAB PO PRN ×2 (03:45→11:33)
[2021-12-31 05:33] LABS: Absolute Lymphocytes (CBC) 1.1 K/uL (0.7-4.9); Hematocrit 24.5 % (39.6-49.0); Lymphocytes % 12.2 % (15.3-44.8); MCV 90.4 fL (80-100); MPV 7.9 fL (7.6-11.3); RBC Red Blood Cell Count 2.71 M/uL (4.33-5.43)
[2021-12-31 05:50] LABS: Potassium 4.1 mmol/L (3.5-5.1)
[2021-12-31 06:47] LABS: Magnesium 2.2 mg/dL (1.8-2.4); Phosphorus 3.6 mg/dL (2.5-4.9)
--- NOTE | 2021-12-31 07:12 | RAD REPORT ---
EXAM DESCRIPTION: RAD - Chest Single View - 12/31/2021 6:57 am CLINICAL HISTORY: f/u opacities, shortness of breath, CHF COMPARISON: Portable 12/28/2021 TECHNIQUE: AP portable chest image was obtained 12/31/2021 6:57 am . FINDINGS: Interstitial opacification is seen throughout the right lung field. Density of opacificati on in the right base is slightly less than seen on the comparison. Left pleural effusion is seen with left base atelectasis. No focal consolidation of the left upper lung field. Pacemaker/defibrillator remains in place. Cardiomegaly is present with left heart border obscured by the left base pleural and parenchymal findings. No pneumothorax. No measurable right pleural effusion . No acute bony abnormality seen. No acute aortic findings suspected. IMPRESSION: Left pleural effusion and atelectasis. Infiltrate could be masked in the left base. Interstitial edema or infiltrate seen in the right lung field.
[2021-12-31] MEDS: HOME MED 1 EA UNK (Fluticasone/Salmeterol [Advair Hfa 115-21 Mcg Inhaler] 12 GM Hfa.Aer.Ad IH SCH (09:00)
[2021-12-31] MEDS ORDERED: FERROUS SULFATE 325 MG TAB PO SCH (09:00)
[2021-12-31] MEDS ORDERED: VITAMIN D 5,000 UNIT CAP PO SCH (09:00)
[2021-12-31] MEDS: TIOTROPIUM IH SCH (09:00)
[2021-12-31] MEDS ORDERED: HOME MED 1 EA UNK (Esomeprazole Mag Trihydrate [Nexium] 40 MG Capsule.Dr) PO SCH (09:00)
[2021-12-31] MEDS: APIXABAN 5 MG TABLET PO SCH (09:03)
[2021-12-31] MEDS: DOCUSATE NA 100 MG CAP PO SCH (09:05)
[2021-12-31] MEDS: MIDODRINE HCL 5 MG TABLET PO SCH ×2 (09:05→23:18)
[2021-12-31] MEDS: ASPIRIN 81 MG CHEWABLE TABLET PO SCH (09:06)
[2021-12-31] MEDS: PANTOPRAZOLE 40MG TABLET PO SCH (09:07)
[2021-12-31] MEDS: ENSURE ENLIVE 237 ML CAN PO SCH ×2 (09:08→21:00)
[2021-12-31] MEDS: DIGOXIN 0.25 MG/ML AMP IV SCH (10:14)
[2021-12-31] MEDS: BUMETANIDE 1 MG TABLET PO SCH ×3 (10:15→16:48)
[2021-12-31] MEDS: DOCOSAHEXANOIC AC/EPA 1000 MG PO SCH ×2 (10:15→10:16)
[2021-12-31] MEDS: SPIRONOLACTONE 25 MG TABLET PO SCH (10:16)
[2021-12-31] MEDS: AMIODARONE HCL 200 MG TAB PO SCH (10:17)
--- NOTE | 2021-12-31 10:37 | P.PN ---
Nephrology note: (S) Pt's BP on manual recheck by nursing staff better then it was on automated check, started on Midodrine yesterday. Daughter feels he is doing better overall, no acute dyspnea at rest reported. Chronic anemia discussed, case discussed with Dr. Shanks General: Alert, In no apparent distress, Other (Elderly, pale) HEENT: Atraumatic, Normocephalic, PERRLA Neck: Supple Respiratory: Other (b/l air entry, reduced at bases Lt > Rt) Cardiovascular: Other (Non tachycardic), Edema, Irregular heart rate/rhythm Gastrointestinal: Soft and benign, Non-distended Musculoskeletal: Swelling, Other (Shins are non tender to palpation) Integumentary: Other (Skin tears, ecchymoses, kerlex wraps applied to several sites) Neurological: Normal speech, Normal tone, Normal affect Conclusions/Impression: 1. Abnormal results of kidney function studies 2. CKD IV 3. Acute on chronic systolic CHF 4. Generalized edema, pulmonary edema 5. Anemia severe 2nd to CKD, iron deficiency +/- other 6. Relative hypotension, other. Positive orthostatic hypotension 7. Abnormality of albumin 8. Hypercalcemia 9. Unspecified Afib -Renal function tests during admission stable although Cr level may be higher than levels seen early last year, will have to review recent clinic records. UA not too remarkable, spot urine does not show any microalbuminuria. Na and K levels ok. -Pt requires maintenance diuretics given CHF, radiographic and clinical findings. Will raise Bumex dose from home dose to 1 mg TID (pt prev was on Torsemide BID) and avoid Metolazone due to its effects on electrolytes and tendency towards pre-renal states. -Hypoalbuminemia may also be contributing to some 3rd space peripheral edema. Pt with poor appetite per reports. -UOP not recorded by staff but PVR checked and zero, monitor weights -BP did drop from the systolic teens to < 100 systolic with standing, did place pt on low dose Midodrine to help and monitor. -Pt is quite anemic and that is likely contributing to his weakness, since on ASA and anticoagulation, will check FOBT, some reports of dark stools. Pt is on iron deficiency, will place on IV iron while here. Anemia of CKD certainly may be additionally contributing, will place on MARY therapy once iron repleted and if Hb remains < 10 -Total corrected Ca > ULN, will check iPTH and Vit D levels and ionized Ca levels Thank you for this referral, Huber Pisano MD, FASN
[2021-12-31] MEDS: SOD FERRIC GLUC COMPLX/SUCROSE 125 MG in NA CHLORIDE 0.9% 100 ML IV SCH (11:04)
[2021-12-31] MEDS: ONDANSETRON 4 MG/2 ML VIAL IV PRN ×2 (13:06→20:28)
[2021-12-31] MEDS ORDERED: ARFORMOTEROL TARTRATE 15 MCG/2 ML VIAL.NEB IH PRN (14:00)
[2021-12-31] MEDS: CALCIUM CARBONATE CHEW 500MG TAB PO PRN ×2 (16:47→23:32)
[2021-12-31] MEDS ORDERED: DICYCLOMINE HCL 10 MG CAP PO PRN (17:49)
[2021-12-31] MEDS ORDERED: HOME MED 1 EA UNK (Fluticasone/Salmeterol [Advair Hfa 115-21 Mcg Inhaler] 12 GM Hfa.Aer.Ad IH SCH (21:00)
[2021-12-31] MEDS: MAGNESIUM OXIDE 400 MG TAB PO SCH (21:00)
--- NOTE | 2021-12-31 23:12 | RAD REPORT ---
EXAM DESCRIPTION: CT - Chest Abd Pelvis Wo Con - 12/31/2021 10:51 pm CLINICAL HISTORY: Chest and abdomen pain. Vomiting/hematemesis/pleural effusions COMPARISON: Thorax Wo Con dated 05/20/2020; Chest Single View dated 12/31/2021 TECHNIQUE: A limited noncontrast study was performed. All CT scans are performed using dose optimization technique as appropriate and may include automated exposure control or mA/KV adjustment according to patient size. FINDINGS: Moderate left and small right pleural effusion noted.Airspace opacity is present in left l quynh base likely representing compressive atelectasis.Pacer wires are present. Atherosclerosis of the aorta noted. Multiple low-density masslike lesions are present in the liver. The largest in the right lobe measure s 7 cm. The spleen, pancreas, adrenal glands are unremarkable. Cholecystectomy. Aortic stent graft is noted. Sigmoid diverticulosis coli is is present. Surgical clips are present in the region of the prostate g land. Multiple enlarged soft tissue masses are present in the perirectal fat in the pelvis on the left. The largest measuring approximately 31 mm. This most likely indicates presence of underlying rectal mass . Moderate lumbar degenerative changes. No lytic or blastic bone lesion. IMPRESSION: Multiple abnormal perirectal soft tissue masses are present in the inferior left pelvic fat posteriorly. Most likely this is related to an underlying rectal mass/malignancy. Recommend direc t visualization would followup colonoscopy. Numerous liver lesions are apparent likely representing metastatic disease. These lesions are incompl etely assessed due to lack of IV contrast. Recommend MRI liver protocol with contrast for further ilir luation. Small right and moderate left pleural effusion.
[2021-12-31] MEDS: EZETIMIBE 10 MG TAB PO SCH (23:18)
[2021-12-31] MEDS: ATORVASTATIN 10 MG TAB PO SCH (23:19)
[2021-12-31] MEDS: FENOFIBRATE 160 MG TAB PO SCH (23:19)
[2021-12-31] MEDS: DOXYLAMINE SUCCINATE 25 MG PO SCH (23:20)
[2021-12-31] MEDS ORDERED: PROMETHAZINE INJ 25 MG/ML AMP IV ONE (23:48)
[2022-01-01] MEDS ORDERED: MORPHINE 2 MG/ML SYR ONE (04:41)
--- NOTE | 2022-01-01 06:17 | P.PN ---
Date of Service: 01/01/22 Subjective: nausea/vomiting overnight, began afternoon yesterday started IV iron yesterday afebrile, breathing unchanged ROS: 10 point ROS as noted above, otherwise negative Physical Exam: Gen: fatigued appearing, AOx3 HEENT: normal conjunctiva, sclera anicteric CV: irregularly irregular rhythm, 1+ edema to knees bilaterally Pulm: non-labored respirations on 3L NC, diminished at bilateral bases, L>R Abd: soft, non-tender, non-distended Skin: b/l lower extremity venous stasis dermatitis Neuro: normal speech, normal affect, moves all extremities vitals reviewed Problem List afib, paroxysmal Systolic CHF, acute on chronic ARNOLD on CKD4 h/o prostate cancer Troponin leak Troponin leak likely secondary to demand ischemia, afib paroxysmal afib acute on chronic Systolic-CHF h/o ablations continue amio per cardiology on digoxin as well nephrology consulted continue bumex resumed home eliquis; held 01/01 due to dark stool/emesis BP has been on low end IV albumin as needed for hypotension midodrine started Acute on chronic anemia likely multifactorial low nutrition, CKD, iron deficiency, metastatic disease labs with significant iron deficiency IV iron started 12/31, pt reported nausea/vomiting after received IV iron, may be cause vs coincidence transfuse to maintain hgb > 7.0 denies any penny bleeding reports dark stool - occult negative nausea/vomiting possibly from IV iron seems to abrupt onset to be 100% due to cancer CT chest/abd/pelvis - metastatic disease, multiple liver lesions, LAD around colon Bilateral pleural effusions L>R, prior thoracentesis x2 last month, workup and cytology sent, patient and family have not received full results yet will try to get medical records pulm consulted for further input, ?may benefit from pleurx catheter if continues to re-accumulate pt with hypoalbuminemia concern for metastasis to lung VTE: eliquis (home med) held Code: Full Dispo: SNF, ~2 days Time Spent Managing Pts Care (In Minutes): 35
[2022-01-01] MEDS ORDERED: PROMETHAZINE INJ 25 MG/ML AMP IV PRN (06:42)
[2022-01-01 06:57] LABS: Hematocrit 26.4 % (39.6-49.0); MCV 89.9 fL (80-100); MPV 8.6 fL (7.6-11.3); RBC Red Blood Cell Count 2.94 M/uL (4.33-5.43)
[2022-01-01 07:10] LABS: Albumin 2.5 g/dL (3.4-5.0); Bilirubin Total 0.6 mg/dL (0.2-1.0); Potassium 4.7 mmol/L (3.5-5.1); Protein, Total 6.3 g/dL (6.4-8.2)
--- NOTE | 2022-01-01 08:39 | PN ---
Date of Progress Note: 12/31/2021 Mr. Ye has been followed for history of ventricular tachycardia, acute on chronic systolic co ngestive heart failure, coronary artery disease, atrial fibrillation. He is feeling better. Does no t note specific pain. His examination revealed no rales, mitral stenosis by physical examination. O n his cardiac exam, he remained in atrial fibrillation, rate controlled. Echocardiogram showed mild mitral stenosis with an ejection fraction 30% to 40%. He remains on Bumex, Eliquis, albuterol, amiod arone, aspirin, Lipitor, digoxin, Zetia, Tricor, Aldactone, and midodrine. I am comfortable with him going home whenever it is okay with his admitting physician and we will see him in the office as an outpatient. JENNY Voice ID: [id number] Report ID: [id number]
[2022-01-01] MEDS: ENSURE ENLIVE 237 ML CAN PO SCH ×2 (09:00→20:36)
[2022-01-01] MEDS: PANTOPRAZOLE 40MG TABLET PO SCH (09:00)
[2022-01-01] MEDS: DOCUSATE NA 100 MG CAP PO SCH (09:30)
[2022-01-01] MEDS: BUMETANIDE 1 MG TABLET PO SCH ×3 (09:31→17:00)
[2022-01-01] MEDS: MIDODRINE HCL 5 MG TABLET PO SCH ×2 (09:32→20:32)
[2022-01-01] MEDS: AMIODARONE HCL 200 MG TAB PO SCH (09:32)
[2022-01-01] MEDS: ASPIRIN 81 MG CHEWABLE TABLET PO SCH (09:32)
[2022-01-01] MEDS: SOD FERRIC GLUC COMPLX/SUCROSE 125 MG in NA CHLORIDE 0.9% 100 ML IV SCH (09:33)
[2022-01-01] MEDS: SPIRONOLACTONE 25 MG TABLET PO SCH (09:33)
[2022-01-01] MEDS: DIGOXIN 0.25 MG/ML AMP IV SCH (09:33)
[2022-01-01 10:58] LABS: Protime INR 1.58
--- NOTE | 2022-01-01 11:49 | P.PN ---
Nephrology note: (S) Pt developed nausea, upset stomach and vomiting around the time of IV iron infusion yesterday, slept poorly, lethargic this AM. CT scan results noted, case discussed extensively with daughter and Dr. Shanks General: Alert, In no apparent distress, Other (Elderly, pale) HEENT: Atraumatic, Normocephalic, PERRLA Neck: Supple Respiratory: Other (b/l air entry, reduced at bases Lt > Rt) Cardiovascular: Other (Non tachycardic), Edema 1-2+ at extremities, Irregular heart rate/rhythm Gastrointestinal: Soft and benign, Non-distended Musculoskeletal: Swelling, Other (Shins are non tender to palpation) Integumentary: Other (Skin tears, ecchymoses, kerlex wraps applied to several sites) Neurological: Normal speech, Normal tone, Normal affect Conclusions/Impression: 1. Abnormal results of kidney function studies 2. CKD IV 3. Acute on chronic systolic CHF 4. Generalized edema, pulmonary edema 5. Anemia severe 2nd to CKD, iron deficiency, malignancy +/- other 6. Relative hypotension, other. Positive orthostatic hypotension 7. Abnormality of albumin 8. Hypercalcemia likely related to malignancy 9. Unspecified Afib 10. Metastatic prostate CA -Renal function tests during admission stable although Cr level may be higher than levels seen early last year, will have to review recent clinic records. UA not too remarkable, spot urine does not show any microalbuminuria. Na and K levels ok. -Pt requires maintenance diuretics given CHF, radiographic and clinical findings. Did raise Bumex dose from home dose to 1 mg TID (pt prev was on Torsemide BID) and avoid Metolazone due to its effects on electrolytes and tendency towards pre-renal states. -Hypoalbuminemia may also be contributing to some 3rd space peripheral edema. Pt with poor appetite per reports and has underlying malignancy with liver masses -UOP not recorded by staff but PVR checked and zero, monitor weights -BP did drop from the systolic teens to < 100 systolic with standing Mon, did place pt on low dose Midodrine to help and monitor. -Pt is quite anemic and that is likely contributing to his weakness, since on ASA and anticoagulation, did check FOBT, some reports of dark stools. Pt is on iron deficiency, did place on IV iron while here, unclear if GI symptoms are related to infusion or other. Anemia of CKD & malignancy certainly may be additionally contributing -Total corrected Ca elevated and likely 2nd to malignancy, iPTH suppressed appropriately. Monitor for now and consider Exgeva as OP if levels trend higher and symptoms are felt to be related. Thank you for this referral, Huber Pisano MD, OTILIA
--- NOTE | 2022-01-01 12:14 | P.CNS ---
Date of Consult: 01/01/22 Reason for Consult: Bilateral pleural effusion and shortness of breath Chief Complaint: Shortness of breath and generalized weakness History of Present Illness: Patient is 68 years of age history obtained from his daughter patient not cooperative notable medical problems history of bladder cancer history of prostatectomy congestive heart failure had a left-sided pleural effusion that has been drained twice in the last month admitted with sudden onset of ge neralized weakness shortness of breath been eating much history of A. fib currently stable agitated last night history of COPD does better with nebulized Brovana patient was seeing a pediatric neurologist in [facility] Allergies magnesium citrate Allergy (Verified 05/20/20 15:37) Anaphylaxis magnesium citrate Allergy (Severe, Uncoded 05/20/20 15:37) Anaphylaxis Home Medications: Pravastatin Sodium [Pravachol] 80 mg PO BEDTIME 09/12/12 Apixaban [Eliquis *] 5 mg PO BID #60 tablet 03/23/14 Fenofibrate [Tricor*] 160 mg PO BEDTIME #30 tab 03/23/14 Amiodarone HCl [Cordarone*] 200 mg PO DAILY 05/20/20 Aspirin 81 mg PO DAILY 05/20/20 Cholecalciferol (Vitamin D3) [Vitamin D3] 5,000 unit PO DAILY 05/20/20 Codeine/APAP [Tylenol #3*] 1 tab PO TIDP PRN 05/20/20 Dicyclomine HCl 20 mg PO DAILY PRN 05/20/20 Docosahexanoic AC/Epa [Fish Oil 1,000 MG*] 1,000 mg PO DAILY 05/20/20 Docusate [Colace Cap*] 200 mg PO DAILY 05/20/20 Esomeprazole Mag Trihydrate [Nexium] 40 mg PO DAILY 05/20/20 Ezetimibe [Zetia*] 10 mg PO BEDTIME 05/20/20 Ferrous Sulfate [Ferrous Sulfate*] 325 mg PO DAILY 05/20/20 Magnesium Oxide [Magnesium] 400 mg PO BEDTIME 05/20/20 Albuterol Neb [Proventil 0.083% Neb Soln] 2.5 mg IN PRN 12/28/21 Bumetanide [Bumex*] 1 mg PO BID 12/28/21 Doxylamine Succinate [Nighttime Sleep-Aid] 25 mg PO BEDTIME 12/28/21 Fluticasone/Salmeterol [Advair Hfa 115-21 Mcg Inhaler] 12 gm IN BID 12/28/21 Lactulose 20 gm PO PRN 12/28/21 Spironolactone [Aldactone*] 25 mg PO DAILY 12/28/21 Tiotropium Hatch [Spiriva] 18 mcg IN DAILY 12/28/21 Arformoterol Tartrate [Brovana] 15 mcg IH PRN 12/29/21 - Past Medical/Surgical History Diabetic: No -: HTN -: GERD -: Prostate Ca -: CHF -: Defibrillator -: CKD followed by Dr. Loya in clinic -: COPD -: Stents x3 -: Hernia repair -: Cholecysectomy -: AAA repair -: Urethral stent placement -: Tonsilectomy - Family History Brother Medical History: Heart disease, Hypertension, Cancer Notes: lung cancer Sister Medical History: Hypertension, Cancer Notes: Lung Mother Medical History: Cancer Notes: Liver Father Medical History: Heart disease, Hypertension - Social History Smoking Status: Current every day smoker Alcohol use: No CD- Drugs: No Caffeine use: Yes Place of Residence: Home Review of Systems is unable to be obtained Physical Examination Temp Pulse Resp BP Pulse Ox 96.9 F 100 H 19 123/66 97 12/31/21 23:55 01/01/22 09:33 01/01/22 06:47 01/01/22 09:33 01/01/22 06:47 General: Unresponsive Respiratory: Clear to auscultation bilaterally, Diminished Cardiovascular: No edema, Irregular heart rate/rhythm Gastrointestinal: Normal bowel sounds, Non-distended Musculoskeletal: No clubbing, No warmth, Swelling Integumentary: No breakdown - Problems (1) Congestive heart failure Current Visit: Yes Status: Acute Plan: Patient is 76 years of age admitted with worsening dyspnea he has congestive heart failure bilateral pleural effusion left-sided pleural effusion was drained twice last month is now recurrent complaining of shortness of breath also has underlying COPD stable renal function history of COPD vital signs oxygenation stable patient is already anticoagulated patient is on bumetanide and spironolactone seen by nephrology negative fluid balance continue with diuresis if no change or worse consider a Pleurx catheter for recurrent refractory pleural effusion history of prostatic cancer the daughter mentioned that he may have metastatic disease Qualifiers: Heart failure type: systolic
[2022-01-01] MEDS ORDERED: MORPHINE 2 MG/ML SYR IV ONE (12:56)
[2022-01-01] MEDS: ATORVASTATIN 10 MG TAB PO SCH (20:34)
[2022-01-01] MEDS: FENOFIBRATE 160 MG TAB PO SCH (20:34)
[2022-01-01] MEDS: EZETIMIBE 10 MG TAB PO SCH (20:34)
[2022-01-01] MEDS: DOXYLAMINE SUCCINATE 25 MG PO SCH (20:35)
[2022-01-01] MEDS: MAGNESIUM OXIDE 400 MG TAB PO SCH (20:35)
--- NOTE | 2022-01-02 06:16 | P.PN ---
Date of Service: 01/02/22 Subjective: continues with some nausea, not vomiting, tolerated sips lower thoracic back pain, couldn't get comfortable over night breathing unchanged feels like he was hallucinating overnight ROS: 10 point ROS as noted above, otherwise negative Physical Exam: Gen: fatigued appearing, uncomfortable appearing HEENT: normal conjunctiva, sclera anicteric CV: irregularly irregular rhythm, 1+ edema to knees bilaterally Pulm: non-labored respirations on 3L NC, diminished at bilateral bases, L>R Abd: soft, non-tender, non-distended Skin: b/l lower extremity venous stasis dermatitis Neuro: moves all extremities vitals reviewed Problem List afib, paroxysmal Systolic CHF, acute on chronic Left pleural effusion, recurrent chronic bilateral pleural effusions ARNOLD on CKD4 h/o prostate cancer with metastasis, large liver lesion elevated LFTs Troponin leak Troponin leak secondary to demand ischemia, afib paroxysmal afib acute on chronic Systolic-CHF h/o ablations continue amio per cardiology on digoxin as well nephrology consulted continue bumex home eliquis; held 01/01 due to dark stool/emesis beta mehul dc'd by cardiology due to low BP BP has been on low end IV albumin as needed for hypotension midodrine started Acute on chronic anemia likely multifactorial low nutrition, CKD, iron deficiency, metastatic disease labs with significant iron deficiency IV iron started 12/31, pt reported nausea/vomiting after received IV iron, may be cause vs coincidence transfuse to maintain hgb > 7.0 denies any penny bleeding reports dark stool - occult negative s/p 2 transfusions, patient and daughter refuse any further nausea/vomiting possibly from IV iron seems to abrupt onset to be 100% due to cancer, but do suspect cancer is a significant contributing factor / effusions CT chest/abd/pelvis - metastatic disease, multiple liver lesions, LAD around colon Bilateral pleural effusions L>R, prior thoracentesis x2 last month, workup and cytology sent, patient and family have not received full results yet will try to get medical records pulm consulted for further input pt with hypoalbuminemia concern for metastasis to lung Dr. Wilson consulted for pleurx catheter, family agreeable VTE: eliquis (home med) held Code: Full Dispo: SNF, ~3-4 days Time Spent Managing Pts Care (In Minutes): 35
[2022-01-02] MEDS ORDERED: SODIUM CHLORIDE 0.9% 20 ML VIAL IV PRN (08:51)
[2022-01-02] MEDS: ENSURE ENLIVE 237 ML CAN PO SCH ×2 (09:00→21:00)
[2022-01-02] MEDS: TIOTROPIUM IH SCH (09:00)
[2022-01-02] MEDS: SOD FERRIC GLUC COMPLX/SUCROSE 125 MG in NA CHLORIDE 0.9% 100 ML IV SCH (09:00)
--- NOTE | 2022-01-02 09:28 | P.PN ---
Nephrology note: (S) Pt had another rough day with nausea, vomiting, back pain, other per daughter at beside. She correlates some of this to IV iron infusion which we discussed would be stopped. She feels his shortness of breath has been better but that he otherwise has declined after initial improvement General: Alert, In no apparent distress, Other (Elderly, pale) HEENT: Atraumatic, Normocephalic, PERRLA Neck: Supple Respiratory: Other (b/l air entry, reduced at bases Lt > Rt), non tachypnec, NC Cardiovascular: Other (Non tachycardic), Edema 1-2+ at extremities, Irregular heart rate/rhythm Gastrointestinal: Soft and benign, Non-distended Musculoskeletal: Swelling, Other (Shins are non tender to palpation) Integumentary: Other (Skin tears, ecchymoses, kerlex wraps applied to several sites) Neurological: Lethargic, curled over in bed, does awaken easily and respond briefly Conclusions/Impression: 1. Abnormal results of kidney function studies 2. CKD IV 3. Acute on chronic systolic CHF 4. Generalized edema, pulmonary edema 5. Anemia severe 2nd to CKD, iron deficiency, malignancy +/- other 6. Relative hypotension, other. Positive orthostatic hypotension 7. Abnormality of albumin 8. Hypercalcemia likely related to malignancy 9. Unspecified Afib 10. Metastatic prostate CA -Renal function tests during admission stable although Cr level may be higher than levels seen early last year, will have to review recent clinic records. UA not too remarkable, spot urine does not show any microalbuminuria. Labs from this AM pending -Pt requires maintenance diuretics given CHF, radiographic and clinical findings. Did raise Bumex dose from home dose to 1 mg TID (pt prev was on Torsemide BID) and avoid Metolazone due to its effects on electrolytes and tendency towards pre-renal states. -Hypoalbuminemia may also be contributing to some 3rd space peripheral edema. Pt with poor appetite per reports and has underlying malignancy with liver masses -BP did drop from the systolic teens to < 100 systolic with standing Mon, did place pt on low dose Midodrine to help and monitor. BP range better. -Pt has been tachy, not on any beta mehul currently but with improved BP, would likely benefit from rate control. -Pt is quite anemic and that is likely contributing to his weakness, since on ASA and anticoagulation, did check FOBT, some reports of dark stools. Pt is on iron deficiency, did place on IV iron while here, but appears to not be tolerating so will stop further infusion. Anemia of CKD & malignancy certainly may be additionally contributing -Total corrected Ca elevated and likely 2nd to malignancy, iPTH suppressed appropriately. Monitor for now and consider Exgeva as OP if levels trend higher and symptoms are felt to be related. Thank you for this referral, Huber Pisano MD, OTILIA
--- NOTE | 2022-01-02 09:36 | RAD REPORT ---
EXAM DESCRIPTION: Chidi Single View01/02/2022 6:29 am CLINICAL HISTORY: Shortness breath COMPARISON: December 31, 2021 FINDINGS: Moderate to large left and small to moderate right pleural effusions unchanged. Left basilar atelectasis. Upper lobes clear Heart is mildly enlarged. Pacemaker leads in place
[2022-01-02] MEDS: DIGOXIN 0.25 MG/ML AMP IV SCH (10:16)
[2022-01-02] MEDS: PANTOPRAZOLE 40 MG INJ IVP SCH ×2 (10:16→20:02)
[2022-01-02] MEDS: SPIRONOLACTONE 25 MG TABLET PO SCH (10:17)
[2022-01-02] MEDS: BUMETANIDE 1 MG TABLET PO SCH ×3 (10:17→17:00)
[2022-01-02] MEDS: ASPIRIN 81 MG CHEWABLE TABLET PO SCH (10:17)
[2022-01-02] MEDS: DOCUSATE NA 100 MG CAP PO SCH (10:17)
[2022-01-02] MEDS: DOCOSAHEXANOIC AC/EPA 1000 MG PO SCH (10:17)
[2022-01-02] MEDS: MIDODRINE HCL 5 MG TABLET PO SCH ×2 (10:18→20:06)
[2022-01-02] MEDS: AMIODARONE HCL 200 MG TAB PO SCH (10:18)
[2022-01-02 13:35] LABS: Absolute Lymphocytes (CBC) 2.3 K/uL (0.7-4.9); Lymphocytes % 8.3 % (15.3-44.8); MCV 89.5 fL (80-100); MPV 8.8 fL (7.6-11.3); RBC Red Blood Cell Count 2.79 M/uL (4.33-5.43)
[2022-01-02 13:50] LABS: Albumin 2.2 g/dL (3.4-5.0); Bilirubin Total 0.8 mg/dL (0.2-1.0); Magnesium 2.6 mg/dL (1.8-2.4); Protein, Total 5.3 g/dL (6.4-8.2)
[2022-01-02 19:24] LABS: Anisocytosis 1+; Blood Morphology Comment NOTED (NOT SEEN); Platelet Estimate ADEQ; Polychromasia 1+
[2022-01-02] MEDS: DOXYLAMINE SUCCINATE 25 MG PO SCH (20:03)
[2022-01-02] MEDS: PIPER TAZO 3.375 GM in NA CHLORIDE 0.9% 100 ML IV SCH (20:03)
[2022-01-02] MEDS: FENOFIBRATE 160 MG TAB PO SCH (20:04)
[2022-01-02] MEDS: EZETIMIBE 10 MG TAB PO SCH (20:05)
[2022-01-02] MEDS: MAGNESIUM OXIDE 400 MG TAB PO SCH (20:05)
[2022-01-02] MEDS: ATORVASTATIN 10 MG TAB PO SCH (20:06)
[2022-01-02] MEDS: CODEINE 30MG/APAP 300MG TAB PO PRN (20:07)
[2022-01-03 05:48] LABS: Absolute Lymphocytes (CBC) 2.2 K/uL (0.7-4.9); Hematocrit 21.5 % (39.6-49.0); Lymphocytes % 11.5 % (15.3-44.8); MCV 91.8 fL (80-100); MPV 8.5 fL (7.6-11.3); RBC Red Blood Cell Count 2.34 M/uL (4.33-5.43)
[2022-01-03 06:05] LABS: Bilirubin Total 0.6 mg/dL (0.2-1.0); Magnesium 2.7 mg/dL (1.8-2.4); Phosphorus 3.9 mg/dL (2.5-4.9); Potassium 4.8 mmol/L (3.5-5.1); Protein, Total 5.1 g/dL (6.4-8.2)
[2022-01-03] MEDS ORDERED: NA CHLORIDE 0.9% 250 ML IV SCH (07:00)
[2022-01-03 07:24] LABS: Blood Morphology Comment NOTED (NOT SEEN); Platelet Estimate ADEQ; Platelets, Giant 1+; Polychromasia SLIGHT
[2022-01-03] MEDS: TIOTROPIUM IH SCH (07:27)
[2022-01-03] MEDS: PANTOPRAZOLE 40 MG INJ IVP SCH ×2 (08:45→20:32)
[2022-01-03] MEDS: PIPER TAZO 3.375 GM in NA CHLORIDE 0.9% 100 ML IV SCH ×2 (08:45→20:32)
[2022-01-03] MEDS: AMIODARONE HCL 200 MG TAB PO SCH (08:46)
[2022-01-03] MEDS: ASPIRIN 81 MG CHEWABLE TABLET PO SCH (08:46)
[2022-01-03] MEDS: DOCOSAHEXANOIC AC/EPA 1000 MG PO SCH (08:46)
[2022-01-03] MEDS: DIGOXIN 0.25 MG/ML AMP IV SCH (08:47)
[2022-01-03] MEDS: MIDODRINE HCL 5 MG TABLET PO SCH ×3 (08:47→20:44)
[2022-01-03] MEDS: DOCUSATE NA 100 MG CAP PO SCH (08:47)
[2022-01-03] MEDS: ENSURE ENLIVE 237 ML CAN PO SCH ×2 (08:48→20:32)
[2022-01-03] MEDS: SPIRONOLACTONE 25 MG TABLET PO SCH (08:54)
[2022-01-03] MEDS: BUMETANIDE 1 MG TABLET PO SCH ×2 (08:55→17:58)
--- NOTE | 2022-01-03 09:04 | RAD REPORT ---
EXAM DESCRIPTION: RAD - Chest Single View - 01/03/2022 5:55 am CLINICAL HISTORY: f/u effusions Chest pain. COMPARISON: Chest Single View dated 01/02/2022; Chest Single View dated 12/31/2021; Chest Single View dated 12/28/2021; Chest Pa And Lat (2 Views) dated 05/22/2020; Chest Abd Pelvis Wo Con dated 12/31/2021 FINDINGS: Portable technique limits examination quality. Moderate to left pleural effusion with underlying atelectasis present, unchanged. Trace right pleural effusion. Cardiac size is incompletely assessed. Multi lead pacer/defibrillator device is present.
--- NOTE | 2022-01-03 11:06 | P.PN ---
Subjective Date of Service: 01/03/22 Chief Complaint: Left-sided pleural effusion No change still complaining of shortness of breath scheduled for a Pleurx catheter Review of Systems General: Weakness Respiratory: Shortness of Breath Physical Examination - Vital Signs Temperature: 98.5 F Blood Pressure: 141/56 Pulse: 93 Respirations: 20 Pulse Ox (%): 96 - Physical Exam General: Alert, Mild distress Respiratory: Diminished (Diminished on the left side) Cardiovascular: No edema, Regular rate/rhythm Assessment And Plan - Current Problems (Diagnosis) (1) Congestive heart failure Current Visit: Yes Status: Acute Plan: Seen by nephrology seems to be adequately diuresed liver function tests and renal function test slightly worse has a history of COPD Qualifiers: Heart failure type: systolic (2) Pleural effusion Current Visit: Yes Status: Acute Plan: Patient has recurrent left-sided pleural effusion s/p thoracentesis x2 we will plan for a Pleurx catheter so has metastatic prostate cancer with liver lesion patient now is anemic scheduled for a transfusion vital signs oxygenation stable an acute drop in his hemoglobin with no bleeding
--- NOTE | 2022-01-03 11:33 | P.PN ---
Nephrology note: (S) Pt lethargic this AM although will awaken and briefly respond, drop in H/H noted, plan for Pleurx catheter noted and discussed with Dr. Coreas. Case discussed with Dr. Shanks General: Alert, In no apparent distress, Other (Elderly, pale) HEENT: Atraumatic, Normocephalic, PERRLA Neck: Supple Respiratory: Other (b/l air entry, reduced at bases Lt > Rt), non tachypnec, NC, poor resp effort Cardiovascular: Other (Non tachycardic), Edema 1+ at extremities, Irregular heart rate/rhythm Gastrointestinal: Soft and benign, Non-distended Musculoskeletal: Swelling, Other (Shins are non tender to palpation) Integumentary: Other (Skin tears, ecchymoses, kerlex wraps applied to several sites) Neurological: Lethargic, does awaken easily and respond briefly, generalized weakness Conclusions/Impression: 1. Abnormal results of kidney function studies 2. Stage II ARNOLD on underlying CKD IV 3. Acute on chronic systolic CHF 4. Generalized edema, pulmonary edema. Pleural effusions not otherwise classified 5. Anemia severe 2nd to CKD, iron deficiency, malignancy +/- other 6. Relative hypotension, other. Positive orthostatic hypotension 7. Abnormality of albumin 8. Hypercalcemia likely related to malignancy 9. Unspecified Afib 10. Metastatic prostate CA -Cr level has risen over the past 48h in the setting of drop back down in Hb counts, diuresis, other. Cont to monitor closely -Pt required maintenance diuretics given CHF, radiographic and clinical findings. In light of above however, will cut back on dose and will lower and/or hold Spironolactone if renal function further worsens or K level trends up. -Plan for pleurx catheter noted, pt started on Zosyn for PNA coverage, CrCl ~ 25 ml/min, if placed on coverage for nosocomial PNA then a higher dose of 3.375 gm IV q6h could be used unless renal function further worsens. -BP holding ok on Midodrine. Will have to see how he does with any larger vol pleural fluid drainage. -Pt has been tachy, not on any beta mehul currently but with improved BP, may benefit from rate control. Amio will need to be reviewed since LFTs/ALP worse. -Pt is quite anemic and that is likely contributing to his weakness, since on ASA and anticoagulation, did check FOBT, some reports of dark stools. Pt is on iron deficiency, did place on IV iron while here, but did not tolerate so did stop further infusion. Anemia of CKD & malignancy certainly may be additionally contributing. Hb < 7 this AM, so agree with 1 unit PRBC -Total corrected Ca elevated and likely 2nd to malignancy, iPTH suppressed appropriately. Monitor for now and consider Exgeva as OP if levels trend higher and symptoms are felt to be related. Huber Pisano MD, OTILIA
[2022-01-03] MEDS ORDERED: LIDOCAINE 1% 20 ML MDV ONE (14:07)
[2022-01-03] MEDS ORDERED: NA CHLORIDE 0.9% 250 ML ONE (14:52)
[2022-01-03] MEDS: CODEINE 30MG/APAP 300MG TAB PO PRN (15:15)
--- NOTE | 2022-01-03 16:09 | RAD REPORT ---
EXAM DESCRIPTION: RAD - Chest Single View - 01/03/2022 3:50 pm CLINICAL HISTORY: Status Post Thorocentesis COMPARISON: Chest Single View dated 01/03/2022; Chest Single View dated 01/02/2022; Chest Single Vie w dated 12/31/2021; Chest Single View dated 2Chest Single View dated 01/03/2022; Chest Single View dated 01/02/2022; Chest Single View dated 12/31/2021; Chest Single View dated 12/28/2021; Chest Ab d Pelvis Wo Con dated 12/31/2021 FINDINGS: Lines: Pacemaker/ICD. Lungs: Diffuse hazy opacities. Pleural: Layering pleural effusions. The left sided pleural effusion is decreased in size. A chest tu be is in place. Cardiac: Cardiomegaly. Mediastinum: Within normal limits. Bones: No acute fractures. Other: None IMPRESSION: Layering bilateral pleural effusions with possible edema The left pleural effusion has d ecreased in size. A chest tube is in place.
--- NOTE | 2022-01-03 16:29 | P.OP ---
Preoperative diagnosis: LEFT recurrent pleural effusion Postoperative diagnosis: LEFT recurrent pleural effusion Primary procedure: Placement of Tunnelled Pleural Catheter - PleurX Anesthesia: 1% lidocaine Estimated blood loss: <1cc Specimen: fluid sent for analysis Findings: clear straw colored fluid, Complications: None Drain(s): Other (Pleur-X catheter) Transferred to: Other (Floor Bed) Condition: Good
--- NOTE | 2022-01-03 17:08 | P.PN ---
Date of Service: 01/03/22 Subjective: continues with some nausea, no vomiting very fatigued, generalized weakness, afebrile breathing unchanged no hallucinations ROS: 10 point ROS as noted above, otherwise negative Physical Exam: Gen: fatigued appearing, uncomfortable appearing HEENT: normal conjunctiva, sclera anicteric CV: irregularly irregular rhythm, 1+ edema to knees bilaterally Pulm: non-labored respirations on 3L NC, diminished at bilateral bases, L>R, rhonchi Abd: soft, non-tender, non-distended Skin: b/l lower extremity venous stasis dermatitis Neuro: moves all extremities vitals reviewed Problem List afib, paroxysmal Systolic CHF, acute on chronic Left pleural effusion, recurrent chronic bilateral pleural effusions ARNOLD on CKD4 h/o prostate cancer with metastasis, large liver lesion elevated LFTs Troponin leak Troponin leak secondary to demand ischemia, afib paroxysmal afib acute on chronic Systolic-CHF h/o ablations metoprolol held on admission due to low BP cardiology recommended to continue amiodarone received digoxin as well LFTs now increasing, BP improved, restart lower dose metoprolol, dc digoxin will discuss with cardiology regarding amiodarone. possible liver toxicity nephrology consulted on bumex, will discuss with nephrology, renal function worsening, likely decrease dose home eliquis; held 01/01 due to dark stool/emesis 1u PRBC ordered 01/03 Acute on chronic anemia likely multifactorial low nutrition, CKD, iron deficiency, metastatic disease labs with significant iron deficiency IV iron started 12/31, pt reported nausea/vomiting after received IV iron, may be cause vs coincidence transfuse to maintain hgb > 7.0 denies any penny bleeding reports dark stool - occult negative s/p 2 iron transfusions, patient and daughter refuse any further 01/03 - 1u PRBC to be given nausea/vomiting likely from IV iron seems to abrupt onset to be 100% due to cancer, but do suspect cancer is a significant contributing factor / effusions CT chest/abd/pelvis - metastatic disease, multiple liver lesions, LAD around colon nausea improved now that he is no longer receiving IV iron Bilateral pleural effusions L>R, prior thoracentesis x2 last month, workup and cytology sent, patient and family have not received full results yet will try to get medical records pulm consulted for further input pt with hypoalbuminemia concern for metastasis to lung Dr. Wilson consulted for pleurx catheter, family agreeable; to be done today leukocytosis developed 01/02 rechecked, as patient was difficult stick and blood draw from very peripheral site cultures, lactate, imaging done empirically started zosyn, renally dosed; cover for possible pneumonia, and intrabdominal etiology WBC improved, lactate <2, cultures pending UA pending possibly from effusion, ?pneumonia pleural effusion to be sent for studies reviewed prognosis discussed hospice will have hospice team come by for informational meeting VTE: mahin (home med) held Code: Full Dispo: SNF possibly, ~3-4 days Time Spent Managing Pts Care (In Minutes): 35
[2022-01-03 17:49] VITALS: BMI 27.3
[2022-01-03] MEDS: METOPROLOL TAR 25 MG TAB PO SCH (17:58)
[2022-01-03] MEDS: ATORVASTATIN 10 MG TAB PO SCH (20:32)
[2022-01-03] MEDS: EZETIMIBE 10 MG TAB PO SCH (20:32)
[2022-01-03] MEDS: MAGNESIUM OXIDE 400 MG TAB PO SCH (20:32)
[2022-01-03] MEDS: DOXYLAMINE SUCCINATE 25 MG PO SCH (20:33)
[2022-01-03] MEDS: FENOFIBRATE 160 MG TAB PO SCH (20:33)
[2022-01-03 20:40] LABS: Hematocrit 23.8 % (39.6-49.0)
[2022-01-03 21:18] LABS: Appearance SLT. TURBID (CLEAR); Body Fluid Source PLEURAL; Color of fluid Pink (COLORLESS)
[2022-01-03 21:19] LABS: Body Fluid WBC 1 /mm^3
[2022-01-04] MEDS: CODEINE 30MG/APAP 300MG TAB PO PRN ×2 (00:32→10:12)
[2022-01-04] MEDS ORDERED: NA CHLORIDE 0.9% 250 ML IV ONE ×2 (02:16→02:17)
--- NOTE | 2022-01-04 04:12 | OP ---
Date of Procedure: 01/03/2022 Surgeon: Elan Wilson MD, Preoperative Diagnosis: Left recurrent pleural effusion. Postoperative Diagnosis: Left recurrent pleural effusion. Procedure Performed: Placement of tunneled left thoracic pleural catheter - PleurX catheter. Anesthesia: 1% lidocaine utilized. Estimated Blood Loss: Specimen: Fluid sent for analysis. Findings: Straw-colored fluid. Complications: None. Drains: PleurX catheter. The patient remained in the floor bed in good condition throughout the procedure. Procedure In Detail: After informed consent was obtained, the patient was prepped and draped in the usual sterile fashion. After adequate anesthesia, 1% lidocaine on the left mid to anterior and axillary line. I anesthetize the area between the fourth and fifth rib spaces with 1% lidocaine including a tract inferior from this area. I made a small arielle incision. Using a finder needle, I then cannulated the thoracic cavity going over the rib. At this point, I encountered fluid. At this point, I removed the inner needle cannula and left the outer sheath in place. Therefore, advancing the wire into the thoracic cavity. I removed the introducer sheath at this point, made a separate st ab incision at the inferior aspect of the area that was previously anesthetized. Using the tunneling device, I brought the PleurX catheter through with the cuff in the midportion and brought out throug h the insertion site. I then using Seldinger technique, introduced the introducer sheath into the th oracic cavity over the rib, removed the wire and advanced a PleurX catheter at this point and removed the introducer sheath. At this point, the catheter was in good anatomic position. I hooked it up t o evacuation system and straw-colored fluid was immediately emanating. I then secured the area at the insertion site using an interrupted 2-0 silk suture in an interrupted fashion with good approximation of tissues. I then cleansed the area once again and placed a sterile dressing over the top. Patient tolerated the procedure well with no evidence of complications and remained on the nasir or bed in acute care setting in good condition throughout the procedure. All counts were correct at the end of case. A stat chest x-ray will be performed. PINKY/GIOVANNI Voice ID: [id number] Report ID: [id number]
[2022-01-04 04:44] LABS: Absolute Lymphocytes (CBC) 1.9 K/uL (0.7-4.9); Hematocrit 23.8 % (39.6-49.0); Lymphocytes % 11.8 % (15.3-44.8); MCV 92.8 fL (80-100); MPV 8.6 fL (7.6-11.3); RBC Red Blood Cell Count 2.56 M/uL (4.33-5.43)
[2022-01-04 04:53] LABS: Albumin 1.8 g/dL (3.4-5.0); Magnesium 2.5 mg/dL (1.8-2.4); Potassium 4.3 mmol/L (3.5-5.1)
[2022-01-04] MEDS: METOPROLOL TAR 25 MG TAB PO SCH ×2 (06:00→17:09)
[2022-01-04] MEDS: BUMETANIDE 1 MG TABLET PO SCH (08:00)
[2022-01-04] MEDS ORDERED: ALBUMIN HUMAN 25% 100 ML IV ONE (08:14)
[2022-01-04] MEDS: ENSURE ENLIVE 237 ML CAN PO SCH ×2 (09:00→21:00)
[2022-01-04] MEDS: DOCOSAHEXANOIC AC/EPA 1000 MG PO SCH ×2 (09:00→10:03)
[2022-01-04] MEDS ORDERED: SPIRONOLACTONE 25 MG TABLET PO SCH (09:00)
[2022-01-04] MEDS: TIOTROPIUM IH SCH (09:00)
--- NOTE | 2022-01-04 09:16 | RAD REPORT ---
EXAM DESCRIPTION: RAD - Abdomen 1 View (KUB) - 01/04/2022 9:09 am CLINICAL HISTORY: constipation, eval stool burden COMPARISON: <Comparisons> FINDINGS: Nonobstructive bowel gas pattern. No acute osseous abnormality.Visualized lungs are unrema rkable.No abnormal calcifications. Aortic stent graft. Surgical changes in the pelvis. Pacemaker. IMPRESSION: Nonobstructive bowel gas pattern. Low formed stool burden.
--- NOTE | 2022-01-04 09:22 | RAD REPORT ---
EXAM DESCRIPTION: RAD - Chest Single View - 01/04/2022 9:09 am CLINICAL HISTORY: rule out pneumothorax COMPARISON: Chest Single View dated 01/04/2022; Chest Single View dated 01/04/2022; Chest Single Vie w dated 01/03/2022; Chest Single View dated 01/03/2022; Chest Abd Pelvis Wo Con dated 12/31/2021 FINDINGS: Lines: Pacemaker/ICD. Lungs: Diffuse prominence of the pulmonary interstitium. Pleural: Left-sided chest tube is partially obscured by the pacemaker. Tiny left apical pneumothorax. Cardiac: Cardiomegaly. Mediastinum: Within normal limits. Bones: No acute fractures. Subcutaneous gas along the left chest wall and left neck. Other: None IMPRESSION: 1. Tiny left apical pneumothorax. Left-sided chest tube in place. 2. Bilateral effusions likely secondary to pulmonary edema.
[2022-01-04] MEDS: PIPER TAZO 3.375 GM in NA CHLORIDE 0.9% 100 ML IV SCH ×2 (10:02→21:27)
[2022-01-04] MEDS: PANTOPRAZOLE 40 MG INJ IVP SCH ×2 (10:02→21:24)
[2022-01-04] MEDS: AMIODARONE HCL 200 MG TAB PO SCH (10:03)
[2022-01-04] MEDS: ASPIRIN 81 MG CHEWABLE TABLET PO SCH (10:03)
[2022-01-04] MEDS: DOCUSATE NA 100 MG CAP PO SCH (10:03)
[2022-01-04] MEDS: MIDODRINE HCL 5 MG TABLET PO SCH ×2 (10:03→21:25)
--- NOTE | 2022-01-04 11:18 | P.PN ---
Subjective Date of Service: 01/04/22 Chief Complaint: Left-sided pleural effusion S/p Pleurx catheter minimal drainage now but eating and drinking much daughter at the bedside Review of Systems General: Weakness Respiratory: Shortness of Breath Physical Examination - Vital Signs Temperature: 97.2 F Blood Pressure: 103/41 Pulse: 80 Respirations: 16 Pulse Ox (%): 90 - Physical Exam General: Alert, Cooperative Respiratory: Clear to auscultation bilaterally, Diminished Cardiovascular: No edema, Abnormal S3 Assessment And Plan - Current Problems (Diagnosis) (1) Congestive heart failure Current Visit: Yes Status: Acute Plan: Seen by nephrology seems to be adequately diuresed liver function tests and renal function test slightly worse has a history of COPD renal function is slightly worse Qualifiers: Heart failure type: systolic (2) Pleural effusion Current Visit: Yes Status: Acute Plan: S/p Pleurx catheter about 2 L was drained chemistries and's and cytology is pending possible metastatic disease also got metastatic disease to the liver discussed with the daughter plan is for hospice care
--- NOTE | 2022-01-04 13:44 | P.PN ---
Date of Service: 01/04/22 Subjective: uncomfortable tired, fatigued intermittently answers s/p pleurx cath placement yesterday; pneumo noted overnight, improved; ~1.7L out from chest tube ROS: 10 point ROS as noted above, otherwise negative Physical Exam: Gen: fatigued appearing, uncomfortable appearing HEENT: normal conjunctiva, sclera anicteric CV: irregularly irregular rhythm, trace-1+ edema to knees bilaterally Pulm: non-labored respirations on 3L NC, diminished at bilateral bases, b/l rhonchi, pleurx to suction Abd: soft, non-tender, non-distended Skin: b/l lower extremity venous stasis dermatitis Neuro: moves all extremities vitals reviewed Problem List afib, paroxysmal Systolic CHF, acute on chronic Left pleural effusion, recurrent chronic bilateral pleural effusions ARNOLD on CKD4 h/o prostate cancer with metastasis, large liver lesion elevated LFTs Troponin leak Troponin leak secondary to demand ischemia, afib paroxysmal afib acute on chronic Systolic-CHF ARNOLD h/o ablations metoprolol held on admission due to low BP cardiology recommended to continue amiodarone received digoxin as well LFTs now increasing, BP improved, restart lower dose metoprolol, dc'd digoxin 01/03 will discuss with cardiology regarding amiodarone. possible liver toxicity nephrology consulted received bumex IV, missed PO doses lately due to nausea/vomiting renal function worsening give albumin, may need some IVF patient refuses calvillo due to prior perforation, and told a stent was placed. daughter unaware if stent re-placed, check bladder scan and PVR home eliquis; held 01/01 due to dark stool/emesis 1u PRBC ordered 01/03 Acute on chronic anemia likely multifactorial low nutrition, CKD, iron deficiency, metastatic disease labs with significant iron deficiency IV iron started 12/31, pt reported nausea/vomiting after received IV iron, may be cause vs coincidence transfuse to maintain hgb > 7.0 denies any penny bleeding; reports dark stool - occult negative s/p 2 iron transfusions, patient and daughter refuse any further 01/03 - 1u PRBC to be given nausea/vomiting likely from IV iron seems to abrupt onset to be 100% due to cancer, but do suspect cancer is a significant contributing factor / effusions CT chest/abd/pelvis - metastatic disease, multiple liver lesions, LAD around colon nausea improved now that he is no longer receiving IV iron Bilateral pleural effusions L>R, prior thoracentesis x2 last month, workup and cytology sent, patient and family have not received full results yet will try to get medical records pulm consulted for further input pt with hypoalbuminemia concern for metastasis to lung Dr. Wilson consulted for pleurx catheter, family agreeable; done 01/03 leukocytosis developed 01/02; improving rechecked, as patient was difficult stick and blood draw from very peripheral site cultures, lactate, imaging done empirically started zosyn, renally dosed; cover for possible pneumonia, and intrabdominal etiology WBC improved, lactate <2, cultures pending UA without bacteria possibly from effusion, ?pneumonia pleural effusion to be sent for studies reviewed prognosis discussed hospice will have hospice team come by for informational meeting VTE: mahin (home med) held Code: Full Dispo: SNF possibly, ~3-4 days Time Spent Managing Pts Care (In Minutes): 35
--- NOTE | 2022-01-04 16:46 | P.PN ---
Nephrology note: (S) Delayed entry note, pt has been seen this AM, pt s/p pleurx tube placement, received 1 unit PRBC yesterday, renal function worse, case discussed in detail with daughter. Discussed that pt would be a poor candidate for HD if his renal function worsened and even if FUEL TECHNICIAN just temp utilized. General: Alert, In no apparent distress, Other (Elderly, pale) HEENT: Atraumatic, Normocephalic, PERRLA Neck: Supple Respiratory: Other (b/l air entry, reduced at bases Lt > Rt), non tachypnec, NC, poor resp effort Cardiovascular: Other (Non tachycardic), Edema 1+ at extremities, Irregular heart rate/rhythm Gastrointestinal: Soft and benign, Non-distended Musculoskeletal: Swelling, Other (Shins are non tender to palpation) Integumentary: Other (Skin tears, ecchymoses, kerlex wraps applied to several sites) Neurological: Lethargic, does awaken easily and respond briefly, generalized weakness Conclusions/Impression: 1. Abnormal results of kidney function studies 2. Stage II ARNOLD on underlying CKD IV 3. Acute on chronic systolic CHF 4. Generalized edema, pulmonary edema. Pleural effusions not otherwise classified 5. Anemia severe 2nd to CKD, iron deficiency, malignancy +/- other 6. Relative hypotension, other. Positive orthostatic hypotension 7. Abnormality of albumin 8. Hypercalcemia likely related to malignancy 9. Unspecified Afib 10. Metastatic prostate CA -Cr level has risen over the past 48h in the setting of drop back down in Hb counts, diuresis, other. Pt is a poor candidate for FUEL TECHNICIAN and HD not emergently required, stopped Tricor and scheduled MgOx. Stopped Spironolactone. -Pt required maintenance diuretics on admission given CHF, radiographic and clinical findings, however in light of above and with larger vol drainage of pleural effusion on the left side, diuretics suspended and pt placed on gentle IVF. -Pt on Zosyn, if CrCl declines further, dose should be lowered -BP softer overnight, received IV albumin this AM, now on NS -Hb remains low, received 1 unit of PRBC. Did not tolerate IV iron -Total corrected Ca elevated and likely 2nd to malignancy, iPTH suppressed appropriately. Monitor for now as < 12 mg/dl and consider Exgeva as OP if levels trend higher and symptoms are felt to be related and continued aggressive medical care is being pursued. -Continued goals of care discussion with daughter and family is starting to consider palliative approach if his condition does not improve. She has not yet met with the hospice educator but has been given information on one hospice provider. Huber Pisano MD, [facility]
[2022-01-04] MEDS ORDERED: NA CHLORIDE 0.9% 1,000 ML IV SCH (17:00)
[2022-01-04] MEDS: ATORVASTATIN 10 MG TAB PO SCH (21:25)
[2022-01-04] MEDS: EZETIMIBE 10 MG TAB PO SCH (21:25)
[2022-01-04] MEDS: DOXYLAMINE SUCCINATE 25 MG PO SCH (21:27)
[2022-01-04] MEDS: ALBUTEROL 2.5 MG/3 ML NEB SOL NEB PRN (21:50)
--- NOTE | 2022-01-04 22:14 | RAD REPORT ---
EXAM DESCRIPTION: RAD - Chest Single View - 01/04/2022 10:03 pm CLINICAL HISTORY: dyspnea COMPARISON: Abdomen 1 View (KUB) dated 01/04/2022; Chest Single View dated 01/04/2022; Chest Single View dated 01/04/2022; Chest Single View dated 01/04/2022; Chest Abd Pelvis Wo Con dated 12/31/2021 FINDINGS: Lines: Pacemaker/ICD. Lungs: Diffuse prominence of the pulmonary interstitium. Basilar opacities. Pleural: Pleural effusions are present bilaterally. This is moderate on the left side. No pneumothora x. Cardiac: Cardiomegaly. Mediastinum: Within normal limits. Bones: No acute fractures. Other: Left chest tube is in place. IMPRESSION: Left-sided chest tube in place. The small left apical pneumothorax is no longer identifi ed. Layering effusions again noted bilaterally and underlying atelectasis.
--- NOTE | 2022-01-04 22:52 | RAD REPORT ---
EXAM DESCRIPTION: US - Renal Ultrasound-Complete - 01/04/2022 10:21 pm CLINICAL HISTORY: ARNOLD, metastatic cancer, eval hydronephrosis, obstr COMPARISON: CT ABDOMEN PELVIS WO CONTRAST dated 03/20/2010; Chest Abd Pelvis Wo Con dated 12/31/2021 FINDINGS: Both kidneys are normal in size, shape and echotexture. The right kidney measures 11.3 cm. Simple right renal cyst measuring 5.8 cm. No hydronephrosis. The left kidney measures 9.4 cm. Hypoechoic left lesion measuring 2.2 cm with increased through trans mission is likely a cyst. No hydronephrosis. The urinary bladder is incompletely distended without gross abnormality seen. IMPRESSION: No evidence of hydronephrosis. Bilateral renal cysts.
[2022-01-05] MEDS: METOPROLOL TAR 25 MG TAB PO SCH ×2 (06:00→17:24)
[2022-01-05] MEDS ORDERED: ALBUMIN HUMAN 25% 100 ML IV ONE (07:16)
[2022-01-05 07:56] LABS: Absolute Lymphocytes (CBC) 1.1 K/uL (0.7-4.9); Hematocrit 23.3 % (39.6-49.0); Lymphocytes % 8.4 % (15.3-44.8); MCV 93.7 fL (80-100); MPV 8.8 fL (7.6-11.3); RBC Red Blood Cell Count 2.49 M/uL (4.33-5.43)
[2022-01-05 07:57] LABS: Albumin 1.7 g/dL (3.4-5.0); Bilirubin Total 0.7 mg/dL (0.2-1.0); Magnesium 2.6 mg/dL (1.8-2.4); Potassium 4.5 mmol/L (3.5-5.1)
[2022-01-05] MEDS: DOCOSAHEXANOIC AC/EPA 1000 MG PO SCH (09:00)
[2022-01-05] MEDS: TIOTROPIUM IH SCH (09:00)
[2022-01-05] MEDS: ENSURE ENLIVE 237 ML CAN PO SCH ×2 (09:00→21:00)
[2022-01-05] MEDS: PANTOPRAZOLE 40 MG INJ IVP SCH ×2 (09:29→21:39)
[2022-01-05] MEDS: DOCUSATE NA 100 MG CAP PO SCH (09:29)
[2022-01-05] MEDS: AMIODARONE HCL 200 MG TAB PO SCH (09:29)
[2022-01-05] MEDS: MIDODRINE HCL 5 MG TABLET PO SCH ×2 (09:29→21:39)
--- NOTE | 2022-01-05 09:33 | RAD REPORT ---
EXAM DESCRIPTION: RAD - Chest Single View - 01/05/2022 9:07 am CLINICAL HISTORY: hypoxia, effusion COMPARISON: Chest Single View dated 01/04/2022; Abdomen 1 View (KUB) dated 01/04/2022; Chest Single View dated 01/04/2022; Chest Single View dated 01/04/2022; Chest Abd Pelvis Wo Con dated 12/31/2021 FINDINGS: Complete whiteout of the left lung likely reflecting a large pleural effusion and underlyi ng atelectasis chest tube is again visualized terminating overlying the left lung base. Small right e ffusion. . IMPRESSION: Whiteout of the left lung may be from collapse as a result of mucous plugging in additio n to the large left pleural effusion. The left chest tube is in similar positioning.
[2022-01-05 09:49] LABS: Platelet Estimate ADEQ
[2022-01-05 09:50] LABS: Anisocytosis SLIGHT; Blood Morphology Comment NOTED (NOT SEEN); Hypochromasia 1+; Poikilocytosis SLIGHT; Polychromasia 1+
[2022-01-05] MEDS: CODEINE 30MG/APAP 300MG TAB PO PRN ×3 (11:23→22:29)
[2022-01-05] MEDS ORDERED: NA CHLORIDE 0.9% 50 ML ONE ×3 (11:35→17:32)
[2022-01-05] MEDS ORDERED: PIPERACIL/TAZO 2.25 GM VIAL IV ONE ×3 (11:36→23:54)
[2022-01-05] MEDS: PIPER TAZO 2.25 GM in NA CHLORIDE 0.9% 50 ML IV SCH ×2 (11:57→17:57)
--- NOTE | 2022-01-05 12:22 | P.PN ---
Nephrology note: (S) O2 requirements higher overnight, CXR earlier had shown white out of left lung field and it appeared pleural chest tube had gotten kinked and was not draining overnight but with adjustment this AM, started draining promptly with f/u CXR showing some improvement. Pt more awake and alert this AM, on goals of care conversation between pt, daughter and earlier with Dr. Shanks they confirm DNR/DNI, no dialysis and plan to speak to systems program manager. General: Alert, In no apparent distress, Other (Elderly, pale) HEENT: Atraumatic, Normocephalic, PERRLA Neck: Supple Respiratory: Other (b/l air entry, reduced at bases Lt > Rt), tachypnec, HFNC, poor resp effort Cardiovascular: Other (Non tachycardic), Edema 1+ at extremities, Irregular heart rate/rhythm, tachy Gastrointestinal: Soft and benign, Non-distended Musculoskeletal: Swelling, Other (Shins are non tender to palpation) Integumentary: Other (Skin tears, ecchymoses, kerlex wraps applied to several sites) Neurological: Less lethargic this AM, respond briefly, generalized weakness Conclusions/Impression: 1. Abnormal results of kidney function studies 2. Stage III ARF on underlying CKD IV 3. Acute on chronic systolic CHF 4. Generalized edema, pulmonary edema. Pleural effusions not otherwise classified 5. Anemia severe 2nd to CKD, iron deficiency, malignancy +/- other 6. Relative hypotension, other. Positive orthostatic hypotension 7. Abnormality of albumin 8. Hypercalcemia likely related to malignancy 9. Unspecified Afib 10. Metastatic prostate CA -Cr level has progressively risen over the past 72h in the setting of drop back down in Hb counts, diuresis, fluid shifts with pleural effusion drainage, other. Pt is a poor candidate for BANK MESSENGER and pt/family agree with no dialysis. Yesterday stopped Tricor and scheduled MgOx. Stopped Spironolactone. -Pt required maintenance diuretics on admission given CHF, radiographic and clinical findings, however in light of above and with larger vol drainage of pleural effusion on the left side, diuretics suspended and pt placed on gentle IVF yesterday, stopped since -Pt on Zosyn, since CrCl declined further, dose adjusted -BP softer with above, has received intermittent Albumin doses. -Hb remains low, received 1 unit of PRBC. Did not tolerate IV iron -Total corrected Ca elevated and likely 2nd to malignancy, iPTH suppressed appropriately. -Agree with plan to transition to comfort measures Huber Pisano MD, [facility]
--- NOTE | 2022-01-05 12:27 | RAD REPORT ---
EXAM DESCRIPTION: RAD - Chest Single View - 01/05/2022 12:16 pm CLINICAL HISTORY: rule out pneumo COMPARISON: Chest Single View dated 01/05/2022; Chest Single View dated 01/04/2022; Abdomen 1 View ( KUB) dated 01/04/2022; Chest Single View dated 01/04/2022 FINDINGS: Significant decrease in size of the left pleural effusion and/or re-expansion of the left upper lobe. No pneumothorax identified. IMPRESSION: Improved aeration of the left lung. No pneumothorax identified.
--- NOTE | 2022-01-05 17:33 | P.PN ---
Date of Service: 01/05/22 Subjective: respiratory distress overnight placed on HFNC CXR this AM near complete white out of left lungs ROS: 10 point ROS as noted above, otherwise negative Physical Exam: Gen: fatigued appearing, uncomfortable appearing HEENT: normal conjunctiva, sclera anicteric CV: irregularly irregular rhythm, trace-1+ edema to knees bilaterally Pulm: Labored respirations on HFNC, diminished at bilateral bases L>R, pleurx to suction with straw colored fluid Abd: soft, non-tender, non-distended Skin: b/l lower extremity venous stasis dermatitis Neuro: moves all extremities vitals reviewed Problem List afib, paroxysmal Systolic CHF, acute on chronic Left pleural effusion, recurrent chronic bilateral pleural effusions ARNOLD on CKD4 h/o prostate cancer with metastasis, large liver lesion elevated LFTs Troponin leak Troponin leak secondary to demand ischemia, afib paroxysmal afib acute on chronic Systolic-CHF ARNOLD h/o ablations metoprolol held on admission due to low BP cardiology recommended to continue amiodarone received digoxin as well LFTs now increasing, BP improved, restart lower dose metoprolol, dc'd digoxin 01/03 LFTs stable nephrology consulted renal function worsening give albumin, may need some further IVF, having lots of chest tube output patient refuses calvillo due to prior perforation, and told a stent was placed. daughter unaware if stent re-placed, check bladder scan and PVR home eliquis; held 01/01 due to dark stool/emesis 1u PRBC ordered 01/03 Acute on chronic anemia likely multifactorial low nutrition, CKD, iron deficiency, metastatic disease labs with significant iron deficiency IV iron started 12/31, pt reported nausea/vomiting after received IV iron, may be cause vs coincidence transfuse to maintain hgb > 7.0 denies any penny bleeding; reports dark stool - occult negative s/p 2 iron transfusions, patient and daughter refuse any further 01/03 - 1u PRBC given nausea/vomiting likely from IV iron seems to abrupt onset to be 100% due to cancer, but do suspect cancer is a significant contributing factor / effusions CT chest/abd/pelvis - metastatic disease, multiple liver lesions, LAD around colon nausea improved now that he is no longer receiving IV iron Bilateral pleural effusions L>R, prior thoracentesis x2 last month, workup and cytology sent, patient and family have not received full results yet pleurx placed by Dr. Wilson on 01/03 significant output s/p albumin pt with hypoalbuminemia concern for metastasis to lung leukocytosis developed 01/02; improving rechecked, as patient was difficult stick and blood draw from very peripheral site cultures, lactate, imaging done - no growth empirically started zosyn, renally dosed; cover for possible pneumonia, and intrabdominal etiology WBC improved, lactate <2, cultures pending UA without bacteria possibly from effusion, ?pneumonia pleural effusion to be sent for studies reviewed prognosis discussed hospice family have changed patient's code status to DNR and will be pursuing hospice manager social media consulted VTE: mahin (home med) held Code: Full Dispo: hospice, NH vs home Time Spent Managing Pts Care (In Minutes): 35
--- NOTE | 2022-01-05 18:24 | P.PN ---
Subjective Date of Service: 01/03/22 Chief Complaint: Left-sided pleural effusion Patient had episode of pneumothorax over the evening, but when PleurX checked and patient repositioned, had improvement of pneumothorax. Physical Examination - Vital Signs Temperature: 98.1 F Blood Pressure: 104/53 Pulse: 85 Respirations: 16 Pulse Ox (%): 98 - Physical Exam General: In no apparent distress, Cooperative, Other (lethargic) Respiratory: Diminished, Other (LEFT pleur-X in place, tidaling well, serous fluid returned in chamber) Assessment And Plan - Current Problems (Diagnosis) (1) Pleural effusion Current Visit: Yes Status: Acute Plan: - continue Pleur-X drainage - daily chest x ray - hospice / palliative care consult pending - continue medical mangement
--- NOTE | 2022-01-05 18:26 | P.PN ---
Subjective Date of Service: 01/05/22 Chief Complaint: Left-sided pleural effusion Patient had episode of increasing effusion, but when PleurX checked and patient repositioned, had improvement of fluid. Physical Examination - Vital Signs Temperature: 98.1 F Blood Pressure: 104/53 Pulse: 85 Respirations: 16 Pulse Ox (%): 98 - Physical Exam General: Alert, In no apparent distress, Cachectic Respiratory: Other (LEFT pleur-X drainaing well - serous fluid - tidaling well, ~ 2000 cc in chamber) Assessment And Plan - Current Problems (Diagnosis) (1) Pleural effusion Current Visit: Yes Status: Acute Plan: - continue Pleur-X drainage - daily chest x ray - hospice / palliative care consult pending - continue medical mangement
[2022-01-05] MEDS: EZETIMIBE 10 MG TAB PO SCH (21:39)
[2022-01-05] MEDS: ATORVASTATIN 10 MG TAB PO SCH (21:40)
[2022-01-05] MEDS: DOXYLAMINE SUCCINATE 25 MG PO SCH (21:40)
[2022-01-06] MEDS ORDERED: NA CHLORIDE 0.9% 50 ML ONE ×2 (00:01→04:59)
[2022-01-06] MEDS ORDERED: PIPERACIL/TAZO 2.25 GM VIAL IV ONE (04:58)
[2022-01-06] MEDS: METOPROLOL TAR 25 MG TAB PO SCH (05:11)
[2022-01-06] MEDS: PIPER TAZO 2.25 GM in NA CHLORIDE 0.9% 50 ML IV SCH ×3 (05:12)
[2022-01-06 05:30] LABS: Absolute Lymphocytes (CBC) 1.2 K/uL (0.7-4.9); Lymphocytes % 10.1 % (15.3-44.8); MCV 92.9 fL (80-100); MPV 8.8 fL (7.6-11.3); RBC Red Blood Cell Count 2.69 M/uL (4.33-5.43)
[2022-01-06 05:43] LABS: Albumin 1.8 g/dL (3.4-5.0); Bilirubin Total 0.7 mg/dL (0.2-1.0); Magnesium 2.7 mg/dL (1.8-2.4); Potassium 4.4 mmol/L (3.5-5.1); Protein, Total 5.3 g/dL (6.4-8.2)
[2022-01-06] MEDS: CODEINE 30MG/APAP 300MG TAB PO PRN (06:41)
--- NOTE | 2022-01-06 07:39 | RAD REPORT ---
EXAM DESCRIPTION: Chidi Single View01/06/2022 6:40 am CLINICAL HISTORY: Chest pain COMPARISON: January 06 FINDINGS: Left lower lobe atelectasis. Small to moderate bilateral pleural effusions suspected. Mild bibasilar lung opacities. Heart remains enlarged. Pacemaker leads in place
[2022-01-06] MEDS ORDERED: PIPER TAZO 3.375 GM in NA CHLORIDE 0.9% 100 ML IV SCH (09:00)
[2022-01-06] MEDS: TIOTROPIUM IH SCH (09:00)
[2022-01-06] MEDS: PANTOPRAZOLE 40 MG INJ IVP SCH (09:08)
[2022-01-06] MEDS: MIDODRINE HCL 5 MG TABLET PO SCH (09:09)
[2022-01-06] MEDS: DOCUSATE NA 100 MG CAP PO SCH (09:09)
[2022-01-06] MEDS: DOCOSAHEXANOIC AC/EPA 1000 MG PO SCH (09:09)
[2022-01-06] MEDS: ASPIRIN 81 MG CHEWABLE TABLET PO SCH (09:09)
[2022-01-06] MEDS: AMIODARONE HCL 200 MG TAB PO SCH (09:21)
[2022-01-06] MEDS: ENSURE ENLIVE 237 ML CAN PO SCH (09:22)
--- NOTE | 2022-01-06 10:38 | RAD REPORT ---
EXAM DESCRIPTION: RAD - Chest Single View - 01/04/2022 2:37 am CLINICAL HISTORY: 76 years, Male, Eval for possible pneumothorax COMPARISON: 01/04/2022 performed at 1:40 AM FINDINGS: Single view of the chest was obtained portable. Prior films were compared. In comparison w ith prior study there has been resorption of the previous described pneumothorax. Pleurx catheter kenny inage in place. Remains the presence of a minimal linear left sided subcutaneous emphysema. There has been almost complete resorption of the previous described left pleural effusion. The heart is promin ent. The thoracic aorta demonstrate intimal calcification. Again there is a multilead pacemaker in pl jemma. Right lung suggesting minimal opacification suggesting trace of right pleural effusion. The rest of the soft tissue and bony structures demonstrate to be unremarkable. IMPRESSION: Pleurx catheter drainage in place on the left. Almost complete resorption of the previou s described left pleural effusion. Electronically signed by: Meet Riojas MD 01/04/2022 3:07 AM EXTERMINATOR Due to temporary technical issues with the PACS/Fluency reporting system, reports are being signed by the in house radiologists without review as a courtesy to insure prompt reporting. The interpreting radiologist is fully responsible for the content of the report.
--- NOTE | 2022-01-06 10:39 | RAD REPORT ---
EXAM DESCRIPTION: RAD - Chest Single View - 01/04/2022 1:56 am ADDENDUM #1 THIS REPORT CONTAINS FINDINGS THAT MAY BE CRITICAL TO PATIENT CARE: Called, telephoned, verbal repo rt was given oral to Carlos Ross at 3:05 AM CHURCH COMMUNICATIONS ADMINISTRATOR on 01/04/2022. Electronically signed by: Meet Riojas MD 01/04/2022 9:39 PM [employer] COMMUNICATIONS ADMINISTRATOR End of Addendum EXAM DESCRIPTION: Chest Single View 01/04/2022 2:41 AM CHURCH COMMUNICATIONS ADMINISTRATOR CLINICAL HISTORY: 76 years, Male, Short of breath, tachypnea COMPARISON: Only report are available for comparison. FINDINGS: Single view of the chest was obtained portable. No prior films are available for compariso n. The heart is prominent. Again there is a dual-lead pacemaker defibrillator. There is a left side P leurx catheter with a with perhaps residual trace of left pleural effusion. There is a small right pl eural effusion. The heart is enlarged. There is intimal aortic arch calcification. There is a small l eft chest wall subcutaneous emphysema tracking into the left neck. There is a small left apical pneum othorax measuring approximately 2.9 cm from the visceral to parietal pleural on the left lung apex. T he rest of the soft tissue and bony structures demonstrate to be unremarkable. IMPRESSION: Small left apical pneumothorax. Small right pleural effusion. Cardiomegaly. Pacemaker defibrillator in place. Small left chest wall subcutaneous emphysema. Electronically signed by: Meet Riojas MD 01/04/2022 2:46 AM CH[employer] COMMUNICATIONS ADMINISTRATOR Due to temporary technical issues with the PACS/Fluency reporting system, reports are being signed by the in house radiologists without review as a courtesy to insure prompt reporting. The interpreting radiologist is fully responsible for the content of the report.
--- NOTE | 2022-01-06 12:39 | P.PN ---
Subjective Date of Service: 01/06/22 Chief Complaint: Left-sided pleural effusion Patient is not doing well altered mental status significant output from the chest tube respiratory failure very hypoxic Review of Systems is unable to be obtained Physical Examination - Vital Signs Temperature: 97.5 F Blood Pressure: 137/61 Pulse: 88 Respirations: 20 Pulse Ox (%): 98 - Physical Exam General: Unresponsive Respiratory: Diminished (Diminished on the left side) Cardiovascular: Regular rate/rhythm, Edema Assessment And Plan - Current Problems (Diagnosis) (1) Congestive heart failure Current Visit: Yes Status: Acute Plan: Seen by nephrology seems to be adequately diuresed liver function tests and renal function test slightly worse has a history of COPD renal function is slightly worse Qualifiers: Heart failure type: systolic (2) Pleural effusion Current Visit: Yes Status: Acute Plan: Patient still has significant drainage multiorgan failure also has respiratory failure hypoxemia overall prognosis is very poor he has significant drainage from the chest tube agree with hospice care pleurodesis is not warranted as he has significant drainages not can work Pleurx catheter eventually because pleurodesis hemoglobin stable
[2022-01-06 15:54] VITALS: O2SAT 90
--- NOTE | 2022-01-06 16:25 | P.DS ---
Admission Date: 12/28/21 Discharge Date: 01/06/22 Disposition: ROUTINE DISCHARGE Reason for Admission: Left-sided pleural effusion Vital Signs/Physical Exam: Temp Pulse Resp BP Pulse Ox 97.5 F 88 20 137/61 98 01/06/22 12:39 01/06/22 12:39 01/06/22 12:39 01/06/22 12:39 01/06/22 12:39 Laboratory Data at Discharge: WBC 11.90 K/uL (4.3-10.9) H 01/06/22 05:15 Hgb 8.0 g/dL (13.6-17.9) L D 01/06/22 05:15 Hct 25.0 % (39.6-49.0) L 01/06/22 05:15 Plt Count 217 K/uL (152-406) 01/06/22 05:15 PT 17.4 SECONDS (9.5-12.5) H 01/01/22 10:45 INR 1.58 01/01/22 10:45 Sodium 138 mmol/L (136-145) 01/06/22 05:15 Potassium 4.4 mmol/L (3.5-5.1) 01/06/22 05:15 BUN 91 mg/dL (7-18) H 01/06/22 05:15 Creatinine 4.34 mg/dL (0.55-1.3) H 01/06/22 05:15 Glucose 95 mg/dL (74-106) 01/06/22 05:15 Phosphorus 3.9 mg/dL (2.5-4.9) 01/03/22 05:39 Magnesium 2.7 mg/dL (1.8-2.4) H 01/06/22 05:15 Total Bilirubin 0.7 mg/dL (0.2-1.0) 01/06/22 05:15 AST 170 U/L (15-37) H 01/06/22 05:15 ALT 82 U/L (12-78) H 01/06/22 05:15 Alkaline Phosphatase 37 U/L (45-117) L 01/06/22 05:15 Triglycerides 77 mg/dL (<150) 12/29/21 03:13 Cholesterol Cancelled 01/03/22 11:01 HDL Cholesterol 18 mg/dL (40-60) L 12/29/21 03:13 Cholesterol/HDL Ratio 2.78 12/29/21 03:13 Home Medications: Pravastatin Sodium [Pravachol] 80 mg PO BEDTIME 09/12/12 Apixaban [Eliquis *] 5 mg PO BID #60 tablet 03/23/14 Fenofibrate [Tricor*] 160 mg PO BEDTIME #30 tab 03/23/14 Amiodarone HCl [Cordarone*] 200 mg PO DAILY 05/20/20 Aspirin 81 mg PO DAILY 05/20/20 Cholecalciferol (Vitamin D3) [Vitamin D3] 5,000 unit PO DAILY 05/20/20 Codeine/APAP [Tylenol #3*] 1 tab PO TIDP PRN 05/20/20 Dicyclomine HCl 20 mg PO DAILY PRN 05/20/20 Docosahexanoic AC/Epa [Fish Oil 1,000 MG*] 1,000 mg PO DAILY 05/20/20 Docusate [Colace Cap*] 200 mg PO DAILY 05/20/20 Esomeprazole Mag Trihydrate [Nexium] 40 mg PO DAILY 05/20/20 Ezetimibe [Zetia*] 10 mg PO BEDTIME 05/20/20 Ferrous Sulfate [Ferrous Sulfate*] 325 mg PO DAILY 05/20/20 Magnesium Oxide [Magnesium] 400 mg PO BEDTIME 05/20/20 Albuterol Neb [Proventil 0.083% Neb Soln] 2.5 mg IN PRN 12/28/21 Bumetanide [Bumex*] 1 mg PO BID 12/28/21 Doxylamine Succinate [Nighttime Sleep-Aid] 25 mg PO BEDTIME 12/28/21 Fluticasone/Salmeterol [Advair Hfa 115-21 Mcg Inhaler] 12 gm IN BID 12/28/21 Lactulose 20 gm PO PRN 12/28/21 Spironolactone [Aldactone*] 25 mg PO DAILY 12/28/21 Tiotropium Eleele [Spiriva] 18 mcg IN DAILY 12/28/21 Arformoterol Tartrate [Brovana] 15 mcg IH PRN 12/29/21 Followup: Tuan Loya DO [Primary Care Provider] - Elan Wilson MD [ACTIVE - CAN ADMIT] -
[2022-01-06 17:31] VITALS: BP 132/52; TEMP 97.8
[2022-01-07 20:44] LABS: LD, PLEURAL FLUID 33 U/L; TOTAL PROTEIN, PLEURAL FLUID <3.0 g/dL
== END 2022-01-06 18:03 | disposition hospice, home (50) | DRG 291 ==
LOC: ER 11:27 → ERHOLD 16:29 → 2ND 17:38
PROVIDERS: ADMIT Internal Medicine; ATTEND Hospitalist
PROC: 02HV33Z Insertion of Infusion Device into Superior Vena Cava, Percutaneous Approach (ICD-10-PCS; 2022-01-02)
PROC: 0W9B30Z Drainage of Left Pleural Cavity with Drainage Device, Percutaneous Approach (ICD-10-PCS; 2022-01-03)
PROC: 5A09457 Assistance with Respiratory Ventilation, 24-96 Consecutive Hours, Continuous Positive Airway Pressure (ICD-10-PCS; principal; 2022-01-05)
DX: I50.23 Acute on chronic systolic (congestive) heart failure (principal); J96.91 Respiratory failure, unspecified with hypoxia; E44.0 Moderate protein-calorie malnutrition; N18.4 Chronic kidney disease, stage 4 (severe); I24.8 Other forms of acute ischemic heart disease; N17.9 Acute kidney failure, unspecified; C78.7 Secondary malignant neoplasm of liver and intrahepatic bile duct; J93.9 Pneumothorax, unspecified; R64 Cachexia; I48.0 Paroxysmal atrial fibrillation; D63.1 Anemia in chronic kidney disease; K21.9 Gastro-esophageal reflux disease without esophagitis; I95.1 Orthostatic hypotension; E88.09 Other disorders of plasma-protein metabolism, not elsewhere classified; E83.52 Hypercalcemia; I87.2 Venous insufficiency (chronic) (peripheral); D50.9 Iron deficiency anemia, unspecified; J44.9 Chronic obstructive pulmonary disease, unspecified; M54.6 Pain in thoracic spine; I25.10 Atherosclerotic heart disease of native coronary artery without angina pectoris; D72.829 Elevated white blood cell count, unspecified; I25.2 Old myocardial infarction; F17.210 Nicotine dependence, cigarettes, uncomplicated; R94.4 Abnormal results of kidney function studies; Z66 Do not resuscitate; Z68.27 Body mass index [BMI] 27.0-27.9, adult; Z85.46 Personal history of malignant neoplasm of prostate; Z79.01 Long term (current) use of anticoagulants; Z79.82 Long term (current) use of aspirin; Z79.02 Long term (current) use of antithrombotics/antiplatelets; Z79.52 Long term (current) use of systemic steroids; Z90.49 Acquired absence of other specified parts of digestive tract; Z79.899 Other long term (current) drug therapy; Z95.810 Presence of automatic (implantable) cardiac defibrillator; Z20.822 Contact with and (suspected) exposure to COVID-19
CPT/HCPCS: 36415; 36430; 71045; 71250; 74018; 74176; 76770; 80048; 80053; 80061; 81001; 82043; 82140; 82274; 82306; 82570; 82945; 83540; 83605; 83615; 83735; 83880; 83970; 84100; 84157; 84311; 84466; 84484; 85014; 85018; 85025; 85027; 85610; 86850; 86900; 86901; 87015; 87040; 87070; 87102; 87116; 87205; 87206; 87811; 88108; 88305; 89050; 93005; 93306; 94002; 94003; 94640; 94760; 96374; 97161; 97530; 99285; C9113; J1160; J1940; J2270; J2405; J2543; J2550; J2916; J7030; J7050; J7605; P9016; P9047